=== PATIENT | female | born 1935 | race Caucasian/White ===

== ENCOUNTER → 2023-05-25 14:52 | Outpatient (REF) | payer MEDICARE, OTHER, SELFPAY | LOC: REG 14:52 | PROVIDERS: ATTENDING PHYSICIAN Internal Medicine Infectious Disease; FAMILY PHYSICIAN Family Medicine | DX: R78.81 Bacteremia (principal) | CPT/HCPCS: 36415; 87040 ==

== ENCOUNTER → 2023-06-10 11:32 | Outpatient (REF) | payer MEDICARE, OTHER, SELFPAY ==
[2023-06-10 12:24] LABS: % Basophils 0.4 % (0-2); % Eosinophils 2.5 % (0-6); % Immature Granulocytes 5.8 % (0-0.5); % Lymphocytes 62.2 % (20.5-51.1); % Monocytes 7.2 % (1.7-9.3); % Neutrophils 21.9 % (42.2-75.2); Absolute Eosinophils 0.1 10^3/uL (0-0.7); Absolute Immature Granulocytes 0.3 10^3/uL (0-0.05); Absolute Lymphocytes 3.5 10^3/uL (1.2-3.4); Absolute Monocytes 0.4 10^3/uL (0.1-0.6); Absolute Neutrophils 1.2 10^3/uL (1.4-6.5); Hematocrit 41.7 % (37.0-47.0); Hemoglobin 13.8 g/dL (12.0-16.0); Mean Corp Hgb Conc. 33.1 g/dL (33.0-37.0); Mean Corpuscular Hgb 31.4 pg (27.0-31.0); Mean Corpuscular Volume 94.8 fL (81.0-99.0); Mean Platelet Volume 11.4 fL (7.4-10.4); Nucleated Red Blood Cells % 0 %; Platelet Count 169 10^3/uL (130-400); Red Cell Dist. Width 14.1 % (11.5-14.5); White Blood Cell Count 5.6 10^3/uL (4.8-10.8)
[2023-06-10 12:55] LABS: ALT (SGPT) 13 U/L (0-35); AST (SGOT) 25 U/L (14-36); Albumin 3.8 g/dl (3.5-5.0); Alkaline Phosphatase 102 U/L (38-126); Blood Urea Nitrogen 21 mg/dl (7-17); Calcium 9.4 mg/dl (8.4-10.2); Carbon Dioxide 29 mmol/L (22-30); Chloride 100 mmol/L (98-107); Glucose 139 mg/dl (70-99); HDL Cholesterol 63 mg/dl; LDL Cholesterol, Calculated 84 mg/dl; Potassium 3.9 mmol/L (3.5-5.1); Sodium 138 mmol/L (135-145); Total Bilirubin 0.8 mg/dl (0.2-1.3); Total Cholesterol 165 mg/dl (50-199); Total Protein 6.8 g/dl (6.3-8.2); Triglyceride 94 mg/dl (10-149); Very Low Density Lipoprotein 18 mg/dl (0-30); eGFR 54.87
[2023-06-10 13:24] LABS: TSH Reflex To Free T4 4.63 uIU/ml (0.47-4.68)
== END ==
LOC: REG 11:32
PROVIDERS: ATTENDING PHYSICIAN Family Medicine
DX: E03.9 Hypothyroidism, unspecified (principal); E78.00 Pure hypercholesterolemia, unspecified; E11.21 Type 2 diabetes mellitus with diabetic nephropathy; N18.31 Chronic kidney disease, stage 3a; D68.69 Other thrombophilia
CPT/HCPCS: 36415; 80053; 80061; 84443; 85025

== ENCOUNTER → 2023-08-02 12:59 | Outpatient (REF) | payer MEDICARE, OTHER, SELFPAY | LOC: RAD 12:59 | PROVIDERS: ATTENDING PHYSICIAN Physician Assistant; FAMILY PHYSICIAN Family Medicine | DX: I65.23 Occlusion and stenosis of bilateral carotid arteries (principal) | CPT/HCPCS: 93880 ==

== ENCOUNTER 2023-12-09 15:12 | Emergency (ER) | payer MEDICARE, OTHER, SELFPAY ==
[2023-12-09 15:19] VITALS: BP 140/58
[2023-12-09 15:38] LABS: % Basophils 0.2 % (0-2); % Eosinophils 3.5 % (0-6); % Immature Granulocytes 0.7 % (0-0.5); % Lymphocytes 45.6 % (20.5-51.1); % Monocytes 11.6 % (1.7-9.3); % Neutrophils 38.4 % (42.2-75.2); Absolute Eosinophils 0.2 10^3/uL (0-0.7); Absolute Lymphocytes 1.9 10^3/uL (1.2-3.4); Absolute Monocytes 0.5 10^3/uL (0.1-0.6); Absolute Neutrophils 1.6 10^3/uL (1.4-6.5); Hematocrit 35.9 % (37.0-47.0); Hemoglobin 11.9 g/dL (12.0-16.0); Mean Corp Hgb Conc. 33.1 g/dL (33.0-37.0); Mean Corpuscular Hgb 29.4 pg (27.0-31.0); Mean Corpuscular Volume 88.6 fL (81.0-99.0); Mean Platelet Volume 12.2 fL (7.4-10.4); Nucleated Red Blood Cells % 0 %; Platelet Count 145 10^3/uL (130-400); Red Blood Cell Count 4.05 10^6/uL (4.20-5.40); Red Cell Dist. Width 15.7 % (11.5-14.5); White Blood Cell Count 4.2 10^3/uL (4.8-10.8)
[2023-12-09 15:58] LABS: ALT (SGPT) 23 U/L (0-35); AST (SGOT) 45 U/L (14-36); Albumin 4.3 g/dl (3.5-5.0); Alkaline Phosphatase 108 U/L (38-126); Blood Urea Nitrogen 39 mg/dl (7-17); Calcium 9.1 mg/dl (8.4-10.2); Carbon Dioxide 33 mmol/L (22-30); Chloride 92 mmol/L (98-107); Glucose 143 mg/dl (70-99); Potassium 2.9 mmol/L (3.5-5.1); Sodium 137 mmol/L (135-145); Total Bilirubin 1.2 mg/dl (0.2-1.3); Total Protein 7.3 g/dl (6.3-8.2); eGFR 36.41
[2023-12-09 17:31] VITALS: BP 120/64
--- NOTE | 2023-12-09 17:32 | ED.GENMED ---
History of Present Illness
General
Chief Complaint: Abnormal Lab Value
Source: patient
Exam Limitations: none
Time Seen by Provider: 12/09/23 17:12
History of Present Illness
History of Present Illness:
88 year old female with history of CHF presents in referral from family doctor's office after being told outpatient labs demonstrated low potassium. She was volume overloaded last week and the family doctor added 5 mg of metaxalone daily. She
typically takes 120 mg of Lasix in the morning and 80 of Lasix in the evening. She states her fluid retention is much improved she has been feeling well without shortness of breath. She occasionally notes some lightheadedness when she stands more
recently. She was able to sleep comfortably last night. She was told her potassium as an outpatient was 2.6 and was referred here for evaluation. No other complaints at this time
Past History
Past History
ED Past Medical History: Cancer (Breast), HTN and Hypercholesterolemia
ED Past Surgical History: Cardiac and Other
Social History
Tobacco: Non-smoker
Alcohol: None
Drug: None
Living: with family
Employment: Retired
Phy Exam
Physical Exam
Physical Exam:
General: Well-appearing female no acute respiratory distress
HEENT: Normal cephalic atraumatic
Heart: Regular rate and rhythm
Lungs: Clear no wheeze
Abdomen is soft nontender
Extremities: No cyanosis or edema
Course
Orders/Labs/Results
Orders:
Orders
12/09/23 15:29
CBC/With Diff [Complete Blood Count/With Diff] Urgent
CMP [Comprehensive Metabolic Panel] Urgent
12/09/23 17:37
Potassium Chloride [KCl] 40 meq PO NOW STA
Abnormal Lab Results
12/09/23
15:29
WBC 4.2 L 10^3/uL
(4.8-10.8)
RBC 4.05 L 10^6/uL
(4.20-5.40)
Hgb 11.9 L g/dL
(12.0-16.0)
Hct 35.9 L %
(37.0-47.0)
RDW 15.7 H %
(11.5-14.5)
MPV 12.2 H fL
(7.4-10.4)
Immature Gran % 0.7 H %
(0-0.5)
Neutrophils % 38.4 L %
(42.2-75.2)
Monocytes % 11.6 H %
(1.7-9.3)
Potassium 2.9 L mmol/L
(3.5-5.1)
Chloride 92 L mmol/L
(98-107)
Carbon Dioxide 33 H mmol/L
(22-30)
BUN 39 H mg/dl
(7-17)
Creatinine 1.4 H mg/dL
(0.6-1.0)
Glucose 143 H mg/dl
(70-99)
AST 45 H U/L
(14-36)
12/09/23 15:29
12/09/23 15:29
Vital Signs
Initial and Last Documented VS:
Initial Vital Signs
Temp Pulse Resp BP Pulse Ox
97.8 F 54 18 140/58 96
12/09/23 15:19 12/09/23 15:19 12/09/23 15:19 12/09/23 15:19 12/09/23 15:19
Last Documented Vital Signs
Temp Pulse Resp BP Pulse Ox
97.8 F 52 18 120/64 97
12/09/23 15:19 12/09/23 17:31 12/09/23 17:31 12/09/23 17:31 12/09/23 17:31
*Critical Care Note
Total Time (30-74mins, 75-104mins- exclusive of procedures): Not Applicable
Update Note
Update Note:
Patient was given 40 mill equivalents of oral potassium here. She was advised to stop the metaxalone. She will continue 20 meq of potassium twice a day and recheck blood work next week
ED Attending Note
-
Portions of this chart may have been created with voice recognition software.� Occasional wrong word or��sound alike� substitutions may have occurred due to the inherent limitations of voice recognition software.
Discharge Plan
Departure
Patient Disposition: Home (Routine Discharge)
Date of Disposition: 12/09/23
Time of Disposition: 18:42
Patient with high blood pressure during this ER visit?: No
Discharge Problem:
Hypokalemia
Instructions: Hypokalemia
Prescriptions:
New
potassium chloride 20 mEq tablet extended release
20 meq PO BID Qty: 10 0RF
No Action
atorvastatin 10 MG tablet
10 mg PO QPM
levothyroxine 125 MCG tablet
125 mcg PO MOTUWETHFRSA
felodipine 10 MG tablet extended release 24 hr
10 mg PO QPM
Eliquis 5 MG tablet
5 mg PO BID Qty: 60 11RF
amiodarone [Pacerone] 200 MG tablet
200 mg PO QPM
metoprolol succinate 25 MG tablet extended release 24 hr
25 mg PO QPM
furosemide [Lasix] 80 mg Tablet
80 mg PO BID
potassium chloride 20 mEq Tablet Extended Release
20 meq PO BID
acetaminophen [Tylenol] 325 mg Tablet
650 mg PO Q6H PRN (Reason: mild pain)
Emetrol Solution
15 ml PO DAILYPRN PRN (Reason: nausea)
ceftriaxone 1 gram Recon Soln
1,000 mg IV DAILY@1200 Qty: 0 0RF
Referrals:
Laith Rojas MD [Family Provider] -
Activity Restrictions/Additional Instructions:
Stop the new diuretic. Take 20 mill equivalents of potassium twice a day. Recheck labs early next week with family doctor. Return if needed other
Discharge Date and Time
Print Language: ALBANIAN
[2023-12-09] MEDS: KCL 40 MEQ PO (17:46)
[2023-12-09 18:50] VITALS: BP 130/70
== END 2023-12-09 18:59 | disposition home or self-care (01) ==
LOC: EMR 15:12
PROVIDERS: EMERGENCY PHYSICIAN Emergency Medicine; FAMILY PHYSICIAN Family Medicine
DX: R42 Dizziness and giddiness (principal); E87.6 Hypokalemia; I11.0 Hypertensive heart disease with heart failure; I50.9 Heart failure, unspecified; E78.00 Pure hypercholesterolemia, unspecified; Z85.3 Personal history of malignant neoplasm of breast; Z79.01 Long term (current) use of anticoagulants; Z88.6 Allergy status to analgesic agent; Z88.2 Allergy status to sulfonamides; Z88.8 Allergy status to other drugs, medicaments and biological substances
CPT/HCPCS: 99283; 80053; 85025

== ENCOUNTER 2023-12-19 06:24 | Inpatient (IN) | payer MEDICARE, OTHER, SELFPAY ==
[2023-12-19] VITALS (10 sets, daily range): BP systolic 109–149; BP diastolic 52–97; PULSE 53; O2SAT 97; BMI 50.5; BMI 50.2; BMI 49.5
[2023-12-19 04:12] LABS: % Basophils 0.2 % (0-2); % Immature Granulocytes 0.6 % (0-0.5); % Lymphocytes 48.5 % (20.5-51.1); % Monocytes 8.3 % (1.7-9.3); % Neutrophils 36.4 % (42.2-75.2); Absolute Eosinophils 0.3 10^3/uL (0-0.7); Absolute Lymphocytes 2.3 10^3/uL (1.2-3.4); Absolute Monocytes 0.4 10^3/uL (0.1-0.6); Absolute Neutrophils 1.8 10^3/uL (1.4-6.5); Hematocrit 34.1 % (37.0-47.0); Hemoglobin 11.4 g/dL (12.0-16.0); Mean Corp Hgb Conc. 33.4 g/dL (33.0-37.0); Mean Corpuscular Hgb 28.6 pg (27.0-31.0); Mean Corpuscular Volume 85.7 fL (81.0-99.0); Mean Platelet Volume 12.8 fL (7.4-10.4); Nucleated Red Blood Cells % 0 %; Platelet Count 132 10^3/uL (130-400); Red Blood Cell Count 3.98 10^6/uL (4.20-5.40); Red Cell Dist. Width 15.9 % (11.5-14.5); White Blood Cell Count 4.8 10^3/uL (4.8-10.8)
[2023-12-19 04:39] LABS: NT-proBNP 3190 pg/ml; Troponin I < 0.012 ng/ml
[2023-12-19 04:58] LABS: ALT (SGPT) 25 U/L (0-35); AST (SGOT) 41 U/L (14-36); Albumin 4.2 g/dl (3.5-5.0); Alkaline Phosphatase 118 U/L (38-126); Blood Urea Nitrogen 38 mg/dl (7-17); Calcium 9.7 mg/dl (8.4-10.2); Carbon Dioxide 23 mmol/L (22-30); Chloride 100 mmol/L (98-107); Estimated Creatinine Clearance 36 ml/min; Glucose 141 mg/dl (70-99); Potassium 4.8 mmol/L (3.5-5.1); Sodium 139 mmol/L (135-145); Total Bilirubin 1.5 mg/dl (0.2-1.3); Total Protein 7.1 g/dl (6.3-8.2); eGFR 36.41
--- NOTE | 2023-12-19 05:40 | ED.GENMED ---
History of Present Illness
General
Chief Complaint: Weakness
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
Exam Limitations: none
Time Seen by Provider: 12/19/23 05:34
Nursing documentation reviewed up to this point in time: agreed with
History of Present Illness
History of Present Illness:
This is an 88-year-old woman who resides at home with family. She has history of hypertension, spinal stenosis, hyperlipidemia, carotid stenosis, A-fib chronically maintained on Eliquis, sick sinus syndrome status post pacemaker, CHF, morbid
obesity. Previously hospitalized April of this year for exacerbation of CHF with hypoxia and also found to have strep bacteremia at that time. Chronically maintained on Lasix 120 mg in the a.m., 80 mg in the evening.
Last evaluated in this ED December 08 when she was sent to the ED due to concern for outpatient labs that showed significant hypokalemia at 2.6. Hypokalemia thought to be related to increase in diuretic, family physician had added 5 mg of metolazone
daily the week prior due to fluid overload. Repeat potassium in the ED was 2.9. She was given 40 of potassium orally, discharged to home and recommended to increase her dose of potassium 20 mg from once a day to twice a day. She was also
recommended to stop the Metolazone.
Follow-up blood work this past mid week she states she got a call from her primary care physician's office on Wednesday stating potassium was still low and to increase potassium to 40 mg twice daily as well as Lasix was decreased to 80 mg in the
morning, continued 80 mg in the evening.
Since Wednesday patient complains of intermittent nausea more so after taking her potassium and also has had increase in lower extremity edema and some pressure/achiness in her left calf. She does admit to chronic pain left calf after an injury at
least a year ago. She has had progressive dyspnea on exertion over the past few days with increased shortness of breath throughout the night tonight prompting call to 911. She has not had a cough, no fever nor chills. She admits to nausea but has
had no vomiting. Appetite has remained normal. No chest pain or palpitations.
Past History
Past History
ED Past Medical History: Arrthythmia (Paroxysmal atrial fibrillation), Cancer (Breast), CHF, HTN, Hypercholesterolemia, NIDDM and Other (Carotid artery disease, morbid obesity, chronic kidney disease)
ED Past Surgical History: Cardiac (Pacemaker) and Other
Social History
Tobacco: Non-smoker
Alcohol: None
Drug: None
Living: with family
Employment: Retired
Family History
Family History: Other (Noncontributory)
Phy Exam
Physical Exam
Physical Exam:
GENERAL: 88-year-old morbidly obese woman appears her stated age, awake and alert, appears in mild distress, mild resting tachypnea with moderate dyspnea on exertion. No cough. Able to speak in short sentences. Daughter is accompanying.
EYE: anicteric
NECK: Supple, nontender, no meningismus, no significant adenopathy. Moderate JVD.
ENT: oral mucosa is moist. No rhinorrhea.
CARDIAC: Regular rate and rhythm. 2/6 holosystolic murmur left sternal border.
LUNGS: Mild resting tachypnea, bibasilar rales without one third of the way up bilaterally.
ABDOMEN: Obese, soft, nondistended, without focal tenderness, no r/g, no cvat. normoactive BS.
NEUROLOGICAL: Alert and oriented x3, no focal neuro deficits. Motor strength is 5/5 bilaterally. Gross sensation is intact.
SKIN: Warm and dry, mildly pale in color, superficial subacute abrasion left anterolateral lower leg without erythema nor drainage.
MUSCULOSKELETAL: No clubbing or cyanosis. Lymphedema bilateral lower extremities with mild global tenderness about the left calf. Peripheral pulses are full and equal b/l.
PSYCH: Normal and appropriate interaction.
Scores
Heart Failure Risk
Heart Failure Risk Score: Yes
History of Stroke or TIA: No
History of intubation for respiratory distress: No
Heart rate on ED arrival >/= 110: No
SaO2 <90% on arrival on room air: No
HR >/=110 during 3min walk test (or too ill to perform test): Yes
ECG has acute ischemic changes: Yes
Urea >/=12mmol/L (BUN 33.6mg/dL): Yes
Serum CO2>/=35mmol/L: No
Troponin I or T elevated to [place] Level (0.4mg/dL): No
NT-proBNP >/=5,000ng/L (5,000pg/ml): No
HF Risk Score: 5
Admission Status: VERY HIGH RISK 39.8% Consider admission to hospital
Course
Orders/Labs/Results
Orders:
Orders
12/19/23 04:03
EKG [Electrocardiogram (*1)] Urgent
Reason for Study: Shortness of Breath
12/19/23 04:04
EKG- Treatment ONCE
12/19/23 04:05
Complete Blood Count/With Diff Urgent
Comprehensive Metabolic Panel Urgent
NT-proBNP Urgent
Troponin I Urgent
12/19/23 05:01
CR Chest - 2 Views Urgent
Comment:
Reason For Exam: sob
Abnormal Lab Results
12/19/23
04:05
RBC 3.98 L 10^6/uL
(4.20-5.40)
Hgb 11.4 L g/dL
(12.0-16.0)
Hct 34.1 L %
(37.0-47.0)
RDW 15.9 H %
(11.5-14.5)
MPV 12.8 H fL
(7.4-10.4)
Immature Gran % 0.6 H %
(0-0.5)
Neutrophils % 36.4 L %
(42.2-75.2)
BUN 38 H mg/dl
(7-17)
Creatinine 1.4 H mg/dL
(0.6-1.0)
Glucose 141 H mg/dl
(70-99)
Total Bilirubin 1.5 H mg/dl
(0.2-1.3)
AST 41 H U/L
(14-36)
12/19/23 04:05
12/19/23 04:05
Vital Signs
Initial and Last Documented VS:
Initial Vital Signs
Temp Pulse Resp BP Pulse Ox
97.7 F 50 18 134/97 96
12/19/23 03:53 12/19/23 03:53 12/19/23 03:53 12/19/23 03:53 12/19/23 03:53
Last Documented Vital Signs
Temp Pulse Resp BP Pulse Ox
97.7 F 47 11 115/71 96
12/19/23 03:53 12/19/23 05:00 12/19/23 05:00 12/19/23 05:00 12/19/23 05:00
MDM/Problems Addressed
Differential Diagnosis Includes:
Concern for acute on chronic CHF, electrolyte abnormality, gastroenteritis, ACS.
EKG shows AV sequential pacing at bradycardic rate at 47. She remains hemodynamically stable at rest but there is some concern that generalized weakness and shortness of breath may be bradycardia related.
Will check labs, chest x-ray and due to complaints of left calf pain will check ultrasound left lower extremity assess for DVT. Reassuring the patient is maintained on Eliquis twice daily and denies skipping doses.
Chronic conditions affecting care: DM, HTN, Cardiomyopathy, Arrhythmia and Kidney disease
Acute Exacerbation and/or Progression of Chronic Illness: Cardiomyopathy
*Radiology
Radiology exam reviewed: preliminary read by ED provider (Chest x-ray shows cardiomegaly, increased interstitial markings that are more pronounced compared to previous film concerning for CHF.)
*Pulse Oximetry
Patient hypoxic: no
*EKG
Interpreted by ED Provider?: Yes
Interpretation: abnormal
Comparison EKG: changes noted (A-fib with rapid ventricular response is replaced by AV sequential pacing at bradycardic rate at 47)
Rate: bradycardiac
Rhythm: av sequential
*[employer] Interpretation
Rate: bradycardiac
Interpretation: abnormal
Rhythm: av sequential
*Critical Care Note
Total Time (30-74mins, 75-104mins- exclusive of procedures): Not Applicable
Update Note
Update Note:
Chest x-ray concerning for CHF, more pronounced compared to previous film.
Potassium has now normalized. Elevated BUN and creatinine, similar to previous.
BNP is elevated at 3200, has trended up from previous at 1880.
Will give an IV dose of Lasix and plan to admit to hospitalist service.
ED Attending Note
-
Portions of this chart may have been created with voice recognition software.� Occasional wrong word or��sound alike� substitutions may have occurred due to the inherent limitations of voice recognition software.
Discharge Plan
Departure
Patient Disposition: Admit
Date of Disposition: 12/19/23
Time of Disposition: 05:51
Admit to: Telemetry
Admit to doctor: Az
Presentation/result/management discussed w/ accepting MD/DO: Hospitalist
Condition: Fair
Discharge Problem:
Acute on chronic diastolic (congestive) heart failure, AV sequential pacing at bradycardic rate
Prescriptions:
No Action
atorvastatin 10 MG tablet
10 mg PO QPM
levothyroxine 125 MCG tablet
125 mcg PO DAILY
felodipine 10 MG tablet extended release 24 hr
10 mg PO QPM
Eliquis 5 MG tablet
5 mg PO BID Qty: 60 11RF
amiodarone [Pacerone] 200 MG tablet
200 mg PO QPM
metoprolol succinate 25 MG tablet extended release 24 hr
25 mg PO QPM
furosemide [Lasix] 80 mg Tablet
80 mg PO BID
acetaminophen [Tylenol] 325 mg Tablet
650 mg PO Q6H PRN (Reason: mild pain)
melatonin
1 tab PO HS
Patient Comments:
daughter does not know dosage
potassium chloride 20 mEq tablet extended release
40 meq PO BID
Referrals:
UNKNOWN - PT DOES,NOT KNOW [Family Provider] -
Interventions
Interventions:
*Risk Screen - Suicide Last Done: 12/19/23 03:46
*General Assessment Last Done: 12/19/23 03:46
*Neglect/Abuse Screening Last Done: 12/19/23 03:46
ED- Fall Risk Assessment Last Done: 12/19/23 03:58
*ED COVID-19 Vaccine History Last Done: 12/19/23 03:46
ED- Cardiac Assessment Last Done: 12/19/23 04:19
ED- Neurological Assessment Last Done: 12/19/23 04:19
ED- Pulmonary Assessment Last Done: 12/19/23 04:19
Discharge Date and Time
Print Language: DANISH
--- NOTE | 2023-12-19 05:54 | HPS.HSE ---
Family Physician
-
Family Physician: NOT KNOW UNKNOWN - PT DOES
Chief Complaint
-
SoB
History of Present Illness
88F morbidly obese HX chr HFpEF, CKD4 , HTN, HLD, A Fib , chr Eliquis , SSS. s/p PPM pw progressive SoB , despite addition of increase in diuretic, adding 5 mg of metaxalone daily due to fluid overload.
Recently seen at ER on 12/08 , noted severe hypokalemia double her dose of oral potassium 20 mg BID which she has been doing over this past week
Medical History
Past Medical History
Past Medical History: Reports Other
Additional Past Medical History:
hypertension, spinal stenosis, lipidemia, carotid stenosis, atrial fibrillation, sick sinus syndrome status post pacemaker, CHF, hyperlipidemia
Past Surgical History: Reports Cardiac
Social History
Tobacco: Non-smoker
Alcohol: None
Drug: None
Family History
Family History: Not pertinent
Allergies / Home Medications
Allergies reflects when Allergies were last updated in [email or web address].
Home Medications with original date entered in [email or web address]
Allergy/Medication List:
Allergies
Allergy/AdvReac Type Severity Reaction Status Date / Time
aspirin Allergy Unknown Verified 06/18/21 10:38
NSAIDS (Non-Steroidal Allergy Unknown Verified 06/18/21 10:38
Anti-Inflamma
Salicylates * Allergy Unknown Verified 06/18/21 10:38
Sulfa (Sulfonamide Allergy Unknown Verified 06/18/21 10:38
Antibiotics)
Home Medications
atorvastatin 10 mg tablet 10 mg PO QPM High cholesterol 05/07/21
felodipine 10 mg tablet,extended release 24 hr 10 mg PO QPM Heart disease/condition 05/07/21
levothyroxine 125 mcg tablet 125 mcg PO MOTUWETHFRSA Thyroid 05/07/21
apixaban 5 mg tablet (Eliquis) 5 mg PO BID Blood clot prevention/tx #60 tabs 05/12/21
acetaminophen 325 mg tablet (Tylenol) 650 mg PO Q6H PRN mild pain 04/24/23
amiodarone 200 mg tablet (Pacerone) 200 mg PO QPM Arrhythmia 04/24/23
furosemide 80 mg tablet (Lasix) 80 mg PO BID 04/24/23
metoprolol succinate 25 mg tablet,extended release 24 hr 25 mg PO QPM Heart disease/condition 04/24/23
phosphorated carbohydrate oral solution (Emetrol oral solution) 15 ml PO DAILYPRN PRN nausea 04/24/23
potassium chloride 20 mEq tablet,extended release 20 meq PO BID 04/24/23
Review of Systems
-
History Source: Patient
A 12 point ROS was completed and negative except as noted: Yes
Respiratory: Reports Trouble Breathing
Physical Exam
Vital Signs
Vital Signs
Temp Pulse Resp BP Pulse Ox
97.7 F 47 11 115/71 96
12/19/23 03:53 12/19/23 05:00 12/19/23 05:00 12/19/23 05:00 12/19/23 05:00
Physical Exam
General: No Apparent Distress and Comfortable
HEENT: Anicteric, Moist mucous membranes and Other (prominent JVD )
Respiratory: Clear and Non Labored Respirations; No Wheezes
Cardiac: S1/S2, JVD (prominent ) and Other (paced rhythm); No Tachycardia
Breast: Deferred by me
GI: Soft, Non Tender, Non Distended and Normal Bowel Sounds
Rectal: Deferred by Provider
Musculoskeletal: Edema, Left Lower Extremity and Edema, Right Lower Extremity
Neuro: Awake, Alert, Oriented and AO x 3
Psych: Calm
Laboratory Results
-
12/19/23 04:05
12/19/23 04:05
Laboratory Results
Total Bilirubin 1.5 mg/dl (0.2-1.3) H 12/19/23 04:05
AST 41 U/L (14-36) H 12/19/23 04:05
ALT 25 U/L (0-35) 12/19/23 04:05
Alkaline Phosphatase 118 U/L (38-126) 12/19/23 04:05
Troponin I < 0.012 ng/ml 12/19/23 04:05
Impression/Plan
-
Vital Signs
Temp Pulse Resp BP Pulse Ox
97.7 F 47 11 115/71 96
12/19/23 03:53 12/19/23 05:00 12/19/23 05:00 12/19/23 05:00 12/19/23 05:00
12/19/23
03:53 12/19/23
05:45
Actual Weight 125 kg 124.4 kg
12/09/23 12/19/23
15:29 04:05
BUN 38 H
Creatinine 1.4 H 1.4 H
eGFR 36.41 36.41
Troponin I < 0.012
[id number] Pept 3190
ASSESSMENT & PLAN
Progressive Dyspnea
Stable Wt
suspect chr HFpEF flare
Elevated pro BNP 3190
Echo in 2021 with normal EF; update echo
Stable CKD3b
- IV Lasix 80 BID
- daily Wt and IOs
- [facility] card consult
B/Radu edema suspect expanded volume
- pending Legs US but she is on Eliquis
Paroxysmal atrial fibrillation
AV paced Rhythm with rate in 40s
- cw Eliquis, Amiodarone , , metoprolol succinate
- await [facility] card eval
HX bradycardia with pauses status post pacemaker
- Monitor
Essential hypertension
- cw metoprolol, Felodipine
Hypothyroidism
-cw Synthroid
Hyperlipidemia
- cw statin
HX Strep bacteriemia May 2023
Chronic condition:
Severe left carotid stenosis HX
HX spinal stenosis with chr ambulatory dysfunction : use walker
Morbid obesity per BMI
HX right breast cancer with a lumpectomy
DVT Px: Eliquis
Code: Full
IP TLM
[2023-12-19] MEDS: LASIX 100 MG IV (08:31)
[2023-12-19] MEDS: KCL 40 MEQ PO ×2 (08:31→21:13)
[2023-12-19] MEDS: SYNTHROID 125 MCG PO (08:31)
[2023-12-19] MEDS: ELIQUIS 5 MG PO ×2 (08:31→21:13)
[2023-12-19] MEDS: LASIX IV (08:32)
--- NOTE | 2023-12-19 10:43 | W.PN.HOSP.TC ---
Today's Communication/Plan
-
cont lasix
pending Echo
Assessment / Plan
Assessment / Plan
88yo F with PMHx of HLD, Afib, CKD, SSS s/p PPM, spinal stenosis, chronic ambulatory deficiency came with worsening SOB and LE swelling for weeks. FOund CHF exacerbation
A/P:
#Acute on chronic HFpEF exacerbation
Elevated proBNP on admission
COnt Lasix, daily weigt, follow electrolytes, repeat Echo
Cardiology consult
LE US neg for DVT
#Mild bilirubuin elevation
check direct bili, LDH
#Afib, unspecified
#Essential HTN
#HLD
#Hypothyroidism
#CKD stage 3b
cont home meds
check TSH
#Morbid obesity
with BMI 49.5
Advise to decrease calorie intake
DVT ppx Eliquis
Full code
I have spent at least 38min reviewing chart, test results, communication with consultants and direct patient care
Anticipated Discharge: 24 - 48 hours
Subjective/Interval History
-
Date of Service: December 19, 2023
Objective Data
-
Labs:
Laboratory Results
12/19/23
04:05
WBC 4.8
Hgb 11.4 L
Hct 34.1 L
Plt Count 132
Sodium 139
Potassium 4.8
Chloride 100
Carbon Dioxide 23
BUN 38 H
Creatinine 1.4 H
Glucose 141 H
Calcium 9.7
Total Bilirubin 1.5 H
AST 41 H
ALT 25
Alkaline Phosphatase 118
Vital Signs:
Vital Signs
Temp Pulse Resp BP Pulse Ox
97.4 F 51 24 149/67 95
12/19/23 07:00 12/19/23 07:00 12/19/23 07:00 12/19/23 07:00 12/19/23 07:00
Review of Systems
-
History Source: Patient
All other systems: Reviewed and negative
Physical Exam
-
General: No Apparent Distress and Obese
HEENT: Normocephalic
Respiratory: Clear to Auscultation
Cardiac: Regular Rhythm
GI: Soft, Nontender and Nondistended
Musculoskeletal: No Clubbing, No Cyanosis, Edema, Right Lower Extrem and Edema, Left Lower Extrem
Skin: Warm
Neuro: Awake, Alert, Oriented and AO x 3
Psych: Calm
[2023-12-19 11:26] LABS: Direct Bilirubin 0.5 mg/dl (0.0-0.4); LDH 327 U/L (120-246)
--- NOTE | 2023-12-19 11:50 | CON.CAR ---
Consultation
Consultation Request
Date/Time Consultation Requested: 12/19/2023 8AM
Date/Time Consultation Performed: 12/19/2023 1201 PM
Requesting Provider: Dr Kim
Performing Provider: Dr Nery Hutchinson
Reason for Consultation: Shortness of breath
Medical History
-
Chief Complaint: Shortness of breath
History of Present Illness:
She has history of atrial fibrillation, permanent pacemaker, heart failure with preserved ejection fraction, CKD and morbid obesity with admission 04/2023 for hypoxemic respiratory failure, heart failure with preserved ejection fraction and strep
bacteremia. She was recently in the emergency department 12/09/2023 with hypokalemia and treated. She now presents to the ER with complaints of edema pressure in her left calf after chronic injury and dyspnea on exertion with shortness of breath
throughout the night prompting a call to 911. She tells me that she has noted lower extremity edema, dyspnea on exertion, orthopnea for which she has to raise her bed which is adjustable at night. She is limited with ambulation because of spinal
stenosis and her left leg gives out at times.
She denies chest pain and syncope. She does have a tendency to falls if not using her walker or trying to balance.
According to office notes prior discharge weight was 263 pounds. Weight on presentation was 275 pounds.
Labs with hemoglobin 11.4 BUNs/creatinine 38/1.4. AST mildly elevated at 41 ALT normal. Troponin negative. Potassium 4.8.
proBNP 3190 (04/24/2023 1880).
Peripheral vascular ultrasound venous 12/19/2023 no evidence of left lower extremity DVT.
Chest x-ray 12/19/2023 mild acute interstitial and alveolar pulmonary edema which is less severe than 04/24/2023. Mild cardiomegaly. Elevation of the right hemidiaphragm.
Past Medical History
Past Medical History: Arrhythmias (Atrial fibrillation, sick sinus syndrome, permanent pacemaker), Cancer (History of breast cancer status postlumpectomy and XRT once remotely and then more recently 14 years ago), CHF (Heart failure with preserved
ejection fraction), HTN, Hypercholesterolemia, Renal Failure (Chronic kidney disease) and Other (Obesity, spinal stenosis, carotid disease left greater than right followed by vascular)
Past Surgical History: Cardiac (Pacemaker), Gynecological (D&Cs), Orthopedic (Carpal tunnel surgery) and Other (Lumpectomy, cataract surgery)
Social History
Tobacco: Former Smoker
Family History
Family History: Reviewed & Not Pertinent
Allergies / Home Medications
Allergy/AdvReac Type Severity Reaction Status Date / Time
Sulfa (Sulfonamide Allergy Severe Anaphylaxis Verified 12/19/23 04:44
Antibiotics)
aspirin Allergy Mild Nausea / Verified 12/19/23 04:44
Vomiting
NSAIDS (Non-Steroidal Allergy Unknown Verified 12/19/23 04:44
Anti-Inflamma
Salicylates * Allergy Unknown Verified 12/19/23 04:44
�Medication �Instructions �Recorded �Confirmed �Type
atorvastatin 10 mg tablet 10 mg PO QPM High cholesterol 05/07/21 12/19/23 History
felodipine 10 mg tablet,extended 10 mg PO QPM Heart 05/07/21 12/19/23 History
release 24 hr disease/condition
levothyroxine 125 mcg tablet 125 mcg PO DAILY Thyroid 05/07/21 12/19/23 History
apixaban 5 mg tablet (Eliquis) 5 mg PO BID Blood clot 05/12/21 12/19/23 Rx
prevention/tx #60 tabs
acetaminophen 325 mg tablet 650 mg PO Q6H PRN mild pain 04/24/23 12/19/23 History
(Tylenol)
amiodarone 200 mg tablet (Pacerone) 200 mg PO QPM Arrhythmia 04/24/23 12/19/23 History
furosemide 80 mg tablet (Lasix) 80 mg PO BID 04/24/23 12/19/23 History
metoprolol succinate 25 mg 25 mg PO QPM Heart 04/24/23 12/19/23 History
tablet,extended release 24 hr disease/condition
melatonin 1 tab PO HS 12/19/23 12/19/23 History
potassium chloride 20 mEq 40 meq PO BID 12/19/23 12/19/23 History
tablet,extended release
Review of Systems
-
History Source: Patient
All other systems: Negative unless noted
Constitutional: Weight Gain
Cardiac: Other (Shortness of breath, edema, PND/orthopnea)
Physical Exam
Vital Signs
Temp Pulse Resp BP Pulse Ox
97.7 F 51 17 134/64 96
12/19/23 11:00 12/19/23 11:00 12/19/23 11:00 12/19/23 11:00 12/19/23 11:00
Lab Results
12/19/23 04:05
12/19/23 04:05
Troponin I < 0.012 ng/ml 12/19/23 04:05
Nbw-K-[id number] Pept 3190 pg/ml 12/19/23 04:05
General: Elderly woman in no acute distress
Neck: Difficult to assess rally.
Heart: Distant heart sounds regular
Lungs: Crackles at the bases bilaterally decreased breath sounds at the bases
Extremities: No clubbing, cyanosis +1 edema bilaterally.
Neuro: Grossly nonfocal, awake, alert
Impression / Plan
-
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 Ramirez
Impression:
Acute on chronic heart failure with preserved ejection fraction
Paroxysmal atrial fibrillation on anticoagulation/amiodarone
Hypokalemia
Permanent pacemaker
Hyperlipidemia
Hypertension
Chronic kidney disease
Obesity
Carotid arterial disease
Carotid ultrasound 08/02/2023: Calcified plaque proximal internal carotid artery less than 50% internal carotid artery stenosis. Left carotid artery calcified plaque with greater than 70% internal carotid artery stenosis.
Echo 04/26/2023: Technically difficult study. EF 55 to 60%. Likely normal regional wall motion of but difficult to last obtained given rapid rate. Normal LV wall thickness. Mild MR. Aortic valve sclerosis. Trace AI. PA pressure 27 mmHg.
EKG 12/19/2023 dual-chamber pacemaker
Plan:
She has history of heart failure with preserved ejection fraction which is now acute on chronic. She has dyspnea on exertion, edema, increased weight, PND and orthopnea. proBNP is 3198 (04/2023 was 1880). Weight was 275 pounds and prior discharge
weight 263 pounds. She has comorbidities including hypertension, hyperlipidemia, carotid disease, paroxysmal atrial fibrillation, permanent pacemaker and obesity.
Acute on chronic heart failure with preserved ejection fraction
Agree with IV diuresis Lasix 80 mg IV twice daily. Seems to be diuresing well currently. If not diuresing well in the morning would add a single dose of Zaroxolyn to help intensify diuresis.
Sodium and fluid restricted diet discussed. She seems to drink excess fluid at home.
Heart failure nutrition and education consults
Discussed with patient SGLT2 inhibitors. She has frequent yeast infections so SGLT2 inhibitors are contraindicated
Echocardiogram ordered
If creatinine remains stable could consider for both heart failure and hypokalemia.
Continue to follow input/output and daily weights.
Paroxysmal atrial fibrillation
Currently in sinus rhythm. Last device download 10/2023 negative for atrial fibrillation recurrence.
Continue oral anticoagulation with [id number] score 5.
Continue amiodarone. TSH normal.
Sick sinus syndrome status post pacemaker implant
Check pacemaker
Hypertension
Blood pressure acceptable. Continue current treatment.
Hyperlipidemia
History of hyperlipidemia on statin
Chronic kidney disease
Stable. Follow labs.
Carotid arterial disease
Followed by vascular continue risk factor modification.
Obesity
Data Reviewed
-
EKG: Tracing Personally Visualized and interpreted
Radiology: Image Personally Visualized and interpreted
Ultrasound: Report Reviewed by me
Medical Tests (Nuc Med, Echo etc): Image Personally Visualized and interpreted
Labs: Labs Reviewed by me
Old Records: Reviewed
[2023-12-19 11:53] LABS: TSH 3.68 uIU/ml (0.47-4.68)
--- NOTE | 2023-12-19 16:09 | CM ---
Alert awake oriented patient who lives with her daughters Lizet and Madeleine vani [address]s tory home with a lyft to enter.She is assisted in all activates of daily living.She uses a cane
Had DH VN in past . No SNF hx
Pharmacy [facility]
PCP Dr Laith Rojas
PLAN Home with no anticipated needs
[2023-12-19] MEDS: LASIX 80 MG IV (17:05)
[2023-12-19] MEDS: PACERONE 200 MG PO (17:07)
[2023-12-19] MEDS: LIPITOR 10 MG PO (17:07)
[2023-12-19] MEDS: PLENDIL EXTENDED RELEASE 10 MG PO (17:08)
[2023-12-19] MEDS: TOPROL XL 25 MG PO (17:08)
[2023-12-19] MEDS: MELATONIN 5 MG PO (21:13)
[2023-12-20] VITALS (7 sets, daily range): BP systolic 114–145; BP diastolic 49–77; BMI 49.3
[2023-12-20] MEDS: SYNTHROID 125 MCG PO (05:44)
[2023-12-20] MEDS: ELIQUIS 5 MG PO ×2 (07:41→21:05)
[2023-12-20] MEDS: KCL 40 MEQ PO ×2 (07:41→21:05)
[2023-12-20] MEDS: LASIX 80 MG IV ×2 (07:42→16:32)
[2023-12-20 08:04] LABS: % Basophils 0.3 % (0-2); % Eosinophils 5.7 % (0-6); % Immature Granulocytes 1.9 % (0-0.5); % Lymphocytes 32.3 % (20.5-51.1); % Monocytes 12.1 % (1.7-9.3); % Neutrophils 47.7 % (42.2-75.2); Absolute Eosinophils 0.2 10^3/uL (0-0.7); Absolute Immature Granulocytes 0.1 10^3/uL (0-0.05); Absolute Lymphocytes 1.2 10^3/uL (1.2-3.4); Absolute Monocytes 0.5 10^3/uL (0.1-0.6); Absolute Neutrophils 1.8 10^3/uL (1.4-6.5); Hematocrit 32.6 % (37.0-47.0); Hemoglobin 10.6 g/dL (12.0-16.0); Mean Corp Hgb Conc. 32.5 g/dL (33.0-37.0); Mean Corpuscular Hgb 28.5 pg (27.0-31.0); Mean Corpuscular Volume 87.6 fL (81.0-99.0); Mean Platelet Volume 12.3 fL (7.4-10.4); Nucleated Red Blood Cells % 0 %; Platelet Count 108 10^3/uL (130-400); Red Blood Cell Count 3.72 10^6/uL (4.20-5.40); Red Cell Dist. Width 16.3 % (11.5-14.5); White Blood Cell Count 3.7 10^3/uL (4.8-10.8)
[2023-12-20 08:26] LABS: ALT (SGPT) 22 U/L (0-35); AST (SGOT) 36 U/L (14-36); Albumin 3.7 g/dl (3.5-5.0); Alkaline Phosphatase 100 U/L (38-126); Blood Urea Nitrogen 32 mg/dl (7-17); Calcium 9.6 mg/dl (8.4-10.2); Carbon Dioxide 28 mmol/L (22-30); Chloride 102 mmol/L (98-107); Estimated Creatinine Clearance 38 ml/min; Glucose 125 mg/dl (70-99); Magnesium 1.9 mg/dl (1.6-2.3); Potassium 4.8 mmol/L (3.5-5.1); Sodium 140 mmol/L (135-145); Total Bilirubin 1.7 mg/dl (0.2-1.3); Total Protein 6.6 g/dl (6.3-8.2)
--- NOTE | 2023-12-20 08:37 | W.PN.HOSP.TC ---
Today's Communication/Plan
-
CT chest/abd/pelvis
UA
onc consult
Cont Lasix, pending Echo
Assessment / Plan
Assessment / Plan
88yo F with PMHx of HLD, Afib, CKD, SSS s/p PPM, spinal stenosis, chronic ambulatory deficiency came with worsening SOB and LE swelling for weeks. Found CHF exacerbation. Also pancytopenia
A/P:
#Acute on chronic HFpEF exacerbation
Elevated proBNP on admission
COnt Lasix, daily weigt, follow electrolytes, repeat Echo
Cardiology consult
LE US neg for DVT
#Mild indirect bilirubinemia
#Pancytopenia
LDH mildly elevated
Not on heparin product - no concern for HIT
Possible reactive - CT chest/abd/pelvis and UA to be sent. Check Blood for parasites, Babesia, Lyme, however also no fevers
Check REY and get Hematology consult
#Chronic ambulatory deficiency 2/2 chronic spinal stenosis
PT/OT
Was able to move as per patient baseline
#Afib, unspecified
#Essential HTN
#HLD
#Hypothyroidism
#CKD stage 3b
cont home meds
TSH WNL
#Morbid obesity
with BMI 49.5
Advise to decrease calorie intake
DVT ppx Eliquis
Full code
I have spent at least 58min reviewing chart, test results, communication with consultants and direct patient care
Anticipated Discharge: 24 - 48 hours
Subjective/Interval History
-
Date of Service: December 20, 2023
Objective Data
-
Labs:
Laboratory Results
12/20/23
06:53
WBC 3.7 L
Hgb 10.6 L
Hct 32.6 L
Plt Count 108 L
Sodium 140
Potassium 4.8
Chloride 102
Carbon Dioxide 28
BUN 32 H
Creatinine 1.3 H
Glucose 125 H
Calcium 9.6
Total Bilirubin 1.7 H
AST 36
ALT 22
Alkaline Phosphatase 100
Vital Signs:
Vital Signs
Temp Pulse Resp BP Pulse Ox
98.1 F 65 16 131/77 98
12/20/23 07:00 12/20/23 07:42 12/20/23 07:00 12/20/23 07:42 12/20/23 07:00
I&O
12/19/23 12/20/23 12/21/23
06:59 06:59 06:59
Intake Total 1440 / 1440
Balance 1440 / 1440
Review of Systems
-
History Source: Patient
All other systems: Reviewed and negative
Physical Exam
-
General: No Apparent Distress
HEENT: Normocephalic
Respiratory: Clear to Auscultation
GI: Soft, Nontender and Nondistended
Rectal: Brown
Genito-urinary: No Costovertebral Tender
Musculoskeletal: No Clubbing, No Cyanosis and No Edema
Neuro: Awake, Alert, Oriented and AO x 3
Psych: Calm
[2023-12-20] MEDS: OMNIPAQUE 50 ML PO (09:40)
[2023-12-20 11:12] LABS: Urine Albumin Negative (Neg - Trace); Urine Bilirubin Negative (Negative); Urine Character Clear (Clear); Urine Color Straw; Urine Glucose Negative (Negative); Urine Ketone Negative (Negative); Urine Leukocyte 1+ (Negative); Urine Nitrite Negative (Negative); Urine Occult Blood Negative (Negative); Urine Urobilinogen Negative (Neg - 1+)
[2023-12-20 11:44] LABS: Urine Bacteria Few (Negative); Urine Red Blood Cell None Seen /HPF (0-2); Urine Squamous Cell >30 /LPF (Few)
[2023-12-20 12:14] LABS: Lyme Antibody Screen, EIA Negative (Negative)
--- NOTE | 2023-12-20 15:48 | W.PN.UPDATE ---
Update Note
Progress Note Update
88 yo woman with remote hx breast cancer, normal counts in 05/2023.
CHF meds adjuvant 10-14 days ago with addition of metolazone. Denies other new meds.
Now adm with CHF exacerbation, pancytopenia noted with LDH and DBili elevations noted.
Metolazone has association with cytopenias involving all three cell lines and may be cause of cytopenias in this case.
Await tickborne illness serologies and observe for improvement in blood counts off metolazone.
Reviewed CT C/A/P, no evidence of recurrent breast cancer and CBC not suggestive of marrow infiltrative process.
Full consult to follow.
--- NOTE | 2023-12-20 16:21 | W.PN.CARDCBS ---
Today's Communication / Plan
-
Continue IV diuresis, monitor renal function and potassium closely and track daily weights
Impression / Plan
-
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
Impression:
Acute on chronic heart failure with preserved ejection fraction
Paroxysmal atrial fibrillation on anticoagulation/amiodarone
Hypokalemia
Permanent pacemaker
Hyperlipidemia
Hypertension
Chronic kidney disease
Obesity
Carotid arterial disease
Carotid ultrasound 08/02/2023: Calcified plaque proximal internal carotid artery less than 50% internal carotid artery stenosis. Left carotid artery calcified plaque with greater than 70% internal carotid artery stenosis.
Echo 04/26/2023: Technically difficult study. EF 55 to 60%. Likely normal regional wall motion of but difficult to last obtained given rapid rate. Normal LV wall thickness. Mild MR. Aortic valve sclerosis. Trace AI. PA pressure 27 mmHg.
EKG 12/19/2023 dual-chamber pacemaker
Plan:
She has history of heart failure with preserved ejection fraction which is now acute on chronic. She has dyspnea on exertion, edema, increased weight, PND and orthopnea. proBNP is 3198 (04/2023 was 1880). Weight was 275 pounds and prior discharge
weight 263 pounds. She has comorbidities including hypertension, hyperlipidemia, carotid disease, paroxysmal atrial fibrillation, permanent pacemaker and obesity.
Acute on chronic heart failure with preserved ejection fraction
Agree with IV diuresis Lasix 80 mg IV twice daily. Seems to be diuresing well currently. If not diuresing well in the morning would add a single dose of Zaroxolyn to help intensify diuresis.
Sodium and fluid restricted diet discussed. She seems to drink excess fluid at home.
Heart failure nutrition and education consults
Discussed with patient SGLT2 inhibitors. She has frequent yeast infections so SGLT2 inhibitors are contraindicated
Echocardiogram ordered
If creatinine remains stable could consider for both heart failure and hypokalemia.
Continue to follow input/output and daily weights.
Paroxysmal atrial fibrillation
Currently in sinus rhythm. Last device download 10/2023 negative for atrial fibrillation recurrence.
Continue oral anticoagulation with [id number] score 5.
Continue amiodarone. TSH normal.
Sick sinus syndrome status post pacemaker implant
Check pacemaker
Hypertension
Blood pressure acceptable. Continue current treatment.
Hyperlipidemia
History of hyperlipidemia on statin
Chronic kidney disease
Stable. Follow labs.
Carotid arterial disease
Followed by vascular continue risk factor modification.
Discussed with patient's daughter who was at bedside
Progress Note - [employer]
Subjective
Date of Service: December 20, 2023
No acute overnight events. Patient tells me that edema is improving and breathing is better today.
Objective
Labs:
12/20/23 06:53
12/20/23 06:53
Labs
Hgb 10.6 g/dL (12.0-16.0) L 12/20/23 06:53
Hct 32.6 % (37.0-47.0) L 12/20/23 06:53
Plt Count 108 10^3/uL (130-400) L 12/20/23 06:53
Sodium 140 mmol/L (135-145) 12/20/23 06:53
Potassium 4.8 mmol/L (3.5-5.1) 12/20/23 06:53
BUN 32 mg/dl (7-17) H 12/20/23 06:53
Creatinine 1.3 mg/dL (0.6-1.0) H 12/20/23 06:53
Glucose 125 mg/dl (70-99) H 12/20/23 06:53
Troponins
12/19/23
04:05
Troponin I < 0.012
Vital Signs and I&O:
Vital Signs
Temp Pulse Resp BP Pulse Ox
98.1 F 56 17 145/62 95
12/20/23 15:00 12/20/23 15:00 12/20/23 15:00 12/20/23 15:00 12/20/23 15:00
Vital Signs
Temp Pulse Resp BP Pulse Ox
98.1 F 56 17 145/62 95
12/20/23 15:00 12/20/23 15:00 12/20/23 15:00 12/20/23 15:00 12/20/23 15:00
Intake & Output
12/18/23 12/19/23 12/20/23 12/21/23
06:59 06:59 06:59 06:59
Intake Total 1440 / 1440
Balance 1440 / 1440
Physical Exam
Physical Exam
Gen: NAD, AAOx3
HEENT: NC/AT, sclera anicteric
Neck: No JVD
CV: RRR, NL s1/s2
Lungs: CTAB on room air
Abd: S/ND
Ext: Pitting and nonpitting LE edema
Skin: Warm, dry
Neuro: Non-focal
[2023-12-20] MEDS: PLENDIL EXTENDED RELEASE 10 MG PO (17:26)
[2023-12-20] MEDS: PACERONE 200 MG PO (17:26)
[2023-12-20] MEDS: TOPROL XL 25 MG PO (17:27)
[2023-12-20] MEDS: LIPITOR 10 MG PO (17:27)
[2023-12-20] MEDS: MELATONIN 5 MG PO (21:05)
--- NOTE | 2023-12-20 22:24 | CON.ONC ---
Impression
Impression
Mild pancytopenia, new since 05/2023
Elevated bilirubin and Cr
CHF exacerbation
Plan
Plan
Metolazone has association with cytopenias involving all three cell lines and may be cause of cytopenias in this case.
Await tickborne illness serologies and observe for improvement in blood counts off metolazone.
Reviewed CT C/A/P, no evidence of recurrent breast cancer and CBC not suggestive of marrow infiltrative process.
Hemolysis panel, B12, iron studies sent.
Thank you for consult, will follow along with you.
Patient History
History of Present Illness
88 yo woman with remote hx T1b, grade 1 breast cancer treated with lumpectomy, radiation and 5-years' adjuvant hormonal therapy. Multiple comorbidities including CHF. CHF meds adjusted 10-14 days ago with addition of metolazone. Admitted with CHF
exacerbation. Noted to have mild pancytopenia including possible hemolysis. Blood counts were normal 05/2023 other than variably increased % immature granulocytes. Pt not febrile or feeling ill other than the CHF symptoms. Low suspicion for tick
bite. Denies new meds other than metolazone.
Past-Medical/Surgical History
Past History
Arrthythmia (Paroxysmal atrial fibrillation), Hx Cancer (Breast), CHF, HTN, Hypercholesterolemia, NIDDM and Other (Carotid artery disease, morbid obesity, chronic kidney disease)
Surgical History:
Cardiac (Pacemaker), lumpectomy
Social History
Tobacco: Non-smoker
Alcohol: None
Drug: None
Living: with family
Employment: Retired
Family History
Family History: Other (Noncontributory)
Patient Medication
�Medication �Instructions �Recorded �Confirmed �Last Taken �Type
atorvastatin 10 mg tablet 10 mg PO QPM High cholesterol 05/07/21 12/19/23 04/23/23 History
felodipine 10 mg tablet,extended 10 mg PO QPM Heart 0112/19/23 04/23/23 History
release 24 hr disease/condition
levothyroxine 125 mcg tablet 125 mcg PO DAILY Thyroid 05/07/21 12/19/23 04/24/23 History
apixaban 5 mg tablet (Eliquis) 5 mg PO BID Blood clot 05/12/21 12/19/23 04/23/23 Rx
prevention/tx #60 tabs
acetaminophen 325 mg tablet 650 mg PO Q6H PRN mild pain 04/24/23 12/19/23 Unknown History
(Tylenol)
amiodarone 200 mg tablet (Pacerone) 200 mg PO QPM Arrhythmia 04/24/23 12/19/23 04/23/23 History
furosemide 80 mg tablet (Lasix) 80 mg PO BID Fluid 04/24/23 12/19/23 04/23/23 History
Retention/Swelling
metoprolol succinate 25 mg 25 mg PO QPM Heart 04/24/23 12/19/23 04/23/23 History
tablet,extended release 24 hr disease/condition
melatonin 1 tab PO HS Sleep 12/19/23 12/19/23 Unknown History
potassium chloride 20 mEq 40 meq PO BID Electrolyte Repletion 12/19/23 12/19/23 Unknown History
tablet,extended release
Active Medications
Generic Name Dose Route Start Last Admin
Trade Name Freq PRN Reason Stop Dose Admin
Acetaminophen 650 mg 12/19/23 07:30
Acetaminophen 325 Mg Tablet PO 01/16/24 07:29
Q6H PRN
mild pain
Amiodarone HCl 200 mg 12/19/23 18:00 12/20/23 17:26
Amiodarone 200 Mg Tablet PO 01/16/24 17:59 200 mg
QPM VALDEZ Administration
Apixaban 5 mg 12/19/23 08:00 12/20/23 21:05
Apixaban (Eliquis) 5 Mg Tablet PO 01/16/24 07:59 5 mg
BID VALDEZ Administration
Atorvastatin Calcium 10 mg 12/19/23 18:00 12/20/23 17:27
Atorvastatin (Lipitor) 10 Mg Tablet PO 01/16/24 17:59 10 mg
QPM VALDEZ Administration
Felodipine 10 mg 12/19/23 18:00 12/20/23 17:26
Felodipine 10 Mg Extended Release Tablet PO 01/16/24 17:59 10 mg
QPM VALDEZ Administration
Furosemide 80 mg 12/19/23 08:00 12/20/23 16:32
Furosemide 100 Mg (10 Mg/Ml) 10 Ml Vial IV 01/16/24 07:59 80 mg
BID AT 0800,1600 VALDEZ Administration
Levothyroxine Sodium 125 mcg 12/19/23 08:00 12/20/23 05:44
Levothyroxine 125 Mcg Tablet PO 01/16/24 07:59 125 mcg
DAILY@0600 VALDEZ Administration
Melatonin 5 mg 12/19/23 22:00 12/20/23 21:05
Melatonin 5 Mg Tablet PO 01/16/24 21:59 5 mg
HS VALDEZ Administration
Metoprolol Succinate 25 mg 12/19/23 18:00 12/20/23 17:27
Metoprolol 25 Mg Extended Release Tablet PO 01/16/24 17:59 25 mg
QPM VALDEZ Administration
Potassium Chloride 40 meq 12/19/23 08:00 12/20/23 21:05
Potassium Chloride 20 Meq Extended Release Tablet PO 01/16/24 07:59 40 meq
BID VALDEZ Administration
Sodium Chloride 0 flush 12/19/23 07:00
Sodium Chloride 0.9% (Flush) Syringe IV 01/16/24 06:59
PER PROTOCOL VALDEZ
Review of Systems
-
History Source: Patient and Records
All Other Systems: Reviewed and Negative
Constitutional: Reports Fatigue; Denies Fever or Night Sweats
Physical Exam
-
General: Well Developed and Well Nourished
HEENT: Moist Mucous Membranes; Negative Jaundice
Cardiology: Normal Sinus Rhythm, S1 and S2
Pulmonary: Clear
GI: Soft
Musculoskeletal: Edema, Right Lower Extrem and Edema, Left Lower Extrem
Extremities: Negative Phlebitic Signs
Neurology: Non Focal
Skin: Warm and Dry
Hematologic / Lymphatic: No Lymphadenopathy
Psych: Calm and Intact Judgement/Insight
Labs
Lab Results
WBC 3.7 10^3/uL (4.8-10.8) L 12/20/23 06:53
RBC 3.72 10^6/uL (4.20-5.40) L 12/20/23 06:53
Hgb 10.6 g/dL (12.0-16.0) L 12/20/23 06:53
Hct 32.6 % (37.0-47.0) L 12/20/23 06:53
MCV 87.6 fL (81.0-99.0) 12/20/23 06:53
MCH 28.5 pg (27.0-31.0) 12/20/23 06:53
MCHC 32.5 g/dL (33.0-37.0) L 12/20/23 06:53
RDW 16.3 % (11.5-14.5) H 12/20/23 06:53
Plt Count 108 10^3/uL (130-400) L 12/20/23 06:53
MPV 12.3 fL (7.4-10.4) H 12/20/23 06:53
Abs Immat Gran (auto) 0.1 10^3/uL (0-0.05) H 12/20/23 06:53
Absolute Neuts (auto) 1.8 10^3/uL (1.4-6.5) 12/20/23 06:53
Absolute Lymphs (auto) 1.2 10^3/uL (1.2-3.4) 12/20/23 06:53
Absolute Monos (auto) 0.5 10^3/uL (0.1-0.6) 12/20/23 06:53
Absolute Eos (auto) 0.2 10^3/uL (0-0.7) 12/20/23 06:53
Absolute Basos (auto) 0.0 10^3/uL (0-0.2) 12/20/23 06:53
Immature Gran % 1.9 % (0-0.5) H 12/20/23 06:53
Neutrophils % 47.7 % (42.2-75.2) 12/20/23 06:53
Lymphocytes % 32.3 % (20.5-51.1) 12/20/23 06:53
Monocytes % 12.1 % (1.7-9.3) H 12/20/23 06:53
Eosinophils % 5.7 % (0-6) 12/20/23 06:53
Basophils % 0.3 % (0-2) 12/20/23 06:53
Creatinine 1.3 mg/dL (0.6-1.0) H 12/20/23 06:53
Vital Signs
Vital Signs
Temp Pulse Resp BP Pulse Ox
97.6 F 51 20 115/49 95
12/20/23 19:35 12/20/23 19:35 12/20/23 19:35 12/20/23 19:35 12/20/23 19:35
[2023-12-21] VITALS (7 sets, daily range): BP systolic 104–140; BP diastolic 51–65; PULSE 50; O2SAT 93; BMI 49.5
[2023-12-21 06:24] LABS: % Basophils 0.2 % (0-2); % Eosinophils 5.7 % (0-6); % Immature Granulocytes 0.7 % (0-0.5); % Lymphocytes 27.4 % (20.5-51.1); % Monocytes 13.5 % (1.7-9.3); % Neutrophils 52.5 % (42.2-75.2); Absolute Eosinophils 0.2 10^3/uL (0-0.7); Absolute Lymphocytes 1.1 10^3/uL (1.2-3.4); Absolute Monocytes 0.5 10^3/uL (0.1-0.6); Absolute Neutrophils 2.1 10^3/uL (1.4-6.5); Hematocrit 33.6 % (37.0-47.0); Hemoglobin 10.8 g/dL (12.0-16.0); Mean Corp Hgb Conc. 32.1 g/dL (33.0-37.0); Mean Corpuscular Hgb 28.2 pg (27.0-31.0); Mean Corpuscular Volume 87.7 fL (81.0-99.0); Mean Platelet Volume 11.5 fL (7.4-10.4); Nucleated Red Blood Cells % 0 %; Platelet Count 108 10^3/uL (130-400); Red Blood Cell Count 3.83 10^6/uL (4.20-5.40); Red Cell Dist. Width 16.3 % (11.5-14.5); Reticulocyte Count 2.6 % (0.4-2.8)
[2023-12-21] MEDS: SYNTHROID 125 MCG PO (06:28)
[2023-12-21 06:47] LABS: ALT (SGPT) 22 U/L (0-35); AST (SGOT) 36 U/L (14-36); Albumin 3.9 g/dl (3.5-5.0); Alkaline Phosphatase 108 U/L (38-126); Blood Urea Nitrogen 29 mg/dl (7-17); Calcium 9.4 mg/dl (8.4-10.2); Carbon Dioxide 26 mmol/L (22-30); Chloride 104 mmol/L (98-107); Direct Bilirubin 0.6 mg/dl (0.0-0.4); Estimated Creatinine Clearance 38 ml/min; Glucose 128 mg/dl (70-99); Iron 44 ug/dl (37-170); Magnesium 1.8 mg/dl (1.6-2.3); Sodium 140 mmol/L (135-145); Total Bilirubin 1.8 mg/dl (0.2-1.3); Total Protein 6.8 g/dl (6.3-8.2)
[2023-12-21 06:56] LABS: Percent Saturation 11 % (20-50); Total Iron Binding Capacity 368 ug/dl (265-497)
[2023-12-21 07:18] LABS: Ferritin 43.2 ng/ml (11.1-264.0)
[2023-12-21 07:32] LABS: Vitamin B12 684 pg/ml (239-931)
--- NOTE | 2023-12-21 09:35 | W.PN.ONC2 ---
Addendum entered and electronically signed by Rc Walton MD 12/22/23 06:35:
Laboratory Tests
12/21/23
05:21
Haptoglobin 116
Normal haptoglobin pretty much rules out hemolysis
Original Note:
Today's Communication / Plan
-
f/u hemolysis panel, though less likely
IV iron ordered, would continue oral iron 325mg (65mg elemental iron) PO every other day at discharge
check heme stool, monitor for bleeding
daily CBC with diff
Impression
Impression
Mild pancytopenia, new since 05/2023
Elevated bilirubin and Cr
CHF exacerbation
Iron studies suggest component of iron deficiency with ferritin 43, IS 11%. NO B12 or folate deficiency. Hemolysis less likely with normal retic, however, REY and haptoglobin pending
Plan
Plan
Metolazone has association with cytopenias involving all three cell lines and may be cause of cytopenias in this case.
Await tickborne illness serologies and observe for improvement in blood counts off metolazone.
Reviewed CT C/A/P, no evidence of recurrent breast cancer and CBC not suggestive of marrow infiltrative process.
f/u REY, haptoglobin
IV iron -risk/benefit reviewed and pt agreeable
Subjective/Objective
Chief Complaint
afebrile, no hypoxia or hypotension
denies sxs infection
denies pain
denies bleeding
Subjective
no new complaints
Vital Signs:
Vital Signs
Temp Pulse Resp BP Pulse Ox
97.9 F 50 18 104/51 95
12/21/23 07:30 12/21/23 07:30 12/21/23 07:30 12/21/23 07:30 12/21/23 07:30
Lab Results:
Laboratory Data
WBC 4.0 10^3/uL (4.8-10.8) L 12/21/23 05:21
Hgb 10.8 g/dL (12.0-16.0) L 12/21/23 05:21
Plt Count 108 10^3/uL (130-400) L 12/21/23 05:21
eGFR 39.80 12/21/23 05:21
Physical Exam
General: Well Developed and Well Nourished
HEENT: Moist Mucous Membranes; Negative Jaundice
Cardiology: Normal Sinus Rhythm, S1 and S2
Pulmonary: Clear
GI: Soft
Extremities: Negative Phlebitic Signs, b/l LE edema
Neurology: Non Focal
Skin: Warm and Dry
Review of Systems
Review of Systems
ROS notable for subjective, otherwise negative
--- NOTE | 2023-12-21 09:39 | W.PN.CARDCBS ---
Addendum entered and electronically signed by Abraham Rees MD 12/21/23 17:24:
I saw and examined the patient.
The Flake Cutter Operator's note was reviewed and I agree with the note.
Comment:
GEN: No distress, awake, Ox3
HEENT: supple, anicteric, mmm
LUNGS: CTA, no wheezes/rales
CV: Reg, S1/S2, 1/6 syst LSB, S4+
ABD: soft, BS+, NT/ND
EXT: +1 edema
NEURO: Gross non-focal
SKIN: No rash
Plan:
Volume status is difficult to assess his weight remains about the same. Will give Zaroxolyn 2.5 mg x 1. Continue IV Lasix.
Echo today. Creatinine stable at 1.3.
Continue amiodarone and Eliquis.
Original Note:
Today's Communication / Plan
-
Give dose of metolazone 2.5 mg x 1 today
Continue IV Lasix
Echo pending
Impression / Plan
-
Primary pre billing clinician Dr. Ramirez
Impression:
Presented 12/19/2023 with shortness of breath
Acute on chronic heart failure with preserved ejection fraction, proBNP is 3198
Paroxysmal atrial fibrillation on anticoagulation/amiodarone
Hypokalemia
Mild pancytopenia, new since 05/2023
Elevated bilirubin and Cr
Dual-chamber Medtronic permanent pacemaker, April 2021
Paroxysmal atrial fibrillation
Chronic anticoagulation on Eliquis
Hyperlipidemia
Hypertension
Chronic kidney disease
Obesity
Carotid arterial disease
Carotid ultrasound 08/02/2023: Calcified plaque proximal internal carotid artery less than 50% internal carotid artery stenosis. Left carotid artery calcified plaque with greater than 70% internal carotid artery stenosis.
Echo 12/21/2023:pending
Echo 04/26/2023: Technically difficult study. EF 55 to 60%. Likely normal regional wall motion of but difficult to last obtained given rapid rate. Normal LV wall thickness. Mild MR. Aortic valve sclerosis. Trace AI. PA pressure 27 mmHg.
EKG 12/19/2023 dual-chamber pacemaker
Plan:
She has history of heart failure with preserved ejection fraction which is now acute on chronic. She has dyspnea on exertion, edema, increased weight, PND and orthopnea. proBNP is 3198 (04/2023 was 1880). Weight was 275 pounds and prior discharge
weight 263 pounds. She has comorbidities including hypertension, hyperlipidemia, carotid disease, paroxysmal atrial fibrillation, permanent pacemaker and obesity.
Acute on chronic heart failure with preserved ejection fraction
Continue IV diuresis Lasix 80 mg IV twice daily. Weight is down several lbs since admission but has plateaued over the last several days. Volume status is difficult to determine. Weight is still 7 pounds above baseline. Give single dose of
Zaroxolyn 2.5 mg 12/21/2023 to help intensify diuresis.
Sodium and fluid restricted diet discussed. She seems to drink excess fluid at home.
Heart failure nutrition and education consults
Discussed with patient SGLT2 inhibitors. She has frequent yeast infections so SGLT2 inhibitors are contraindicated
Echocardiogram ordered and pending
Creatinine relatively stable at 1.3, continue to follow with diuresis
Potassium 5.0
Continue to follow input/output and daily weights.
echo pending
Paroxysmal atrial fibrillation
Currently in sinus rhythm. Last device download 10/2023 negative for atrial fibrillation recurrence.
Continue oral anticoagulation with [id number] score 5.
Continue amiodarone. TSH normal.
Sick sinus syndrome status post pacemaker implant
review of tele AV paced rhythm primarily
Will check Pacemaker
Hypertension
Blood pressure acceptable. Continue current treatment.
Hyperlipidemia
History of hyperlipidemia on statin
Chronic kidney disease
Stable. Follow labs.
Carotid arterial disease
Followed by vascular continue risk factor modification.
History of Present Illness 12/19/2023:
She has history of atrial fibrillation, permanent pacemaker, heart failure with preserved ejection fraction, CKD and morbid obesity with admission 04/2023 for hypoxemic respiratory failure, heart failure with preserved ejection fraction and strep
bacteremia. She was recently in the emergency department 12/09/2023 with hypokalemia and treated. She now presents to the ER with complaints of edema pressure in her left calf after chronic injury and dyspnea on exertion with shortness of breath
throughout the night prompting a call to 911. She tells me that she has noted lower extremity edema, dyspnea on exertion, orthopnea for which she has to raise her bed which is adjustable at night. She is limited with ambulation because of spinal
stenosis and her left leg gives out at times.
She denies chest pain and syncope. She does have a tendency to falls if not using her walker or trying to balance.
According to office notes prior discharge weight was 263 pounds. Weight on presentation was 275 pounds.
Labs with hemoglobin 11.4 BUNs/creatinine 38/1.4. AST mildly elevated at 41 ALT normal. Troponin negative. Potassium 4.8.
proBNP 3190 (04/24/2023 1880).
Peripheral vascular ultrasound venous 12/19/2023 no evidence of left lower extremity DVT.
Chest x-ray 12/19/2023 mild acute interstitial and alveolar pulmonary edema which is less severe than 04/24/2023. Mild cardiomegaly. Elevation of the right hemidiaphragm.
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
Subjective
Date of Service: December 21, 2023
Patient seen and examined. Lying comfortably in bed on room air. Denies chest pain, SOB or palpitations.
Objective
Labs:
12/21/23 05:21
12/21/23 05:21
Labs
Hgb 10.8 g/dL (12.0-16.0) L 12/21/23 05:21
Hct 33.6 % (37.0-47.0) L 12/21/23 05:21
Plt Count 108 10^3/uL (130-400) L 12/21/23 05:21
Sodium 140 mmol/L (135-145) 12/21/23 05:21
Potassium 5.0 mmol/L (3.5-5.1) 12/21/23 05:21
BUN 29 mg/dl (7-17) H 12/21/23 05:21
Creatinine 1.3 mg/dL (0.6-1.0) H 12/21/23 05:21
Glucose 128 mg/dl (70-99) H 12/21/23 05:21
Troponins
12/19/23
04:05
Troponin I < 0.012
Vital Signs and I&O:
Vital Signs
Temp Pulse Resp BP Pulse Ox
97.9 F 50 18 104/51 95
12/21/23 07:30 12/21/23 07:30 12/21/23 07:30 12/21/23 07:30 12/21/23 07:30
Vital Signs
Temp Pulse Resp BP Pulse Ox
97.9 F 50 18 104/51 95
12/21/23 07:30 12/21/23 07:30 12/21/23 07:30 12/21/23 07:30 12/21/23 07:30
Intake & Output
12/19/23 12/20/23 12/21/23 12/22/23
06:59 06:59 06:59 06:59
Intake Total 1440 / 1440 1020 / 1020
Output Total 600 / 600
Balance 1440 / 1440 420 / 420
Physical Exam
Physical Exam
GEN: No distress, awake, Ox3, lying in bed, obese
HEENT: supple, anicteric, mmm
LUNGS: Rhonchi noted primarily Right lung field, faint crackles at bilateral bases, no wheezes/rales
CV: distant heart tones, Reg, S1/S2, no murmur, rub or gallop
ABD: soft, BS+, NT/ND
EXT: +2-3 edema bilaterally, No clubbing or cyanosis
NEURO: Gross non-focal
SKIN: No rash, warm, dry
[2023-12-21] MEDS: LASIX 80 MG IV ×2 (09:44→16:22)
[2023-12-21] MEDS: KCL 40 MEQ PO ×2 (09:52→20:40)
[2023-12-21] MEDS: ELIQUIS 5 MG PO ×2 (09:52→20:40)
--- NOTE | 2023-12-21 09:59 | W.PN.HOSP.TC ---
Today's Communication/Plan
-
possibly euvolemic
pending Echo
Assessment / Plan
Assessment / Plan
88yo F with PMHx of HLD, Afib, CKD, SSS s/p PPM, spinal stenosis, chronic ambulatory deficiency came with worsening SOB and LE swelling for weeks. Found CHF exacerbation. Also pancytopenia
A/P:
#Acute on chronic HFpEF exacerbation
Elevated proBNP on admission
COnt Lasix, daily weigt, follow electrolytes, repeat Echo
Cardiology consult
LE US neg for DVT
CT on 12/20/23 - no pulmonary edema
#Chronic b/l LE lymphedema
2/2 ambulatory deficiency
compression stocking PRN
#Diarrhea
resolved
no need for stool studies
#Mild indirect bilirubinemia
#Pancytopenia
No RUQ pain
LDH mildly elevated
Not on heparin product - no concern for HIT
Possible reactive - CT chest/abd/pelvis without signs of infection. =Blood for parasites, Lyme neg, Babesia Ab pending, however also no fevers
REY neg
Hematology consult
#UTI ruled out
Ucx grew mixed vicki
no dysuria
CT without signs of UTI
#Chronic ambulatory deficiency 2/2 chronic spinal stenosis
PT/OT
Was able to move as per patient baseline
#Afib, unspecified
#Essential HTN
#HLD
#Hypothyroidism
#CKD stage 3b
cont home meds
TSH WNL
#Morbid obesity
with BMI 49.5
Advise to decrease calorie intake
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
No concern for pneumonia
#Diverticulosis
#T12 compression Fx
no additional mgmt
I have spent at least 58min reviewing chart, test results, communication with consultants and direct patient care
DVT ppx Eliquis
Full code
Anticipated Discharge: 24 - 48 hours
Subjective/Interval History
-
Date of Service: December 21, 2023
Objective Data
-
Labs:
Laboratory Results
12/21/23
05:21
WBC 4.0 L
Hgb 10.8 L
Hct 33.6 L
Plt Count 108 L
Sodium 140
Potassium 5.0
Chloride 104
Carbon Dioxide 26
BUN 29 H
Creatinine 1.3 H
Glucose 128 H
Calcium 9.4
Total Bilirubin 1.8 H
AST 36
ALT 22
Alkaline Phosphatase 108
Vital Signs:
Vital Signs
Temp Pulse Resp BP Pulse Ox
97.9 F 51 18 141/60 95
12/21/23 07:30 12/21/23 09:44 12/21/23 07:30 12/21/23 09:44 12/21/23 07:30
I&O
12/20/23 12/21/23 12/22/23
06:59 06:59 06:59
Intake Total 1440 / 1440 1020 / 1020
Output Total 600 / 600
Balance 1440 / 1440 420 / 420
Physical Exam
-
General: Well Developed
HEENT: Normocephalic
Respiratory: Clear to Auscultation
Cardiac: Regular Rhythm
Musculoskeletal: No Clubbing, No Cyanosis, Edema, Right Lower Extrem and Edema, Left Lower Extrem
Skin: Warm
Neuro: Awake, Alert, Oriented and AO x 3
Psych: Calm
--- NOTE | 2023-12-21 10:26 | CM ---
Reviewed chart, patient current PT. She lives with two daughters who are supportive and she would like to return home upon discharge.
Plan: Case management will continue to follow and assist with discharge planning. Will watch for needs. Patient wants to go home when medically cleared.
[2023-12-21] MEDS: ZAROXOLYN 2.5 MG PO (13:50)
[2023-12-21] MEDS: FERRLECIT 110 MG IV (16:22)
[2023-12-21] MEDS: PLENDIL EXTENDED RELEASE 10 MG PO (18:45)
[2023-12-21] MEDS: TOPROL XL 25 MG PO (18:45)
[2023-12-21] MEDS: PACERONE 200 MG PO (18:46)
[2023-12-21] MEDS: LIPITOR 10 MG PO (18:47)
[2023-12-21] MEDS: MELATONIN 5 MG PO (21:19)
[2023-12-22] VITALS (7 sets, daily range): BP systolic 96–142; BP diastolic 44–109; BMI 48.3
[2023-12-22 05:51] LABS: Haptoglobin 116 mg/dL (30-200)
[2023-12-22] MEDS: SYNTHROID 125 MCG PO (06:38)
[2023-12-22 07:22] LABS: % Basophils 0.3 % (0-2); % Eosinophils 6.4 % (0-6); % Immature Granulocytes 2.7 % (0-0.5); % Lymphocytes 24.5 % (20.5-51.1); % Monocytes 15.5 % (1.7-9.3); % Neutrophils 50.6 % (42.2-75.2); Absolute Eosinophils 0.2 10^3/uL (0-0.7); Absolute Immature Granulocytes 0.1 10^3/uL (0-0.05); Absolute Lymphocytes 0.8 10^3/uL (1.2-3.4); Absolute Monocytes 0.5 10^3/uL (0.1-0.6); Absolute Neutrophils 1.7 10^3/uL (1.4-6.5); Hematocrit 31.7 % (37.0-47.0); Hemoglobin 10.2 g/dL (12.0-16.0); Mean Corp Hgb Conc. 32.2 g/dL (33.0-37.0); Mean Corpuscular Hgb 28.5 pg (27.0-31.0); Mean Corpuscular Volume 88.5 fL (81.0-99.0); Mean Platelet Volume 12.6 fL (7.4-10.4); Nucleated Red Blood Cells % 0 %; Platelet Count 107 10^3/uL (130-400); Red Blood Cell Count 3.58 10^6/uL (4.20-5.40); Red Cell Dist. Width 16.3 % (11.5-14.5); White Blood Cell Count 3.3 10^3/uL (4.8-10.8)
[2023-12-22 07:43] LABS: ALT (SGPT) 21 U/L (0-35); AST (SGOT) 33 U/L (14-36); Albumin 3.6 g/dl (3.5-5.0); Alkaline Phosphatase 101 U/L (38-126); Blood Urea Nitrogen 26 mg/dl (7-17); Calcium 9.4 mg/dl (8.4-10.2); Carbon Dioxide 29 mmol/L (22-30); Chloride 101 mmol/L (98-107); Estimated Creatinine Clearance 41 ml/min; Glucose 119 mg/dl (70-99); Potassium 3.6 mmol/L (3.5-5.1); Sodium 139 mmol/L (135-145); Total Bilirubin 1.9 mg/dl (0.2-1.3); Total Protein 6.4 g/dl (6.3-8.2); eGFR 43.81
[2023-12-22] MEDS: LASIX 80 MG IV ×2 (07:53→17:13)
[2023-12-22] MEDS: ELIQUIS 5 MG PO ×2 (07:53→20:56)
[2023-12-22] MEDS: KCL 40 MEQ PO ×2 (07:53→20:56)
[2023-12-22 10:55] LABS: LDH 300 U/L (120-246)
--- NOTE | 2023-12-22 11:19 | W.PN.HOSP.TC ---
Today's Communication/Plan
-
cont diuresis as per Cardio - weight loss in 24h noted
follow CBC
Assessment / Plan
Assessment / Plan
88yo F with PMHx of HLD, Afib, CKD, SSS s/p PPM, spinal stenosis, chronic ambulatory deficiency came with worsening SOB and LE swelling for weeks. Found CHF exacerbation improving on diuretics. Also pancytopenia
A/P:
#Acute on chronic HFpEF exacerbation
Elevated proBNP on admission
COnt Lasix, daily weigt, follow electrolytes,
repeat Echo showed no decrease in EF
Cardiology consult
LE US neg for DVT
CT on 12/20/23 - no pulmonary edema
#Chronic b/l LE lymphedema
2/2 ambulatory deficiency
compression stocking PRN
#Diarrhea
resolved
no need for stool studies
#Mild indirect bilirubinemia
#Pancytopenia
No RUQ pain
LDH mildly elevated
Not on heparin product - no concern for HIT
Possible reactive - CT chest/abd/pelvis without signs of infection. =Blood for parasites, Lyme neg, Babesia Ab pending, however also no fevers
REY neg
Hematology consult: possibly 2/2 metolazone, cont to follow
#UTI ruled out
Ucx grew mixed vicki
no dysuria
CT without signs of UTI
#Chronic ambulatory deficiency 2/2 chronic spinal stenosis
PT/OT
Was able to move as per patient baseline
#Afib, unspecified
#Essential HTN
#HLD
#Hypothyroidism
#CKD stage 3b
cont home meds
TSH WNL
#Morbid obesity
with BMI 49.5
Advise to decrease calorie intake
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
No concern for pneumonia
#Diverticulosis
#T12 compression Fx
no additional mgmt
I have spent at least 58min reviewing chart, test results, communication with consultants and direct patient care
DVT ppx Eliquis
Full code
Anticipated Discharge: 24 - 48 hours
Subjective/Interval History
-
Date of Service: December 22, 2023
Objective Data
-
Labs:
Laboratory Results
12/22/23
06:40
WBC 3.3 L
Hgb 10.2 L
Hct 31.7 L
Plt Count 107 L
Sodium 139
Potassium 3.6 D
Chloride 101
Carbon Dioxide 29
BUN 26 H
Creatinine 1.2 H
Glucose 119 H
Calcium 9.4
Total Bilirubin 1.9 H
AST 33
ALT 21
Alkaline Phosphatase 101
Vital Signs:
Vital Signs
Temp Pulse Resp BP Pulse Ox
97.7 F 51 18 112/55 95
12/22/23 07:00 12/22/23 07:53 12/22/23 07:00 12/22/23 07:53 12/22/23 07:00
I&O
12/21/23 12/22/23 12/23/23
06:59 06:59 06:59
Intake Total 1020 / 1020 720 / 720
Output Total 600 / 600
Balance 420 / 420 720 / 720
Review of Systems
-
History Source: Patient
All other systems: Reviewed and negative
Physical Exam
-
General: Well Developed and Well Nourished
HEENT: Normocephalic and Atraumatic
Respiratory: Clear to Auscultation
GI: Soft, Nontender and Nondistended
Musculoskeletal: No Clubbing, No Cyanosis, Edema, Left Upper Extrem and Edema, Right Lower Extrem
Skin: Warm
Neuro: Awake, Alert, Oriented and AO x 3
Psych: Calm
--- NOTE | 2023-12-22 12:41 | W.PN.CARDCBS ---
Addendum entered and electronically signed by Maurisio Ramirez MD 12/22/23 13:44:
I saw and examined the patient.
The GAS ATTENDANT or PA's note was reviewed and I agree with the note.
Comment: General: Well developed, well nourished in NAD.
Neck: Supple, no JVD, HJR, carotids +2 B/L, no bruits bilaterally.
Heart: Non displaced PMI, RRR, no murmurs, No S3, S4, no rubs.
Lungs: Scattered rhonchi
Extremities: No clubbing, cyanosis or edema bilaterally.
Neuro: Grossly nonfocal, awake, alert and oriented x3.
Continue IV Lasix but will consider change to oral Lasix in a.m.
Original Note:
Today's Communication / Plan
-
Cont Lasix 80 mg IV BID
Impression / Plan
-
PCP: Dr. Rojas
Primary construction equipment overhauler Dr. Ramirez
Impression:
Presented 12/19/2023 with shortness of breath
Acute on chronic HFpEF
Paroxysmal atrial fibrillation
Chronic Eliquis OAC
Chronic amiodarone therapy
Hypokalemia
Mild pancytopenia, new since 05/2023
Elevated bilirubin and Cr
Dual-chamber Medtronic permanent pacemaker, April 2021
Hyperlipidemia
Hypertension
Chronic kidney disease
Obesity
Carotid arterial disease
Echo 04/26/23: Technically difficult study. EF 55 to 60%. Likely normal regional wall motion of but difficult to last obtained given rapid rate. Normal LV wall thickness. Mild MR. Aortic valve sclerosis. Trace AI. PA pressure 27 mmHg.
Echo 12/21/23: EF 55%, normal RV size and function, moderate MR, moderate TR with PAP 44 mmHg
Plan:
-Weight is down 10 lbs from admission if recorded bed scale weights are correct. Previous dry weight at last HF d/c on 05/02/23 was 263 lbs and patient weighs 264 lbs on 12/22/23.
-Cont Lasix 80 mg IV BID. Patient was given metolazone 2.5 mg x1 on 12/21/23. Patient was taking Lasix 80 mg PO BID prior to admission.
-EF preserved by echo. Outpatient dose of Toprol XL 25 mg daily has been continued.
-Patient is not chronically on GLADYS/ARB/ARNI due to CKD and h/o intermittent hypotension
-She has frequent yeast infections so SGLT2 inhibitors are contraindicated
-Potassium dropped from 5 to 3.6 on 12/22/23. Cont outpatient dose of KCl 40 meq BID.
-Patient with known paroxysmal Afib, but in SR on tele check by me 12/22/23. Outpatient dose of amiodarone 200 mg daily has been continued.
-Outpatient dose of Eliquis 5 mg BID (age 88, wt 119 kg and Cre 1.2) has been continued. Hgb stable at 10.2.
-Only walked 18 ft with rolling walker in PT, but planning on home with her 2 daughters when ready for d/c
History of Present Illness 12/19/2023:
She has history of atrial fibrillation, permanent pacemaker, heart failure with preserved ejection fraction, CKD and morbid obesity with admission 04/2023 for hypoxemic respiratory failure, heart failure with preserved ejection fraction and strep
bacteremia. She was recently in the emergency department 12/09/2023 with hypokalemia and treated. She now presents to the ER with complaints of edema pressure in her left calf after chronic injury and dyspnea on exertion with shortness of breath
throughout the night prompting a call to 911. She tells me that she has noted lower extremity edema, dyspnea on exertion, orthopnea for which she has to raise her bed which is adjustable at night. She is limited with ambulation because of spinal
stenosis and her left leg gives out at times.
She denies chest pain and syncope. She does have a tendency to falls if not using her walker or trying to balance.
According to office notes prior discharge weight was 263 pounds. Weight on presentation was 275 pounds.
Labs with hemoglobin 11.4 BUNs/creatinine 38/1.4. AST mildly elevated at 41 ALT normal. Troponin negative. Potassium 4.8.
proBNP 3190 (04/24/2023 1880).
Peripheral vascular ultrasound venous 12/19/2023 no evidence of left lower extremity DVT.
Chest x-ray 12/19/2023 mild acute interstitial and alveolar pulmonary edema which is less severe than 04/24/2023. Mild cardiomegaly. Elevation of the right hemidiaphragm.
Progress Note - Psych Social Worker
Subjective
Date of Service: December 22, 2023
Feeling SOB when walking to bathroom
Objective
Labs:
12/22/23 06:40
12/22/23 06:40
Labs
Hgb 10.2 g/dL (12.0-16.0) L 12/22/23 06:40
Hct 31.7 % (37.0-47.0) L 12/22/23 06:40
Plt Count 107 10^3/uL (130-400) L 12/22/23 06:40
Sodium 139 mmol/L (135-145) 12/22/23 06:40
Potassium 3.6 mmol/L (3.5-5.1) D 12/22/23 06:40
BUN 26 mg/dl (7-17) H 12/22/23 06:40
Creatinine 1.2 mg/dL (0.6-1.0) H 12/22/23 06:40
Glucose 119 mg/dl (70-99) H 12/22/23 06:40
Vital Signs and I&O:
Vital Signs
Temp Pulse Resp BP Pulse Ox
97.5 F 55 18 125/57 96
12/22/23 11:00 12/22/23 11:00 12/22/23 11:00 12/22/23 11:00 12/22/23 11:00
Vital Signs
Temp Pulse Resp BP Pulse Ox
97.5 F 55 18 125/57 96
12/22/23 11:00 12/22/23 11:00 12/22/23 11:00 12/22/23 11:00 12/22/23 11:00
Intake & Output
12/20/23 12/21/23 12/22/23 12/23/23
06:59 06:59 06:59 06:59
Intake Total 1440 / 1440 1020 / 1020 720 / 720
Output Total 600 / 600
Balance 1440 / 1440 420 / 420 720 / 720
Physical Exam
Physical Exam
GEN: AAOx3
HEENT: mmm
LUNGS: No audible wheeze
CV: SR on tele
ABD: ND
EXT: +1 edema
NEURO: Gross non-focal
SKIN: No rash
[2023-12-22] MEDS: FERRLECIT 110 MG IV (14:34)
[2023-12-22] MEDS: TOPROL XL 25 MG PO (17:12)
[2023-12-22] MEDS: LIPITOR 10 MG PO (17:12)
[2023-12-22] MEDS: PACERONE 200 MG PO (17:12)
[2023-12-22] MEDS: PLENDIL EXTENDED RELEASE 10 MG PO (17:13)
[2023-12-22] MEDS: MELATONIN 5 MG PO (20:57)
[2023-12-23 03:00] VITALS: BP 154/66
[2023-12-23] MEDS: SYNTHROID 125 MCG PO (05:18)
[2023-12-23 06:00] VITALS: BMI 47.9
[2023-12-23 07:15] VITALS: BP 110/51
[2023-12-23] MEDS: KCL 40 MEQ PO ×2 (07:50→19:34)
[2023-12-23] MEDS: ELIQUIS 5 MG PO ×2 (07:50→19:34)
[2023-12-23] MEDS: LASIX 80 MG IV ×2 (07:50→15:41)
[2023-12-23 08:21] LABS: % Basophils 0.7 % (0-2); % Eosinophils 6.7 % (0-6); % Immature Granulocytes 2.4 % (0-0.5); % Lymphocytes 32.7 % (20.5-51.1); % Monocytes 16.2 % (1.7-9.3); % Neutrophils 41.3 % (42.2-75.2); Absolute Eosinophils 0.2 10^3/uL (0-0.7); Absolute Immature Granulocytes 0.1 10^3/uL (0-0.05); Absolute Monocytes 0.5 10^3/uL (0.1-0.6); Absolute Neutrophils 1.2 10^3/uL (1.4-6.5); Hematocrit 32.3 % (37.0-47.0); Hemoglobin 10.4 g/dL (12.0-16.0); Mean Corp Hgb Conc. 32.2 g/dL (33.0-37.0); Mean Corpuscular Hgb 28.3 pg (27.0-31.0); Mean Platelet Volume 12.1 fL (7.4-10.4); Nucleated Red Blood Cells % 0 %; Platelet Count 108 10^3/uL (130-400); Red Blood Cell Count 3.67 10^6/uL (4.20-5.40); Red Cell Dist. Width 16.3 % (11.5-14.5)
[2023-12-23 08:46] LABS: ALT (SGPT) 21 U/L (0-35); AST (SGOT) 33 U/L (14-36); Albumin 3.6 g/dl (3.5-5.0); Alkaline Phosphatase 101 U/L (38-126); Blood Urea Nitrogen 24 mg/dl (7-17); Calcium 9.4 mg/dl (8.4-10.2); Carbon Dioxide 27 mmol/L (22-30); Chloride 99 mmol/L (98-107); Estimated Creatinine Clearance 40 ml/min; Glucose 111 mg/dl (70-99); Potassium 3.2 mmol/L (3.5-5.1); Sodium 143 mmol/L (135-145); Total Bilirubin 1.7 mg/dl (0.2-1.3); Total Protein 6.4 g/dl (6.3-8.2); eGFR 43.81
--- NOTE | 2023-12-23 08:48 | W.PN.HOSP.TC ---
Today's Communication/Plan
-
appropriet weight drop noted
cont mgmt as per cardio
pancytopenia persists
Assessment / Plan
Assessment / Plan
88yo F with PMHx of HLD, Afib, CKD, SSS s/p PPM, spinal stenosis, chronic ambulatory deficiency came with worsening SOB and LE swelling for weeks. Found CHF exacerbation improving on diuretics. Also pancytopenia
A/P:
#Acute on chronic HFpEF exacerbation
Elevated proBNP on admission
COnt Lasix, daily weight, follow electrolytes,
repeat Echo showed no decrease in EF
Cardiology consult: cont diuresis, dry weight 265
LE US neg for DVT
CT on 12/20/23 - no pulmonary edema
#Chronic b/l LE lymphedema
2/2 ambulatory deficiency
compression stocking PRN
#Diarrhea
resolved
no need for stool studies
#Mild indirect bilirubinemia
#Pancytopenia
No RUQ pain
LDH mildly elevated
Not on heparin product - no concern for HIT
Possible reactive - CT chest/abd/pelvis without signs of infection. =Blood for parasites, Lyme neg, Babesia Ab pending, however also no fevers
REY neg
Hematology consult: possibly 2/2 metolazone, cont to follow
#UTI ruled out
Ucx grew mixed vicki
no dysuria
CT without signs of UTI
#Chronic ambulatory deficiency 2/2 chronic spinal stenosis
PT/OT
Was able to move as per patient baseline
#Afib, unspecified
#Essential HTN
#HLD
#Hypothyroidism
#CKD stage 3b
cont home meds
TSH WNL
#Morbid obesity
with BMI 49.5
Advise to decrease calorie intake
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
No concern for pneumonia
#Diverticulosis
#T12 compression Fx
no additional mgmt
I have spent at least 38min reviewing chart, test results, communication with consultants and direct patient care
DVT ppx Eliquis
Full code
Anticipated Discharge: Within 24 hours
Subjective/Interval History
-
Date of Service: December 23, 2023
Objective Data
-
Labs:
Laboratory Results
12/23/23
07:10
WBC 3.0 L
Hgb 10.4 L
Hct 32.3 L
Plt Count 108 L
Sodium 143
Potassium 3.2 L
Chloride 99
Carbon Dioxide 27
BUN 24 H
Creatinine 1.2 H
Glucose 111 H
Calcium 9.4
Total Bilirubin 1.7 H
AST 33
ALT 21
Alkaline Phosphatase 101
Vital Signs:
Vital Signs
Temp Pulse Resp BP Pulse Ox
98.0 F 51 17 133/54 95
12/23/23 07:15 12/23/23 07:50 12/23/23 07:15 12/23/23 07:50 12/23/23 07:15
I&O
12/22/23 12/23/23 12/24/23
06:59 06:59 06:59
Intake Total 720 / 720 360 / 600 240 / 240
Balance 720 / 720 360 / 600 240 / 240
Review of Systems
-
History Source: Patient
All other systems: Reviewed and negative
Physical Exam
-
General: Well Developed and Well Nourished
Respiratory: Clear to Auscultation
Cardiac: Regular Rhythm
GI: Soft, Nontender and Nondistended
Skin: Warm
Neuro: Awake, Alert, Oriented and AO x 3
Psych: Calm
[2023-12-23] MEDS: KCL 270 MEQ IV (09:50)
[2023-12-23 11:06] VITALS: BP 137/59
--- NOTE | 2023-12-23 11:41 | CM ---
Reviewed chart, PT/OT notes, patient progressing towards baseline level of care. Working on ambulating household distance. Wants to return home when medically stable with the care of her two daughters.
Plan: Case management will continue to follow and assist with discharge planning. Home when
--- NOTE | 2023-12-23 14:46 | W.PN.CARDCBS ---
Addendum entered and electronically signed by Jonathan Blanca DO 12/23/23 19:58:
I saw and examined the patient.
The Front Attendant's note was reviewed and I agree with the note.
Comment:
General: No acute distress, AAOX3
Neck: Negative JVD
Heart: Regular, Negative S3 positive S1/S2, Negative S4, No murmur
Lungs: CTA b/l, negative wheezes/rales/rhonchi
Abd: Positive BS, NT/ND, neg rebound/rigidity/guarding
Ext: Negative cyanosis/clubbing/edema
Neuro: nonfocal
Plan:
Cont IV lasix and transition to oral lasix next 24 hrs.
Her wt is lower than her prior dry wt
EF is preserved.
Will arrange outpt cardiac follow up
Original Note:
Today's Communication / Plan
-
She's 2lbs below presumed dry weight but has rales B/L bases. BUN/creat stable and have not increased since starting IV Lasix. Would continue IV Lasix through today (one more dose of 80 mg IV) and change to po tomorrow
-continue potassium repletion and repeat BMP tomorrow
Impression / Plan
-
PCP: Dr. Rojas
Primary senior account executive Dr. Ramirez
Impression:
Presented 12/19/2023 with shortness of breath
Acute on chronic HFpEF
Paroxysmal atrial fibrillation
Chronic Eliquis OAC
Chronic amiodarone therapy
Hypokalemia
Mild pancytopenia, new since 05/2023
Elevated bilirubin and Cr
Dual-chamber Medtronic permanent pacemaker, April 2021
Hyperlipidemia
Hypertension
Chronic kidney disease
Obesity
Carotid arterial disease
Echo 04/26/23: Technically difficult study. EF 55 to 60%. Likely normal regional wall motion of but difficult to last obtained given rapid rate. Normal LV wall thickness. Mild MR. Aortic valve sclerosis. Trace AI. PA pressure 27 mmHg.
Echo 12/21/23: EF 55%, normal RV size and function, moderate MR, moderate TR with PAP 44 mmHg
Plan:
-Weight is down 14 lbs from admission. Previous dry weight at last HF d/c on 05/02/23 was 263 lbs and patient weighs 261 lbs on 12/23/23. Has bibasilar rales. Creatinine has been stable 1.2 12/23/23, has ranged 1.2-1.4.
-K 3.2 today and receiving IV repletion.
-Since she still has rales on exam, would give one more dose Lasix 80 mg IV today. If stable overnight, switch to oral Lasix in a.m. and possibly discharge. Patient was taking Lasix 80 mg PO BID prior to admission and will likely need higher
outpatient dose of Lasix.
-EF preserved by echo. Outpatient dose of Toprol XL 25 mg daily has been continued.
-Patient is not chronically on GLADYS/ARB/ARNI due to CKD and h/o intermittent hypotension
-She has frequent yeast infections so SGLT2 inhibitors are contraindicated
-Potassium dropped from 3.6 on 12/22/23 to 3.2 12/23/23. She rec'd KCl 40 meq IV today and continues on outpatient dose of KCl 40 meq BID.
-Patient with known paroxysmal Afib, but in SR/AV paced on tele check by me 12/23/23. Outpatient dose of amiodarone 200 mg daily has been continued.
-reviewed device parameters, base rate 50 bpm
-Outpatient dose of Eliquis 5 mg BID (age 88, wt 119 kg and Cre 1.2) has been continued. Hgb stable at 10.4.
-Only walked 18 ft with rolling walker in PT, on 12/21/23, but planning on home with her 2 daughters when ready for d/c. Reports she is mostly sedentary and uses walker to get around house.
History of Present Illness 12/19/2023:
She has history of atrial fibrillation, permanent pacemaker, heart failure with preserved ejection fraction, CKD and morbid obesity with admission 04/2023 for hypoxemic respiratory failure, heart failure with preserved ejection fraction and strep
bacteremia. She was recently in the emergency department 12/09/2023 with hypokalemia and treated. She now presents to the ER with complaints of edema pressure in her left calf after chronic injury and dyspnea on exertion with shortness of breath
throughout the night prompting a call to 911. She tells me that she has noted lower extremity edema, dyspnea on exertion, orthopnea for which she has to raise her bed which is adjustable at night. She is limited with ambulation because of spinal
stenosis and her left leg gives out at times.
She denies chest pain and syncope. She does have a tendency to falls if not using her walker or trying to balance.
According to office notes prior discharge weight was 263 pounds. Weight on presentation was 275 pounds.
Labs with hemoglobin 11.4 BUNs/creatinine 38/1.4. AST mildly elevated at 41 ALT normal. Troponin negative. Potassium 4.8.
proBNP 3190 (04/24/2023 1880).
Peripheral vascular ultrasound venous 12/19/2023 no evidence of left lower extremity DVT.
Chest x-ray 12/19/2023 mild acute interstitial and alveolar pulmonary edema which is less severe than 04/24/2023. Mild cardiomegaly. Elevation of the right hemidiaphragm.
Progress Note - Furnace Worker
Subjective
Date of Service: December 23, 2023
lying in bed
denies SOB, PND, orthopnea
K 3.2, received 40 meq IV K today as well as usual po dose (40 meq BID)
anxious to go home
concern from nurse that HR running low. We looked at device interrogation from office. Pacemaker low rate is set at 50 bpm.
Objective
Labs:
12/23/23 07:10
12/23/23 07:10
Labs
Hgb 10.4 g/dL (12.0-16.0) L 12/23/23 07:10
Hct 32.3 % (37.0-47.0) L 12/23/23 07:10
Plt Count 108 10^3/uL (130-400) L 12/23/23 07:10
Sodium 143 mmol/L (135-145) 12/23/23 07:10
Potassium 3.2 mmol/L (3.5-5.1) L 12/23/23 07:10
BUN 24 mg/dl (7-17) H 12/23/23 07:10
Creatinine 1.2 mg/dL (0.6-1.0) H 12/23/23 07:10
Glucose 111 mg/dl (70-99) H 12/23/23 07:10
Vital Signs and I&O:
Vital Signs
Temp Pulse Resp BP Pulse Ox
97.8 F 52 17 137/59 95
12/23/23 11:06 12/23/23 11:06 12/23/23 11:06 12/23/23 11:06 12/23/23 11:06
Vital Signs
Temp Pulse Resp BP Pulse Ox
97.8 F 52 17 137/59 95
12/23/23 11:06 12/23/23 11:06 12/23/23 11:06 12/23/23 11:06 12/23/23 11:06
Intake & Output
12/21/23 12/22/23 12/23/23 12/24/23
06:59 06:59 06:59 06:59
Intake Total 1020 / 1020 720 / 720 360 / 600 240 / 240
Output Total 600 / 600
Balance 420 / 420 720 / 720 360 / 600 240 / 240
GEN: No distress, awake, Ox3
HEENT: supple, anicteric, mmm
LUNGS: CTA, rales B/L bases
CV: Reg, S1/S2, no murmur
ABD: soft, BS+, NT/ND
EXT: LEs full/trace edema
NEURO: Gross non-focal
SKIN: No rash
[2023-12-23] MEDS: FERRLECIT 110 MG IV (15:19)
[2023-12-23 15:34] VITALS: BP 110/78
--- NOTE | 2023-12-23 16:29 | W.CARD.DEVCH ---
Cardiac Device Check
-
Device: Pacemaker
Boardinghouse Keeper: [employer]
The patient's device was interrogated on 12/21/23 with assistance of the device instruments sales representative followed by a complete physician review. The device had normal function. No abnormalities seen. Pacemaker lower rate is 50 bpm, upper rate 130 bpm. She is
A sensed-Vpaced 14.7%, Apaced-Vpaced 83.1%, had 4 episodes NSVT in November, each lasting 2 seconds.
[2023-12-23] MEDS: LIPITOR 10 MG PO (17:20)
[2023-12-23] MEDS: PLENDIL EXTENDED RELEASE 10 MG PO (17:22)
[2023-12-23] MEDS: PACERONE 200 MG PO (17:23)
[2023-12-23] MEDS: TOPROL XL 25 MG PO (17:23)
--- NOTE | 2023-12-23 19:02 | W.PN.ONC2 ---
Today's Communication / Plan
-
Continue IV iron
Follow up with me in outpt 4-6 weeks with repeat CBC.
She has been my pt in the past for breast cancer.
Impression
Impression
Mild pancytopenia, new since 05/2023
Elevated bilirubin and Cr
CHF exacerbation
Iron studies suggest component of iron deficiency with ferritin 43, IS 11%. NO B12 or folate deficiency. Hemolysis less likely with normal retic, and haptoglobin.
Plan
Plan
Metolazone has association with cytopenias involving all three cell lines and may be cause of cytopenias in this case. However, cytopenias are unchanged since admission whereas would have expected some improvement off drug.
Reviewed CT C/A/P, no evidence of recurrent breast cancer and CBC not suggestive of marrow infiltrative process. No splenomegaly to suggest splenic sequestration.
f/u REY, haptoglobin
IV iron -risk/benefit reviewed and pt agreeable
Subjective/Objective
Chief Complaint
CHF exacerbation, new mild pancytopenia
Subjective
no complaints, tolerating IV iron
Vital Signs:
Vital Signs
Temp Pulse Resp BP Pulse Ox
98.2 F 56 17 123/51 95
12/23/23 15:34 12/23/23 17:23 12/23/23 15:34 12/23/23 17:23 12/23/23 15:34
Lab Results:
Laboratory Data
WBC 3.0 10^3/uL (4.8-10.8) L 12/23/23 07:10
Hgb 10.4 g/dL (12.0-16.0) L 12/23/23 07:10
Plt Count 108 10^3/uL (130-400) L 12/23/23 07:10
eGFR 43.81 12/23/23 07:10
Physical Exam
Awake, alert, non-toxic
Review of Systems
Review of Systems
Negative except as per HPI
[2023-12-23 19:38] VITALS: BP 114/51
[2023-12-23] MEDS: MELATONIN 5 MG PO (22:02)
[2023-12-23 23:05] VITALS: BP 127/91
[2023-12-24 03:30] VITALS: BP 110/57
[2023-12-24 06:00] VITALS: BMI 47.8
[2023-12-24 06:25] LABS: NT-proBNP 2150 pg/ml
[2023-12-24] MEDS: SYNTHROID 125 MCG PO (06:25)
[2023-12-24 06:35] LABS: % Basophils 0.3 % (0-2); % Eosinophils 6.9 % (0-6); % Immature Granulocytes 0.9 % (0-0.5); % Lymphocytes 33.1 % (20.5-51.1); % Monocytes 15.8 % (1.7-9.3); Absolute Eosinophils 0.2 10^3/uL (0-0.7); Absolute Lymphocytes 1.1 10^3/uL (1.2-3.4); Absolute Monocytes 0.5 10^3/uL (0.1-0.6); Absolute Neutrophils 1.4 10^3/uL (1.4-6.5); Hematocrit 31.8 % (37.0-47.0); Hemoglobin 10.6 g/dL (12.0-16.0); Mean Corp Hgb Conc. 33.3 g/dL (33.0-37.0); Mean Corpuscular Hgb 29.7 pg (27.0-31.0); Mean Corpuscular Volume 89.1 fL (81.0-99.0); Mean Platelet Volume 11.6 fL (7.4-10.4); Nucleated Red Blood Cells % 0.6 %; Platelet Count 107 10^3/uL (130-400); Red Blood Cell Count 3.57 10^6/uL (4.20-5.40); Red Cell Dist. Width 16.3 % (11.5-14.5); White Blood Cell Count 3.2 10^3/uL (4.8-10.8)
[2023-12-24 06:52] LABS: ALT (SGPT) 19 U/L (0-35); AST (SGOT) 31 U/L (14-36); Albumin 3.5 g/dl (3.5-5.0); Alkaline Phosphatase 100 U/L (38-126); Blood Urea Nitrogen 26 mg/dl (7-17); Calcium 9.4 mg/dl (8.4-10.2); Carbon Dioxide 30 mmol/L (22-30); Chloride 100 mmol/L (98-107); Estimated Creatinine Clearance 40 ml/min; Glucose 123 mg/dl (70-99); Potassium 3.1 mmol/L (3.5-5.1); Sodium 141 mmol/L (135-145); Total Bilirubin 1.6 mg/dl (0.2-1.3); Total Protein 6.3 g/dl (6.3-8.2); eGFR 43.81
[2023-12-24 07:29] VITALS: BP 110/51
[2023-12-24 07:46] LABS: Magnesium 1.6 mg/dl (1.6-2.3)
[2023-12-24] MEDS: ELIQUIS 5 MG PO (08:13)
[2023-12-24] MEDS: KCL 40 MEQ PO ×2 (08:13)
[2023-12-24] MEDS: LASIX 80 MG PO (08:13)
--- NOTE | 2023-12-24 09:49 | PN.CDI ---
CDI
- -
CDI:
Physician Documentation Request
Admit Date: 12/19/23 06:24
Dear Doctor Judy,
Please review the following and provide your response in the progress notes.
Clinical Indicators:
Pt admitted with Acute on Chronic Diastolic CHF
Oncology progress note 12/22, ' -K 3.2 today and receiving IV repletion....'
Potassium levels below / Pt did get KCL 40 CARL IV BID 12/22 & ordered for today 12/23 40 CARL KCL BID
12/23/23 12/24/23
07:10 05:23
Potassium 3.2 L 3.1 L
Based on the above, could you clarify in the progress notes, the appropriate diagnosis, if significant, that supports the above abnormalities and additional evaluation, monitoring and/or treatment rendered:
Hypokalemia
Abnormal lab value
Other
Use of terms such as suspected, likely, concern for, or probable (associated with a specific diagnosis that is being evaluated, monitored, or treated as if it exists) are acceptable and can be coded in the inpatient setting, when documented at the
time of discharge.
Thank you,
Afia Rodriguez RN
CDI Specialist
[place] text
Please use your independent medical judgment in providing your response.
--- NOTE | 2023-12-24 10:55 | W.PN.CARDCBS ---
Addendum entered and electronically signed by Maurisio Ramirez MD 12/24/23 16:04:
I saw and examined the patient.
The HIM MANAGER or PA's note was reviewed and I agree with the note.
Comment: General: Well developed, well nourished in NAD.
Neck: Supple, no JVD, HJR, carotids +2 B/L, no bruits bilaterally.
Heart: Non displaced PMI, RRR, no murmurs, No S3, S4, no rubs.
Lungs: Scattered rhonchi
Extremities: No clubbing, cyanosis or edema bilaterally.
Neuro: Grossly nonfocal, awake, alert and oriented x3.
Stable cardiology status for discharge. Changed to Lasix 80 mg p.o. twice daily. Start spironolactone given hyperkalemia. Check renal profile in 1 week. Follow-up arranged. Discussed with primary service
Original Note:
Today's Communication / Plan
-
Has diuresed >14 lbs since admission
switched to oral Lasix today 80 mg bid
start Spironolactone 12.5 mg daily on discharge given hypokalemia. Creat stable.
Repeat BMP 1 week
ok for discharge from cardiac standpoint
Impression / Plan
-
PCP: Dr. Rojas
Primary management lecturer Dr. Ramirez
Impression:
Presented 12/19/2023 with shortness of breath
Acute on chronic HFpEF
Paroxysmal atrial fibrillation
Chronic Eliquis OAC
Chronic amiodarone therapy
Hypokalemia
Mild pancytopenia, new since 05/2023
Elevated bilirubin and Cr
Dual-chamber Medtronic permanent pacemaker, April 2021
Hyperlipidemia
Hypertension
Chronic kidney disease
Obesity
Carotid arterial disease
Echo 04/26/23: Technically difficult study. EF 55 to 60%. Likely normal regional wall motion of but difficult to last obtained given rapid rate. Normal LV wall thickness. Mild MR. Aortic valve sclerosis. Trace AI. PA pressure 27 mmHg.
Echo 12/21/23: EF 55%, normal RV size and function, moderate MR, moderate TR with PAP 44 mmHg
Plan:
-Weight is down 14.5 lbs from admission. Previous dry weight at last HF d/c on 05/02/23 was 263 lbs and patient weighs 261 lbs on 12/24/23. Creatinine has been stable 1.2 12/23/23, has ranged 1.2-1.4. BNP on admission on 12/19/23 3190, was 2150 today
12/24/23). Transitioned to oral Lasix today, back to outpatient dose of Lasix 80 mg bid.
-K 3.1 despite IV potassium repletion yesterday in addition to usual KCl 40 meq BID. Will start Spironolactone 12.5 mg daily. Check BMP in one week.
-still with R base rales- could be her baseline lung exam. Advised incentive spirometer given her sedentary lifestyle.
-EF preserved by echo. Outpatient dose of Toprol XL 25 mg daily has been continued.
-Patient is not chronically on GLADYS/ARB/ARNI due to CKD and h/o intermittent hypotension
-She has frequent yeast infections so SGLT2 inhibitors are contraindicated
-Patient with known paroxysmal Afib, but in SR/AV paced on tele check by me 12/23/23. Outpatient dose of amiodarone 200 mg daily has been continued.
-reviewed device parameters, base rate 50 bpm. Device was checked by [employer] rep on 12/21/23-report in chart
-Outpatient dose of Eliquis 5 mg BID (age 88, wt 119 kg and Cre 1.2) has been continued. Hgb stable at 10.6.
-Only walked 18 ft with rolling walker in PT, on 12/21/23, but planning on home with her 2 daughters. Reports she is mostly sedentary and uses walker to get around house.
-Advised visiting nurse since she is starting new med-Spironolactone 12.5 mg daily s/p this admission for acute on chronic HFpEF.
History of Present Illness 12/19/2023:
She has history of atrial fibrillation, permanent pacemaker, heart failure with preserved ejection fraction, CKD and morbid obesity with admission 04/2023 for hypoxemic respiratory failure, heart failure with preserved ejection fraction and strep
bacteremia. She was recently in the emergency department 12/09/2023 with hypokalemia and treated. She now presents to the ER with complaints of edema pressure in her left calf after chronic injury and dyspnea on exertion with shortness of breath
throughout the night prompting a call to 911. She tells me that she has noted lower extremity edema, dyspnea on exertion, orthopnea for which she has to raise her bed which is adjustable at night. She is limited with ambulation because of spinal
stenosis and her left leg gives out at times.
She denies chest pain and syncope. She does have a tendency to falls if not using her walker or trying to balance.
According to office notes prior discharge weight was 263 pounds. Weight on presentation was 275 pounds.
Labs with hemoglobin 11.4 BUNs/creatinine 38/1.4. AST mildly elevated at 41 ALT normal. Troponin negative. Potassium 4.8.
proBNP 3190 (04/24/2023 1880).
Peripheral vascular ultrasound venous 12/19/2023 no evidence of left lower extremity DVT.
Chest x-ray 12/19/2023 mild acute interstitial and alveolar pulmonary edema which is less severe than 04/24/2023. Mild cardiomegaly. Elevation of the right hemidiaphragm.
Progress Note - Hair Or Beauty Salon Manager
Subjective
Date of Service: December 24, 2023
denies SOB
was uncomfortable last night due to constipation but had BM and feels better now
anxious to go home
wt continues to go down, lost 1/2 lb overnight.
switching to oral Lasix today.
Objective
Labs:
12/24/23 05:23
12/24/23 05:23
Labs
Hgb 10.6 g/dL (12.0-16.0) L 12/24/23 05:23
Hct 31.8 % (37.0-47.0) L 12/24/23 05:23
Plt Count 107 10^3/uL (130-400) L 12/24/23 05:23
Sodium 141 mmol/L (135-145) 12/24/23 05:23
Potassium 3.1 mmol/L (3.5-5.1) L 12/24/23 05:23
BUN 26 mg/dl (7-17) H 12/24/23 05:23
Creatinine 1.2 mg/dL (0.6-1.0) H 12/24/23 05:23
Glucose 123 mg/dl (70-99) H 12/24/23 05:23
Vital Signs and I&O:
Vital Signs
Temp Pulse Resp BP Pulse Ox
98.0 F 50 18 110/51 96
12/24/23 07:29 12/24/23 08:13 12/24/23 07:29 12/24/23 08:13 12/24/23 07:29
Vital Signs
Temp Pulse Resp BP Pulse Ox
98.0 F 50 18 110/51 96
12/24/23 07:29 12/24/23 08:13 12/24/23 07:29 12/24/23 08:13 12/24/23 07:29
Intake & Output
12/22/23 12/23/23 12/24/23 12/25/23
06:59 06:59 06:59 06:59
Intake Total 720 / 720 360 / 600 2280 / 2280
Output Total 475 / 475
Balance 720 / 720 360 / 600 1805 / 1805
Physical Exam
Physical Exam
GEN: No distress, awake, Ox3
HEENT: supple, anicteric, mmm
LUNGS: rales R base
CV: Reg, S1/S2, 1/6 syst LSB, no murmur
ABD: soft, BS+, NT/ND
EXT: LEs full
NEURO: Gross non-focal
SKIN: No rash
[2023-12-24 11:17] VITALS: BP 119/62
[2023-12-24] MEDS: ALDACTONE 12.5 MG PO (12:42)
[2023-12-24] MEDS: FERRLECIT 110 MG IV (13:34)
--- NOTE | 2023-12-24 13:42 | W.PN.HOSP.TC ---
Addendum entered and electronically signed by Forrest Kim MD 12/24/23 13:48:
#Chronic hypokalemia
repleted
Original Note:
Today's Communication/Plan
-
dc
Assessment / Plan
Assessment / Plan
88yo F with PMHx of HLD, Afib, CKD, SSS s/p PPM, spinal stenosis, chronic ambulatory deficiency came with worsening SOB and LE swelling for weeks. Found CHF exacerbation improving on diuretics. Also pancytopenia, that Hematology contributed to
metolazone and will follow up as outpatient. Spironolactone added with instructions for weekly BMP. Achieved appropriate diuresis so as per cardiology switched to oral Lasix. Discussed with family discharge disposition and they agreed with discharge
home as patient declined rehab. Medically stable for D/C
A/P:
#Acute on chronic HFpEF exacerbation
Elevated proBNP on admission
COnt Lasix, daily weight, follow electrolytes,
repeat Echo showed no decrease in EF
Cardiology consult: cont diuresis, dry weight 265
LE US neg for DVT
CT on 12/20/23 - no pulmonary edema
#Chronic b/l LE lymphedema
2/2 ambulatory deficiency
compression stocking PRN
#Diarrhea
resolved
no need for stool studies
#Mild indirect bilirubinemia
#Pancytopenia
No RUQ pain
LDH mildly elevated
Not on heparin product - no concern for HIT
Possible reactive - CT chest/abd/pelvis without signs of infection. =Blood for parasites, Lyme neg, Babesia Ab pending, however also no fevers
REY neg
Hematology consult: possibly 2/2 metolazone, cont to follow
#UTI ruled out
Ucx grew mixed vicki
no dysuria
CT without signs of UTI
#Chronic ambulatory deficiency 2/2 chronic spinal stenosis
PT/OT
Was able to move as per patient baseline
#Afib, unspecified
#Essential HTN
#HLD
#Hypothyroidism
#CKD stage 3b
cont home meds
TSH WNL
#Morbid obesity
with BMI 49.5
Advise to decrease calorie intake
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
No concern for pneumonia
#Diverticulosis
#T12 compression Fx
no additional mgmt
I have spent at least 38min reviewing chart, test results, communication with consultants and direct patient care
DVT ppx Eliquis
Full code
Anticipated Discharge: Today
Subjective/Interval History
-
Date of Service: December 24, 2023
Objective Data
-
Labs:
Laboratory Results
12/24/23
05:23
WBC 3.2 L
Hgb 10.6 L
Hct 31.8 L
Plt Count 107 L
Sodium 141
Potassium 3.1 L
Chloride 100
Carbon Dioxide 30
BUN 26 H
Creatinine 1.2 H
Glucose 123 H
Calcium 9.4
Total Bilirubin 1.6 H
AST 31
ALT 19
Alkaline Phosphatase 100
Vital Signs:
Vital Signs
Temp Pulse Resp BP Pulse Ox
97.5 F 51 18 128/62 97
12/24/23 11:17 12/24/23 12:42 12/24/23 11:17 12/24/23 12:42 12/24/23 11:17
I&O
12/23/23 12/24/23 12/25/23
06:59 06:59 06:59
Intake Total 360 / 600 2280 / 2280 110 / 110
Output Total 475 / 475
Balance 360 / 600 1805 / 1805 110 / 110
Physical Exam
-
General: No Apparent Distress
HEENT: Normocephalic
Respiratory: Clear to Auscultation
Cardiac: Regular Rhythm
GI: Soft, Nontender and Nondistended
Musculoskeletal: No Clubbing, No Cyanosis and No Edema
Skin: Warm
Neuro: Awake, Alert, Oriented and AO x 3
Psych: Calm
--- NOTE | 2023-12-24 13:47 | W.DCSUMMARY ---
Discharge Summary
Discharge Data
Date of Admission: 12/19/23
Date of Discharge: 12/24/23
-
Pending Results: No
Hospital Course
88yo F with PMHx of HLD, Afib, CKD, SSS s/p PPM, spinal stenosis, chronic ambulatory deficiency came with worsening SOB and LE swelling for weeks. Found CHF exacerbation improving on diuretics. Also pancytopenia, that Hematology contributed to
metolazone and will follow up as outpatient. Spironolactone added with instructions for weekly BMP. Achieved appropriate diuresis so as per cardiology switched to oral Lasix. Discussed with family discharge disposition and they agreed with discharge
home as patient declined rehab. Medically stable for D/C
I have spent at least 36min preparing discharge
Patient was managed for:
#Acute on chronic HFpEF exacerbation
#Chronic b/l LE lymphedema
#Diarrhea
#Mild indirect bilirubinemia
#Pancytopenia
#UTI ruled out
#Chronic ambulatory deficiency 2/2 chronic spinal stenosis
#Afib, unspecified
#Essential HTN
#HLD
#Hypothyroidism
#CKD stage 3b
#Morbid obesity
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
#Diverticulosis
#T12 compression Fx - patient without recent change in chronic back pain, no new focal deficit
Discharge Plan
-
Patient Disposition: Home with Home Care
Discharge Diagnosis/Procedures: CHF
Diet: Low Cholesterol and Low Sodium
Activity: As tolerated
Driving Restrictions: As prior to admission
Blood Work: BMP in one week
Other Services: VN
Specialty Instructions: Weigh Daily- Call MD for wt gain/loss 3 lbs overnight/5 lbs in 1 week
Instructions: *[facility] Heart Failure Instructions
Referrals:
Amparo Luz MD [Active] - in four to six weeks
Maurisio Ramirez MD [Active] - 01/03/24 4:00 pm (You have an appt to see Dr. Ramirez at the [place] office on 01/03/24 at 4 PM. Please call [phone] if you need to reschedule.)
UNKNOWN - PT DOES,NOT KNOW [Family Provider] -
Prescriptions:
New
spironolactone 25 mg Tablet
12.5 mg PO DAILY Qty: 30 0RF
Continued
atorvastatin 10 MG tablet
10 mg PO QPM
levothyroxine 125 MCG tablet
125 mcg PO DAILY
felodipine 10 MG tablet extended release 24 hr
10 mg PO QPM
Eliquis 5 MG tablet
5 mg PO BID Qty: 60 11RF
amiodarone [Pacerone] 200 MG tablet
200 mg PO QPM
metoprolol succinate 25 MG tablet extended release 24 hr
25 mg PO QPM
furosemide [Lasix] 80 mg Tablet
80 mg PO BID
acetaminophen [Tylenol] 325 mg Tablet
650 mg PO Q6H PRN (Reason: mild pain)
melatonin
1 tab PO HS
Patient Comments:
daughter does not know dosage
potassium chloride 20 mEq tablet extended release
40 meq PO BID
Discharge Orders:
Discharge Patient (As Directed); Ordered 12/24/23
Ordered By: Forrest Kim
Discharge Date and Time
Print Language: MAURITANIAN
--- NOTE | 2023-12-24 14:42 | CM ---
Reviewed chart, received consult from attending for VN. Met with patient to obtain to advise about attending's indication for VN. Patient whose daughter was at bedside stated that her son is an ED MD, another son is an EMT and she lives with two
daughters who are there 24 hrs. She was firm that she did not want VN. She signed IMM. Reviewed with patient and now on chart.
Plan: Case management will continue to follow and assist with discharge planning. Home.
[2023-12-24 15:25] VITALS: BP 114/59
[2023-12-25 21:18] LABS: Babesia microti IgG < 1:16 (< 1:16); Babesia microti IgM <1:20 (<1:20)
== END 2023-12-24 16:00 | disposition home or self-care (01) | DRG 291 ==
LOC: 3 WEST ACU 06:24
PROVIDERS: Nurse Practitioner; ADMITTING PHYSICIAN Internal Medicine; ATTENDING PHYSICIAN Internal Medicine; CONSULT PHYSICIAN Internal Medicine Cardiovascular Disease; CONSULT PHYSICIAN Internal Medicine Hematology & Oncology; EMERGENCY PHYSICIAN Emergency Medicine
DX: I13.0 Hypertensive heart and chronic kidney disease with heart failure and stage 1 through stage 4 chronic kidney disease, or unspecified chronic kidney disease (principal); I50.33 Acute on chronic diastolic (congestive) heart failure; Z68.42 Body mass index [BMI] 45.0-49.9, adult; M48.54XA Collapsed vertebra, not elsewhere classified, thoracic region, initial encounter for fracture; D61.818 Other pancytopenia; R17 Unspecified jaundice; E66.01 Morbid (severe) obesity due to excess calories; I49.5 Sick sinus syndrome; I65.22 Occlusion and stenosis of left carotid artery; I48.0 Paroxysmal atrial fibrillation; N18.32 Chronic kidney disease, stage 3b; E87.6 Hypokalemia; E78.00 Pure hypercholesterolemia, unspecified; E03.9 Hypothyroidism, unspecified; I08.3 Combined rheumatic disorders of mitral, aortic and tricuspid valves; I89.0 Lymphedema, not elsewhere classified; K57.30 Diverticulosis of large intestine without perforation or abscess without bleeding; M48.00 Spinal stenosis, site unspecified; R19.7 Diarrhea, unspecified; R26.2 Difficulty in walking, not elsewhere classified; E61.1 Iron deficiency; Z79.01 Long term (current) use of anticoagulants; Z95.0 Presence of cardiac pacemaker; Z88.6 Allergy status to analgesic agent; Z88.2 Allergy status to sulfonamides; Z87.891 Personal history of nicotine dependence; Z85.3 Personal history of malignant neoplasm of breast; Z79.899 Other long term (current) drug therapy; Z79.890 Hormone replacement therapy
CPT/HCPCS: 71046; 71250; 74176; 80053; 81003; 81015; 82248; 82607; 82728; 83010; 83540; 83550; 83615; 83735; 83880; 84443; 84484; 85025; 85045; 86618; 86753; 86880; 87015; 87086; 87207; 93005; 93306; 93971; 96374; 97116; 97163; 97166; 99285; J2916

== ENCOUNTER → 2023-12-31 12:59 | Outpatient (REF) | payer MEDICARE, OTHER, SELFPAY ==
[2023-12-31 14:43] LABS: Blood Urea Nitrogen 28 mg/dl (7-17); Calcium 9.4 mg/dl (8.4-10.2); Carbon Dioxide 23 mmol/L (22-30); Chloride 103 mmol/L (98-107); Glucose 158 mg/dl (70-99); Potassium 4.6 mmol/L (3.5-5.1); Sodium 141 mmol/L (135-145); eGFR 36.41
== END ==
LOC: REG 12:59
PROVIDERS: ATTENDING PHYSICIAN Internal Medicine Cardiovascular Disease; FAMILY PHYSICIAN Family Medicine
DX: I50.32 Chronic diastolic (congestive) heart failure (principal)
CPT/HCPCS: 36415; 80048

== ENCOUNTER → 2024-01-14 11:50 | Outpatient (REF) | payer MEDICARE, OTHER, SELFPAY ==
[2024-01-14 13:13] LABS: Blood Urea Nitrogen 51 mg/dl (7-17); Calcium 9.2 mg/dl (8.4-10.2); Carbon Dioxide 29 mmol/L (22-30); Chloride 93 mmol/L (98-107); Glucose 158 mg/dl (70-99); Sodium 138 mmol/L (135-145); eGFR 31.02
[2024-01-14 13:18] LABS: NT-proBNP 3870 pg/ml
== END ==
LOC: REG 11:50
PROVIDERS: ATTENDING PHYSICIAN Internal Medicine Cardiovascular Disease; FAMILY PHYSICIAN Family Medicine
DX: I50.32 Chronic diastolic (congestive) heart failure (principal)
CPT/HCPCS: 36415; 80048; 83880

== ENCOUNTER 2024-01-24 18:17 | Inpatient (IN) | payer MEDICARE, OTHER, SELFPAY ==
[2024-01-24] VITALS (8 sets, daily range): BP systolic 93–114; BP diastolic 43–60; PULSE 58; O2SAT 95; BMI 55.6; BMI 54.4
[2024-01-24 14:18] LABS: % Basophils 0.3 % (0-2); % Eosinophils 6.3 % (0-6); % Immature Granulocytes 0.8 % (0-0.5); % Lymphocytes 48.5 % (20.5-51.1); % Monocytes 11.9 % (1.7-9.3); % Neutrophils 32.2 % (42.2-75.2); Absolute Eosinophils 0.3 10^3/uL (0-0.7); Absolute Lymphocytes 1.9 10^3/uL (1.2-3.4); Absolute Monocytes 0.5 10^3/uL (0.1-0.6); Absolute Neutrophils 1.3 10^3/uL (1.4-6.5); Hematocrit 37.2 % (37.0-47.0); Hemoglobin 12.2 g/dL (12.0-16.0); Mean Corp Hgb Conc. 32.8 g/dL (33.0-37.0); Mean Corpuscular Hgb 29.6 pg (27.0-31.0); Mean Corpuscular Volume 90.3 fL (81.0-99.0); Nucleated Red Blood Cells % 0 %; Platelet Count 130 10^3/uL (130-400); Red Blood Cell Count 4.12 10^6/uL (4.20-5.40); White Blood Cell Count 3.9 10^3/uL (4.8-10.8)
[2024-01-24 14:35] LABS: Blood Urea Nitrogen 60 mg/dl (7-17); Calcium 9.3 mg/dl (8.4-10.2); Carbon Dioxide 25 mmol/L (22-30); Chloride 98 mmol/L (98-107); Estimated Creatinine Clearance 27 ml/min; Glucose 145 mg/dl (70-99); Potassium 3.9 mmol/L (3.5-5.1); Sodium 138 mmol/L (135-145); eGFR 23.73
--- NOTE | 2024-01-24 14:49 | ED.GENMED ---
History of Present Illness
General
Chief Complaint: Weakness
Time Seen by Provider: 01/24/24 13:38
History of Present Illness
History of Present Illness:
88-year-old female with history of atrial fibrillation, CKD, hyperlipidemia, spinal stenosis, chronic ambulatory issues presenting to the emergency department for generalized weakness. Patient arrives with daughter who helps care for her at home.
Patient had a recent hospital admission about a month ago for CHF exacerbation. She notes since this admission and discharge, has been weak, and has had increased difficulty walking around her house. She feels that patient is slower to respond.
No report of any fever or falls. No report of any vomiting. Patient denies any chest pain. Does note some dyspnea. Denies any abdominal pain. Reports that she has been having a left side pain since she left the hospital, however known history
of chronic back pain. Daughter does note that she was started on gabapentin, and is unsure if that is contributing to her symptoms. She denies additional acute medical complaints
Past History
Past History
ED Past Medical History: Arrthythmia (Paroxysmal atrial fibrillation), Cancer (Breast), CHF, HTN, Hypercholesterolemia, NIDDM and Other (Carotid artery disease, morbid obesity, chronic kidney disease)
ED Past Surgical History: Cardiac (Pacemaker) and Other
Social History
Tobacco: Non-smoker
Alcohol: None
Drug: None
Living: with family
Employment: Retired
Family History
Family History: Other (Noncontributory)
Phy Exam
Physical Exam
Physical Exam:
General:no clinical signs of dehydration, nontoxic and in no acute distress, morbidly obese
HEENT: protecting airway
Neck: appears supple
CV: Bradycardic, regular rhythm
Resp: No accessory muscle use, no increased work of breathing, crackles at bilateral bases
Abd: Soft and non-distended, no tenderness to palpation
Extremities: +2 pitting edema bilaterally. Blister to the left lateral ankle, without surrounding erythema or drainage.
Neuro: alert, no focal neurologic deficit, oriented
: deferred
Rectal: deferred
Psych: Normal affect
Skin: Small area of redness at the left flank region, no vesicular component
Course
Orders/Labs/Results
Orders:
Orders
01/24/24 14:10
Basic Metabolic Panel Urgent
Complete Blood Count/With Diff Urgent
NT-proBNP Urgent
Comment: ADD ON
01/24/24 14:25
Add On- LAB Urgent
Tests Added?: BNP
01/24/24 14:26
CR Chest - 2 Views Urgent
Comment:
Reason For Exam: SOB
01/24/24 14:53
EKG [Electrocardiogram (*1)] Urgent
Reason for Study: Bradycardia / Tachycardia
EKG- Treatment ONCE
01/24/24 15:26
ECG [Electrocardiogram (*1)] Urgent
Reason for Study: Shortness of Breath
EKG- Treatment ONCE
01/24/24 15:58
Urinalysis Reflex To Culture Urgent
Date Specimen was Collected: 01/24/24
Time Specimen was Collected: 15:55
01/24/24 16:29
Case Management Consult ONCE
Case Management Consult: Discharge Planning
01/24/24 16:48
Physical Therapy Consult [Pt Eval And Treat] Urgent
Activity Level: Ambulate
Abnormal Lab Results
01/24/24
14:10
WBC 3.9 L 10^3/uL
(4.8-10.8)
RBC 4.12 L 10^6/uL
(4.20-5.40)
MCHC 32.8 L g/dL
(33.0-37.0)
RDW 19.0 H %
(11.5-14.5)
MPV 12.0 H fL
(7.4-10.4)
Absolute Neuts (auto) 1.3 L 10^3/uL
(1.4-6.5)
Immature Gran % 0.8 H %
(0-0.5)
Neutrophils % 32.2 L %
(42.2-75.2)
Monocytes % 11.9 H %
(1.7-9.3)
Eosinophils % 6.3 H %
(0-6)
BUN 60 H mg/dl
(7-17)
Creatinine 2.0 H mg/dL
(0.6-1.0)
Glucose 145 H mg/dl
(70-99)
01/24/24 14:10
01/24/24 14:10
Vital Signs
Initial and Last Documented VS:
Initial Vital Signs
Temp Pulse Resp BP Pulse Ox
97.4 F 52 23 114/53 97
01/24/24 13:36 01/24/24 13:36 01/24/24 13:36 01/24/24 13:36 01/24/24 13:36
Last Documented Vital Signs
Temp Pulse Resp BP Pulse Ox
97.4 F 54 15 114/60 94
01/24/24 13:40 01/24/24 16:45 01/24/24 16:45 01/24/24 16:00 01/24/24 16:45
MDM/Problems Addressed
MDM/Problems Addressed:
88-year-old female with history of atrial fibrillation, CKD, hyperlipidemia, spinal stenosis, chronic ambulatory issues presenting to the emergency department for increased weakness. Vital signs on arrival significant for mild bradycardia.
On exam, patient is in no acute distress. She is awake and alert, does seem fatigued, otherwise no focal neurologic deficits. Unclear etiology of patient's symptoms. Daughter notes that she has not been urinating as much as she usually does
despite being on Lasix. Possible dehydration component. Blood pressure is slightly low. Will hold fluids however, crackles at the bases. Symptoms could also be secondary to known CHF. Will check chest x-ray. However daughter notes swelling to
the lower extremities is improving. Urinary tract infection is a consideration, will send sample. Known CKD, will check kidney function to evaluate for worsening kidney dysfunction in the setting of possible dehydration. Patient denies fever or
cough, no additional infectious symptoms, with lower suspicion for systemic infectious process. Symptoms also could be secondary to general deconditioning from recent hospital admission. Patient may benefit from rehabilitation services.
16:30 -patient's labs are relatively unremarkable, mild elevation of creatinine. BNP is at baseline and chest x-ray without acute cardiopulmonary disease. Urine without evidence of infection. Patient reports that she is unable to get to the
bathroom at this time and daughter is concerned about her falling, has difficulty transporting her. Will discuss with care management regarding potential placement for rehabilitation services.
17:00 -case management recommending admission. PT consulted, patient was unable to get out of bed. Recommending SNF services.
*Critical Care Note
Total Time (30-74mins, 75-104mins- exclusive of procedures): Not Applicable
ED Attending Note
-
Portions of this chart may have been created with voice recognition software.� Occasional wrong word or��sound alike� substitutions may have occurred due to the inherent limitations of voice recognition software.
Discharge Plan
Departure
Prescriptions:
No Action
atorvastatin 10 MG tablet
10 mg PO QPM
levothyroxine 125 MCG tablet
125 mcg PO DAILY
felodipine 10 MG tablet extended release 24 hr
10 mg PO QPM
Eliquis 5 MG tablet
5 mg PO BID Qty: 60 11RF
amiodarone [Pacerone] 200 MG tablet
200 mg PO QPM
metoprolol succinate 25 MG tablet extended release 24 hr
25 mg PO QPM
furosemide [Lasix] 80 mg Tablet
80 mg PO BID
acetaminophen [Tylenol] 325 mg Tablet
650 mg PO Q6H PRN (Reason: mild pain)
melatonin
1 tab PO HS
Patient Comments:
daughter does not know dosage
potassium chloride 20 mEq tablet extended release
40 meq PO BID
spironolactone 25 mg Tablet
12.5 mg PO DAILY Qty: 30 0RF
Referrals:
Laith Rojas MD [Family Provider] -
Interventions
Interventions:
*Risk Screen - Suicide Last Done: 01/24/24 13:41
*General Assessment Last Done: 01/24/24 13:41
*Neglect/Abuse Screening Last Done: 01/24/24 13:43
ED- Cardiac Assessment Last Done: 01/24/24 13:50
ED- Neurological Assessment Last Done: 01/24/24 13:50
ED- Pulmonary Assessment Last Done: 01/24/24 13:50
Discharge Date and Time
Print Language: SAMI
[2024-01-24 15:21] LABS: NT-proBNP 3140 pg/ml
[2024-01-24 16:07] LABS: Urine Albumin Negative (Neg - Trace); Urine Bilirubin Negative (Negative); Urine Character Clear (Clear); Urine Color Yellow; Urine Glucose Negative (Negative); Urine Ketone Negative (Negative); Urine Leukocyte Negative (Negative); Urine Nitrite Negative (Negative); Urine Occult Blood Negative (Negative); Urine Urobilinogen Negative (Neg - 1+)
--- NOTE | 2024-01-24 17:24 | CM ---
Addendum entered by Roberta Tracy 01/24/24 18:26:
List of SNFs in the area from medicare.gov given to patient and daughter to review.
Original Note:
Chart reviewed. CM consult placed for placement. Patient and daughter at bedside. CM introduced self and role. Beverly and her daughter confirmed that patient is having lots of difficulty with ambulating. CM spoke about STR vs. HHC. Patient and
daughter in agreement with either option.
Patient lives with her 2 daughters. She has 4 steps to enter into her mobile phone. Daughter shared there is a lift that guides patient over the steps, so she doesn't have to climb. She has become increasingly weak and has had difficulty ambulating
to the bathroom. She denied any +SDOHs. She has an active pharmacy and doctor. Daughters provide transportation. 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
Patient and daughter chose [facility].
ANTICIPATED DISCHARGE PLAN: Short term rehab vs. home health care PT/OT, pending therapies' recommendations.
--- NOTE | 2024-01-24 17:29 | HPS.HSE ---
Family Physician
-
Family Physician: Laith Rojas
Chief Complaint
-
Generalized weakness
History of Present Illness
88-year-old female with a past medical history of atrial fibrillation, permanent pacemaker, heart failure with preserved ejection fraction, CKD and morbid obesity presents with generalized weakness. Patient lives with her daughter, who brought her
in because she is too weak to even go to the bathroom. Patient was recently treated at [facility] for CHF exacerbation, and released on 12/24/2023. Daughter reports that patient has been increasingly weak. She was recently started on
gabapentin for lower back pain. Daughter feels that she is having side effects, and is tapering her off the gabapentin. Patient is also on Valtrex for suspected herpes zoster rash. Daughter reports patient had an episode of nausea and vomiting
today. Daughter also reports that she is less responsive. Patient does admit to being dizzy with any type of movement. Patient denies chest pain, denies shortness of breath. No abdominal pain, no dysuria.
Medical History
Past Medical History
Past Medical History: Reports Other
Additional Past Medical History:
hypertension, spinal stenosis, lipidemia, carotid stenosis, atrial fibrillation, sick sinus syndrome status post pacemaker, CHF, hyperlipidemia
Past Surgical History: Reports Cardiac
Social History
Tobacco: Non-smoker
Alcohol: None
Drug: None
Family History
Family History: Not pertinent
Allergies / Home Medications
Allergies reflects when Allergies were last updated in [employer].
Home Medications with original date entered in [employer]
Allergy/Medication List:
Allergies
Allergy/AdvReac Type Severity Reaction Status Date / Time
aspirin Allergy Nausea / Verified 01/24/24 17:48
Vomiting
NSAIDS (Non-Steroidal Allergy Unknown Verified 12/19/23 04:44
Anti-Inflamma
Salicylates * Allergy Unknown Verified 12/19/23 04:44
Sulfa (Sulfonamide Allergy Anaphylaxis Verified 01/24/24 17:48
Antibiotics)
Home Medications Table - record
�Medication �Instructions �Recorded �Confirmed
atorvastatin 10 mg tablet 10 mg PO QPM High cholesterol 05/07/21 01/24/24
felodipine 10 mg tablet,extended 10 mg PO QPM Heart 05/07/21 01/24/24
release 24 hr disease/condition
levothyroxine 125 mcg tablet 125 mcg PO DAILY Thyroid 05/07/21 01/24/24
apixaban 5 mg tablet (Eliquis) 5 mg PO BID Blood clot 05/12/21 01/24/24
prevention/tx #60 tabs
amiodarone 200 mg tablet (Pacerone) 200 mg PO QPM Arrhythmia 04/24/23 01/24/24
furosemide 80 mg tablet (Lasix) 80 mg PO BID Fluid 04/24/23 01/24/24
Retention/Swelling
metoprolol succinate 25 mg 25 mg PO QPM Heart 04/24/23 01/24/24
tablet,extended release 24 hr disease/condition
potassium chloride 20 mEq 40 meq PO BID Electrolyte Repletion 12/19/23 01/24/24
tablet,extended release
spironolactone 25 mg tablet 12.5 mg (1/2 x 25 mg) PO DAILY #30 12/24/23 01/24/24
tabs
acetaminophen 500 mg tablet 1,000 mg PO Q6HPRN PRN mild pain 01/24/24 01/24/24
(Tylenol Extra Strength)
docusate sodium 100 mg capsule 200 mg PO DAILYPRN PRN constipation 01/24/24 01/24/24
(Colace)
gabapentin 100 mg capsule 100 mg PO DAILYPRN PRN moderate 01/24/24 01/24/24
pain
melatonin 5 mg tablet 5 mg PO HS 01/24/24 01/24/24
polyethylene glycol 3350 17 gram 17 g PO DAILYPRN PRN constipation 01/24/24 01/24/24
oral powder packet (Miralax)
valacyclovir 1 gram tablet 1,000 mg PO Q8H 01/24/24 01/24/24
Review of Systems
-
A 12 point ROS was completed and negative except as noted: Yes
Physical Exam
Vital Signs
Vital Signs
Temp Pulse Resp BP Pulse Ox
97.4 F 54 15 114/60 94
01/24/24 13:40 01/24/24 16:45 01/24/24 16:45 01/24/24 16:00 01/24/24 16:45
Physical Exam
General: No Apparent Distress and Obese
HEENT: NormoCephalic, Anicteric and Moist mucous membranes
Respiratory: Clear
Cardiac: S1/S2 and Regular Rhythm
GI: Soft, Non Tender and Non Distended
Musculoskeletal: No Clubbing, No Cyanosis, Edema, Left Lower Extremity and Edema, Right Lower Extremity
Neuro: Awake
Psych: Calm
Laboratory Results
-
01/24/24 14:10
01/24/24 14:10
Impression/Plan
-
HPI: 88-year-old female with a past medical history of atrial fibrillation, permanent pacemaker, heart failure with preserved ejection fraction, CKD and morbid obesity presents with generalized weakness. Patient lives with her daughter, who brought
her in because she is too weak to even go to the bathroom. Patient was recently treated at [facility] for CHF exacerbation, and released on 12/24/2023. Daughter reports that patient has been increasingly weak. She was recently started on
gabapentin for lower back pain. Daughter feels that she is having side effects, and is tapering her off the gabapentin. Patient is also on Valtrex for suspected herpes zoster rash. Daughter reports patient had an episode of nausea and vomiting
today. Daughter also reports that she is less responsive. Patient does admit to being dizzy with any type of movement. Patient denies chest pain, denies shortness of breath. No abdominal pain, no dysuria.
#Acute kidney injury
#Dehydration
Creatinine 2.0 today, her baseline is 1.4
Hold Lasix, give 500 cc normal saline
Trend creatinine
#Chronic heart failure with a preserved ejection fraction
#Chronic lower extremity edema
Suspect BNP is elevated secondary to CKD
Compression stockings, hold Lasix as above
Blood pressure soft, will hold spironolactone
#Paroxysmal atrial fibrillation
Status post permanent pacemaker
Continue Eliquis, metoprolol succinate, amiodarone
#Nausea/vomiting
Had 1 episode the day of admission
Denies abdominal pain, denies diarrhea
Supportive care
#Generalized weakness
PT/OT
#Suspected shingles rash
Continue Valtrex
Discontinue gabapentin
#Spinal stenosis
#Chronic back pain
Tylenol and oxy as needed
#Hypothyroidism
Continue levothyroxine
DVT prophylaxis�Eliquis
Full code
Updated daughter at bedside 01/23
Total time spent to see the patient on the floor, examine the patient, review data and lab results, discuss treatment plan with patient, nursing staff around 76 minutes.
[2024-01-24] MEDS: NSS 500 IV (18:11)
--- NOTE | 2024-01-24 20:30 | PTCARENOTE ---
Pt transferred from ED. Pt slid over into bed with assistance. Pt AAOX3, able to make needs known, VSS. Pt oriented to unit, call jin within reach. Will continue with current plan.
[2024-01-24] MEDS: VALTREX 1000 MG PO (21:22)
[2024-01-24] MEDS: MELATONIN 5 MG PO (21:22)
[2024-01-24] MEDS: LIPITOR 10 MG PO (21:22)
[2024-01-24] MEDS: TOPROL XL 25 MG PO (21:23)
[2024-01-24] MEDS: PACERONE 200 MG PO (21:23)
[2024-01-24] MEDS: ELIQUIS 5 MG PO (21:23)
[2024-01-24] MEDS: PLENDIL EXTENDED RELEASE 10 MG PO (21:24)
[2024-01-24] MEDS: ROXICODONE PO (21:24)
[2024-01-25 03:39] VITALS: BP 96/50
[2024-01-25 05:38] VITALS: BMI 55.9
[2024-01-25] MEDS: VALTREX 1000 MG PO ×3 (05:52→21:14)
[2024-01-25] MEDS: SYNTHROID 125 MCG PO (05:52)
[2024-01-25 07:59] VITALS: BP 121/55
[2024-01-25] MEDS: ELIQUIS 5 MG PO ×2 (08:19→21:13)
--- NOTE | 2024-01-25 08:54 | W.PN.HOSP.TC ---
Today's Communication/Plan
-
Discharge to short-term rehab when bed available
Assessment / Plan
Assessment / Plan
88-year-old female with a past medical history of atrial fibrillation, permanent pacemaker, heart failure with preserved ejection fraction, CKD and morbid obesity presents with generalized weakness. Patient lives with her daughter, who brought her
in because she is too weak to even go to the bathroom. Patient was recently treated at [facility] for CHF exacerbation, and released on 12/24/2023. Daughter reports that patient has been increasingly weak. She was recently started on
gabapentin for lower back pain. Daughter feels that she is having side effects, and is tapering her off the gabapentin. Patient is also on Valtrex for suspected herpes zoster rash. Daughter reports patient had an episode of nausea and vomiting
today. Daughter also reports that she is less responsive. Patient does admit to being dizzy with any type of movement. Patient denies chest pain, denies shortness of breath. No abdominal pain, no dysuria.
#Acute kidney injury
#Dehydration
Resolving status post 500 cc normal saline, creatinine 1.7 today, was 2.0 upon admission, her baseline is 1.4
Hold Lasix. Trend creatinine
#Chronic heart failure with a preserved ejection fraction
#Chronic lower extremity edema
Suspect BNP is elevated secondary to CKD
Compression stockings, hold Lasix as above
Blood pressure soft, will hold spironolactone
#Paroxysmal atrial fibrillation
Status post permanent pacemaker
Continue Eliquis, metoprolol succinate, amiodarone
#Nausea/vomiting
Had 1 episode the day of admission
Denies abdominal pain, denies diarrhea
Resolved
#Generalized weakness
PT/OT rec STR, CM informed
#Hypokalemia
Replete, recheck a.m. labs
#Suspected shingles rash
Continue Valtrex
Discontinue gabapentin
#Spinal stenosis
#Chronic back pain
Tylenol and oxy as needed
#Hypothyroidism
Continue levothyroxine
#Obesity due to excess calories
Affects all aspects of care
DVT prophylaxis�Eliquis
Full code
Updated daughter at bedside 01/23
Total time spent to see the patient on the floor, examine the patient, review data and lab results, discuss treatment plan with patient, nursing staff around 50 minutes
Physical Exam
General: Morbidly obese, no acute distress
HEENT: Normocephalic, Atraumatic, EOMI, MMM
Respiratory: Clear to Auscultation bilaterally
Cardiac: Normal S1/S2, Regular Rate and Rhythm
GI: Soft, Nontender, Nondistended, Normal Bowel Sounds
Extremities: No Clubbing, Cyanosis
Bilateral lymphedema noted, scattered wounds on left lower extremity
Neuro: Nonfocal/Grossly Intact
Psych: Calm, Cooperative
Derm: No Visible lesions
Anticipated Discharge: Within 24 hours
Subjective/Interval History
-
Date of Service: January 25, 2024
Patient has chronic back pain from her spinal stenosis. She continues to feel weak. No fever, no vomiting.
Objective Data
-
Labs:
Laboratory Results
01/25/24
07:41
Sodium Pending
Potassium Pending
Chloride Pending
Carbon Dioxide Pending
BUN Pending
Creatinine Pending
Glucose Pending
Calcium Pending
Vital Signs:
Vital Signs
Temp Pulse Resp BP Pulse Ox
98.2 F 52 18 121/55 93
01/25/24 07:59 01/25/24 07:59 01/25/24 07:59 01/25/24 07:59 01/25/24 07:59
I&O
01/24/24 01/25/24 01/26/24
06:59 06:59 06:59
Output Total 150 / 150
Balance -150 / -150
[2024-01-25 09:10] LABS: Blood Urea Nitrogen 60 mg/dl (7-17); Carbon Dioxide 26 mmol/L (22-30); Chloride 100 mmol/L (98-107); Estimated Creatinine Clearance 31 ml/min; Glucose 106 mg/dl (70-99); Potassium 3.3 mmol/L (3.5-5.1); Sodium 139 mmol/L (135-145); eGFR 28.84
--- NOTE | 2024-01-25 10:24 | WOUNDNOTE ---
SACRUM WITH PHOTO FLASH
--- NOTE | 2024-01-25 10:25 | WOUNDNOTE ---
L LATERAL LOWER LEG
--- NOTE | 2024-01-25 10:26 | WOUNDNOTE ---
SEBASTIAN RN note: Patient admitted with Ambulatory dysfunction.
See H&P for complete history. Lives with 2 daughters who assist in care.
PMH: A FIB-Eliquis, HTN, B/L Carotid stenosis, L bundle branch block-PM, Obesity,lymphedema and spinal stenosis.
Wound Location and type/assessment: Patient known to service, last seen 04/26/23 for abrasion on L leg. Admitted with flat dried blister on L lateral leg, no drainage. Proximally on L leg few scattered dry scabs. Compared to last seen legs with less
dryness and edema. Dr. Salazar in to see patient, discussed wound care and compression for legs. Patient can turn with assist, sacrum blanchable red mixed with MASD. Groin skin folds with mild MASD. Heels intact.
Appetite: Good.
Pressure redistribution devices in place: On Accumax, turned to R semi side lying and pillow under calves.
Plan: Ordered mineral oil for legs and dry dressing for L leg with Tubigrip size G knee high B/L legs. Fungal powder to skin folds. Dr. Salazar approved of the above. Called [facility] for Tubigrip and will apply when received. Updated nurse Analia.
Updated care plan and will follow as needed.
Note to case management of equipment requested for discharge: None.
[2024-01-25] MEDS: KCL 20 MEQ PO (11:00)
[2024-01-25 11:20] VITALS: BP 121/58
[2024-01-25] MEDS: ROXICODONE 5 MG PO (11:51)
[2024-01-25] MEDS: TYLENOL 1000 MG PO (11:51)
--- NOTE | 2024-01-25 14:54 | CM ---
CM reviewed chart, patient asleep bedside. Referral sent to [facility], awaiting bed availability. CM will continue to follow for all discharge planning needs.
Plan; SNF when bed available.
[2024-01-25 15:26] VITALS: BP 123/62
[2024-01-25] MEDS: MIRALAX 17 GRAMS PO (15:30)
[2024-01-25] MEDS: TOPROL XL 25 MG PO (17:28)
[2024-01-25] MEDS: PACERONE 200 MG PO (17:28)
[2024-01-25] MEDS: PLENDIL EXTENDED RELEASE 10 MG PO (17:28)
[2024-01-25] MEDS: LIPITOR 10 MG PO (17:28)
[2024-01-25 19:58] VITALS: BP 94/72
[2024-01-25] MEDS: SENOKOT-S 2 TABLET PO (21:13)
[2024-01-25] MEDS: MELATONIN 5 MG PO (21:14)
[2024-01-25] MEDS: DESENEX/MITRAZOL/ZEASORB 1 APPLIC TOPICAL (21:15)
[2024-01-25 23:44] VITALS: BP 110/55
[2024-01-26] VITALS (8 sets, daily range): BP systolic 100–143; BP diastolic 50–75; PULSE 51; BMI 54.8
[2024-01-26] MEDS: VALTREX 1000 MG PO ×3 (05:48→21:26)
[2024-01-26] MEDS: SYNTHROID 125 MCG PO (05:49)
--- NOTE | 2024-01-26 07:35 | W.PN.HOSP.TC ---
Today's Communication/Plan
-
Continue holding Lasix
Consult nephrology
Increase laxatives
Assessment / Plan
Assessment / Plan
88-year-old female with a past medical history of atrial fibrillation, permanent pacemaker, heart failure with preserved ejection fraction, CKD and morbid obesity presents with generalized weakness. Patient lives with her daughter, who brought her
in because she is too weak to even go to the bathroom. Patient was recently treated at [facility] for CHF exacerbation, and released on 12/24/2023. Daughter reports that patient has been increasingly weak. She was recently started on
gabapentin for lower back pain. Daughter feels that she is having side effects, and is tapering her off the gabapentin. Patient is also on Valtrex for suspected herpes zoster rash. Daughter reports patient had an episode of nausea and vomiting
today. Daughter also reports that she is less responsive. Patient does admit to being dizzy with any type of movement. Patient denies chest pain, denies shortness of breath. No abdominal pain, no dysuria.
#Acute kidney injury superimposed on stage IIIb chronic kidney disease
#Dehydration
Improved status post 500 cc normal saline on 01/23, creatinine 1.7 today, was 1.7, was 2.0 upon admission, her baseline is 1.4
Hold Lasix. Trend creatinine
Consult nephrology for diuretic recommendations
#Chronic heart failure with a preserved ejection fraction
#Chronic lower extremity edema
Suspect BNP is elevated secondary to CKD
Compression stockings, hold Lasix as above
Blood pressure soft, will hold spironolactone
#Paroxysmal atrial fibrillation
Status post permanent pacemaker
Continue Eliquis, amiodarone
Patient has been bradycardic, will reduce metoprolol succinate from 25 mg at bedtime to 12.5 mg at bedtime with hold parameters for heart rate less than 60
#Nausea/vomiting
Had 1 episode the day of admission
Denies abdominal pain, denies diarrhea
Resolved
#Generalized weakness
PT/OT rec STR, CM informed
#Hypokalemia
Repleted and resolved
#Suspected shingles rash
Continue Valtrex
Discontinue gabapentin
#Spinal stenosis
#Chronic back pain
Tylenol and oxy as needed
#Hypothyroidism
Continue levothyroxine
#Obesity due to excess calories
Affects all aspects of care
DVT prophylaxis�Eliquis
Full code
Updated daughter at bedside 01/23
Total time spent to see the patient on the floor, examine the patient, review data and lab results, discuss treatment plan with patient, nursing staff around 53 minutes
Physical Exam
General: Morbidly obese, no acute distress
HEENT: Normocephalic, Atraumatic, EOMI, MMM
Respiratory: Clear to Auscultation bilaterally
Cardiac: Normal S1/S2, Regular Rate and Rhythm
GI: Soft, Nontender, Nondistended, Normal Bowel Sounds
Extremities: No Clubbing, Cyanosis
Bilateral lymphedema noted, scattered wounds on left lower extremity
Neuro: Nonfocal/Grossly Intact
Psych: Calm, Cooperative
Derm: No Visible lesions
Anticipated Discharge: Within 24 hours
Subjective/Interval History
-
Date of Service: January 26, 2024
Patient reports constipation. Denies shortness of breath, denies chest pain. No fever, no vomiting.
Objective Data
-
Labs:
Laboratory Results
01/26/24
06:00
Sodium Pending
Potassium Pending
Chloride Pending
Carbon Dioxide Pending
BUN Pending
Creatinine Pending
Glucose Pending
Calcium Pending
Vital Signs:
Vital Signs
Temp Pulse Resp BP Pulse Ox
97.7 F 53 20 117/55 93
01/26/24 03:50 01/26/24 03:50 01/26/24 03:50 01/26/24 03:50 01/26/24 03:50
I&O
01/25/24 01/26/24 01/27/24
06:59 06:59 06:59
Intake Total 960 / 960
Output Total 150 / 150 650 / 650
Balance -150 / -150 310 / 310
[2024-01-26] MEDS: MIRALAX 17 GRAMS PO ×2 (08:27→21:31)
[2024-01-26] MEDS: HYDROPHOR 1 APPLIC TOPICAL (08:31)
[2024-01-26] MEDS: DESENEX/MITRAZOL/ZEASORB 1 APPLIC TOPICAL ×2 (08:31→21:08)
[2024-01-26] MEDS: ELIQUIS 5 MG PO ×2 (08:31→21:25)
[2024-01-26 10:03] LABS: Blood Urea Nitrogen 62 mg/dl (7-17); Calcium 9.2 mg/dl (8.4-10.2); Carbon Dioxide 26 mmol/L (22-30); Chloride 99 mmol/L (98-107); Estimated Creatinine Clearance 31 ml/min; Glucose 120 mg/dl (70-99); Magnesium 1.9 mg/dl (1.6-2.3); Potassium 3.5 mmol/L (3.5-5.1); Sodium 139 mmol/L (135-145); eGFR 28.84
--- NOTE | 2024-01-26 11:26 | PN.CDI ---
CDI
- -
CDI:
Physician Documentation Request
Admit Date: 01/24/24 18:17
Dear Doctor Do,
Clinical Indicators:
Patient admitted with EULOGIO.
01/23 H & P: Past medical history of CKD.
External Medical Summary: CKD 3a documented.
12/24/23 Discharge Summary: CKD 3b documented.
GFR trend during this admission:
12/19/23 12/20/23 12/21/23
04:05 06:53 05:21
Creatinine 1.4 H 1.3 H 1.3 H
eGFR 36.41 39.80 39.80
12/22/23 12/23/23 12/24/23
06:40 07:10 05:23
Creatinine 1.2 H 1.2 H 1.2 H
eGFR 43.81 43.81 43.81
01/24 PN 'Acute kidney injury...creatinine 1.7 today, was 2.0 upon admission, her baseline is 1.4'
Please provide the CKD stage:
CKD 3b
CKD 3a
Other, please specify
Criteria for EULOGIO*
1 Increase in serum creatinine by > or = to 0.3 mg/dL (> or = to 26.5 micromol/L) within 48 hours, OR
2 Increase in serum creatinine to > or = to 1.5 times baseline, which is known or presumed to have occurred within 7 days, OR
3 Urine volume < 0.5 nL/kg/hour for six hours
Stages of Chronic Kidney Disease*
Level Description GFR
G1 Normal or High >90
G2 Mildly decreased 60-89
G3a Mildly to moderately decreased 45-59
G3b Moderately to severely decreased 30-44
G4 Severely decreased 15-29
G5 Kidney failure <15
Use of terms such as suspected, likely, concern for, or probable (associated with a specific diagnosis that is being evaluated, monitored, or treated as if it exists) are acceptable and can be coded in the inpatient setting, when documented at the
time of discharge.
Thank you,
Dary Dudley RN BSN
CDI Specialist
available via tiger text
Please use your independent medical judgment in providing your response.
*Source: Kidney Disease: Improving Global Outcomes (KDIGO) 2012
[2024-01-26] MEDS: SENOKOT 17.2 MG PO (13:00)
[2024-01-26] MEDS: COLACE 200 MG PO (13:00)
--- NOTE | 2024-01-26 14:00 | CM ---
CM reviewed chart, spoke with Brigida at [facility] admissions, able to accept patient for short term rehab tomorrow, 01/27/24. [facility]. Patient [facility] bedside, agreeable to SNF tomorrow. CM spoke with patients daughter in law, Eli,
discussed plan for [facility] tomorrow. Patient will require ambulance transport. CM will continue to follow for all discharge planning needs.
Plan; [facility] tomorrow.
[2024-01-26] MEDS: KCL 20 MEQ PO (17:29)
[2024-01-26] MEDS: LIPITOR 10 MG PO (17:30)
[2024-01-26] MEDS: TOPROL XL 12.5 MG PO (17:30)
[2024-01-26] MEDS: PACERONE 200 MG PO (17:30)
[2024-01-26] MEDS: PLENDIL EXTENDED RELEASE 10 MG PO (17:31)
--- NOTE | 2024-01-26 18:19 | W.CON.NEPH ---
Medical History
-
Chief Complaint: Gen weakness
History of Present Illness:
88-year-old female with a past medical history of HTN on felodipine, BB, atrial fibrillation Amiodarone, AC with ELiquis, permanent pacemaker, heart failure with preserved ejection fraction on lasix and Aldactone, CKD3 recent baseline cr 1.4 and
morbid obesity presents with generalized weakness. Patient lives with her daughter, who brought her in on 01/23 because she is too weak to even go to the bathroom. Patient was recently treated at [facility] 1 month ago for CHF
exacerbation, and released on 12/24/2023. Daughter reports that patient has been increasingly weak. She was recently started on gabapentin for lower back pain. Daughter feels that she is having side effects, and is tapered her off the gabapentin.
Patient is also on Valtrex for suspected herpes zoster rash. Daughter reports patient had an episode of nausea and vomiting on admit but otherwise no GI symp . Patient does admit to being dizzy with any type of movement. Patient denies chest pain,
denies shortness of breath. No abdominal pain. Has constipation since admit. She c/o mild dysuria today.
Her cr noted at 2 on admit and improving to 1.7 s/p 500cc NS on admit. She gained ~19kg since last d/c 1 month ago. She reports compliant with her diet and FR.
Past Medical History
hypertension, spinal stenosis, lipidemia, carotid stenosis, atrial fibrillation, sick sinus syndrome status post pacemaker, CHF, hyperlipidemia
Past Surgical History: Cardiac
Social History
Tobacco: Non-Smoker
Alcohol: None
Drug: None
Living: With Family
Family History
Family History: Not Pertinent
Allergies / Home Medications
Allergy/AdvReac Type Severity Reaction Status Date / Time
aspirin Allergy Nausea / Verified 01/24/24 17:48
Vomiting
NSAIDS (Non-Steroidal Allergy Unknown Verified 12/19/23 04:44
Anti-Inflamma
Salicylates * Allergy Unknown Verified 12/19/23 04:44
Sulfa (Sulfonamide Allergy Anaphylaxis Verified 01/24/24 17:48
Antibiotics)
�Medication �Instructions �Recorded �Confirmed �Type
atorvastatin 10 mg tablet 10 mg PO QPM High cholesterol 05/07/21 01/24/24 History
felodipine 10 mg tablet,extended 10 mg PO QPM Heart 05/07/21 01/24/24 History
release 24 hr disease/condition
levothyroxine 125 mcg tablet 125 mcg PO DAILY Thyroid 05/07/21 01/24/24 History
apixaban 5 mg tablet (Eliquis) 5 mg PO BID Blood clot 05/12/21 01/24/24 Rx
prevention/tx #60 tabs
amiodarone 200 mg tablet (Pacerone) 200 mg PO QPM Arrhythmia 04/24/23 01/24/24 History
furosemide 80 mg tablet (Lasix) 80 mg PO BID Fluid 04/24/23 01/24/24 History
Retention/Swelling
metoprolol succinate 25 mg 25 mg PO QPM Heart 04/24/23 01/24/24 History
tablet,extended release 24 hr disease/condition
potassium chloride 20 mEq 40 meq PO BID Electrolyte Repletion 12/19/23 01/24/24 History
tablet,extended release
spironolactone 25 mg tablet 12.5 mg (1/2 x 25 mg) PO DAILY #30 12/24/23 01/24/24 Rx
tabs
acetaminophen 500 mg tablet 1,000 mg PO Q6HPRN PRN mild pain 01/24/24 01/24/24 History
(Tylenol Extra Strength)
docusate sodium 100 mg capsule 200 mg PO DAILYPRN PRN constipation 01/24/24 01/24/24 History
(Colace)
gabapentin 100 mg capsule 100 mg PO DAILYPRN PRN moderate 01/24/24 01/24/24 History
pain
melatonin 5 mg tablet 5 mg PO HS 01/24/24 01/24/24 History
polyethylene glycol 3350 17 gram 17 g PO DAILYPRN PRN constipation 01/24/24 01/24/24 History
oral powder packet (Miralax)
valacyclovir 1 gram tablet 1,000 mg PO Q8H 01/24/24 01/24/24 History
Review of Systems
-
All complete 12 point ROS have been inquired and found negative other than stated in HPI
Physical Exam
Vital Signs
Vital Signs
Temp Pulse Resp BP Pulse Ox
98.0 F 51 20 100/50 92
01/26/24 15:50 01/26/24 15:50 01/26/24 15:50 01/26/24 15:50 01/26/24 15:50
Lab Results
WBC 3.9 10^3/uL (4.8-10.8) L 01/24/24 14:10
RBC 4.12 10^6/uL (4.20-5.40) L 01/24/24 14:10
Hgb 12.2 g/dL (12.0-16.0) 01/24/24 14:10
Hct 37.2 % (37.0-47.0) 01/24/24 14:10
Plt Count 130 10^3/uL (130-400) 01/24/24 14:10
Sodium 139 mmol/L (135-145) 01/26/24 07:49
Potassium 3.5 mmol/L (3.5-5.1) 01/26/24 07:49
Chloride 99 mmol/L (98-107) 01/26/24 07:49
Carbon Dioxide 26 mmol/L (22-30) 01/26/24 07:49
BUN 62 mg/dl (7-17) H 01/26/24 07:49
Creatinine 1.7 mg/dL (0.6-1.0) H 01/26/24 07:49
eGFR 28.84 01/26/24 07:49
Glucose 120 mg/dl (70-99) H 01/26/24 07:49
Calcium 9.2 mg/dl (8.4-10.2) 01/26/24 07:49
Fej-P-Ybrqdepwlbe Pept 3140 pg/ml 01/24/24 14:10
CXR: 107:
IMPRESSION:
No radiographic evidence of acute cardiopulmonary abnormality. No significant change when compared to prior study from last month.
Physical Exam
General: Awake, Alert, Oriented and AOx3
HEENT: EOMI, Anicteric and Other (thick neck can not appreciate JVD)
Respiratory: Clear (decreased), Normal Excursion and Nonlabored Respirations
Cardiac: S1/S2 and Regular Rate/Rhythm
Breast: Deferred by me
Abdomen: Soft and Nontender
Musculoskeletal: Edema (3+)
Skin: Other (LE mild erythema seem chronic)
Data Reviewed
-
Labs: Labs Reviewed by me and Discussed with Patient
Assessment/Plan
-
IMP:
Acute kidney injury superimposed on stage IIIb chronic kidney disease
Chronic heart failure with a preserved ejection fraction
Chronic lower extremity edema
Paroxysmal atrial fibrillation
Status post permanent pacemaker
Nausea/vomiting
Generalized weakness
Hypokalemia
Suspected shingles rash
Spinal stenosis
Chronic back pain
Hypothyroidism
Obesity due to excess calories
?metolazone causing pancytopenia 12/2023
Plan:
A/w gen weakness after recent d/c 1m ago for CHF
EULOGIO-cr peak 2, UA was bland suspected from diuresis vs cardiorenal
s/p 500cc NS on admit r slightly better at 1.7
follow bladder scan, check Fena
She is over 30lbs since last d/c and suspect still vol overload
would give her 1 dos eof IV lasix and monitor response
All her edema i snot amenable for diuresis
If cr increases may benefit from RHC
check UA since she c/o dysuria
BP stable but soft, decrease Felodipine
BB lowered due to tyree
Pancytopenia improving , felt from Metolazone from last admit
d/w pt and primary
[2024-01-26] MEDS: LASIX 80 MG IV (21:07)
--- NOTE | 2024-01-26 21:10 | PTCARENOTE ---
Addendum entered by Lucy Mcallister RN 01/27/24 01:52:
22:27 Pt calling c/o SOB, pulse ox now 89-90% on 6L. Pt has increased work of breathing, using accessory muscles. JONELLE Del Valle made aware and at bedside. pt placed on NRB mask satting 93%. Decreased urine output bladder scanned for 502 ccs. Order in
for joyce catheter. Joyce placed. orders in for stat CXR and 20mg IV lasix. pt transferred to IMU rm [id number].
Original Note:
Pt pulse ox 89% on RA, lungs with crackles at bases, placed on 2L NC now 92-93%. pt denies SOB. Pt due for 80 IV lasix. med given see JUN.
[2024-01-26] MEDS: SENOKOT-S 2 TABLET PO (21:25)
[2024-01-26] MEDS: MELATONIN 5 MG PO (21:25)
[2024-01-26] MEDS: PHENERGAN 25 MG PO (21:27)
--- NOTE | 2024-01-26 23:02 | W.PN.UPDATE ---
Update Note
Progress Note Update
-Patient is hypoxic complained of SOB. SPo2 in 80s, BP 143/75, temp 97.7, hr 67, RR 26. Patient was placed on NRB.
-Chest exam with crackles at bases. Patient is CHF and received one time order of 80 mg lasix by nephrology 2 hrs ago.
-Chest x-ray, lab orders, duo nebs ordered. Chest x-ray shows pulmonary edema with bilateral pleural effusions (reading by radiologist wildlife conservation officer), one time dose added of lasix 20mg.
-bladder scan 502 cc, joyce placed in.
-Bipap ordered and patient transferred to IMU. Family updated on the phone.
-Around 3 hrs later patient started to de sat to 80s% on bipap 16/8 15L using accessory muscle to breath, restless trying to remove bipap mask. One time dose of Ativan was given.
abg result post Bipap (PH 7.26, [id number], PO2 61, HCO3 29.2). Discussed the case with the tool and die manager and will transfer the patient to ICU.
Family contacted updated with the current changes, transfer to ICU and the possibility of intubation/ventilator, family confirmed that patient is full code and agreed with the plan.
[2024-01-26] MEDS: LASIX 20 MG IV (23:50)
[2024-01-27] VITALS (54 sets, daily range): BP systolic 57–142; BP diastolic 40–97; PULSE 2–60; BMI 54.9
--- NOTE | 2024-01-27 00:50 | PTCARENOTE ---
Received patient from [facility] via bed, given report by RN via phone. Pt experiencing severe SOB with labored breathing, accessory muscled aiding in breathing. Respiratory therapy bedside to place pt on BiPAP current O2 sat is 88-90%. Pedal pulses
heard using Doppler. Bilateral lower extremity edema +3 pitting. Pt is audibly groaning but able to follow commands. Pt is AV paced on tele HR 60. Audible expiratory wheeze and crackles throughout. Vickers intact with new stat lock placed. Tubi director drug safety
removed HS. Foam on the sacrum is clean dry and intact, pt unable to tolerate side lying for longer periods of time. CHG bath given. Call jin is within reach.
--- NOTE | 2024-01-27 01:03 | PTCARENOTE ---
Addendum entered by Disha Tovar RN 01/27/24 04:03:
Pt transported to ICU via bed. Report given to receiving RN. Transferred with RT.
Addendum entered by Disha Tovar RN 01/27/24 02:16:
JONELLE Carcamo and Eligio at bedside to assess the pt. Bladder scan 0. Pt belly breathing labored continues. SPO2 86-88%. BiPAP adjusted by RT to 16/8 15L. ABG drawn by RT. Pt moaning and appears to be in distress. Ativan ordered 0.5 mg and
administered per order. Awaiting ABG results.
Original Note:
Pt is currently on 14/7 15L BiPAP. Her O2 sat is currently 88%. NAKUL Carcamo made aware, no further orders at this time.
[2024-01-27 01:49] LABS: Hematocrit 39.2 % (37.0-47.0); Hemoglobin 12.6 g/dL (12.0-16.0); Mean Corp Hgb Conc. 32.1 g/dL (33.0-37.0); Mean Corpuscular Hgb 28.4 pg (27.0-31.0); Mean Corpuscular Volume 88.3 fL (81.0-99.0); Mean Platelet Volume 12.1 fL (7.4-10.4); Platelet Count 167 10^3/uL (130-400); Red Blood Cell Count 4.44 10^6/uL (4.20-5.40); Red Cell Dist. Width 19.1 % (11.5-14.5); White Blood Cell Count 4.9 10^3/uL (4.8-10.8)
[2024-01-27 01:50] LABS: Blood Urea Nitrogen 58 mg/dl (7-17); Calcium 9.4 mg/dl (8.4-10.2); Carbon Dioxide 24 mmol/L (22-30); Chloride 100 mmol/L (98-107); Estimated Creatinine Clearance 33 ml/min; Glucose 190 mg/dl (70-99); Potassium 3.6 mmol/L (3.5-5.1); Sodium 140 mmol/L (135-145); eGFR 31.02
[2024-01-27 01:54] LABS: NT-proBNP 2660 pg/ml
[2024-01-27] MEDS: NSS (PRESERVATIVE FREE) 0.25 ML IV ×2 (01:59→04:37)
[2024-01-27] MEDS: ATIVAN 0.5 MG IV ×2 (01:59→04:37)
[2024-01-27 02:25] LABS: B.E. 0.5 mmol/L; HCO3 29.2 mmol/L (21-28); O2 Saturation % 90.5 % (94-98); PCO2 65 mmHg (32-35); PO2 61 mmHg (83-108); pH 7.26 (7.35-7.45)
[2024-01-27 02:26] LABS: O2 Therapy BIPAP
[2024-01-27 02:35] LABS: Procalcitonin < 0.05 ng/ml (0.0-0.25)
[2024-01-27 03:47] LABS: Urine Albumin 1+ (Neg - Trace); Urine Bilirubin Negative (Negative); Urine Character Cloudy (Clear); Urine Color Amber; Urine Glucose Negative (Negative); Urine Ketone Negative (Negative); Urine Leukocyte 2+ (Negative); Urine Nitrite Negative (Negative); Urine Occult Blood 4+ (Negative); Urine Urobilinogen Negative (Neg - 1+)
[2024-01-27 04:03] LABS: Urine Mucus Many; Urine Squamous Cell >30 /LPF (Few); Urine Urothelial Cell >30 /LPF (FEW)
[2024-01-27 04:05] LABS: Urine Amorphous Seen; Urine Red Blood Cell >100 /HPF (0-2)
[2024-01-27 04:09] LABS: Urine Bacteria Many (Negative); Urine Hyaline Cast >15 /LPF (0-2); Urine White Cell >100 /HPF (0-5)
[2024-01-27 04:16] LABS: Urine Sodium < 5 mmol/L (30-90)
[2024-01-27] MEDS: VALTREX PO (04:22)
[2024-01-27] MEDS: SYNTHROID PO (04:22)
[2024-01-27 04:28] LABS: Hematocrit 38.1 % (37.0-47.0); Hemoglobin 12.1 g/dL (12.0-16.0); Mean Corp Hgb Conc. 31.8 g/dL (33.0-37.0); Mean Corpuscular Hgb 28.1 pg (27.0-31.0); Mean Corpuscular Volume 88.6 fL (81.0-99.0); Platelet Count 149 10^3/uL (130-400); Red Cell Dist. Width 18.7 % (11.5-14.5)
[2024-01-27 04:32] LABS: INR 2.12
[2024-01-27 04:33] LABS: APTT 38.8 Sec (23.4-35.0)
[2024-01-27] MEDS: PRECEDEX 100 IV ×2 (04:49→13:30)
[2024-01-27 04:58] LABS: Blood Urea Nitrogen 58 mg/dl (7-17); Calcium 8.8 mg/dl (8.4-10.2); Carbon Dioxide 26 mmol/L (22-30); Chloride 103 mmol/L (98-107); Estimated Creatinine Clearance 35 ml/min; Glucose 169 mg/dl (70-99); Magnesium 1.9 mg/dl (1.6-2.3); Phosphorus 4.5 mg/dl (2.5-4.5); Potassium 3.5 mmol/L (3.5-5.1); Sodium 140 mmol/L (135-145); eGFR 33.52
--- NOTE | 2024-01-27 05:30 | PTCARENOTE ---
recd pt from IMU. awakens to verbal stimuli, opens eyes and nods to questions. pacemaker, AV paced. +3 lower extrem edema, +2 upper extrem edema. doppler pulses. NIV placed on pt. crackles throughout. incontinent of stool. joyce draining antelmo
urine. left lateral leg wound. sacral foam. left AC 20 flushed and patent. pt`s son at bedside, safe environment maintained. pt started on precedex.
[2024-01-27] MEDS: KCL 160 MEQ IV (06:40)
--- NOTE | 2024-01-27 07:00 | PTCARENOTE ---
Rec'ing report from web press operator assistant RN. HR alarm noted to be at 38-40...monitoring. BP marginal w/ MAP of 64. Precedex gtt rec'd at 0.3 mcg/kg/min. GTT turned off. HR continually low at 34-38. made aware. Dopamine gtt initiated @ 4mcg.
Will continue to monitor closely.
--- NOTE | 2024-01-27 07:15 | PTCARENOTE ---
Pt's son at bedside and updated on plan of care. HR improved to 60-66. BP improved...MAP 84. Will continue to monitor closely.
--- NOTE | 2024-01-27 07:45 | PTCARENOTE ---
Assumed care of patient. Pt rec'd on NIV 20/8 w/ 100%...sats 88-90%. Responds to voice. Does not follow commands...occasionally moves extremities. Left chest pacer noted...will request pacer interrogation. DP/PT's by doppler. +2 upper
extremity and +3 lower extremity edema. Abdomen obese...hypo BS. Vickers draining small amt of antelmo urine. Left lateral calf optifoam dressing. Intact sacral foam noted. Legs elevated on pillows. VS documented. Elaina hugger applied due to
hypothermia. Will continue to monitor closely.
[2024-01-27] MEDS: SENOKOT PO (08:30)
[2024-01-27] MEDS: ELIQUIS PO (08:30)
[2024-01-27] MEDS: COLACE PO (08:30)
[2024-01-27] MEDS: MIRALAX PO (08:30)
[2024-01-27 09:03] LABS: B.E. 1.2 mmol/L; HCO3 27.6 mmol/L (21-28); O2 Saturation % 89.6 % (94-98); PCO2 50 mmHg (32-35); pH 7.35 (7.35-7.45)
[2024-01-27 09:05] LABS: PO2 57 mmHg (83-108)
[2024-01-27] MEDS: LASIX 60 MG IV (09:13)
--- NOTE | 2024-01-27 09:15 | PTCARENOTE ---
Precedex gtt restarted due to increased agitation and attempting to pull off NIV mask.
--- NOTE | 2024-01-27 09:45 | PTCARENOTE ---
Attempted to place pt on HFNC...sats dropped to 82%. Pt yelling and screaming...following simple commands but continually mouth breathing. Oral care done and pt placed back on NIV by RPT. Will continue to monitor.
--- NOTE | 2024-01-27 10:30 | PTCARENOTE ---
Spoke at length w/ and pt's son at bedside during rounds. Plan of care discussed. VAT consulted re: PICC line. Will intubate pt after PICC line placed.
--- NOTE | 2024-01-27 11:15 | PTCARENOTE ---
Anesthesia called to intubate patient. Pt intubated w/ #8 ETT 20cm to left lip. Left nare dobhoff inserted w/o issue. CXR done to confirm placement of right DL picc, ETT, and dobhoff placement.
--- NOTE | 2024-01-27 11:20 | W.PN.ANESINT ---
Anesthesia Intubation Note
- Intubation Note
Intubation Note:
Diagnosis: Respiratory distress
Blade: glidescope # 4
Tube Size: 8.0 ETT
Depth: 22 cm at lip
Side Taped: right
Drugs Used: propofol 100 mg and rocuronium 50 mg IV
Grade View: Grade 1
EtCO2 Present: + ETCO2 via stat cap
Atraumatic: yes
Attempts: 1
Insertion Start and Stop Time:
SaO2 Pre: 84
SaO2 Post: 91
Glidescope Used: yes
Other Airway Adjustments:
Pre-Oxygenated: ambu bag by respiratory on arrival
Portable Chest X-Ray: pending
RSI:
Suctioned:
Bilateral Breath Sounds Confirmed:
yes
Vent Settings: see ICU/respiratory flow sheet...
Intubated by Jakob Song
Left in care of ICU staff
Settings per ___Attending Physician
--- NOTE | 2024-01-27 11:42 | W.PN.NEPH.PH ---
Today's Communication / Plan
-
bumex gtt and follow labs later
Assessment/Plan
-
IMP:
Acute kidney injury superimposed on stage IIIb chronic kidney disease
Acute on Chronic heart failure with a preserved ejection fraction
Acute hypoxic resp failure
Chronic lower extremity edema
Paroxysmal atrial fibrillation
Status post permanent pacemaker
Nausea/vomiting
Generalized weakness
Hypokalemia
Suspected shingles rash
Spinal stenosis
Chronic back pain
Hypothyroidism
Obesity due to excess calories
?metolazone causing pancytopenia 12/2023
Plan:
A/w gen weakness after recent d/c 1m ago for CHF
EULOGIO-cr peak 2, UA was bland suspected from cardiorenal
cr imp-roving to 1.5 but RR this am with acute CHF, resp failure on BIPAP and plan to intubate
repeat UA ?UTI, U na low suggest cardiorenal
given poor response to lasix , will start bumex gtt 2mg /hr
All her edema may not amenable for diuresis
BP soft, holding po meds, pressors to keep MAP>65
d/w primary and ICU
CC time spent 35min
-
-
Date of Service: January 27, 2024
CC / HPI / ROS
-
Chief Complaint:
EULOGIO, CKD
History of Present Illness:
cr better at 1.5, wt is up
RR midnight with CHF, resp failure transferred to ICU on BIPAP
precedex to keep her
Review of Systems:
pt on BIPAP
remains tachypneic and altered unable to provide history
Labs
-
Labs:
WBC 5.0 10^3/uL (4.8-10.8) 01/27/24 04:10
RBC 4.30 10^6/uL (4.20-5.40) 01/27/24 04:10
Hgb 12.1 g/dL (12.0-16.0) 01/27/24 04:10
Hct 38.1 % (37.0-47.0) 01/27/24 04:10
Plt Count 149 10^3/uL (130-400) 01/27/24 04:10
eGFR 33.52 01/27/24 04:10
Phosphorus 4.5 mg/dl (2.5-4.5) 01/27/24 04:10
Tav-W-Bjvemqrwanc Pept 2660 pg/ml 01/27/24 01:25
Physical Exam
-
Vital Signs:
Vital Signs
Temp Pulse Resp BP Pulse Ox
94.1 F L 74 29 97/84 87
01/27/24 09:15 01/27/24 10:30 01/27/24 10:30 01/27/24 10:00 01/27/24 10:30
Cardiovascular:: Regular rate and rhythm
Respiratory:: Bilateral: Rales
Lung Excursion:: Normal
Abdomen:: Nontender and Soft
Extremity Edema:: +3: Bilateral:
Vickers Catheter: Yes
--- NOTE | 2024-01-27 12:00 | PTCARENOTE ---
Pt intubated and sedated on ventilator. CXR done to confirm placement of PICC, DHF, and ETT. Copious frothy orange colored secretions noted....sats decreased to 71%. Pt required 'bagging' to increase sats to 96%. aware. Fentanyl gtt
initiated per MD orders...see interventions. Will wean precedex gtt to off. Will continue to monitor closely.
[2024-01-27] MEDS: SUBLIMAZE 50 MCG IV ×3 (12:02→13:51)
[2024-01-27] MEDS: STERILE WATER FOR INJECTION 10 ML IV ×2 (12:04→20:30)
[2024-01-27] MEDS: MAXIPIME 1000 MG IV ×2 (12:04→20:30)
--- NOTE | 2024-01-27 12:06 | CON.INTV ---
Consultation
Consultation Request
Date/Time Consultation Requested: 01/27/2024
Date/Time Consultation Performed: 01/27/2024
Requesting Provider: Dr. Salazar
Performing Provider: Dr. Rich Avendaño
Reason for Consultation: Hypoxemic respiratory failure requiring intubation
Medical History
-
History of Present Illness:
88-year-old woman with past medical history significant for atrial fibrillation, permanent pacemaker, heart failure with preserved ejection fraction, chronic kidney disease, morbid obesity, sedentary lifestyle who was admitted on 01/24/2024 due to
weakness. Patient was even weak to go to the bathroom. She has recently been discharged from the hospital 12/24/2023 for heart failure.
Reports progressively been more fatigued and weak. Recently started gabapentin for back pain. Has been weaned off due to concerns for adverse effects.
Recently also diagnosed with herpes zoster rash.
The day of admission patient had some vomiting. Patient was less responsive and brought into the emergency room for evaluation.
Initially patient was rehydrated due to increased creatinine. Was improving to the point that discharge was being considered. Overnight prior to transfer to the critical care unit patient developed hypoxemia, increased work of breathing.
Repeat chest x-ray showed bilateral infiltrates suggestive of pulmonary edema. proBNP was elevated.
Diuresis was given. Condition deteriorated where the patient had increased work of breathing. Transferred to the critical care unit for noninvasive mechanical ventilation.
Early this morning evaluated by me at the bedside, had increased work of breathing despite adjustment of noninvasive mechanical ventilation. Patient also became bradycardic as Precedex was needed for delirium and mask discomfort.
Additional diuresis was given with poor response.
Condition deteriorated to the point that the patient had increased work of breathing, hypoxemia, further agitation, delirium. Patient is a hard stick-right arm was used for a peripheral central access.
Subsequently anesthesia was called in, intubated sedation was given.
Remains hypoxemic.
Multiple discussions with multiple doctors including primary care, cardiology and also family members since this morning.
Past Medical History
Past Medical History: Other (See assessment and plan)
Social History
Tobacco: Non-smoker
Alcohol: None
Drug: None
Living: Other (Lives with 2 daughters at home)
Employment: Retired
Family History
Family History: Unable to Obtain
Allergies / Home Medications
Allergies
Allergy/AdvReac Type Severity Reaction Status Date / Time
aspirin Allergy Nausea / Verified 01/24/24 17:48
Vomiting
NSAIDS (Non-Steroidal Allergy Unknown Verified 12/19/23 04:44
Anti-Inflamma
Salicylates * Allergy Unknown Verified 12/19/23 04:44
Sulfa (Sulfonamide Allergy Anaphylaxis Verified 01/24/24 17:48
Antibiotics)
Home Medications
�Medication �Instructions �Recorded �Confirmed �Last Taken �Type
atorvastatin 10 mg tablet 10 mg PO QPM High cholesterol 05/07/21 01/24/24 04/23/23 History
felodipine 10 mg tablet,extended 10 mg PO QPM Heart 05/07/21 01/24/24 04/23/23 History
release 24 hr disease/condition
levothyroxine 125 mcg tablet 125 mcg PO DAILY Thyroid 05/07/21 01/24/24 04/24/23 History
apixaban 5 mg tablet (Eliquis) 5 mg PO BID Blood clot 05/12/21 01/24/24 04/23/23 Rx
prevention/tx #60 tabs
amiodarone 200 mg tablet (Pacerone) 200 mg PO QPM Arrhythmia 04/24/23 01/24/24 04/23/23 History
furosemide 80 mg tablet (Lasix) 80 mg PO BID Fluid 04/24/23 01/24/24 04/23/23 History
Retention/Swelling
metoprolol succinate 25 mg 25 mg PO QPM Heart 04/24/23 01/24/24 04/23/23 History
tablet,extended release 24 hr disease/condition
potassium chloride 20 mEq 40 meq PO BID Electrolyte Repletion 12/19/23 01/24/24 Unknown History
tablet,extended release
spironolactone 25 mg tablet 12.5 mg (1/2 x 25 mg) PO DAILY #30 12/24/23 01/24/24 Unknown Rx
tabs
acetaminophen 500 mg tablet 1,000 mg PO Q6HPRN PRN mild pain 01/24/24 01/24/24 Unknown History
(Tylenol Extra Strength)
docusate sodium 100 mg capsule 200 mg PO DAILYPRN PRN constipation 01/24/24 01/24/24 Unknown History
(Colace)
gabapentin 100 mg capsule 100 mg PO DAILYPRN PRN moderate 01/24/24 01/24/24 Unknown History
pain
melatonin 5 mg tablet 5 mg PO HS 01/24/24 01/24/24 Unknown History
polyethylene glycol 3350 17 gram 17 g PO DAILYPRN PRN constipation 01/24/24 01/24/24 Unknown History
oral powder packet (Miralax)
valacyclovir 1 gram tablet 1,000 mg PO Q8H 01/24/24 01/24/24 Unknown History
Review of Systems
-
Unable to Obtain full review of systems at this time due to: Acuity and Patient Intubation
Vitals / Labs / Diagnostic Testing
Vital Signs
Temp Pulse Resp BP Pulse Ox
94.1 F L 74 29 97/84 84
01/27/24 09:15 01/27/24 10:30 01/27/24 10:30 01/27/24 10:00 01/27/24 12:00
Lab Data
01/27/24 04:10
Laboratory Results
01/27/24 01/27/24 01/27/24
02:17 04:10 08:46
PT 24.0 H
INR 2.12
APTT 38.8 H
pH 7.26 L 7.35
pCO2 65 H 50 H
pO2 61 L 57 L*
HCO3 29.2 H 27.6
O2 Delivery Level Bipap
Microbiology
01/24/24 21:25 Nose MRSA Screen - Final
No Methicillin Resistant Staphylococcus aureus isolated.
Diagnostic Testing:
Physical Exam
-
HEENT: Normocephalic
Cardiovascular: S1/S2
Respiratory: Rales
GI: Distended (Obese)
Neurology: Other (Prior intubation, opening eyes, moaning, agitated. Would follow simple commands.)
Skin: Warm
General: Respiratory Distress (Significant on noninvasive mechanical ventilation)
Assessment
-
88-year-old woman with past medical history noted, initially admitted with weakness. Found to have increased creatinine from baseline. She was rehydrated. Lasix was held for 2 days. Apparently was having some vomiting prior to admission.
On 01/26/2024 developed hypoxemia and increased work of breathing. Progressed despite diuretics and required noninvasive mechanical ventilation and transferred to the critical care unit. On 01/27/2024 despite diuresis remained hypoxemic with
increased work of breathing. Critical care was consulted for evaluation.
Acute hypoxemic respiratory failure: Suspect multifactorial.
Failed noninvasive mechanical ventilation 01/27/2024
Intubated 01/27/2024.
Acute on chronic heart failure with preserved ejection fraction-weight is elevated from her baseline significantly.
proBNP is elevated
Frothy pinkish secretion on ET tube.
Suspect acute lung injury from aspiration as the patient was vomiting prior to admission: Chest x-ray 01/27/2024 with severe bilateral infiltrates right greater than left.
Hypothermia
Possible UTI: Significantly abnormal urinalysis 01/27/2024.
Acute on chronic kidney disease-possibly cardiorenal.
Conditions present prior admission:
Hypertension
Morbid obesity
Spinal stenosis
Ambulatory dysfunction
Chronic kidney disease
Hyperlipidemia
Carotid artery stenosis
Atrial fibrillation
Sick sinus syndrome status post pacemaker
Heart failure with preserved ejection fraction
Pacemaker in place
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
Chronic hypercapnic respiratory failure-undiagnosed, likely obesity hypoventilation syndrome.
Assessment and plan:
Patient is critically ill, multiple bedside evaluations by me throughout the day. Multiple discussions with family members and the specialties.
Suspect hypoxemia multifactorial acute on chronic heart failure with pulmonary edema-preserved ejection fraction/cannot rule out acute lung injury from aspiration.
-
Mechanical ventilation started.
Initial ABG prior intubation on noninvasive mechanical ventilation: 7.30 .
Reviewed, difficult to ventilate due to morbid obesity and significantly bilateral infiltrates.
[place] low tidal volume mechanical ventilation.
PEEP of 10, FiO2 100%.
Difficult to maintain plateau pressure under 30 in this morbidly obese patient.
Will allow permissive hypercapnia.
Repeat blood gas in 30 to 40 minutes. Hopefully by then patient will be sedated.
-
Sedation with fentanyl-paralytics will be used if necessary as well. RASS -1(-2)
-
Patient not a candidate for prone positioning due to morbidly obese
Not a candidate for ECMO due to BMI and age.
-
Antibiotic started for abnormal UTI. Currently on cefepime.
MRSA screening negative. Hold on vancomycin for now.
Should also cover for possible aspiration
-
At this point no indication for systemic corticosteroids but may be an option if there is no improvement with diuretics and antibiotics.
-
Shock: Transition to Levophed. Suspect multifactorial mechanism septic/cardiogenic.
Target mean arterial blood pressure 65 mmHg
Will obtain lactic acid
Check TSH-unclear if there is good absorption of medications with anasarca.
Will follow renal function closely
-
Obtain a sputum culture
Blood culture
Urine culture
-
Discussed with nephrology. Will start Bumex drip.
Follow renal function and urinary output
Vickers in place with concentrated urine
Cardiology will be consulted as well
-
Glycemic control insulin sliding scale
-
N.p.o.
Dobbhoff tube has been placed.
-
DVT prophylaxis-patient on Eliquis.
-
Prognosis is guarded.
Discussed with family by Dr. Avendaño 01/27/2024-full code. They understand critical situation.
-
Critical care statement: A total of 80 minutes of critical care time was provided for this patient today. This includes management of unstable vital signs, evaluation of the patient at bedside, reviewing the patient's pertinent medical records
including ventilator settings, arterial blood gases, radiographs, microbiology, laboratory evaluations and discussion with primary team, critical care nursing, and respiratory therapy.
--- NOTE | 2024-01-27 12:14 | CON.CAR ---
Addendum entered and electronically signed by Abraham Rees MD 01/27/24 15:06:
I saw and examined the patient.
The Razor Sharpener's note was reviewed and I agree with the note.
Comment:
GEN: Intubated and sedated
HEENT: supple, anicteric, mmm, ET tube
LUNGS: bilat rales
CV: Reg, S1/S2, 1/6 syst LSB, S3
ABD: soft, BS+, NT/ND
EXT: ++ edema
NEURO: Gross non-focal
SKIN: No rash
Plan:
88-year-old female with past medical history of chronic heart failure with preserved ejection fraction, paroxysmal atrial fibrillation, Medtronic permanent pacemaker, hypertension, hyperlipidemia, and obesity presents to [facility] with
weight gain, nausea, vomiting, hypoxemia and shortness of breath. She was admitted to [facility] December 2023 with acute heart failure exacerbation. She was recently seen in the office with increased edema recommended to start metolazone
to her standing Lasix dose. Her symptoms worsened and she became weak was unable to stand and was found to have acute kidney failure with creatinine of 2. Ultimately she required BiPAP and intubation. We were asked to continue to evaluate her for
congestive heart failure and atrial fibrillation. There was come concerned that her pacemaker was not capturing prior to intubation today.
She presents with acute respiratory failure, acute renal failure, and acute heart failure with preserved ejection fraction. Echo from December 2023 has EF of 60% with moderate MR/TR and PA pressures in the 40s.
Agree with Bumex drip and high flow oxygen to help oxygenate her. She is already on 100% FiO2 with a PEEP of 15.
Blood pressure remains marginal. Continue Levophed for now.
She briefly was on dopamine with bradycardia. I reviewed her telemetry. At that point she was AV paced with heart rates in the 40s. It appears she then went into A-fib and mode switched. We will check her pacemaker.
Continue steroids and cefepime to cover possible pneumonia.
Check EKG.
Will consider repeat limited echo in a.m. to reevaluate LVEF and valves.
With her morbid obesity and respiratory failure, long-term prognosis is very poor.
Creatinine is overall improved and stable at 1.5.
Original Note:
Consultation
Consultation Request
Date/Time Consultation Requested: 01/27/2024
Date/Time Consultation Performed: 01/27/2024 at 1200
Requesting Provider: Dr. Avendaño
Performing Provider: Zuly Goodrich PA-C for Dr. Rees
Reason for Consultation: CHF
Medical History
-
Chief Complaint: Shortness of breath
History of Present Illness:
HPI: Beverly is an 88 year old female with PMH of chronic HFpEF, paroxysmal atrial fibrillation, PPM, HTN, HLD, CDK, and hypothyroidism. She presented to [facility] initially for generalized weakness. She was recently admitted to 12/2023 with acute heart
failure exacerbation. At discharge, weight was down to 261lbs. She was seen in follow up by cardiology and noted increased edema, however was not able to stand on scale, so weight was unknown. She was recommended to start metolazone 2.5mg Mondays
and and recheck labs in a week. Daughters brought her in for evaluation as patient became increasingly weak to the point that she was unable to even walk to the bathroom and noted that she had episode of nausea and vomiting earlier in the
day. In ER, she was noted to have EULOGIO with creat up to 2.0 and she was hypotensive. Her lasix and spironolactone were held and she was given 500cc IVFs. Her creat improved over the next 2 days, however she then became increasingly SOB and hypoxic in
the evening 01/25, requiring BiPAP. She had repeat CXR which showed moderate CHF. She was given 80mg IV lasix, followed by 40mg later in the evening. In AM 01/26, respiratory status continued to worsen, and she was intubated. She was given another
dose of 60mg IV lasix this AM. Her weight is now up ~40lbs compared to discharge weight from admission 12/2023. Cardiology consulted for evaluation given acute respiratory failure in the setting of acute heart failure. Intubated and sedated at time
of evaluation.
PMH:
Chronic HFpEF
Paroxysmal atrial fibrillation
Chronic Eliquis OAC
Chronic amiodarone therapy
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
Hyperlipidemia
Hypertension
Hypothyroidism
CKD 3b
Obesity
Carotid arterial disease
Past Medical History
Past Medical History: Other
Past Surgical History: Cardiac (Pacemaker), Gynecological (D&Cs), Orthopedic (Carpal tunnel surgery) and Other (Lumpectomy, cataract surgery)
Social History
Tobacco: Former Smoker
Alcohol: None
Drug: None
Living: With Family
Employment: Retired
Family History
Family History: Reviewed & Not Pertinent
Allergies / Home Medications
Allergy/AdvReac Type Severity Reaction Status Date / Time
aspirin Allergy Nausea / Verified 01/24/24 17:48
Vomiting
NSAIDS (Non-Steroidal Allergy Unknown Verified 12/19/23 04:44
Anti-Inflamma
Salicylates * Allergy Unknown Verified 12/19/23 04:44
Sulfa (Sulfonamide Allergy Anaphylaxis Verified 01/24/24 17:48
Antibiotics)
�Medication �Instructions �Recorded �Confirmed �Type
atorvastatin 10 mg tablet 10 mg PO QPM High cholesterol 05/07/21 01/24/24 History
felodipine 10 mg tablet,extended 10 mg PO QPM Heart 05/07/21 01/24/24 History
release 24 hr disease/condition
levothyroxine 125 mcg tablet 125 mcg PO DAILY Thyroid 05/07/21 01/24/24 History
apixaban 5 mg tablet (Eliquis) 5 mg PO BID Blood clot 05/12/21 01/24/24 Rx
prevention/tx #60 tabs
amiodarone 200 mg tablet (Pacerone) 200 mg PO QPM Arrhythmia 04/24/23 01/24/24 History
furosemide 80 mg tablet (Lasix) 80 mg PO BID Fluid 04/24/23 01/24/24 History
Retention/Swelling
metoprolol succinate 25 mg 25 mg PO QPM Heart 04/24/23 01/24/24 History
tablet,extended release 24 hr disease/condition
potassium chloride 20 mEq 40 meq PO BID Electrolyte Repletion 12/19/23 01/24/24 History
tablet,extended release
spironolactone 25 mg tablet 12.5 mg (1/2 x 25 mg) PO DAILY #30 12/24/23 01/24/24 Rx
tabs
acetaminophen 500 mg tablet 1,000 mg PO Q6HPRN PRN mild pain 01/24/24 01/24/24 History
(Tylenol Extra Strength)
docusate sodium 100 mg capsule 200 mg PO DAILYPRN PRN constipation 01/24/24 01/24/24 History
(Colace)
gabapentin 100 mg capsule 100 mg PO DAILYPRN PRN moderate 01/24/24 01/24/24 History
pain
melatonin 5 mg tablet 5 mg PO HS 01/24/24 01/24/24 History
polyethylene glycol 3350 17 gram 17 g PO DAILYPRN PRN constipation 01/24/24 01/24/24 History
oral powder packet (Miralax)
valacyclovir 1 gram tablet 1,000 mg PO Q8H 01/24/24 01/24/24 History
Review of Systems
-
Unable to obtain full review of systems at this time due to: Patient Intubation
Physical Exam
Vital Signs
Temp Pulse Resp BP Pulse Ox
94.1 F L 74 29 97/84 84
01/27/24 09:15 01/27/24 10:30 01/27/24 10:30 01/27/24 10:00 01/27/24 12:00
Lab Results
01/27/24 04:10
Bkg-V-Gesuxtobntb Pept 2660 pg/ml 01/27/24 01:25
Physical Exam
General: Intubated
HEENT: Moist Mucous Membranes
Respiratory: Crackles
Cardiac: S1/S2 and Regular Rhythm
Musculoskeletal: No Clubbing, No Cyanosis and Edema
Skin: Warm and Dry
Neuro: Sedated
Impression / Plan
-
PCP: Dr. Rojas
Central Supply Aide: Dr. Ramirez
Impression:
Presented with weakness
Nausea/vomiting
Acute hypoxemic respiratory failure, intubated 01/27/24
Acute on chronic HFpEF
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
Paroxysmal atrial fibrillation
Chronic Eliquis OAC
Chronic amiodarone therapy
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
Hyperlipidemia
Hypertension
Hypothyroidism
Obesity
Carotid arterial disease
Echo 04/26/23: Technically difficult study. EF 55 to 60%. Likely normal regional wall motion of but difficult to last obtained given rapid rate. Normal LV wall thickness. Mild MR. Aortic valve sclerosis. Trace AI. PA pressure 27 mmHg.
Echo 12/21/23: EF 55%, normal RV size and function, moderate MR, moderate TR with PAP 44 mmHg
Plan:
-Presented with weakness, nausea, vomiting. Hypotensive on arrival w/ EULOGIO. Lasix held on arrival.
-Creat improved, however overnight 01/25 into 01/26 she had increasing oxygen requirements and repeat CXR consistent with CHF.
-Given multiple doses of IV lasix overnight without improvement in respiratory status. She is critically ill, intubated and sedated in ICU.
-Nephrology starting bumex gtt. Creat 1.5.
-Weight up approximately 40lbs from prior discharge weight. Follow daily weights, I&Os.
-Recent echo 12/21/2023 with EF 55%, moderate MR. No need to repeat at this time.
-On Levo for BP support. Continue Toprol, felodipine as BP allows.
-Did have some bradycardia noted on tele this AM. Will interrogate device.
-EKG reviewed from 01/24, AV paced, stable.
-Continue Eliquis 5mg BID. Hgb 12.1. Continue amiodarone 200mg daily.
-TSH WNL. Continue synthroid.
HPI: Beverly is an 88 year old female with PMH of chronic HFpEF, paroxysmal atrial fibrillation, PPM, HTN, HLD, CDK, and hypothyroidism. She presented to [facility] initially for generalized weakness. She was recently admitted to 12/2023 with acute heart
failure exacerbation. At discharge, weight was down to 261lbs. She was seen in follow up by cardiology and noted increased edema, however was not able to stand on scale, so weight was unknown. She was recommended to start metolazone 2.5mg Mondays
and and recheck labs in a week. Daughters brought her in for evaluation as patient became increasingly weak to the point that she was unable to even walk to the bathroom and noted that she had episode of nausea and vomiting earlier in the
day. In ER, she was noted to have EULOGIO with creat up to 2.0 and she was hypotensive. Her lasix and spironolactone were held and she was given 500cc IVFs. Her creat improved over the next 2 days, however she then became increasingly SOB and hypoxic in
the evening 01/25, requiring BiPAP. She had repeat CXR which showed moderate CHF. She was given 80mg IV lasix, followed by 40mg later in the evening. In AM 01/26, respiratory status continued to worsen, and she was intubated. She was given another
dose of 60mg IV lasix this AM. Her weight is now up ~40lbs compared to discharge weight from admission 12/2023. Cardiology consulted for evaluation given acute respiratory failure in the setting of acute heart failure. Intubated and sedated at time
of evaluation.
Data Reviewed
-
EKG: Tracing Personally Visualized and interpreted
Radiology: Report Reviewed by me
Labs: Labs Reviewed by me
Old Records: Reviewed
[2024-01-27] MEDS: SUBLIMAZE 100 IV ×2 (12:18→21:26)
[2024-01-27] MEDS: BUMEX 50 IV ×3 (12:18→21:34)
[2024-01-27] MEDS: DESENEX/MITRAZOL/ZEASORB 1 APPLIC TOPICAL ×2 (12:24→20:59)
--- NOTE | 2024-01-27 12:29 | CM ---
CM following re: discharge planning.
Discussed in Rounds, reviewed pt's chart, met with pt and pt's at bedside. Per Rounds meeting, pt admitted to ICU with Acute hypoxemic respiratory failure: Suspect multifactorial. Failed noninvasive mechanical ventilation 01/27/2024.
Intubated 01/27/2024. Continue supportive care.
Pt was planned to go to [facility] today for a short term rehab. CM spoke to [facility] insight director, and admissions to [facility] has been cancelled.
D/C plan: [facility] when pt is medically stable.
CM will follow with discharge plan updates as hospitalization progresses
[2024-01-27] MEDS: HYDROPHOR 1 APPLIC TOPICAL (12:35)
[2024-01-27 13:15] LABS: Lactic Acid 1.3 mmol/L (0.7-2.0)
[2024-01-27 13:19] LABS: B.E. 3.2 mmol/L; HCO3 29.1 mmol/L (21-28); O2 Saturation % 87.2 % (94-98); PCO2 48 mmHg (32-35); pH 7.39 (7.35-7.45)
[2024-01-27 13:23] LABS: PO2 50 mmHg (83-108)
--- NOTE | 2024-01-27 13:30 | PTCARENOTE ---
Repeat episode of copious amt of orange frothy secretions from ETT that required bagging of patient. at bedside and aware. Luisrivan gtt initiated. Per ...goal is to keep pt sedated to better ventilate patient. Vent changes
done w/ RPT. Dtrs updated at bedside.
[2024-01-27] MEDS: DIPRIVAN 100 IV ×3 (13:38→19:47)
[2024-01-27] MEDS: VALTREX 1000 MG PO (13:40)
[2024-01-27 13:59] LABS: TSH 1.04 uIU/ml (0.47-4.68)
[2024-01-27] MEDS: DECADRON 6 MG IV ×2 (14:10→23:39)
--- NOTE | 2024-01-27 14:14 | W.PN.HOSP.TC ---
Today's Communication/Plan
-
see bold
Assessment / Plan
Assessment / Plan
88-year-old female with a past medical history of atrial fibrillation, permanent pacemaker, heart failure with preserved ejection fraction, CKD and morbid obesity presents with generalized weakness. Patient lives with her daughter, who brought her
in because she is too weak to even go to the bathroom. Patient was recently treated at [facility] for CHF exacerbation, and released on 12/24/2023. Daughter reports that patient has been increasingly weak. She was recently started on
gabapentin for lower back pain. Daughter feels that she is having side effects, and is tapering her off the gabapentin. Patient is also on Valtrex for suspected herpes zoster rash. Daughter reports patient had an episode of nausea and vomiting
today. Daughter also reports that she is less responsive. Patient does admit to being dizzy with any type of movement. Patient denies chest pain, denies shortness of breath. No abdominal pain, no dysuria.
#Acute hypoxic respiratory failure
Patient pulling off her BiPAP
Intubated 01/26
Appreciate topper press operator input, continue vent management as per topper press operator
#Acute pulmonary edema
#Acute heart failure with a preserved ejection fraction
#Cardiorenal syndrome
#Acute kidney injury superimposed on stage IIIb chronic kidney disease
Appreciate nephrology input, continue Bumex drip
May need CCRT
#Cardiogenic shock
Started on IV steroids, Levophed
#Concern for aspiration pneumonia
Started on IV antibiotics
Follow-up on sputum, blood cultures
#Chronic lower extremity edema
Compression stockings
#Paroxysmal atrial fibrillation
Status post permanent pacemaker
Continue Eliquis, amiodarone
Patient has been bradycardic, reduced metoprolol succinate from 25 mg at bedtime to 12.5 mg at bedtime with hold parameters for heart rate less than 60
#Nausea/vomiting
Had 1 episode the day of admission
Denies abdominal pain, denies diarrhea
Resolved
#Generalized weakness
PT/OT rec STR, CM informed
#Hypokalemia
Repleted and resolved
#Suspected shingles rash
Continue Valtrex when able
Discontinue gabapentin
#Spinal stenosis
#Chronic back pain
#Hypothyroidism
Continue levothyroxine when able
#Obesity due to excess calories
Affects all aspects of care
DVT prophylaxis�Eliquis
Full code
Updated daughter at bedside 01/23
Physical Plant Manager updated family 01/26
Total time spent to see the patient on the floor, examine the patient, review data and lab results, discuss treatment plan with patient, nursing staff around 55 minutes
Physical Exam
General: Morbidly obese, no acute distress
HEENT: Normocephalic, Atraumatic
Respiratory: Bibasilar crackles
Cardiac: Normal S1/S2, Regular Rate and Rhythm
GI: Soft, Nontender, Nondistended, Normal Bowel Sounds
Extremities: No Clubbing, Cyanosis
Bilateral lymphedema noted, scattered wounds on left lower extremity
Anticipated Discharge: > 48 hours
Subjective/Interval History
-
Date of Service: January 27, 2024
Overnight events noted. Patient became hypoxic requiring BiPAP despite receiving Lasix 80 mg IV by nephrology. She is currently intubated. No fever, no vomiting.
Objective Data
-
Labs:
Laboratory Results
01/27/24 01/27/24 01/27/24
01:25 02:17 04:10
WBC 4.9 5.0
Hgb 12.6 12.1
Hct 39.2 38.1
Plt Count 167 D 149
PT 24.0 H
INR 2.12
APTT 38.8 H
HCO3 29.2 H
Sodium 140 140
Potassium 3.6 3.5
Chloride 100 103
Carbon Dioxide 24 26
BUN 58 H 58 H
Creatinine 1.6 H 1.5 H
Glucose 190 H 169 H
Calcium 9.4 8.8
01/27/24
08:46
WBC
Hgb
Hct
Plt Count
PT
INR
APTT
HCO3 27.6
Sodium
Potassium
Chloride
Carbon Dioxide
BUN
Creatinine
Glucose
Calcium
Vital Signs:
Vital Signs
Temp Pulse Resp BP Pulse Ox
97.1 F 63 40 92/52 88
01/27/24 06:18 01/27/24 06:15 01/27/24 06:15 01/27/24 06:00 01/27/24 06:19
I&O
01/26/24 01/27/24 01/28/24
06:59 06:59 06:59
Intake Total 960 / 960 573.6 / 573.6
Output Total 650 / 650 1565 / 1565
Balance 310 / 310 -991.4 / -991.4
--- NOTE | 2024-01-27 14:21 | W.PN.UPDATE ---
Update Note
Progress Note Update
Multiple reevaluations at the bedside since earlier today due to ongoing hypoxemia. Sedation issues.
Patient remains on maximum mechanical ventilation, FiO2 100% has required Ambu bag and to increase saturations despite 100% FiO2 and increase PEEP.
Sedation has been adjusted: Fentanyl/propofol RASS score -2. If remains overbreathing the ventilator paralytics will need to be used.
Bumex drip has been started
Continue antibiotics
Patient has pinkish/frothy ET tube secretions that are abundant. Heart failure, cannot rule out diffuse alveolar hemorrhage.
Patient too sick for any type of bronchoscopy.
Based on chest x-ray with asymmetric dense bilateral infiltrates acute lung injury cannot be ruled out. Diffuse alveolar hemorrhage cannot be ruled out. Pulmonary edema also contributing as well.
Will add IV dexamethasone for the possibility of inflammatory pneumonitis as well.
-
Again, patient not a candidate for proning positioning or ECMO due to morbid obesity.
Multiple conversations with family members, 2 daughters and a son who is a physician. They are aware of critical illness. I discussed possibility of DNR he will discuss among themselves.
-
Prognosis is guarded.
-
Additional critical care time 36 minutes.
--- NOTE | 2024-01-27 14:59 | W.CARD.DEVCH ---
Cardiac Device Check
-
Device: Pacemaker
Cut Off Saw Grader: [employer]
The patient's device was interrogated with assistance of the device in store marketing representative followed by a complete physician review. The device had normal function. No abnormalities seen. Unclear why patient became bradycardic today. Adjustments made by
device in store marketing representative and reviewed w/ EP.
[2024-01-27 15:14] LABS: B.E. 2.2 mmol/L; HCO3 28.8 mmol/L (21-28); O2 Saturation % 90.8 % (94-98); PCO2 51 mmHg (32-35); pH 7.36 (7.35-7.45)
[2024-01-27 15:19] LABS: PO2 55 mmHg (83-108)
--- NOTE | 2024-01-27 16:30 | PTCARENOTE ---
Pt remains intubated, sedated and restrained. Labs sent per . Lungs diminished w/ crackles throughout. Sats 91-92%. Current vent settings: 20/420/15/100%. Remains on bumex gtt @ 2mg/hr. Multiple ABG's drawn throughout day by RPT.
Will continue to monitor closely.
[2024-01-27 17:09] LABS: Blood Urea Nitrogen 59 mg/dl (7-17); Calcium 8.7 mg/dl (8.4-10.2); Carbon Dioxide 29 mmol/L (22-30); Chloride 103 mmol/L (98-107); Estimated Creatinine Clearance 38 ml/min; Glucose 127 mg/dl (70-99); Potassium 2.5 mmol/L (3.5-5.1); Sodium 143 mmol/L (135-145); Triglycerides 98 mg/dl (10-149); eGFR 36.41
--- NOTE | 2024-01-27 17:30 | PTCARENOTE ---
Lab results TT'd to . Orders rec'd. Pt started on levophed gtt for hypotension...see intervention. Dopa and precedex gtts off.
[2024-01-27] MEDS: KCL 100 IV (18:00)
[2024-01-27] MEDS: LEVOPHED 250 IV (18:04)
[2024-01-27 18:43] LABS: B.E. -1.9 mmol/L; HCO3 24.3 mmol/L (21-28); O2 Saturation % 92.2 % (94-98); PCO2 46 mmHg (32-35); PO2 60 mmHg (83-108); pH 7.33 (7.35-7.45)
--- NOTE | 2024-01-27 18:43 | W.PN.UPDATE ---
Update Note
Progress Note Update
Revisit:
not sig UOP yet despite on bumex gtt
Labs noted cr 1.4, k 2.5-plan total 80meq of kcl IV and PT
recheck labs at 1000pm, if k better try diuril vs increasing bumex
she remains at 100% Fio2
starting pressors for hypotension
case reviewed with nursing
d/w son Ismael(ER DOc at [employer]) on phone in detail about her declining status
he wants to cont as full support for now and understands the critical situation
--- NOTE | 2024-01-27 20:00 | PTCARENOTE ---
rec`d pt at 1900, intubated and sedated. pt on prop, fent, bumex and levo going through a right picc. pt does have a 20 AC left arm. left radial a line placed by SENIOR SUPPORT ENGINEER. levo titrated to keep MAP >65 per MD orders. doppler pulses dp/pt. +2 upper extrem
edema, +3 lower extrem edema. AV paced. HR 50-60s. afebrile. #8 ett center, 21 lip. vent settings A/C 20/420/100/ 15 of peep. crackles throughout. rectal probe in. left naredobhoff at 65cm. obese and round abdomen. +bs. joyce in for acute retention.
draining yellow to antelmo urine. bilateral wrist restraints. left lower leg wound, covered with foam. safe environment maintained.
[2024-01-27] MEDS: KLOR-CON 40 MEQ TUBE (20:30)
[2024-01-27] MEDS: MIRALAX 17 GRAMS TUBE (20:30)
[2024-01-27] MEDS: ELIQUIS 5 MG TUBE (20:31)
[2024-01-27] MEDS: LEVOPHED 258 MG IV (20:44)
--- NOTE | 2024-01-27 20:50 | W.PN.UPDATE ---
Update Note
Progress Note Update
Operation/Procedure: left radial arterial line placement
Consent for operation or procedure: Emergent need due to patient condition - need for invasive monitoring per protocol
Indications: Hemodynamic monitoring
After properly positioning the patient's wrist in the standard fashion, the site was prepped and draped in a sterile fashion. The radial artery was entered, noting bright red, pulsatile flow. A guidewire was easily inserted, the needle removed,
and the catheter was then placed using the Seldinger technique. The guidewire was removed, with good flow present. The catheter was then connected to the transducer with a good waveform noted. The catheter was secured with an occlusive dressing
was placed after properly cleaning and prepping the site.
Complications: The patient tolerated the procedure well and no complications were noted.
Estimated Blood Loss: minimal
Plan: Arterial line to remain in place for hemodynamic monitoring.
[2024-01-27 21:42] LABS: COVID-19 Antigen Negative (Negative)
[2024-01-27 22:58] LABS: Blood Urea Nitrogen 58 mg/dl (7-17); Calcium 8.8 mg/dl (8.4-10.2); Carbon Dioxide 23 mmol/L (22-30); Chloride 105 mmol/L (98-107); Estimated Creatinine Clearance 33 ml/min; Glucose 130 mg/dl (70-99); Magnesium 1.8 mg/dl (1.6-2.3); Potassium 3.5 mmol/L (3.5-5.1); Sodium 140 mmol/L (135-145); eGFR 31.02
[2024-01-27] MEDS: KCL ELIXIR 40 MEQ TUBE (23:28)
[2024-01-27] MEDS: MAGNESIUM SULFATE 102 GRAMS IV (23:34)
[2024-01-28] VITALS (45 sets, daily range): BP systolic 99–151; BP diastolic 48–93; BMI 55.2
--- NOTE | 2024-01-28 00:20 | PTCARENOTE ---
levo titrated per protocol. changed to double concentrate levo. vent settings now A/C 20/420/90%/ 15 of peep. POX 98%. bumex order changed to 3 or 12 cc/hr. mag and potassium being repleted.
[2024-01-28] MEDS: BUMEX 50 IV ×6 (01:57→20:37)
[2024-01-28] MEDS: DIPRIVAN 100 IV ×4 (01:58→16:56)
[2024-01-28 04:04] LABS: B.E. -1.3 mmol/L; HCO3 23.7 mmol/L (21-28); O2 Saturation % 99.3 % (94-98); PCO2 40 mmHg (32-35); PO2 171 mmHg (83-108); pH 7.38 (7.35-7.45)
[2024-01-28] MEDS: MAXIPIME 1000 MG IV ×3 (04:09→20:37)
[2024-01-28] MEDS: STERILE WATER FOR INJECTION 10 ML IV ×3 (04:09→20:37)
[2024-01-28 04:16] LABS: O2 Therapy 100%
[2024-01-28 04:22] LABS: Hematocrit 39.9 % (37.0-47.0); Hemoglobin 12.8 g/dL (12.0-16.0); Mean Corp Hgb Conc. 32.1 g/dL (33.0-37.0); Mean Corpuscular Volume 90.3 fL (81.0-99.0); Mean Platelet Volume 12.5 fL (7.4-10.4); Platelet Count 133 10^3/uL (130-400); Red Blood Cell Count 4.42 10^6/uL (4.20-5.40); Red Cell Dist. Width 18.7 % (11.5-14.5); White Blood Cell Count 12.4 10^3/uL (4.8-10.8)
--- NOTE | 2024-01-28 04:30 | PTCARENOTE ---
pt vent settings now a/c 20/420/70%/15 of peep. prop and levo titrated per protocol. pierce hugger back on to maintain a temp of 97 degrees. ett now on left side.
[2024-01-28 04:36] LABS: Blood Urea Nitrogen 60 mg/dl (7-17); Calcium 8.7 mg/dl (8.4-10.2); Carbon Dioxide 22 mmol/L (22-30); Chloride 105 mmol/L (98-107); Estimated Creatinine Clearance 38 ml/min; Glucose 141 mg/dl (70-99); Magnesium 1.9 mg/dl (1.6-2.3); Phosphorus 4.2 mg/dl (2.5-4.5); Potassium 3.6 mmol/L (3.5-5.1); Sodium 142 mmol/L (135-145); eGFR 36.41
[2024-01-28] MEDS: SYNTHROID 125 MCG TUBE (05:28)
[2024-01-28] MEDS: MAGNESIUM SULFATE 102 GRAMS IV (05:56)
[2024-01-28] MEDS: KCL ELIXIR 40 MEQ TUBE (06:01)
[2024-01-28] MEDS: SENOKOT 17.2 MG PO (07:10)
[2024-01-28] MEDS: MIRALAX 17 GRAMS TUBE ×2 (07:10→20:37)
[2024-01-28] MEDS: ELIQUIS 5 MG TUBE ×2 (07:11→20:37)
[2024-01-28] MEDS: DESENEX/MITRAZOL/ZEASORB 1 APPLIC TOPICAL ×2 (07:11→20:37)
[2024-01-28] MEDS: DECADRON 6 MG IV ×2 (07:11→16:56)
[2024-01-28] MEDS: LEVOPHED 258 MG IV ×2 (07:37→16:57)
--- NOTE | 2024-01-28 08:02 | PTCARENOTE ---
Addendum entered by Disha Lazar RN 01/28/24 14:31:
0800 dr. olivo aware rass -3 weaning sedation per protocol.
Original Note:
pt received from previous rn- ett to vent- see settings as charted. propofol weaned to 20mcg, fentanyl gtt continues. bumex infusing as per order. levo titrated to maintain map>65- left radial real zeroed and functioning. oral care provided. joyce
draining yellow urine. pt av paced and occasionally pacer does not capture- hr in the 40s. when av paced hr 50-60. pt with doppler pulses, generalized +2 edema. lungs diminished, mildly coarse at the bases. left nare dubhoff at 65cm. turned and
repositioned. all safety precautions in place.
[2024-01-28] MEDS: SUBLIMAZE 100 IV ×2 (08:38→16:56)
--- NOTE | 2024-01-28 08:49 | W.PN.NEPH.PH ---
Today's Communication / Plan
-
diurese
Assessment/Plan
-
IMP:
Acute kidney injury superimposed on stage IIIb chronic kidney disease
Acute on Chronic heart failure with a preserved ejection fraction
Acute hypoxic resp failure
Chronic lower extremity edema
Paroxysmal atrial fibrillation
Status post permanent pacemaker
Nausea/vomiting
Generalized weakness
Hypokalemia
Suspected shingles rash
Spinal stenosis
Chronic back pain
Hypothyroidism
Obesity due to excess calories
?metolazone causing pancytopenia 12/2023
Plan:
continue bumex gtt
diuril today
follow BMP
replete K prn
keep MAP > 65
critical care time 31 minutes
-
-
Date of Service: January 28, 2024
CC / HPI / ROS
-
Chief Complaint:
EULOGIO, CKD
History of Present Illness:
cr better at 1.4
weight stable
increasing UOP with increase Bumex gtt
on Vent, sedated
bumex gtt for overt HF
Review of Systems:
intubated sedated
Labs
-
Labs:
WBC 12.4 10^3/uL (4.8-10.8) H 01/28/24 03:57
RBC 4.42 10^6/uL (4.20-5.40) 01/28/24 03:57
Hgb 12.8 g/dL (12.0-16.0) 01/28/24 03:57
Hct 39.9 % (37.0-47.0) 01/28/24 03:57
Plt Count 133 10^3/uL (130-400) 01/28/24 03:57
Sodium 142 mmol/L (135-145) 01/28/24 03:57
Potassium 3.6 mmol/L (3.5-5.1) 01/28/24 03:57
Chloride 105 mmol/L (98-107) 01/28/24 03:57
Carbon Dioxide 22 mmol/L (22-30) 01/28/24 03:57
BUN 60 mg/dl (7-17) H 01/28/24 03:57
Creatinine 1.4 mg/dL (0.6-1.0) H 01/28/24 03:57
eGFR 36.41 01/28/24 03:57
Glucose 141 mg/dl (70-99) H 01/28/24 03:57
Calcium 8.7 mg/dl (8.4-10.2) 01/28/24 03:57
Phosphorus 4.2 mg/dl (2.5-4.5) 01/28/24 03:57
Iph-O-Gewaxcnovqa Pept 2660 pg/ml 01/27/24 01:25
Physical Exam
-
Vital Signs:
Vital Signs
Temp Pulse Resp BP Pulse Ox
97.9 F 58 20 114/49 98
01/28/24 08:00 01/28/24 08:00 01/28/24 08:00 01/28/24 08:00 01/28/24 07:53
Cardiovascular:: Regular rate and rhythm
Respiratory:: Bilateral: Coarse
Lung Excursion:: Normal
Abdomen:: Nontender and Soft
Bowel Sounds:: Normal
Extremity Edema:: +3: Bilateral:
--- NOTE | 2024-01-28 09:00 | W.PN.HOSP.TC ---
Today's Communication/Plan
-
see bold
Assessment / Plan
Assessment / Plan
88-year-old female with a past medical history of atrial fibrillation, permanent pacemaker, heart failure with preserved ejection fraction, CKD and morbid obesity presents with generalized weakness. Patient lives with her daughter, who brought her
in because she is too weak to even go to the bathroom. Patient was recently treated at [facility] for CHF exacerbation, and released on 12/24/2023. Daughter reports that patient has been increasingly weak. She was recently started on
gabapentin for lower back pain. Daughter feels that she is having side effects, and is tapering her off the gabapentin. Patient is also on Valtrex for suspected herpes zoster rash. Daughter reports patient had an episode of nausea and vomiting
today. Daughter also reports that she is less responsive. Patient does admit to being dizzy with any type of movement. Patient denies chest pain, denies shortness of breath. No abdominal pain, no dysuria.
#Acute hypoxic respiratory failure
Multifactorial, due to heart failure and acute lung injury from aspiration
Patient pulling off her BiPAP. Intubated 01/26
Appreciate warp trucker input, continue vent management as per warp trucker
#Acute pulmonary edema
#Acute heart failure with a preserved ejection fraction
#Cardiorenal syndrome
#Acute kidney injury superimposed on stage IIIb chronic kidney disease
Appreciate nephrology input, continue Bumex drip
Appreciate cardiology input, for echo today
#Cardiogenic shock
Continue IV steroids, Levophed
#Concern for aspiration pneumonia
Continue IV antibiotics
Follow-up on sputum, blood cultures
#Chronic lower extremity edema
Compression stockings
#Paroxysmal atrial fibrillation
Status post permanent pacemaker
Patient has been bradycardic, metoprolol held
Pacemaker interrogated and functioning normally
Continue Eliquis, amiodarone
#Nausea/vomiting
Had 1 episode the day of admission
Denies abdominal pain, denies diarrhea
Resolved
#Generalized weakness
PT/OT rec STR
#Hypokalemia
Repleted and resolved
#Suspected shingles rash
Resume Valtrex when able
Discontinue gabapentin
#Spinal stenosis
#Chronic back pain
#Hypothyroidism
Continue levothyroxine
#Obesity due to excess calories
Affects all aspects of care
DVT prophylaxis�Eliquis
Full code
Updated daughter at bedside 01/23
Carton Inspector updated family 01/26
Carton Inspector updated family 01/27
Total time spent to see the patient on the floor, examine the patient, review data and lab results, discuss treatment plan with patient, nursing staff around 50 minutes
Physical Exam
General: Morbidly obese, no acute distress
HEENT: Normocephalic, Atraumatic
Respiratory: Bibasilar crackles
Cardiac: Normal S1/S2, Regular Rate and Rhythm
GI: Soft, Nontender, Nondistended, Normal Bowel Sounds
Extremities: No Clubbing, Cyanosis
Bilateral lymphedema noted, scattered wounds on left lower extremity
Anticipated Discharge: > 48 hours
Subjective/Interval History
-
Date of Service: January 28, 2024
Patient intubated and sedated.
Objective Data
-
Labs:
Laboratory Results
01/27/24 01/28/24
22:19 03:57
WBC 12.4 H
Hgb 12.8
Hct 39.9
Plt Count 133
HCO3 23.7
Sodium 140 142
Potassium 3.5 D 3.6
Chloride 105 105
Carbon Dioxide 23 22
BUN 58 H 60 H
Creatinine 1.6 H 1.4 H
Glucose 130 H 141 H
Calcium 8.8 8.7
Vital Signs:
Vital Signs
Temp Pulse Resp BP Pulse Ox
97.9 F 58 20 114/49 98
01/28/24 08:00 01/28/24 08:00 01/28/24 08:00 01/28/24 08:00 01/28/24 07:53
I&O
01/27/24 01/28/24 01/29/24
06:59 06:59 06:59
Intake Total 573.6 / 653.6 1745.3 / 1806.8 118.6 / 118.6
Output Total 1565 / 1565 1649 / 2049 400 / 400
Balance -991.4 / -911.4 95.3 / -243.2 -281.4 / -281.4
[2024-01-28] MEDS: STERILE WATER FOR INJECTION 18 ML IV (09:26)
[2024-01-28] MEDS: DIURIL 0.5 GRAM VIAL 0.5 GRAMS IV (09:26)
[2024-01-28] MEDS: HYDROPHOR 1 APPLIC TOPICAL (09:57)
[2024-01-28] MEDS: KCL 160 MEQ IV (11:23)
--- NOTE | 2024-01-28 11:36 | PTCARENOTE ---
plan of care discussed with Dr. Avendaño- aware of rass and weaning sedation per protocol. assessment unchanged. k rider infusing as per order.
--- NOTE | 2024-01-28 11:57 | W.PN.INTV ---
Today's Communication / Plan
Recommendations
Continue Bumex drip
Continue IV dexamethasone
Continue antibiotics
Continue mechanical ventilation without change
Check ABG tomorrow
Decrease sedation as able
Hold on tube feedings
Continue anticoagulation
Echocardiogram today
Prognosis is guarded
Assessment
-
88-year-old woman with past medical history noted, initially admitted with weakness. Found to have increased creatinine from baseline. She was rehydrated. Lasix was held for 2 days. Apparently was having some vomiting prior to admission.
On 01/26/2024 developed hypoxemia and increased work of breathing. Progressed despite diuretics and required noninvasive mechanical ventilation and transferred to the critical care unit. On 01/27/2024 despite diuresis remained hypoxemic with
increased work of breathing. Critical care was consulted for evaluation.
Acute hypoxemic respiratory failure: Suspect multifactorial.
Failed noninvasive mechanical ventilation 01/27/2024
Intubated 01/27/2024.
Acute on chronic heart failure with preserved ejection fraction-weight is elevated from her baseline significantly.
proBNP is elevated
Frothy pinkish secretion on ET tube.
Suspect acute lung injury from aspiration as the patient was vomiting prior to admission: Chest x-ray 01/27/2024 with severe bilateral infiltrates right greater than left.
Cannot rule out diffuse alveolar hemorrhage
Hypothermia
Possible UTI: Significantly abnormal urinalysis 01/27/2024.
Acute on chronic kidney disease-possibly cardiorenal.
Conditions present prior admission:
Hypertension
Morbid obesity
Spinal stenosis
Ambulatory dysfunction
Chronic kidney disease
Hyperlipidemia
Carotid artery stenosis
Atrial fibrillation
Sick sinus syndrome status post pacemaker
Heart failure with preserved ejection fraction
Pacemaker in place
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
Chronic hypercapnic respiratory failure-undiagnosed, likely obesity hypoventilation syndrome.
Assessment and plan:
Patient is critically ill, multiple bedside evaluations by me throughout the day. Multiple discussions with family members and the specialties.
Suspect hypoxemia multifactorial acute on chronic heart failure with pulmonary edema-preserved ejection fraction/cannot rule out acute lung injury from aspiration.
[place] frothy secretion copious amount yesterday 01/27/2024-cannot rule out diffuse alveolar hemorrhage
-
Mechanical ventilation settings reviewed.
Multiple adjustments overnight.
Pulmonary mechanics improved today peak pressure 31.
ABG 01/28/2024: 7.38/40/171
Assist-control 420/20/+15/60%.
Will continue to wean down FiO2.
ABG tomorrow
Chest x-ray tomorrow
Difficult to maintain plateau pressure under 30 in this morbidly obese patient.
-
Continue:Sedation with fentanyl-paralytics will be used if necessary as well. RASS -1(-2)
-
Patient not a candidate for prone positioning due to morbidly obese
Not a candidate for ECMO due to BMI and age.
This has been discussed with family members, son and daughters.
-
Chest x-ray consistent with bilateral increased interstitial markings/groundglass opacities. Asymmetric infiltrates.
Volume overload/heart failure component.
Relatively bradycardic-patient has a pacemaker in place. This has been adjusted
Cardiology to repeat echocardiogram
Continue cardiac medication
Discussed with nephrology: Bumex drip started 01/27/2024
Fluid balance -1.4 L, follow daily weight
Renal function improved
Vickers urinary output
Follow electrolytes and replete as necessary
-
Antibiotic started for abnormal UA. Currently on cefepime.
Urine culture: Polymicrobial. Possibly contaminant.
MRSA screening negative. Hold on vancomycin for now.
Sputum with normal respiratory
Blood cultures negative
Should also cover for possible aspiration pneumonitis/pneumonia.
-
Dexamethasone started yesterday 01/27/2024 empirically for possible inflammatory component.
Continue for now. Seems to be getting better.
-
Shock: Transition to Levophed. Vasopressin will be started if needed suspect multifactorial mechanism septic/cardiogenic.
Target mean arterial blood pressure 65 mmHg
Normal lactic acid
Creatinine improving
Vickers in place-Vickers urinary output.
Normal TSH
Will continue to wean off as able. Hopefully as lighten up sedation vasopressor requirements will improve
-
Glycemic control insulin sliding scale
-
N.p.o.
Dobbhoff tube has been placed.
Hold tube feedings for now
-
DVT prophylaxis-patient on Eliquis.
-
Prognosis is guarded.
Discussed with family by Dr. Avendaño 01/27/2024-full code. They understand critical situation.
Dr. Avendaño discussed case with cardiology, primary team, nephrology 01/28/2024.
Extensive discussion with family as well 01/28/2024. I suggested at least a DNR status going forward. They are discussing
-
Critical care statement: A total of 81 minutes of critical care time was provided for this patient today. This includes management of unstable vital signs, evaluation of the patient at bedside, reviewing the patient's pertinent medical records
including ventilator settings, arterial blood gases, radiographs, microbiology, laboratory evaluations and discussion with primary team, critical care nursing, and respiratory therapy.
Subjective Dataa
Subjective Data
Date of Service:
Date of Service: January 28, 2024
Chief Complaint: Policeman Follow Up (Acute hypoxemic respiratory failure requiring intubation)
Subjective:
Critically ill, sedated, intubated
Requiring vasopressors
Unable to provide history
Review of Systems
General: Unobtainable - Sedation
Objective Data
Data Reviewed
Vital Signs / I&O / Oxygen:
Vital Signs
Temp Pulse Resp BP Pulse Ox
97.3 F 55 20 122/56 98
01/28/24 11:00 01/28/24 11:30 01/28/24 11:30 01/28/24 11:00 01/28/24 11:38
Intake and Output
01/27/24 01/28/24 01/29/24
06:59 06:59 06:59
Intake Total 573.6 / 653.6 1745.3 / 1806.8 281.7 / 281.7
Output Total 1565 / 1565 1650 / 2050 1525 / 1525
Balance -991.4 / -911.4 95.3 / -243.2 -1243.3 / -1243.3
SaO2 [A/C] 99
SaO2 98
Nasal Cannula flow liters per 15
minute
Physical Exam
General: Comfortable
HEENT: Normocephalic and Other (ET tube in place with frothy pink secretion)
Cardiovascular: S1-S2 and Peripheral Edema (2+)
Respiratory: Crackles and Non-Labored Respirations
GI: Soft and Distended (Obese)
Neurology: Other (Sedated, mechanical ventilation. Has respiratory effort.)
Skin: Warm
Labs/Micro/Reports
Lab Data
01/28/24 03:57
01/28/24 03:57
Laboratory Results
01/27/24 01/27/24 01/27/24
13:05 15:04 18:37
pH 7.39 7.36 7.33 L
pCO2 48 H 51 H 46 H
pO2 50 L* 55 L* 60 L
HCO3 29.1 H 28.8 H 24.3
O2 Delivery Level Not Reportable
01/28/24
03:57
pH 7.38
pCO2 40 H
pO2 171 H
HCO3 23.7
O2 Delivery Level 100%
Microbiology
01/27/24 16:56 Tracheal Aspirate Respiratory Culture - Preliminary
Usual Respiratory Adeola
01/27/24 16:56 Tracheal Aspirate Gram Stain - Preliminary
01/27/24 03:32 Urine Urine Culture - Final
01/24/24 21:25 Nose MRSA Screen - Final
No Methicillin Resistant Staphylococcus aureus isolated.
--- NOTE | 2024-01-28 12:36 | W.PN.CARDCBS ---
Today's Communication / Plan
-
Continue diuresis
Impression / Plan
-
PCP: Dr. Rojas
Mountain Guide: Dr. Ramirez
Impression:
Presented with weakness
Nausea/vomiting
Acute hypoxemic respiratory failure, intubated 01/27/24
Acute on chronic HFpEF
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
Paroxysmal atrial fibrillation
Chronic Eliquis OAC
Chronic amiodarone therapy
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
Hyperlipidemia
Hypertension
Hypothyroidism
Obesity
Carotid arterial disease
Echo 04/26/23: Technically difficult study. EF 55 to 60%. Likely normal regional wall motion of but difficult to last obtained given rapid rate. Normal LV wall thickness. Mild MR. Aortic valve sclerosis. Trace AI. PA pressure 27 mmHg.
Echo 12/21/23: EF 55%, normal RV size and function, moderate MR, moderate TR with PAP 44 mmHg
Plan:
Patient is critically ill intubated and sedated with acute hypoxic respiratory distress likely multifactorial with heart failure exacerbation, acute lung injury from aspiration
-Mechanical ventilation with improved oxygenation and decreased O2 supplementation currently now on 50% FiO2-management per passenger vessel chef
-On IV steroids and antibiotics per pulmonary
-Hemodynamics remain borderline requiring norepinephrine for support; keep MAP greater than 65 being monitored through a line
-Volume status slightly improved on Bumex drip at 3 but remains volume overloaded
-Monitor renal function/potassium and magnesium and replete as needed
-Nephrology consulted
-Bradycardia yesterday with device interrogation finding normal function.
-Currently AV paced
-Continue Eliquis 5mg BID. Hgb 12.1. Continue amiodarone 200mg daily.
-TSH WNL. Continue synthroid.
Discussed with passenger vessel chef
HPI: Beverly is an 88 year old female with PMH of chronic HFpEF, paroxysmal atrial fibrillation, PPM, HTN, HLD, CDK, and hypothyroidism. She presented to [facility] initially for generalized weakness. She was recently admitted to 12/2023 with acute heart
failure exacerbation. At discharge, weight was down to 261lbs. She was seen in follow up by cardiology and noted increased edema, however was not able to stand on scale, so weight was unknown. She was recommended to start metolazone 2.5mg Mondays
and and recheck labs in a week. Daughters brought her in for evaluation as patient became increasingly weak to the point that she was unable to even walk to the bathroom and noted that she had episode of nausea and vomiting earlier in the
day. In ER, she was noted to have EULOGIO with creat up to 2.0 and she was hypotensive. Her lasix and spironolactone were held and she was given 500cc IVFs. Her creat improved over the next 2 days, however she then became increasingly SOB and hypoxic in
the evening 01/25, requiring BiPAP. She had repeat CXR which showed moderate CHF. She was given 80mg IV lasix, followed by 40mg later in the evening. In AM 01/26, respiratory status continued to worsen, and she was intubated. She was given another
dose of 60mg IV lasix this AM. Her weight is now up ~40lbs compared to discharge weight from admission 12/2023. Cardiology consulted for evaluation given acute respiratory failure in the setting of acute heart failure. Intubated and sedated at time
of evaluation.
Progress Note - Mountain Guide
Subjective
Date of Service: January 28, 2024
Patient seen and examined. Remains intubated sedated. Chart/telemetry reviewed
Objective
Labs:
01/28/24 03:57
01/28/24 03:57
Labs
Hgb 12.8 g/dL (12.0-16.0) 01/28/24 03:57
Hct 39.9 % (37.0-47.0) 01/28/24 03:57
Plt Count 133 10^3/uL (130-400) 01/28/24 03:57
PT 24.0 Sec (11.4-14.6) H 01/27/24 04:10
INR 2.12 01/27/24 04:10
APTT 38.8 Sec (23.4-35.0) H 01/27/24 04:10
Sodium 142 mmol/L (135-145) 01/28/24 03:57
Potassium 3.6 mmol/L (3.5-5.1) 01/28/24 03:57
BUN 60 mg/dl (7-17) H 01/28/24 03:57
Creatinine 1.4 mg/dL (0.6-1.0) H 01/28/24 03:57
Glucose 141 mg/dl (70-99) H 01/28/24 03:57
Vital Signs and I&O:
Vital Signs
Temp Pulse Resp BP Pulse Ox
97.3 F 55 20 122/56 98
01/28/24 11:00 01/28/24 11:30 01/28/24 11:30 01/28/24 11:00 01/28/24 11:38
Vital Signs
Temp Pulse Resp BP Pulse Ox
97.3 F 55 20 122/56 98
01/28/24 11:00 01/28/24 11:30 01/28/24 11:30 01/28/24 11:00 01/28/24 11:38
Intake & Output
01/26/24 01/27/24 01/28/24 01/29/24
06:59 06:59 06:59 06:59
Intake Total 960 / 960 573.6 / 653.6 1745.3 / 1806.8 328.2 / 328.2
Output Total 650 / 650 1565 / 1565 1650 / 2050 1525 / 1525
Balance 310 / 310 -991.4 / -911.4 95.3 / -243.2 -1196.8 / -1196.8
Physical Exam
Physical Exam
GEN: Intubated sedated
HEENT: mmm
LUNGS: Bronchovesicular breath sounds decreased bilaterally
CV: Distant heart sounds. Regular. Positive S1-S2. Device present
ABD: soft, BS+, NT/ND
EXT: Lymphedema with Tubigrip stockings bilaterally.++ Edema. A-line.
--- NOTE | 2024-01-28 13:02 | CM ---
CM following re: discharge planning.
Discussed in Rounds reviewed pt's chart, met with pt. Per Rounds meeting, pt remains intubated, continue supportive care.
D/C plan: [facility] when pt is medically stable.
CM will follow with discharge plan updates as hospitalization progresses
--- NOTE | 2024-01-28 14:29 | PTCARENOTE ---
pt withdrawling to pain. cpot 2 at this time. turned and repositioned
--- NOTE | 2024-01-28 14:38 | PTCARENOTE ---
pt received from previous rn- ett to vent- see settings as charted. 0800 dr. olivo aware rass -3 weaning sedation per protocol.propofol weaned to 20mcg, fentanyl gtt continues. bumex infusing as per order. levo titrated to maintain map>65- left
radial real zeroed and functioning. oral care provided. joyce draining yellow urine. pt v paced and occasionally pacer does not capture- hr in the 40s. when v paced hr 50-60. pt with doppler pulses, generalized +2 edema. lungs diminished, mildly
coarse at the bases. left nare dubhoff at 65cm. turned and repositioned. all safety precautions in place.
--- NOTE | 2024-01-28 15:46 | PN.CDI ---
CDI
- -
CDI:
Physician Documentation Request
Admit Date: 01/24/24 18:17
Dear Doctor Do,
Clinical Indicators:
Patient admitted with EULOGIO.
01/26 Special Education Teaching Assistant consult, 'The day of admission patient had some vomiting. Patient was less responsive and brought into the emergency room for evaluation....Suspect acute lung injury from aspiration as the patient was vomiting prior to admission'
01/27 PN, 'Concern for aspiration pneumonia Continue IV antibiotics...'
Please clarify the following:
Aspiration pneumonia was present on admission.
Aspiration pneumonia was not present on admission.
Unable to determine
Use of terms such as suspected, likely, concern for, or probable (associated with a specific diagnosis that is being evaluated, monitored, or treated as if it exists) are acceptable and can be coded in the inpatient setting, when documented at the
time of discharge.
Thank you,
Dary Dudley RN BSN
CDI Specialist
available via tiger text
Please use your independent medical judgment in providing your response.
--- NOTE | 2024-01-28 16:38 | PTCARENOTE ---
assessment unchanged, pt turned and repositioned. continues to withdrawal and grimace to pain. gtts unchanged.
[2024-01-28] MEDS: PACERONE TUBE (17:12)
--- NOTE | 2024-01-28 17:36 | PTCARENOTE ---
shivani durán held due to hr dr. olivo aware
[2024-01-28 17:43] LABS: Blood Urea Nitrogen 60 mg/dl (7-17); Calcium 8.9 mg/dl (8.4-10.2); Carbon Dioxide 27 mmol/L (22-30); Chloride 104 mmol/L (98-107); Estimated Creatinine Clearance 33 ml/min; Glucose 152 mg/dl (70-99); Potassium 4.1 mmol/L (3.5-5.1); Sodium 142 mmol/L (135-145); eGFR 31.02
--- NOTE | 2024-01-28 20:00 | PTCARENOTE ---
jacquard card cutter, pt intubated/sedated, wd to pain, Vpaced on tele/tyree at times to high 40s. LAC IV patent, RDL PICC WNL- Fent, Prop, Bumex, dbl conc Levo infusing per work list. L alycia AL WNL, leveled/zeroed. MV 20/420/50/15, Sat 99%. mouth care
done. L dht clamped. Vickers cath draining yellow urine. turned/repositioned.
[2024-01-29] VITALS: BP 120/55
[2024-01-29] MEDS: DECADRON 6 MG IV (00:04)
[2024-01-29] MEDS: BUMEX 50 IV ×6 (00:13→21:45)
[2024-01-29] MEDS: DIPRIVAN 100 IV ×3 (03:16→20:00)
[2024-01-29 04:12] LABS: B.E. 7.2 mmol/L; HCO3 29.9 mmol/L (21-28); O2 Saturation % 99.7 % (94-98); PCO2 35 mmHg (32-35); PO2 160 mmHg (83-108); pH 7.54 (7.35-7.45)
[2024-01-29 04:13] LABS: O2 Therapy MV 420/20/+15
[2024-01-29 04:14] LABS: Hematocrit 37.2 % (37.0-47.0); Hemoglobin 12.4 g/dL (12.0-16.0); Mean Corp Hgb Conc. 33.3 g/dL (33.0-37.0); Mean Corpuscular Volume 87.1 fL (81.0-99.0); Platelet Count 136 10^3/uL (130-400); Red Blood Cell Count 4.27 10^6/uL (4.20-5.40); Red Cell Dist. Width 19.4 % (11.5-14.5); White Blood Cell Count 8.6 10^3/uL (4.8-10.8)
[2024-01-29] MEDS: MAXIPIME 1000 MG IV ×3 (04:14→20:40)
[2024-01-29] MEDS: STERILE WATER FOR INJECTION 10 ML IV ×3 (04:15→20:40)
[2024-01-29 04:42] LABS: Blood Urea Nitrogen 61 mg/dl (7-17); Calcium 8.9 mg/dl (8.4-10.2); Carbon Dioxide 28 mmol/L (22-30); Chloride 102 mmol/L (98-107); Estimated Creatinine Clearance 35 ml/min; Glucose 170 mg/dl (70-99); Potassium 3.1 mmol/L (3.5-5.1); Sodium 145 mmol/L (135-145); eGFR 33.52
[2024-01-29] MEDS: SYNTHROID 125 MCG TUBE (05:09)
[2024-01-29] MEDS: KCL 100 IV (05:11)
[2024-01-29 05:12] VITALS: BMI 52.7
[2024-01-29] MEDS: SUBLIMAZE 100 IV ×2 (06:37→22:13)
[2024-01-29 08:00] VITALS: BP 105/66
--- NOTE | 2024-01-29 08:02 | W.PN.CARDCBS ---
Addendum entered and electronically signed by Vaughn Sands MD 01/29/24 12:20:
Patient seen and examined
Agree with resident note and assessment
Agree with resident plan
Examination:
�
����Physical Exam
�
���������������������General:�Acutely ill, intubated and sedated
�
���������������������������Neck:��supple. no meningeal signs. normal psoterior pharynx
������������������������
���������������������������Heart:��s1/s2 regular rate and rhythm, no murmur. equal radial pulses.
�
��������������������������Lungs: ��no acute respiratory distress. clear bilaterally
�
����������������������Abdomen:�normal bowel sounds. not tender. no CVAT
�
��������������������������Neuro:��alert and oriented. no focal neurological deficits
�
������������������������������Skin: ��no rash
�
�����������������������Psychiatric:�well kept. interactive and cooperative
�
�����������������������Extremities:�1+ extremity edema. no calf tenderness. negative homans. good distal pulses
�
�
�
��
�
Impression:
Acute on chronic HFpEF
Acute hypoxemic respiratory failure, intubated 01/27/24
Hypokalemia
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
Paroxysmal atrial fibrillation
Chronic Eliquis OAC
Chronic amiodarone therapy
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
Hyperlipidemia
Hypertension
Hypothyroidism
Obesity
Carotid arterial disease
Echo 01/28/2024: EF 55 to 60%, normal RV, normal LA size, normal TV opening.
Echo 04/26/23: Technically difficult study. EF 55 to 60%. Likely normal regional wall motion of but difficult to last obtained given rapid rate. Normal LV wall thickness. Mild MR. Aortic valve sclerosis. Trace AI. PA pressure 27 mmHg.
Echo 12/21/23: EF 55%, normal RV size and function, moderate MR, moderate TR with PAP 44 mmHg
Plan:
#Acute on chronic HFpEF.
-proBNP mildly elevated.
-Echocardiogram 01/28/2024, limited study, unremarkable LVEF 55 to 60%.
-Hemodynamically improving on Bumex drip 3 mg, remains volume overloaded, agree with Diuril today.
-I's and O's -4071.70, weight down 13lbs. Follow.
-Creatinine down to 1.5, follow.
#Hypokalemia
-Potassium 3.1 today.
-Repleted.
-Monitor and replete as needed.
#Acute hypoxemic respiratory failure, intubated 01/2024
Patient is critically ill intubated and sedated with acute hypoxic respiratory distress likely multifactorial with heart failure exacerbation, acute lung injury from aspiration
-Mechanical ventilation with improved oxygenation and decreased O2 supplementation currently now on 50% FiO2-management per e learning designer
-On IV steroids and antibiotics per pulmonary
-Hemodynamics remain borderline requiring norepinephrine for support; keep MAP greater than 65 being monitored through a line
-Monitor renal function/potassium and magnesium and replete as needed.
#Paroxysmal A-fib
-Currently paced, although her atrial lead does not capture except for intermittently at high output. She does sense appropriately in the atrium and is hemodynamically stable even when she V paces without atrial capture. Given the fact that she is
critically ill I would not advocate for adding in a new atrial lead at this time
-Continue Eliquis 5mg BID. Hgb 12.1. Continue amiodarone 200mg daily.
-TSH WNL. Continue synthroid.
Original Note:
Today's Communication / Plan
-
Continue diuresis
Monitor and replete electrolytes
Impression / Plan
-
PCP: Dr. Rojas
Rug Hooker Hand: Dr. Ramirez
Assessment: 88-year-old female with complex PMH of chronic HFpEF, paroxysmal A-fib, hypertension initially admitted with weakness. Developed hypoxemia which increased work of breathing despite diuretics currently intubated.
Impression:
Acute on chronic HFpEF
Acute hypoxemic respiratory failure, intubated 01/27/24
Hypokalemia
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
Paroxysmal atrial fibrillation
Chronic Eliquis OAC
Chronic amiodarone therapy
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
Hyperlipidemia
Hypertension
Hypothyroidism
Obesity
Carotid arterial disease
Echo 01/28/2024: EF 55 to 60%, normal RV, normal LA size, normal TV opening.
Echo 04/26/23: Technically difficult study. EF 55 to 60%. Likely normal regional wall motion of but difficult to last obtained given rapid rate. Normal LV wall thickness. Mild MR. Aortic valve sclerosis. Trace AI. PA pressure 27 mmHg.
Echo 12/21/23: EF 55%, normal RV size and function, moderate MR, moderate TR with PAP 44 mmHg
Plan:
#Acute on chronic HFpEF.
-proBNP mildly elevated.
-Echocardiogram 01/28/2024, limited study, unremarkable LVEF 55 to 60%.
-Hemodynamically improving on Bumex drip 3 mg, remains volume overloaded, agree with Diuril today.
-I's and O's -4071.70, weight down 13lbs. Follow.
-Creatinine down to 1.5, follow.
#Hypokalemia
-Potassium 3.1 today.
-Repleted.
-Monitor and replete as needed.
#Acute hypoxemic respiratory failure, intubated 01/2024
Patient is critically ill intubated and sedated with acute hypoxic respiratory distress likely multifactorial with heart failure exacerbation, acute lung injury from aspiration
-Mechanical ventilation with improved oxygenation and decreased O2 supplementation currently now on 50% FiO2-management per e learning designer
-On IV steroids and antibiotics per pulmonary
-Hemodynamics remain borderline requiring norepinephrine for support; keep MAP greater than 65 being monitored through a line
-Monitor renal function/potassium and magnesium and replete as needed.
#Paroxysmal A-fib
-Currently AV paced.
-Continue Eliquis 5mg BID. Hgb 12.1. Continue amiodarone 200mg daily.
-TSH WNL. Continue synthroid.
HPI: Beverly is an 88 year old female with PMH of chronic HFpEF, paroxysmal atrial fibrillation, PPM, HTN, HLD, CDK, and hypothyroidism. She presented to [facility] initially for generalized weakness. She was recently admitted to 12/2023 with acute heart
failure exacerbation. At discharge, weight was down to 261lbs. She was seen in follow up by cardiology and noted increased edema, however was not able to stand on scale, so weight was unknown. She was recommended to start metolazone 2.5mg Mondays
and and recheck labs in a week. Daughters brought her in for evaluation as patient became increasingly weak to the point that she was unable to even walk to the bathroom and noted that she had episode of nausea and vomiting earlier in the
day. In ER, she was noted to have EULOGIO with creat up to 2.0 and she was hypotensive. Her lasix and spironolactone were held and she was given 500cc IVFs. Her creat improved over the next 2 days, however she then became increasingly SOB and hypoxic in
the evening 01/25, requiring BiPAP. She had repeat CXR which showed moderate CHF. She was given 80mg IV lasix, followed by 40mg later in the evening. In AM 01/26, respiratory status continued to worsen, and she was intubated. She was given another
dose of 60mg IV lasix this AM. Her weight is now up ~40lbs compared to discharge weight from admission 12/2023. Cardiology consulted for evaluation given acute respiratory failure in the setting of acute heart failure. Intubated and sedated at time
of evaluation.
Echo 01/28/2024:
Normal left ventricular systolic function.
Normal regional wall motion.
Left ventricular ejection fraction is 55-60% by visual assessment.
Normal right ventricular size and function.
Normal left atrial size.
Mitral valve opens normally.
Tricuspid valve opens normally.
Not assessed.
Not assessed.
No pericardial effusion.
Limited study.
Progress Note - Rug Hooker Hand
Subjective
Date of Service: January 29, 2024
Patient seen and examined, remains intubated.
Objective
Labs:
01/29/24 04:01
01/29/24 04:01
Labs
Hgb 12.4 g/dL (12.0-16.0) 01/29/24 04:01
Hct 37.2 % (37.0-47.0) 01/29/24 04:01
Plt Count 136 10^3/uL (130-400) 01/29/24 04:01
PT 24.0 Sec (11.4-14.6) H 01/27/24 04:10
INR 2.12 01/27/24 04:10
APTT 38.8 Sec (23.4-35.0) H 01/27/24 04:10
Sodium 145 mmol/L (135-145) 01/29/24 04:01
Potassium 3.1 mmol/L (3.5-5.1) L 01/29/24 04:01
BUN 61 mg/dl (7-17) H 01/29/24 04:01
Creatinine 1.5 mg/dL (0.6-1.0) H 01/29/24 04:01
Glucose 170 mg/dl (70-99) H 01/29/24 04:01
Vital Signs and I&O:
Vital Signs
Temp Pulse Resp BP Pulse Ox
97.9 F 53 18 120/55 99
01/29/24 04:00 01/29/24 06:00 01/29/24 06:00 01/29/24 00:00 01/29/24 07:49
Vital Signs
Temp Pulse Resp BP Pulse Ox
97.9 F 53 18 120/55 99
01/29/24 04:00 01/29/24 06:00 01/29/24 06:00 01/29/24 00:00 01/29/24 07:49
Intake & Output
01/27/24 01/28/24 01/29/24 01/30/24
06:59 06:59 06:59 06:59
Intake Total 573.6 / 653.6 1745.3 / 1806.8 1212.6 / 1212.6
Output Total 1565 / 1565 165 / 2049 5825 / 5825
Balance -991.4 / -911.4 95.3 / -243.2 -4612.4 / -4612.4
Physical Exam
Physical Exam
GEN: Intubated sedated
HEENT: mmm
LUNGS: Bronchovesicular breath sounds decreased bilaterally
CV: Distant heart sounds. Regular. Positive S1-S2. Device present
ABD: soft, BS+, NT/ND
EXT: Lymphedema with Tubigrip stockings bilaterally.++ Edema. A-line.
--- NOTE | 2024-01-29 08:26 | W.PN.NEPH.PH ---
Today's Communication / Plan
-
continue diuresis
Assessment/Plan
-
IMP:
Acute kidney injury superimposed on stage IIIb chronic kidney disease
Acute on Chronic heart failure with a preserved ejection fraction
Acute hypoxic resp failure
Chronic lower extremity edema
Paroxysmal atrial fibrillation
Status post permanent pacemaker
Nausea/vomiting
Generalized weakness
Hypokalemia
Suspected shingles rash
Spinal stenosis
Chronic back pain
Hypothyroidism
Obesity due to excess calories
?metolazone causing pancytopenia 12/2023
Plan:
continue bumex gtt
diuril today again
follow BMP
replete K
keep MAP > 65
critical care time 31 minutes
-
-
Date of Service: January 29, 2024
CC / HPI / ROS
-
Chief Complaint:
EULOGIO, CKD
History of Present Illness:
EULOGIO/Cr stable 1.5
weight down
excellent diuresis for decompensated HFpEF with bumex gtt and diuril
on Vent, sedated
bumex gtt for overt HF
Review of Systems:
intubated sedated
Labs
-
Labs:
WBC 8.6 10^3/uL (4.8-10.8) 01/29/24 04:01
RBC 4.27 10^6/uL (4.20-5.40) 01/29/24 04:01
Hgb 12.4 g/dL (12.0-16.0) 01/29/24 04:01
Hct 37.2 % (37.0-47.0) 01/29/24 04:01
Plt Count 136 10^3/uL (130-400) 01/29/24 04:01
Sodium 145 mmol/L (135-145) 01/29/24 04:01
Potassium 3.1 mmol/L (3.5-5.1) L 01/29/24 04:01
Chloride 102 mmol/L (98-107) 01/29/24 04:01
Carbon Dioxide 28 mmol/L (22-30) 01/29/24 04:01
BUN 61 mg/dl (7-17) H 01/29/24 04:01
Creatinine 1.5 mg/dL (0.6-1.0) H 01/29/24 04:01
eGFR 33.52 01/29/24 04:01
Glucose 170 mg/dl (70-99) H 01/29/24 04:01
Calcium 8.9 mg/dl (8.4-10.2) 01/29/24 04:01
Phosphorus 4.2 mg/dl (2.5-4.5) 01/28/24 03:57
Wfd-[id number]-Sjnrqtkrrhd Pept 2660 pg/ml 01/27/24 01:25
Physical Exam
-
Vital Signs:
Vital Signs
Temp Pulse Resp BP Pulse Ox
97.9 F 53 18 120/55 99
01/29/24 04:00 01/29/24 06:00 01/29/24 06:00 01/29/24 00:00 01/29/24 07:49
Cardiovascular:: Regular rate and rhythm
Respiratory:: Bilateral: Coarse
Lung Excursion:: Normal
Abdomen:: Nontender and Soft
Bowel Sounds:: Normal
Extremity Edema:: +3: Bilateral:
[2024-01-29] MEDS: DECADRON IV (08:45)
[2024-01-29] MEDS: MIRALAX 17 GRAMS TUBE (09:16)
[2024-01-29] MEDS: SENOKOT 17.2 MG TUBE (09:16)
[2024-01-29] MEDS: ELIQUIS 5 MG TUBE ×2 (09:16→20:39)
[2024-01-29] MEDS: HYDROPHOR 1 APPLIC TOPICAL (09:20)
[2024-01-29] MEDS: DIURIL 0.5 GRAM VIAL 0.5 GRAMS IV (09:21)
[2024-01-29] MEDS: STERILE WATER FOR INJECTION 18 ML IV (09:21)
[2024-01-29] MEDS: DESENEX/MITRAZOL/ZEASORB 1 APPLIC TOPICAL ×2 (09:21→20:40)
[2024-01-29] MEDS: DECADRON 4 MG IV ×2 (09:22→16:59)
--- NOTE | 2024-01-29 09:35 | W.PN.HOSP.TC ---
Today's Communication/Plan
-
see bold
Assessment / Plan
Assessment / Plan
88-year-old female with a past medical history of atrial fibrillation, permanent pacemaker, heart failure with preserved ejection fraction, CKD and morbid obesity presents with generalized weakness. Patient lives with her daughter, who brought her
in because she is too weak to even go to the bathroom. Patient was recently treated at [facility] for CHF exacerbation, and released on 12/24/2023. Daughter reports that patient has been increasingly weak. She was recently started on
gabapentin for lower back pain. Daughter feels that she is having side effects, and is tapering her off the gabapentin. Patient is also on Valtrex for suspected herpes zoster rash. Daughter reports patient had an episode of nausea and vomiting
today. Daughter also reports that she is less responsive. Patient does admit to being dizzy with any type of movement. Patient denies chest pain, denies shortness of breath. No abdominal pain, no dysuria.
#Acute hypoxic respiratory failure
Multifactorial, due to heart failure and acute lung injury from aspiration
Transferred to ICU 01/25. Intubated 01/26
Appreciate business analysis specialist input, continue vent management as per business analysis specialist
01/28 Starting tube feeds
#Acute pulmonary edema
#Acute heart failure with a preserved ejection fraction
#Cardiorenal syndrome
#Acute kidney injury superimposed on stage IIIb chronic kidney disease
Appreciate nephrology input, continue Bumex drip. She has lost 6 kg of fluid in 24 hours
Cardiology following, 01/27 echo EF 55-60%, no gross abnormalities
Trend creatinine, trend daily weights
#Cardiogenic shock
Continue IV steroids, Levophed
Wean as tolerated
#Concern for aspiration pneumonia -suspect present upon admission
Continue IV antibiotics
Follow-up on sputum, blood cultures
#Hypokalemia
Replete by IV and through tube
Mg normal
#Paroxysmal atrial fibrillation
Status post permanent pacemaker
Patient has been bradycardic, metoprolol held
Pacemaker interrogated and functioning normally
Currently paced, although her atrial lead does not capture except for intermittently high output
Since she is critically ill, cardiology rec not adding a new atrial lead at this time
Continue Eliquis, amiodarone
#Chronic lower extremity edema
Compression stockings
#Nausea/vomiting
Had 1 episode the day of admission
Denies abdominal pain, denies diarrhea
Resolved
#Generalized weakness
PT/OT rec STR
#Suspected shingles rash
Resume Valtrex when able
Discontinue gabapentin
#Spinal stenosis
#Chronic back pain
#Hypothyroidism
Continue levothyroxine
#Obesity due to excess calories
Affects all aspects of care
DVT prophylaxis�Eliquis
Full code
Updated daughter at bedside 01/23
Business Planning Analyst updated family 01/26
Business Planning Analyst updated family 01/27
Updated Ismael on phone (who is a physician at [facility]), 01/28
Total time spent to see the patient on the floor, examine the patient, review data and lab results, discuss treatment plan with patient, nursing staff around 51 minutes
Physical Exam
General: Morbidly obese, no acute distress
HEENT: Normocephalic, Atraumatic
Respiratory: Bibasilar crackles
Cardiac: Normal S1/S2, Regular Rate and Rhythm
GI: Soft, Nontender, Nondistended, Normal Bowel Sounds
Extremities: No Clubbing, Cyanosis
Bilateral lymphedema noted, scattered wounds on left lower extremity
Anticipated Discharge: > 48 hours
Subjective/Interval History
-
Date of Service: January 29, 2024
Patient remains intubated and sedated. No fever.
Objective Data
-
Labs:
Laboratory Results
01/29/24 01/29/24 01/29/24
04:01 04:02 15:00
WBC 8.6
Hgb 12.4
Hct 37.2
Plt Count 136
HCO3 29.9 H
Sodium 145 Pending
Potassium 3.1 L Pending
Chloride 102 Pending
Carbon Dioxide 28 Pending
BUN 61 H Pending
Creatinine 1.5 H Pending
Glucose 170 H Pending
Calcium 8.9 Pending
Vital Signs:
Vital Signs
Temp Pulse Resp BP Pulse Ox
97.9 F 53 18 120/55 99
01/29/24 04:00 01/29/24 06:00 01/29/24 06:00 01/29/24 00:00 01/29/24 07:49
I&O
01/28/24 01/29/24 01/30/24
06:59 06:59 06:59
Intake Total 1745.3 / 1806.8 1212.6 / 1255.3 85.4 / 85.4
Output Total 1650 / 0 5825 / 5825 700 / 700
Balance 95.3 / -243.2 -4612.4 / -4569.7 -614.6 / -614.6
--- NOTE | 2024-01-29 10:11 | W.PN.INTV ---
Today's Communication / Plan
Recommendations
Mechanical ventilation setting adjusted
Repeat ABG later
Lighten up sedation
Wean off vasopressors as able
Bumex drip
Continue to follow electrolytes and replete as necessary
Continue 7 days of antibiotics
Decrease steroids today
Repeat chest x-ray today
Assessment
-
88-year-old woman with past medical history noted, initially admitted with weakness. Found to have increased creatinine from baseline. She was rehydrated. Lasix was held for 2 days. Apparently was having some vomiting prior to admission.
On 01/26/2024 developed hypoxemia and increased work of breathing. Progressed despite diuretics and required noninvasive mechanical ventilation and transferred to the critical care unit. On 01/27/2024 despite diuresis remained hypoxemic with
increased work of breathing. Critical care was consulted for evaluation.
Acute hypoxemic respiratory failure: Suspect multifactorial.
Failed noninvasive mechanical ventilation 01/27/2024
Intubated 01/27/2024.
Acute on chronic heart failure with preserved ejection fraction-weight is elevated from her baseline significantly.
proBNP is elevated
Frothy pinkish secretion on ET tube.
Suspect acute lung injury from aspiration as the patient was vomiting prior to admission: Chest x-ray 01/27/2024 with severe bilateral infiltrates right greater than left.
Cannot rule out diffuse alveolar hemorrhage
Hypothermia
Possible UTI: Significantly abnormal urinalysis 01/27/2024.
Acute on chronic kidney disease-possibly cardiorenal.
Conditions present prior admission:
Hypertension
Morbid obesity
Spinal stenosis
Ambulatory dysfunction
Chronic kidney disease
Hyperlipidemia
Carotid artery stenosis
Atrial fibrillation
Sick sinus syndrome status post pacemaker
Heart failure with preserved ejection fraction
Pacemaker in place
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
Chronic hypercapnic respiratory failure-undiagnosed, likely obesity hypoventilation syndrome.
Assessment and plan:
Patient is critically ill, multiple bedside evaluations by me throughout the day. Multiple discussions with family members and the specialties.
Suspect hypoxemia multifactorial acute on chronic heart failure with pulmonary edema-preserved ejection fraction/cannot rule out acute lung injury from aspiration.
Snook frothy secretion copious amount yesterday 01/27/2024-cannot rule out diffuse alveolar hemorrhage
-
Mechanical ventilation settings reviewed.
Peak pressure this morning is 30.
FiO2 decreased to 40%
Assist-control 420/20/+15/40%.
ABG 01/29/2024: 7.54/35/160-respiratory alkalosis
Respiratory rate decreased to 14/PEEP decreased to 12.
ABG in 30-minute
-
Chest x-ray pending today
Difficult to maintain plateau pressure under 30 in this morbidly obese patient.
-
Continue:Sedation with fentanyl/propofol-will start lighten up sedation.
-
Patient not a candidate for prone positioning due to morbidly obese
Not a candidate for ECMO due to BMI and age.
This has been discussed with family members, son and daughters.
-
Chest x-ray consistent with bilateral increased interstitial markings/groundglass opacities. Asymmetric infiltrates.
Volume overload/heart failure component.
Echocardiogram this admission: Preserved LVEF. No significant pulmonary hypertension no significant valvular abnormality
Relatively bradycardic-patient has a pacemaker in place. This has been adjusted
Cardiology to repeat echocardiogram
Continue cardiac medication
Discussed with nephrology: Bumex drip started 01/27/2024
Weight trending lower.
Stable renal function.
Vickers urinary output-Vickers in place with clear urine
Deferred to nephrology and cardiology went to transition to intermittent dosing of diuretics
Follow electrolytes and replete as necessary
-
Hypokalemia: Repleted. BMP to be repeat
-
Antibiotic started for abnormal UA. Currently on cefepime.
Urine culture: Polymicrobial. Possibly contaminant.
MRSA screening negative. Hold on vancomycin for now.
Sputum with normal respiratory
Blood cultures negative
Should also cover for possible aspiration pneumonitis/pneumonia-will complete 7 days of antibiotic.
-
Dexamethasone started 01/27/2024 empirically for possible inflammatory component.
Decrease dexamethasone to 4 mg IV every Q8. Slow taper
will follow chest x-ray
-
Shock: Transition to Levophed. Vasopressin will be started if needed suspect multifactorial mechanism septic/cardiogenic.
Target mean arterial blood pressure 65 mmHg
Normal lactic acid
Creatinine improving
Vickers in place-Vickers urinary output.
Normal TSH
Remains bradycardic-paced in the low 50s
Will continue to wean off as able. Hopefully as lighten up sedation vasopressor requirements will improve
-
Glycemic control insulin sliding scale
-
N.p.o.
Dobbhoff tube has been placed.
Start tube feedings today 01/29/2024.
-
DVT prophylaxis-patient on Eliquis.
-
Prognosis is guarded.
Dr. Avendaño discussed with son who is a emergency room physician on 01/28/2024. Improved. Still in critical status. Prognosis is guarded
Discussed with family by Dr. Avendaño 01/27/2024-full code. They understand critical situation.
Dr. Avendaño discussed case with cardiology, primary team, nephrology 01/28/2024.
Extensive discussion with family as well 01/28/2024. I suggested at least a DNR status going forward. They are discussing
-
Critical care statement: A total of 42 minutes of critical care time was provided for this patient today. This includes management of unstable vital signs, evaluation of the patient at bedside, reviewing the patient's pertinent medical records
including ventilator settings, arterial blood gases, radiographs, microbiology, laboratory evaluations and discussion with primary team, critical care nursing, and respiratory therapy.
Subjective Dataa
Subjective Data
Date of Service:
Date of Service: January 29, 2024
Chief Complaint: Audio Engineer Follow Up (Acute hypoxemic respiratory failure requiring intubation)
Subjective:
Sedated, mechanical ventilation
On pressors
Critically ill
Unable to provide history
No major overnight events
Oxygenation improved
Review of Systems
General: Unobtainable - Sedation
Objective Data
Data Reviewed
Vital Signs / I&O / Oxygen:
Vital Signs
Temp Pulse Resp BP Pulse Ox
97.9 F 53 18 120/55 99
01/29/24 04:00 01/29/24 06:00 01/29/24 06:00 01/29/24 00:00 01/29/24 07:49
Intake and Output
01/28/24 01/29/24 01/30/24
06:59 06:59 06:59
Intake Total 1745.3 / 1806.8 1212.6 / 1280.3 263.4 / 263.4
Output Total 1650 / 2050 5825 / 5825 830 / 830
Balance 95.3 / -243.2 -4612.4 / -4544.7 -566.6 / -566.6
SaO2 [A/C] 100
SaO2 99
Nasal Cannula flow liters per 15
minute
Physical Exam
General: Comfortable
HEENT: Normocephalic and Other (ET tube in place with frothy pink secretion)
Cardiovascular: S1-S2 and Peripheral Edema (2+)
Respiratory: Crackles, Non-Labored Respirations and ET Tube (No significant secretions)
GI: Soft and Distended (Obese)
Neurology: Other (Sedated, mechanical ventilation. Has respiratory effort.)
Skin: Warm
Labs/Micro/Reports
Lab Data
01/29/24 04:01
Laboratory Results
01/29/24
04:02
pH 7.54 H
pCO2 35
pO2 160 H
HCO3 29.9 H
O2 Delivery Level Mv 420/20/+15
Microbiology
01/27/24 16:56 Tracheal Aspirate Respiratory Culture - Preliminary
Usual Respiratory Adeola
01/27/24 16:56 Tracheal Aspirate Gram Stain - Preliminary
01/27/24 03:32 Urine Urine Culture - Final
01/24/24 21:25 Nose MRSA Screen - Final
No Methicillin Resistant Staphylococcus aureus isolated.
[2024-01-29 11:20] LABS: B.E. 3.3 mmol/L; HCO3 27.8 mmol/L (21-28); O2 Saturation % 95.4 % (94-98); PCO2 41 mmHg (32-35); PO2 63 mmHg (83-108); pH 7.44 (7.35-7.45)
[2024-01-29 11:24] LABS: O2 Therapy 40 420/14/+12
--- NOTE | 2024-01-29 11:42 | PTCARENOTE ---
Pt sedated on Fentanyl and Propofol gtts. Coughs and desats with turns. Occasionally stacks breaths.
Vent changes per MD and repeat ABG. Lungs course. Scant secretions.
V-paced on monitor. Weaning Levophed. Edema improved.
Remains on Bumex gtt. Clear yellow urine via joyce.
Loose brown BM. Plan to start tube feeds today.
All other assessments unchanged.
[2024-01-29 16:08] LABS: Blood Urea Nitrogen 63 mg/dl (7-17); Calcium 8.2 mg/dl (8.4-10.2); Carbon Dioxide 26 mmol/L (22-30); Chloride 106 mmol/L (98-107); Estimated Creatinine Clearance 34 ml/min; Glucose 141 mg/dl (70-99); Potassium 2.8 mmol/L (3.5-5.1); Sodium 145 mmol/L (135-145); eGFR 33.52
--- NOTE | 2024-01-29 17:00 | PTCARENOTE ---
Pt remains sedated on vent. Coughs and occasionally stacks breaths. SpO2 ranges from 87-95%. SpO2 noted as low as 80% with turning/bedbath. SpO2 dips to 87% at times for no apparent reason. No vent alarms at this time. Appears to be getting
volumes. Peak pressures noted as high as 42. Little to no secretions when suctioned which are blood tinged. FiO2 increased to 100% for 2min and SpO2 returns to high 90s.
Tube feeds started per order. All other assessments unchanged.
[2024-01-29] MEDS: PACERONE 200 MG TUBE (17:19)
[2024-01-29] MEDS: KCL ELIXIR 40 MEQ TUBE ×2 (17:19→20:43)
[2024-01-29] MEDS: LEVOPHED 258 MG IV (17:20)
[2024-01-29] MEDS: KCL 270 MEQ IV (17:27)
--- NOTE | 2024-01-29 20:30 | PTCARENOTE ---
supervisor cell operation, pt intubated/sedated, wd to pain, Vpaced, LAC/LH IV patent, RDL PICC WNL- Fent, Prop, Bumex, dbl conc Levo infusing per work list. L alycia MARTINEZ WNL, leveled/zeroed. MV 14/420/40/15, Sat intermittently dropping to high 80s requiring 100%
02 boost to bring back up-RT at bedside, increased Fi02 to 50%. mouth care done. L dht w/TF. Vickers cath draining yellow urine. turned, +inc mod amt liquid stool, skin care, RT inserted. repositioned.
[2024-01-29] MEDS: MIRALAX TUBE (20:41)
--- NOTE | 2024-01-29 22:18 | PTCARENOTE ---
pt desat to high 80s on Fi02 50%, increased to 70% by RT.
[2024-01-30] MEDS: DECADRON 4 MG IV ×3 (00:04→15:50)
[2024-01-30 01:23] LABS: Blood Urea Nitrogen 70 mg/dl (7-17); Calcium 8.8 mg/dl (8.4-10.2); Carbon Dioxide 30 mmol/L (22-30); Chloride 105 mmol/L (98-107); Estimated Creatinine Clearance 34 ml/min; Glucose 155 mg/dl (70-99); Potassium 3.4 mmol/L (3.5-5.1); Sodium 148 mmol/L (135-145); eGFR 33.52
[2024-01-30] MEDS: BUMEX 50 IV ×4 (02:16→22:44)
[2024-01-30] MEDS: DIPRIVAN 100 IV ×3 (03:48→21:50)
--- NOTE | 2024-01-30 04:00 | PTCARENOTE ---
no changes in pt assessment.
[2024-01-30 04:48] VITALS: BMI 52.1
[2024-01-30] MEDS: STERILE WATER FOR INJECTION 10 ML IV ×3 (04:57→20:21)
[2024-01-30] MEDS: MAXIPIME 1000 MG IV ×3 (04:57→20:21)
[2024-01-30] MEDS: SYNTHROID 125 MCG TUBE (04:57)
[2024-01-30 05:16] LABS: B.E. 8.4 mmol/L; HCO3 33.4 mmol/L (21-28); PCO2 47 mmHg (32-35); PO2 168 mmHg (83-108); pH 7.46 (7.35-7.45)
[2024-01-30 05:20] LABS: Hematocrit 34.7 % (37.0-47.0); Hemoglobin 11.4 g/dL (12.0-16.0); Mean Corp Hgb Conc. 32.9 g/dL (33.0-37.0); Mean Corpuscular Hgb 29.9 pg (27.0-31.0); Mean Corpuscular Volume 91.1 fL (81.0-99.0); Mean Platelet Volume 12.2 fL (7.4-10.4); Platelet Count 110 10^3/uL (130-400); Red Blood Cell Count 3.81 10^6/uL (4.20-5.40); Red Cell Dist. Width 19.3 % (11.5-14.5); White Blood Cell Count 6.8 10^3/uL (4.8-10.8)
[2024-01-30 05:41] LABS: Blood Urea Nitrogen 68 mg/dl (7-17); Calcium 8.6 mg/dl (8.4-10.2); Carbon Dioxide 32 mmol/L (22-30); Chloride 103 mmol/L (98-107); Estimated Creatinine Clearance 32 ml/min; Glucose 206 mg/dl (70-99); Magnesium 1.9 mg/dl (1.6-2.3); Potassium 3.3 mmol/L (3.5-5.1); Sodium 146 mmol/L (135-145); Triglycerides 116 mg/dl (10-149); eGFR 31.02
[2024-01-30] MEDS: KCL 100 IV (06:25)
[2024-01-30] MEDS: ELIQUIS 5 MG TUBE ×2 (07:54→20:21)
[2024-01-30] MEDS: KCL ELIXIR 40 MEQ TUBE ×3 (07:54→20:22)
[2024-01-30] MEDS: DESENEX/MITRAZOL/ZEASORB 1 APPLIC TOPICAL ×2 (07:54→20:20)
[2024-01-30] MEDS: HYDROPHOR 1 APPLIC TOPICAL (07:54)
[2024-01-30] MEDS: MIRALAX TUBE ×2 (07:55→20:21)
[2024-01-30] MEDS: SENOKOT TUBE (07:55)
--- NOTE | 2024-01-30 08:47 | W.PN.HOSP.TC ---
Today's Communication/Plan
-
see bold
Assessment / Plan
Assessment / Plan
88-year-old female with a past medical history of atrial fibrillation, permanent pacemaker, heart failure with preserved ejection fraction, CKD and morbid obesity presents with generalized weakness. Patient lives with her daughter, who brought her
in because she is too weak to even go to the bathroom. Patient was recently treated at [facility] for CHF exacerbation, and released on 12/24/2023. Daughter reports that patient has been increasingly weak. She was recently started on
gabapentin for lower back pain. Daughter feels that she is having side effects, and is tapering her off the gabapentin. Patient is also on Valtrex for suspected herpes zoster rash. Daughter reports patient had an episode of nausea and vomiting
today. Daughter also reports that she is less responsive. Patient does admit to being dizzy with any type of movement. Patient denies chest pain, denies shortness of breath. No abdominal pain, no dysuria.
#Acute hypoxic respiratory failure
Multifactorial, due to heart failure and acute lung injury from aspiration
Transferred to ICU 01/25. Intubated 01/26
Appreciate hospice coordinator input, continue vent management as per hospice coordinator
01/28 Started tube feeds
#Acute pulmonary edema
#Acute heart failure with a preserved ejection fraction
#Cardiorenal syndrome
#Acute kidney injury superimposed on stage IIIb chronic kidney disease
Appreciate nephrology input, continue Bumex drip, Diuril. Weight down 7 kg
Cardiology following, 01/27 echo EF 55-60%, no gross abnormalities
Trend creatinine, trend daily weights
#Cardiogenic shock
Continue IV steroids, Levophed
Wean as tolerated
#Concern for aspiration pneumonia -suspect present upon admission
Continue IV antibiotics for 7 days through 02/01
Sputum cultures shows normal vicki, urine culture also with normal vicki
#Hypokalemia
Replete by IV and through tube
Mg normal
#Paroxysmal atrial fibrillation
Status post permanent pacemaker
Patient has been bradycardic, metoprolol held
Pacemaker interrogated and functioning normally
Currently paced, although her atrial lead does not capture except for intermittently high output
Since she is critically ill, cardiology rec not adding a new atrial lead at this time
Continue Eliquis, amiodarone
#Chronic lower extremity edema
Compression stockings
#Nausea/vomiting
Had 1 episode the day of admission
Denies abdominal pain, denies diarrhea
Resolved
#Generalized weakness
PT/OT rec STR
#Suspected shingles rash
Resume Valtrex when able
Discontinue gabapentin
#Spinal stenosis
#Chronic back pain
#Hypothyroidism
Continue levothyroxine
#Obesity due to excess calories
Affects all aspects of care
DVT prophylaxis�Eliquis
Full code
Updated daughter at bedside 01/23
Dairy Products Maker updated family 01/26
Dairy Products Maker updated family 01/27
Updated Ismael on phone (who is a physician at [place]), 01/28
Dairy Products Maker and myself updated Ismael/son 01/29
Total time spent to see the patient on the floor, examine the patient, review data and lab results, discuss treatment plan with patient, nursing staff around 50 minutes
Physical Exam
General: Morbidly obese, no acute distress
HEENT: Normocephalic, Atraumatic
Respiratory: Bibasilar crackles
Cardiac: Normal S1/S2, Regular Rate and Rhythm
GI: Soft, Nontender, Nondistended, Normal Bowel Sounds
Extremities: No Clubbing, Cyanosis
Bilateral lymphedema noted, scattered wounds on left lower extremity
Anticipated Discharge: > 48 hours
Subjective/Interval History
-
Date of Service: January 30, 2024
Patient continues to be intubated and sedated. No fever, no vomiting.
Objective Data
-
Labs:
Laboratory Results
01/30/24 01/30/24
00:23 04:56
WBC 6.8
Hgb 11.4 L
Hct 34.7 L
Plt Count 110 L
HCO3 33.4 H
Sodium 148 H 146 H
Potassium 3.4 L 3.3 L
Chloride 105 103
Carbon Dioxide 30 32 H
BUN 70 H 68 H
Creatinine 1.5 H 1.6 H
Glucose 155 H 206 H
Calcium 8.8 8.6
Vital Signs:
Vital Signs
Temp Pulse Resp BP Pulse Ox
97.8 F 57 14 105/66 95
01/30/24 04:15 01/30/24 07:00 01/30/24 07:00 01/29/24 08:00 01/30/24 08:17
I&O
01/29/24 01/30/24 01/31/24
06:59 06:59 06:59
Intake Total 1212.6 / 1280.3 1818.2 / 1918.7 276.0 / 276.0
Output Total 5825 / 5825 4755 / 4755 300 / 300
Balance -4612.4 / -4544.7 -2936.8 / -2836.3 -24.0 / -24.0
--- NOTE | 2024-01-30 08:55 | W.PN.NEPH.PH ---
Today's Communication / Plan
-
diurese
Assessment/Plan
-
IMP:
Acute kidney injury superimposed on stage IIIb chronic kidney disease
Acute on Chronic heart failure with a preserved ejection fraction
Acute hypoxic resp failure
Chronic lower extremity edema
Paroxysmal atrial fibrillation
Status post permanent pacemaker
Nausea/vomiting
Generalized weakness
Hypokalemia
Suspected shingles rash
Spinal stenosis
Chronic back pain
Hypothyroidism
Obesity due to excess calories
?metolazone causing pancytopenia 12/2023
Plan:
continue bumex gtt, reduce to 1mg/hr. can switch to lasix gtt if needed at 20mg/hr
diuril today again BID
follow BMP
replete K
keep MAP > 65
critical care time 31 minutes
-
-
Date of Service: January 30, 2024
CC / HPI / ROS
-
Chief Complaint:
EULOGIO, CKD
History of Present Illness:
EULOGIO/Cr stable 1.6
weight down
excellent diuresis for decompensated HFpEF with bumex gtt and diuril
on Vent, sedated
bumex gtt for overt HF
K low 3.3
Review of Systems:
intubated sedated
Labs
-
Labs:
WBC 6.8 10^3/uL (4.8-10.8) 01/30/24 04:56
RBC 3.81 10^6/uL (4.20-5.40) L 01/30/24 04:56
Hgb 11.4 g/dL (12.0-16.0) L 01/30/24 04:56
Hct 34.7 % (37.0-47.0) L 01/30/24 04:56
Plt Count 110 10^3/uL (130-400) L 01/30/24 04:56
Sodium 146 mmol/L (135-145) H 01/30/24 04:56
Potassium 3.3 mmol/L (3.5-5.1) L 01/30/24 04:56
Chloride 103 mmol/L (98-107) 01/30/24 04:56
Carbon Dioxide 32 mmol/L (22-30) H 01/30/24 04:56
BUN 68 mg/dl (7-17) H 01/30/24 04:56
Creatinine 1.6 mg/dL (0.6-1.0) H 01/30/24 04:56
eGFR 31.02 01/30/24 04:56
Glucose 206 mg/dl (70-99) H 01/30/24 04:56
Calcium 8.6 mg/dl (8.4-10.2) 01/30/24 04:56
Phosphorus 4.2 mg/dl (2.5-4.5) 01/28/24 03:57
Xdy-K-Qohimdkivcq Pept 2660 pg/ml 01/27/24 01:25
Physical Exam
-
Vital Signs:
Vital Signs
Temp Pulse Resp BP Pulse Ox
97.8 F 57 14 105/66 95
01/30/24 04:15 01/30/24 07:00 01/30/24 07:00 01/29/24 08:00 01/30/24 08:17
Cardiovascular:: Regular rate and rhythm
Respiratory:: Bilateral: CTA
Lung Excursion:: Normal
Abdomen:: Nontender and Soft
Bowel Sounds:: Normal
Extremity Edema:: +1: Bilateral:
--- NOTE | 2024-01-30 09:26 | W.PN.CARDCBS ---
Today's Communication / Plan
-
Agree with diuresis
Follow labs
Aim to improve oxygenation as she is now vent dependent
Will follow with you
Impression / Plan
-
PCP: Dr. Rojas
Parts Counter Associate: Dr. Ramirez
Assessment: 88-year-old female with complex PMH of chronic HFpEF, paroxysmal A-fib, hypertension initially admitted with weakness. Developed hypoxemia which increased work of breathing despite diuretics currently intubated.
Impression:
Acute on chronic HFpEF
Acute hypoxemic respiratory failure, intubated 01/27/24
Hypokalemia
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
Paroxysmal atrial fibrillation
Chronic Eliquis OAC
Chronic amiodarone therapy
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
Hyperlipidemia
Hypertension
Hypothyroidism
Obesity
Carotid arterial disease
Echo 01/28/2024: EF 55 to 60%, normal RV, normal LA size, normal TV opening.
Echo 04/26/23: Technically difficult study. EF 55 to 60%. Likely normal regional wall motion of but difficult to last obtained given rapid rate. Normal LV wall thickness. Mild MR. Aortic valve sclerosis. Trace AI. PA pressure 27 mmHg.
Echo 12/21/23: EF 55%, normal RV size and function, moderate MR, moderate TR with PAP 44 mmHg
Plan:
#Acute on chronic HFpEF.
-Appreciate nephrology input. Agree with continued diuresis
-I's and O's noted and BUN/creatinine noted
#Hypokalemia
-Replete potassium greater than 4
#Acute hypoxemic respiratory failure, intubated 01/2024
Patient is critically ill intubated and sedated with acute hypoxic respiratory distress likely multifactorial with heart failure exacerbation, acute lung injury from aspiration
-Mechanical ventilation with improved oxygenation and decreased O2 supplementation currently now on 50% FiO2-management per ballast cleaning operator
-On IV steroids and antibiotics per pulmonary
-Hemodynamics remain borderline requiring norepinephrine for support; keep MAP greater than 65 being monitored through a line
-Monitor renal function/potassium and magnesium and replete as needed.
#Paroxysmal A-fib
-Currently AV paced.
-Continue Eliquis 5mg BID. Hgb 12.1. Continue amiodarone 200mg daily.
-TSH WNL. Continue synthroid.
HPI: Beverly is an 88 year old female with PMH of chronic HFpEF, paroxysmal atrial fibrillation, PPM, HTN, HLD, CDK, and hypothyroidism. She presented to [facility] initially for generalized weakness. She was recently admitted to 12/2023 with acute heart
failure exacerbation. At discharge, weight was down to 261lbs. She was seen in follow up by cardiology and noted increased edema, however was not able to stand on scale, so weight was unknown. She was recommended to start metolazone 2.5mg Mondays
and and recheck labs in a week. Daughters brought her in for evaluation as patient became increasingly weak to the point that she was unable to even walk to the bathroom and noted that she had episode of nausea and vomiting earlier in the
day. In ER, she was noted to have EULOGIO with creat up to 2.0 and she was hypotensive. Her lasix and spironolactone were held and she was given 500cc IVFs. Her creat improved over the next 2 days, however she then became increasingly SOB and hypoxic in
the evening 01/25, requiring BiPAP. She had repeat CXR which showed moderate CHF. She was given 80mg IV lasix, followed by 40mg later in the evening. In AM 01/26, respiratory status continued to worsen, and she was intubated. She was given another
dose of 60mg IV lasix this AM. Her weight is now up ~40lbs compared to discharge weight from admission 12/2023. Cardiology consulted for evaluation given acute respiratory failure in the setting of acute heart failure. Intubated and sedated at time
of evaluation.
Echo 01/28/2024:
Normal left ventricular systolic function.
Normal regional wall motion.
Left ventricular ejection fraction is 55-60% by visual assessment.
Normal right ventricular size and function.
Normal left atrial size.
Mitral valve opens normally.
Tricuspid valve opens normally.
Not assessed.
Not assessed.
No pericardial effusion.
Limited study.
Progress Note - Parts Counter Associate
Subjective
Date of Service: January 30, 2024
Total Time Spent with Patient (in minutes): Remains intubated and sedated
Objective
Labs:
01/30/24 04:56
Labs
Hgb 11.4 g/dL (12.0-16.0) L 01/30/24 04:56
Hct 34.7 % (37.0-47.0) L 01/30/24 04:56
Plt Count 110 10^3/uL (130-400) L 01/30/24 04:56
PT 24.0 Sec (11.4-14.6) H 01/27/24 04:10
INR 2.12 01/27/24 04:10
APTT 38.8 Sec (23.4-35.0) H 01/27/24 04:10
Sodium 146 mmol/L (135-145) H 01/30/24 04:56
Potassium 3.3 mmol/L (3.5-5.1) L 01/30/24 04:56
BUN 68 mg/dl (7-17) H 01/30/24 04:56
Creatinine 1.6 mg/dL (0.6-1.0) H 01/30/24 04:56
Glucose 206 mg/dl (70-99) H 01/30/24 04:56
Vital Signs and I&O:
Vital Signs
Temp Pulse Resp BP Pulse Ox
97.4 F 57 14 105/66 95
01/30/24 08:55 01/30/24 07:00 01/30/24 07:00 01/29/24 08:00 01/30/24 08:17
Vital Signs
Temp Pulse Resp BP Pulse Ox
97.4 F 57 14 105/66 95
01/30/24 08:55 01/30/24 07:00 01/30/24 07:00 01/29/24 08:00 01/30/24 08:17
Intake & Output
01/28/24 01/29/24 01/30/24 01/31/24
06:59 06:59 06:59 06:59
Intake Total 1745.3 / 1806.8 1212.6 / 1280.3 1818.2 / 1918.7 276.0 / 276.0
Output Total 1650 / 0 5825 / 5825 4755 / 4755 300 / 300
Balance 95.3 / -243.2 -4612.4 / -4544.7 -2936.8 / -2836.3 -24.0 / -24.0
Physical Exam
Physical Exam
�
����Physical Exam
�
���������������������General:�Intubated and sedated
�
���������������������������Neck:��supple. no meningeal signs. normal psoterior pharynx
������������������������
���������������������������Heart:��s1/s2 regular rate and rhythm, no murmur. equal radial pulses.
�
��������������������������Lungs: ��no acute respiratory distress. clear bilaterally
�
����������������������Abdomen:�normal bowel sounds. not tender. no CVAT
�
��������������������������Neuro:��alert and oriented. no focal neurological deficits
�
������������������������������Skin: ��no rash
�
�����������������������Psychiatric:�well kept. interactive and cooperative
�
�����������������������Extremities:��no edema. no calf tenderness. negative homans. good distal pulses
�
�
�
��
�
[2024-01-30] MEDS: DIURIL 0.5 GRAM VIAL 0.5 GRAMS IV ×2 (09:28→15:50)
[2024-01-30] MEDS: STERILE WATER FOR INJECTION 18 ML IV ×2 (09:28→15:50)
--- NOTE | 2024-01-30 10:50 | W.PN.INTV ---
Today's Communication / Plan
Recommendations
Wean off Levophed
Continue mechanical ventilation without change
Not ready for spontaneous breathing trial
Lighten up sedation
Continue Bumex drip
Continue antibiotics
Continue steroids
Continue nutritional support
Insulin sliding scale
Replete electrolytes
Assessment
-
88-year-old woman with past medical history noted, initially admitted with weakness. Found to have increased creatinine from baseline. She was rehydrated. Lasix was held for 2 days. Apparently was having some vomiting prior to admission.
On 01/26/2024 developed hypoxemia and increased work of breathing. Progressed despite diuretics and required noninvasive mechanical ventilation and transferred to the critical care unit. On 01/27/2024 despite diuresis remained hypoxemic with
increased work of breathing. Critical care was consulted for evaluation.
Acute hypoxemic respiratory failure: Suspect multifactorial.
Failed noninvasive mechanical ventilation 01/27/2024
Intubated 01/27/2024.
Acute on chronic heart failure with preserved ejection fraction-weight is elevated from her baseline significantly.
proBNP is elevated
Frothy pinkish secretion on ET tube.
Suspect acute lung injury from aspiration as the patient was vomiting prior to admission: Chest x-ray 01/27/2024 with severe bilateral infiltrates right greater than left.
Cannot rule out diffuse alveolar hemorrhage
Hypothermia
Possible UTI: Significantly abnormal urinalysis 01/27/2024.
Acute on chronic kidney disease-possibly cardiorenal.
Conditions present prior admission:
Hypertension
Morbid obesity
Spinal stenosis
Ambulatory dysfunction
Chronic kidney disease
Hyperlipidemia
Carotid artery stenosis
Atrial fibrillation
Sick sinus syndrome status post pacemaker
Heart failure with preserved ejection fraction
Pacemaker in place
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
Chronic hypercapnic respiratory failure-undiagnosed, likely obesity hypoventilation syndrome.
Assessment and plan:
Patient is critically ill, multiple bedside evaluations by me throughout the day. Multiple discussions with family members and the specialties.
Suspect hypoxemia multifactorial acute on chronic heart failure with pulmonary edema-preserved ejection fraction/cannot rule out acute lung injury from aspiration.
[place] frothy secretion copious amount day of intubation-cannot rule out diffuse alveolar hemorrhage
-
Mechanical ventilation settings reviewed.
Peak pressure this morning is 30s
Assist-control 420/14/+12/40%.
ABG 01/30/2024: 7.46/47/168
ABG 01/29/2024 11 AM-7.40 4/41/63
Will attempt to decrease PEEP depending on saturations.
-
Chest x-ray 01/29/2024: Showed improved aeration of both lungs but is still significantly abnormal.
Difficult to maintain plateau pressure under 30 in this morbidly obese patient.
-
Continue:Sedation with fentanyl/propofol-will start lighten up sedation as able.
-
Patient not a candidate for prone positioning due to morbidly obese
Not a candidate for ECMO due to BMI and age.
Dr. Avendaño discussed with family members, son and daughters throughout the course of the hospital stay.
-
Chest x-ray consistent with bilateral increased interstitial markings/groundglass opacities. Asymmetric infiltrates.
Volume overload/heart failure component.
Echocardiogram this admission: Preserved LVEF. No significant pulmonary hypertension no significant valvular abnormality
Relatively bradycardic-patient has a pacemaker in place. This has been adjusted
Cardiology to repeat echocardiogram
Continue cardiac medication
Nephrology following: Bumex drip started 01/27/2024
Weight trending lower.
Creatinine slightly higher/now some degree of alkalosis 01/30/2024. Bumex drip has been adjusted.
Potassium has been repleted
Repeat BMP later
Vickers urinary output-Vickers in place with clear urine
Deferred to nephrology and cardiology went to transition to intermittent dosing of diuretics.
Follow electrolytes and replete as necessary
-
Antibiotic started for abnormal UA. Currently on cefepime.
Urine culture: Polymicrobial. Possibly contaminant.
MRSA screening negative. Hold on vancomycin for now.
Sputum with normal respiratory
Blood cultures negative
Should also cover for possible aspiration pneumonitis/pneumonia-will complete 7 days of antibiotic.
-
Cannot rule out diffuse alveolar hemorrhage/inflammatory pneumonitis
Dexamethasone started 01/27/2024 empirically for possible inflammatory component.
Decreased dexamethasone to 4 mg IV every Q8 (01/29/2024). Slow taper
Clinically improved.
Chest x-ray 01/30/2024 improved but is not entirely clear at this point
-
Shock: Possibly septic possibly cardiogenic component
On low-dose Levophed. Will attempt to wean off 01/30/2024.
Target mean arterial blood pressure 65 mmHg
Normal lactic acid
Renal function stable.
Normal TSH
Remains bradycardic-paced in the low 50s
Will continue to wean off as able. Hopefully as lighten up sedation vasopressor requirements will improve
-
Glycemic control insulin sliding scale
-
N.p.o.
Dobbhoff tube has been placed.
Started tube feedings 01/29/2024.
-
DVT prophylaxis-patient on Eliquis.
-
Prognosis is guarded.
Dr. Avendaño updated family members-son who is an emergency room physician 01/30/2024. Still critically ill. Somewhat improved. DNR has been discussed but family not ready for it
Dr. Avendaño discussed with son who is a emergency room physician on 01/28/2024. Improved. Still in critical status. Prognosis is guarded
Discussed with family by Dr. Avendaño 01/27/2024-full code. They understand critical situation.
Dr. Avendaño discussed case with cardiology, primary team, nephrology 01/28/2024.
Extensive discussion with family as well 01/28/2024. I suggested at least a DNR status going forward. They are discussing
-
Critical care statement: A total of 43 minutes of critical care time was provided for this patient today. This includes management of unstable vital signs, evaluation of the patient at bedside, reviewing the patient's pertinent medical records
including ventilator settings, arterial blood gases, radiographs, microbiology, laboratory evaluations and discussion with primary team, critical care nursing, and respiratory therapy.
Subjective Dataa
Subjective Data
Date of Service:
Date of Service: January 30, 2024
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
Subjective:
Critically ill, intubated, mechanical ventilation
Unable to provide history
Overall clinically improved the last 48 hours.
Review of Systems
General: Unobtainable - Sedation
Objective Data
Data Reviewed
Vital Signs / I&O / Oxygen:
Vital Signs
Temp Pulse Resp BP Pulse Ox
97.4 F 61 14 105/66 90
01/30/24 08:55 01/30/24 10:00 01/30/24 10:00 01/29/24 08:00 01/30/24 10:00
Intake and Output
01/29/24 01/30/24 01/31/24
06:59 06:59 06:59
Intake Total 1212.6 / 1280.3 1818.2 / 1918.7 438.4 / 438.4
Output Total 5825 / 5825 4755 / 4755 600 / 600
Balance -4612.4 / -4544.7 -2936.8 / -2836.3 -161.6 / -161.6
SaO2 [A/C] 99
SaO2 90
Nasal Cannula flow liters per 15
minute
Physical Exam
General: Comfortable
HEENT: Normocephalic and Other (ET tube in place with frothy pink secretion)
Cardiovascular: S1-S2 and Peripheral Edema (2+)
Respiratory: Crackles, Non-Labored Respirations and ET Tube (No significant secretions)
GI: Soft and Distended (Obese)
Neurology: Other (Sedated, mechanical ventilation. Has respiratory effort.)
Skin: Warm
Labs/Micro/Reports
Lab Data
01/30/24 04:56
Laboratory Results
01/29/24 01/30/24
10:52 04:56
pH 7.44 7.46 H
pCO2 41 H 47 H
pO2 63 L 168 H
HCO3 27.8 33.4 H
O2 Delivery Level 40 420/14/+12
Microbiology
01/27/24 16:56 Tracheal Aspirate Respiratory Culture - Final
Usual Respiratory Adeola
01/27/24 16:56 Tracheal Aspirate Gram Stain - Final
01/27/24 03:32 Urine Urine Culture - Final
[2024-01-30] MEDS: SUBLIMAZE 50 MCG IV (10:52)
[2024-01-30] MEDS: KCL 270 MEQ IV (10:52)
--- NOTE | 2024-01-30 11:13 | PTCARENOTE ---
Levophed weaned off around 0800. Attempted to wean sedation. Pt's respiration became labored. Vent dyssynchony. High peak pressures. Low tidal volumes. SpO2 decreased to 90%. BP 90s/30s. Fentanyl bolus given and gtt rate increased. Levophed
restarted. No secretions noted when suctioned via ETT. Lungs CTA. SpO2 improved to 94% on A/C 14/420/60%/12. Respirations even and nonlabored. Pt appears to be resting comfortably. BP 110/49(67) on Levophed 3mcg/min. Remains V-paced with
underlying afib HR 50s.
All other assessments unchanged.
[2024-01-30] MEDS: NOVOLOG FLEXPEN-MODERATE RESISTANCE 1 UNITS SC ×2 (11:40→17:40)
[2024-01-30 11:42] LABS: Glucose - Point of Care 182 mg/dl (70-99)
[2024-01-30] MEDS: SUBLIMAZE 100 IV (14:29)
[2024-01-30 17:30] LABS: Blood Urea Nitrogen 75 mg/dl (7-17); Calcium 8.6 mg/dl (8.4-10.2); Carbon Dioxide 31 mmol/L (22-30); Chloride 105 mmol/L (98-107); Estimated Creatinine Clearance 34 ml/min; Glucose 196 mg/dl (70-99); Potassium 3.8 mmol/L (3.5-5.1); Sodium 148 mmol/L (135-145); eGFR 33.52
[2024-01-30] MEDS: PACERONE 200 MG TUBE (17:56)
--- NOTE | 2024-01-30 19:01 | PTCARENOTE ---
Levophed weaned off. Tube feed held for 1 hr for 320ml residual. Back on at goal rate.
All other assessments unchanged at 1600.
--- NOTE | 2024-01-30 20:00 | PTCARENOTE ---
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 L alycia AL WNL, leveled/zeroed. MV 14/420/40/12, maintaining Sat. L dht w/TF. Vickers cath draining yellow urine. RT/Vickers
WNL.
[2024-01-31] MEDS: DECADRON 4 MG IV ×2 (00:12→08:45)
[2024-01-31] MEDS: NOVOLOG FLEXPEN-MODERATE RESISTANCE 1 UNITS SC ×3 (00:14→18:02)
[2024-01-31 00:24] LABS: Glucose - Point of Care 174 mg/dl (70-99)
--- NOTE | 2024-01-31 04:00 | PTCARENOTE ---
no changes in pt assessment.
[2024-01-31] MEDS: SUBLIMAZE 100 IV ×2 (04:45→19:30)
[2024-01-31] MEDS: STERILE WATER FOR INJECTION 10 ML IV ×3 (04:52→19:31)
[2024-01-31] MEDS: MAXIPIME 1000 MG IV ×3 (04:52→19:31)
[2024-01-31 04:53] LABS: Hematocrit 34.9 % (37.0-47.0); Hemoglobin 11.2 g/dL (12.0-16.0); Mean Corp Hgb Conc. 32.1 g/dL (33.0-37.0); Mean Corpuscular Hgb 28.8 pg (27.0-31.0); Mean Corpuscular Volume 89.7 fL (81.0-99.0); Mean Platelet Volume 11.5 fL (7.4-10.4); Platelet Count 104 10^3/uL (130-400); Red Blood Cell Count 3.89 10^6/uL (4.20-5.40); Red Cell Dist. Width 19.3 % (11.5-14.5); White Blood Cell Count 6.2 10^3/uL (4.8-10.8)
[2024-01-31 05:27] LABS: Blood Urea Nitrogen 79 mg/dl (7-17); Calcium 8.8 mg/dl (8.4-10.2); Carbon Dioxide 36 mmol/L (22-30); Chloride 104 mmol/L (98-107); Estimated Creatinine Clearance 34 ml/min; Glucose 203 mg/dl (70-99); Potassium 3.4 mmol/L (3.5-5.1); Sodium 150 mmol/L (135-145); Triglycerides 109 mg/dl (10-149); eGFR 33.52
[2024-01-31 05:28] VITALS: BMI 51.6
[2024-01-31] MEDS: SYNTHROID 125 MCG TUBE (05:29)
[2024-01-31] MEDS: NOVOLOG FLEXPEN-MODERATE RESISTANCE 3 UNITS SC (05:30)
--- NOTE | 2024-01-31 06:34 | W.PN.HOSP.TC ---
Today's Communication/Plan
-
cont diuresis as per Nephro
vent mgmt sedation as per ICU
cont abx
daily weight I/O
wound care
Assessment / Plan
Assessment / Plan
HPI: 88-year-old female with a past medical history of atrial fibrillation, permanent pacemaker, heart failure with preserved ejection fraction, CKD and morbid obesity presents with generalized weakness. Patient lives with her daughter, who brought
her in because she is too weak to even go to the bathroom. Patient was recently treated at [facility] for CHF exacerbation, and released on 12/24/2023. Daughter reports that patient has been increasingly weak. She was recently started on
gabapentin for lower back pain. Daughter feels that she is having side effects, and is tapering her off the gabapentin. Patient is also on Valtrex for suspected herpes zoster rash. Daughter reports patient had an episode of nausea and vomiting
today. Daughter also reports that she is less responsive. Patient does admit to being dizzy with any type of movement. Patient denies chest pain, denies shortness of breath. No abdominal pain, no dysuria.
#Acute hypoxic respiratory failure
Multifactorial, due to heart failure and acute lung injury from aspiration
Transferred to ICU 01/25. Intubated 01/26
Appreciate teacher vocal input, continue vent management as per teacher vocal
01/28 tube feeds started. cont
#Acute pulmonary edema
#Acute heart failure with a preserved ejection fraction
#Cardiorenal syndrome
#Acute kidney injury superimposed on stage IIIb chronic kidney disease
Appreciate nephrology input, continue Bumex drip, Diuril. Weight trending down
Cardiology eval appreciated, 01/27 echo EF 55-60%, no gross abnormalities
Trend creatinine, trend daily weights
#Cardiogenic shock
Continue IV steroids as per ICU, weaned off Levophed
#Concern for aspiration pneumonia -suspect present upon admission
Continue IV antibiotics for 7 days through 02/01
Sputum cultures shows normal vicki, urine culture also with normal vicki
#Hypokalemia
continue scheduled repletions
monitor and provide additional repletions as necessary
#Paroxysmal atrial fibrillation
Status post permanent pacemaker
Patient has been bradycardic, metoprolol held
Pacemaker interrogated and functioning normally
Currently paced, although her atrial lead does not capture except for intermittently high output
Since she is critically ill, cardiology rec not adding a new atrial lead at this time
Continue Eliquis, amiodarone
#Chronic lower extremity edema
Compression stockings
#Nausea/vomiting
Had 1 episode the day of admission
Denies abdominal pain, denies diarrhea
Resolved
#Generalized weakness
PT/OT rec STR
#Suspected shingles rash left lateral leg below knew
on Valtrex prior to admission, held since 01/26 intubation as above
Discontinued gabapentin
#Spinal stenosis
#Chronic back pain
#Hypothyroidism
Continue levothyroxine
#Obesity due to excess calories
Affects all aspects of care
DVT prophylaxis�Eliquis
Full code
Total Critical Care Time__40___ minutes. I was immediately available to the patient and staff. I personally examined, reviewed labs, diagnostic images/reports, interpretations, treatment plans, discussed patient care with other providers and
patient's son Ismael Holguin (patient is unable to make decisions at this time), entered orders as appropriate and documented the medical record.
Physical Exam
General: Morbidly obese, sedated
HEENT: Normocephalic, Atraumatic, pinpoint pupils b/l, intubated
Respiratory: Clear to Auscultation
Cardiac: Normal S1/S2, Regular Rate and Rhythm
GI: Soft, Nontender, Nondistended, Normal Bowel Sounds
Extremities: No Clubbing, Cyanosis, lower ext pitting edema +2 b/l
Neuro: sedated
Anticipated Discharge: > 48 hours
Subjective/Interval History
-
Date of Service: January 31, 2024
sedated and intubated
Objective Data
-
Labs:
Laboratory Results
01/31/24
04:39
WBC 6.2
Hgb 11.2 L
Hct 34.9 L
Plt Count 104 L
Sodium 150 H
Potassium 3.4 L
Chloride 104
Carbon Dioxide 36 H
BUN 79 H
Creatinine 1.5 H
Glucose 203 H
Calcium 8.8
Vital Signs:
Vital Signs
Temp Pulse Resp BP Pulse Ox
97.3 F 63 26 105/66 95
01/31/24 04:55 01/31/24 05:30 01/31/24 05:30 01/29/24 08:00 01/31/24 05:30
I&O
01/29/24 01/30/24 01/31/24
06:59 06:59 06:59
Intake Total 1212.6 / 1280.3 1818.2 / 1918.7 2667.6 / 2667.6
Output Total 5825 / 5825 4755 / 4755 3955 / 3955
Balance -4612.4 / -4544.7 -2936.8 / -2836.3 -1287.4 / -1287.4
[2024-01-31] MEDS: KCL ELIXIR 40 MEQ TUBE ×4 (06:44→20:49)
--- NOTE | 2024-01-31 07:44 | W.PN.INTV ---
Today's Communication / Plan
Recommendations
Adjust ventilator
Follow ABGs
Not a spontaneous breathing trial candidate yet
Antibiotics
Diuresis
Assessment
-
88-year-old woman with past medical history noted, initially admitted with weakness. Found to have increased creatinine from baseline. She was rehydrated. Lasix was held for 2 days. Apparently was having some vomiting prior to admission.
On 01/26/2024 developed hypoxemia and increased work of breathing. Progressed despite diuretics and required noninvasive mechanical ventilation and transferred to the critical care unit. On 01/27/2024 despite diuresis remained hypoxemic with
increased work of breathing. Critical care was consulted for evaluation.
Acute hypoxemic respiratory failure: Suspect multifactorial.
Failed noninvasive mechanical ventilation 01/27/2024
Intubated 01/27/2024.
Acute on chronic heart failure with preserved ejection fraction-weight is elevated from her baseline significantly.
proBNP is elevated
Frothy pinkish secretion on ET tube.
Suspect acute lung injury from aspiration as the patient was vomiting prior to admission: Chest x-ray 01/27/2024 with severe bilateral infiltrates right greater than left.
Cannot rule out diffuse alveolar hemorrhage
Hypothermia
Possible UTI: Significantly abnormal urinalysis 01/27/2024.
Acute on chronic kidney disease-possibly cardiorenal.
Conditions present prior admission:
Hypertension
Morbid obesity
Spinal stenosis
Ambulatory dysfunction
Chronic kidney disease
Hyperlipidemia
Carotid artery stenosis
Atrial fibrillation
Sick sinus syndrome status post pacemaker
Heart failure with preserved ejection fraction
Pacemaker in place
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
Chronic hypercapnic respiratory failure-undiagnosed, likely obesity hypoventilation syndrome.
Plan
Remains critically ill on the ventilator and pressors
Ventilator settings reviewed-airway pressures adequate
Wean FiO2
Wean PEEP
Follow ABG
If stabilized spontaneous breathing trial in the next 12-24 hours
VAP prevention protocol
Aspiration precautions
Eventual speech evaluation
Follow-up chest x-ray
Lighten sedation
Not a candidate for prone positioning due to morbid obesity
Not a candidate for ECMO due to BMI and age
Nebulizers if needed-currently not bronchospastic
Decadron initiated for possible inflammatory component-appears to be mostly fluid-will begin to reduce Decadron
Diuresis as tolerated--9 L / 3 days
Patient reportedly 40 pound weight gain in the last several weeks/months-likely mostly fluid
Monitor renal function, electrolytes, intake/output, lower extremity edema and weight
Replace electrolytes as needed
Nephrology following-correspondence reviewed, replete potassium, Bumex drip
Cardiology following-correspondence reviewed, Bumex drip
Echocardiogram this admission: Preserved LVEF. No significant pulmonary hypertension no significant valvular abnormality
Relatively bradycardic-patient has a pacemaker in place.
Check cultures
Empiric antibiotics-complete a 7-day course of antibiotics
Norepinephrine and vasopressin as needed
Monitor blood sugar
Insulin drip as needed
DVT prophylaxis-patient on Eliquis.
GI prophylaxis
Nutrition-nasogastric tube feedings initiated 01/29/2024
-
Prognosis is guarded.
Dr. Avendaño updated family members-son who is an emergency room physician 01/30/2024. Still critically ill. Somewhat improved. DNR has been discussed but family not ready for it
Dr. Avendaño discussed with son who is a emergency room physician on 01/28/2024. Improved. Still in critical status. Prognosis is guarded
Discussed with family by Dr. Avendaño 01/27/2024-full code. They understand critical situation.
Dr. Avendaño discussed case with cardiology, primary team, nephrology 01/28/2024.
Extensive discussion with family as well 01/28/2024. I suggested at least a DNR status going forward. They are discussing
Critical care statement: A total of 55 minutes of critical care time was provided for this patient today. This includes management of unstable vital signs, evaluation of the patient at bedside, reviewing the patient's pertinent medical records
including radiographs, ventilator management, pressor management, insulin management, microbiology, laboratory evaluations, and discussion with primary team, consultants, pharmacy, nutrition, physical therapy, case management, charge nurse,
critical care nursing, and respiratory therapy.
Subjective Dataa
Subjective Data
Date of Service:
Date of Service: January 31, 2024
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
Subjective:
Patient intubated, no increased secretions, review of systems unobtainable
Review of Systems
General: Unobtainable - Sedation
Objective Data
Data Reviewed
Vital Signs / I&O / Oxygen:
Vital Signs
Temp Pulse Resp BP Pulse Ox
97.3 F 65 22 105/66 98
01/31/24 04:55 01/31/24 06:30 01/31/24 06:30 01/29/24 08:00 01/31/24 06:30
Intake and Output
01/30/24 01/31/24 02/01/24
06:59 06:59 06:59
Intake Total 1818.2 / 1918.7 2667.6 / 2667.6
Output Total 4755 / 4755 3955 / 3955
Balance -2936.8 / -2836.3 -1287.4 / -1287.4
SaO2 [A/C] 97
SaO2 98
Nasal Cannula flow liters per 15
minute
Physical Exam
General: Respiratory Distress (n) and Comfortable
HEENT: Normocephalic and Other (ET tube in place with frothy pink secretion)
Cardiovascular: Regular Rhythm, Murmur and Peripheral Edema (2+)
Respiratory: Crackles, Non-Labored Respirations and ET Tube (No significant secretions)
GI: Soft and Distended (Obese)
Neurology: Other (Sedated, mechanical ventilation. Has respiratory effort.)
Skin: Warm
Labs/Micro/Reports
Lab Data
01/31/24 04:39
01/31/24 04:39
Microbiology
01/27/24 16:56 Tracheal Aspirate Respiratory Culture - Final
Usual Respiratory Adeola
01/27/24 16:56 Tracheal Aspirate Gram Stain - Final
01/27/24 03:32 Urine Urine Culture - Final
--- NOTE | 2024-01-31 08:05 | PTCARENOTE ---
Received pt intubated and sedated. 100% v-paced 64. Right DL PICC with Propofol, fentanyl, and Bumex. Other port of PICC flushed and patent. Left AC and Left hand #20g protective catheter flushed and patent. +palpable pedal pulses, good radial
pulses. +3 anasarca. L/E with Tubigrip/compression. #8ETT secured 21cm centered. Tolerating Current vent settings. Lungs diminished with scattered rhonchi. She is morbidly obese. Left nare with TF & water flush. Na 150, will address with nephrology.
260ml residual noted. Vickers secured. Nasal trumpet LA for loose brown stool. Alejandrina care provided. Silicone border dressing to her right FA, sacrum and right lower leg intact. Safe environment maintained. Will continue to monitor. Aspiration
precautions maintained.
--- NOTE | 2024-01-31 08:23 | W.PN.NEPH.PH ---
Today's Communication / Plan
-
Replete potassium
Maintain Bumex drip 1 mg/hr and chlorthalidone twice daily as patient is still massively volume overload
Escalate tube flushes from 25 to 50 cc/h given worsening hypernatremia
Assessment/Plan
-
IMP:
Acute kidney injury superimposed on stage IIIb chronic kidney disease
Acute on Chronic heart failure with a preserved ejection fraction
Acute hypoxic resp failure
Chronic lower extremity edema
Paroxysmal atrial fibrillation
Status post permanent pacemaker
Nausea/vomiting
Generalized weakness
Hypokalemia
Suspected shingles rash
Spinal stenosis
Chronic back pain
Hypothyroidism
Obesity due to excess calories
?metolazone causing pancytopenia 12/2023
Plan:
creatinine stable UOP ~ 3liters, weights down
maintain diuresis with bumex 1mg/hr
hypernatremia exacerbating to 150j, double tube flushes to 50cc/hr
replete K this am
diuril today again BID
follow BMP
remains intubated
keep MAP > 65
critical care time 31 minutes
-
-
Date of Service: January 31, 2024
CC / HPI / ROS
-
Chief Complaint:
EULOGIO, CKD
History of Present Illness:
EULOGIO/Cr stable 15
weight down
excellent diuresis for decompensated HFpEF with bumex gtt and diuril
on Vent, sedated
bumex gtt for overt HF
K low 3.4
Review of Systems:
intubated sedated
weights down
uop > 3 liters via joyce
Labs
-
Labs:
WBC 6.2 10^3/uL (4.8-10.8) 01/31/24 04:39
RBC 3.89 10^6/uL (4.20-5.40) L 01/31/24 04:39
Hgb 11.2 g/dL (12.0-16.0) L 01/31/24 04:39
Hct 34.9 % (37.0-47.0) L 01/31/24 04:39
Plt Count 104 10^3/uL (130-400) L 01/31/24 04:39
Sodium 150 mmol/L (135-145) H 01/31/24 04:39
Potassium 3.4 mmol/L (3.5-5.1) L 01/31/24 04:39
Chloride 104 mmol/L (98-107) 01/31/24 04:39
Carbon Dioxide 36 mmol/L (22-30) H 01/31/24 04:39
BUN 79 mg/dl (7-17) H 01/31/24 04:39
Creatinine 1.5 mg/dL (0.6-1.0) H 01/31/24 04:39
eGFR 33.52 01/31/24 04:39
Glucose 203 mg/dl (70-99) H 01/31/24 04:39
Calcium 8.8 mg/dl (8.4-10.2) 01/31/24 04:39
Phosphorus 4.2 mg/dl (2.5-4.5) 01/28/24 03:57
Vic-I-Hcpzpozlomh Pept 2660 pg/ml 01/27/24 01:25
Physical Exam
-
Vital Signs:
Vital Signs
Temp Pulse Resp BP Pulse Ox
97.3 F 65 22 105/66 98
01/31/24 04:55 01/31/24 06:30 01/31/24 06:30 01/29/24 08:00 01/31/24 06:30
Cardiovascular:: Regular rate and rhythm
Respiratory:: Bilateral: Coarse
Lung Excursion:: Normal
Abdomen:: Nontender and Soft
Bowel Sounds:: Decreased
Extremity Edema:: +2: Bilateral:
Joyce Catheter: Yes
Other Findings::
intubated and sedated
[2024-01-31] MEDS: DIPRIVAN 100 IV ×3 (08:36→19:31)
[2024-01-31] MEDS: DIURIL 0.5 GRAM VIAL 0.5 GRAMS IV ×2 (08:37→16:06)
[2024-01-31] MEDS: STERILE WATER FOR INJECTION 18 ML IV ×2 (08:38→16:06)
[2024-01-31] MEDS: ELIQUIS 5 MG TUBE ×2 (08:43→20:49)
[2024-01-31] MEDS: DESENEX/MITRAZOL/ZEASORB 1 APPLIC TOPICAL ×2 (08:44→20:49)
[2024-01-31] MEDS: SENOKOT TUBE (08:45)
[2024-01-31] MEDS: MIRALAX 17 GRAMS TUBE ×2 (08:45→20:49)
--- NOTE | 2024-01-31 09:10 | W.PN.CARDCBS ---
Today's Communication / Plan
-
Continues to diurese well on Bumex drip but remains on 60% FiO2.
Creatinine stable at 1.5, but now somewhat hypernatremic.
Still having A-fib. Will increase amiodarone to 200 mg p.o. 3 times daily via tube.
Wean FiO2 if possible
Remains critically ill.
Long-term prognosis remains poor.
Continue steroids
Impression / Plan
-
PCP: Dr. Rojas
Vascular Ultrasound Technologist: Dr. Ramirez
Assessment: 88-year-old female with complex PMH of chronic HFpEF, paroxysmal A-fib, hypertension initially admitted with weakness. Developed hypoxemia which increased work of breathing despite diuretics currently intubated.
Impression:
Acute on chronic HFpEF
Acute hypoxemic respiratory failure, intubated 01/27/24
Hypokalemia
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
Paroxysmal atrial fibrillation
Chronic Eliquis OAC
Chronic amiodarone therapy
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
Hyperlipidemia
Hypertension
Hypothyroidism
Obesity
Carotid arterial disease
Echo 01/28/2024: EF 55 to 60%, normal RV, normal LA size, normal TV opening.
Echo 04/26/23: Technically difficult study. EF 55 to 60%. Likely normal regional wall motion of but difficult to last obtained given rapid rate. Normal LV wall thickness. Mild MR. Aortic valve sclerosis. Trace AI. PA pressure 27 mmHg.
Echo 12/21/23: EF 55%, normal RV size and function, moderate MR, moderate TR with PAP 44 mmHg
Plan:
#Acute on chronic HFpEF.
-Continues to diurese well. Will continue Bumex drip. Weight is down 25 pounds
-I's and O's noted
-Creatinine stable at 1.5. She is now hypernatremic.
#Hypokalemia
-Replete potassium greater than 4
#Acute hypoxemic respiratory failure, intubated 01/2024
Patient is critically ill intubated and sedated with acute hypoxic respiratory distress likely multifactorial with heart failure exacerbation, acute lung injury from aspiration
-Mechanical ventilation with improved oxygenation and decreased O2 supplementation currently now on 60% FiO2-management per pig handler
-On IV steroids and antibiotics per pulmonary
-Levophed has been weaned to off.
#Paroxysmal A-fib
-Having paroxysmal atrial fibrillation and back in A-fib today.
-Continue Eliquis 5mg BID. Hgb 12.1. Will increase amiodarone to 200 mg p.o. 3 times daily via tube to try to help maintain AV paced rhythm.
-TSH WNL. Continue synthroid.
CC time 32 min
HPI: Beverly is an 88 year old female with PMH of chronic HFpEF, paroxysmal atrial fibrillation, PPM, HTN, HLD, CDK, and hypothyroidism. She presented to [facility] initially for generalized weakness. She was recently admitted to 12/2023 with acute heart
failure exacerbation. At discharge, weight was down to 261lbs. She was seen in follow up by cardiology and noted increased edema, however was not able to stand on scale, so weight was unknown. She was recommended to start metolazone 2.5mg Mondays
and and recheck labs in a week. Daughters brought her in for evaluation as patient became increasingly weak to the point that she was unable to even walk to the bathroom and noted that she had episode of nausea and vomiting earlier in the
day. In ER, she was noted to have EULOGIO with creat up to 2.0 and she was hypotensive. Her lasix and spironolactone were held and she was given 500cc IVFs. Her creat improved over the next 2 days, however she then became increasingly SOB and hypoxic in
the evening 01/25, requiring BiPAP. She had repeat CXR which showed moderate CHF. She was given 80mg IV lasix, followed by 40mg later in the evening. In AM 01/26, respiratory status continued to worsen, and she was intubated. She was given another
dose of 60mg IV lasix this AM. Her weight is now up ~40lbs compared to discharge weight from admission 12/2023. Cardiology consulted for evaluation given acute respiratory failure in the setting of acute heart failure. Intubated and sedated at time
of evaluation.
Echo 01/28/2024:
Normal left ventricular systolic function.
Normal regional wall motion.
Left ventricular ejection fraction is 55-60% by visual assessment.
Normal right ventricular size and function.
Normal left atrial size.
Mitral valve opens normally.
Tricuspid valve opens normally.
Not assessed.
Not assessed.
No pericardial effusion.
Limited study.
Progress Note - Vascular Ultrasound Technologist
Subjective
Date of Service: January 31, 2024
Remains intubated and sedated
Objective
Labs:
01/31/24 04:39
01/31/24 04:39
Labs
Hgb 11.2 g/dL (12.0-16.0) L 01/31/24 04:39
Hct 34.9 % (37.0-47.0) L 01/31/24 04:39
Plt Count 104 10^3/uL (130-400) L 01/31/24 04:39
PT 24.0 Sec (11.4-14.6) H 01/27/24 04:10
INR 2.12 01/27/24 04:10
APTT 38.8 Sec (23.4-35.0) H 01/27/24 04:10
Sodium 150 mmol/L (135-145) H 01/31/24 04:39
Potassium 3.4 mmol/L (3.5-5.1) L 01/31/24 04:39
BUN 79 mg/dl (7-17) H 01/31/24 04:39
Creatinine 1.5 mg/dL (0.6-1.0) H 01/31/24 04:39
Glucose 203 mg/dl (70-99) H 01/31/24 04:39
Vital Signs and I&O:
Vital Signs
Temp Pulse Resp BP Pulse Ox
97.3 F 65 22 105/66 98
01/31/24 04:55 01/31/24 06:30 01/31/24 06:30 01/29/24 08:00 01/31/24 08:24
Vital Signs
Temp Pulse Resp BP Pulse Ox
97.3 F 65 22 105/66 98
01/31/24 04:55 01/31/24 06:30 01/31/24 06:30 01/29/24 08:00 01/31/24 08:24
Intake & Output
01/29/24 01/30/24 01/31/24 02/01/24
06:59 06:59 06:59 06:59
Intake Total 1212.6 / 1280.3 1818.2 / 1918.7 2667.6 / 2667.6
Output Total 5825 / 5825 4755 / 4755 3955 / 3955
Balance -4612.4 / -4544.7 -2936.8 / -2836.3 -1287.4 / -1287.4
Physical Exam
Physical Exam
GEN: No distress, intubated/sedated
HEENT: supple, anicteric, mmm
LUNGS: bilat rhochi
CV: Irreg, S1/S2, 1/6 syst LSB, no gallop
ABD: soft, BS+, NT/ND
EXT: +1 edema
NEURO: Gross non-focal
SKIN: No rash
[2024-01-31 09:30] VITALS: BP 97/48
[2024-01-31] MEDS: BUMEX 50 IV ×2 (09:48→19:58)
[2024-01-31 11:02] LABS: Glycohemoglobin (HgbA1c) 6.6 % (4.0-5.6)
[2024-01-31 12:03] VITALS: BP 95/45
[2024-01-31 12:46] LABS: Glucose - Point of Care 154 mg/dl (70-99)
[2024-01-31 12:49] VITALS: BP 94/45
[2024-01-31 14:43] VITALS: BP 112/59
[2024-01-31 16:00] VITALS: BP 115/55
[2024-01-31] MEDS: HYDROPHOR 1 APPLIC TOPICAL (16:05)
[2024-01-31] MEDS: PACERONE 200 MG TUBE ×2 (16:06→20:49)
--- NOTE | 2024-01-31 17:26 | PTCARENOTE ---
Pt son updated at the bedside regarding the plan of care and the changed made in care. No further questions.
[2024-01-31 18:22] LABS: Glucose - Point of Care 188 mg/dl (70-99)
--- NOTE | 2024-01-31 20:30 | PTCARENOTE ---
rec'd patient. assessment as documented. RASS -3. V paced on monitor. prop/fent/bumex gtts infusing through PICC. #8 ETT, 21 at lip, adjusted. oral care provided. vent settings: AC 14/420/5/40%. TF infusing through L nare DHT. rectal trumpet and
joyce in place. arterial line leveled and zeroed. care ongoing.
--- NOTE | 2024-01-31 22:51 | PTCARENOTE ---
CHG bath done. ICU SOAP CHIPPER made aware of MAP hovering between 60-65. BMP sent. levo gtt ordered if needed.
[2024-01-31 22:52] LABS: Blood Urea Nitrogen 89 mg/dl (7-17); Calcium 8.9 mg/dl (8.4-10.2); Carbon Dioxide 40 mmol/L (22-30); Estimated Creatinine Clearance 32 ml/min; Glucose 144 mg/dl (70-99); Magnesium 1.9 mg/dl (1.6-2.3); eGFR 31.02
[2024-01-31 23:05] LABS: Chloride 102 mmol/L (98-107); Potassium 4.2 mmol/L (3.5-5.1); Sodium 148 mmol/L (135-145)
[2024-02-01] VITALS: BP 110/49
[2024-02-01] MEDS: NOVOLOG FLEXPEN-MODERATE RESISTANCE SC (00:24)
[2024-02-01] MEDS: DIPRIVAN 100 IV ×2 (00:24→06:17)
[2024-02-01 00:34] LABS: Glucose - Point of Care 138 mg/dl (70-99)
[2024-02-01] MEDS: LEVOPHED 250 IV (02:26)
--- NOTE | 2024-02-01 02:30 | PTCARENOTE ---
pt rectal trumpet leaking, cleaned and replaced. after repositioning, BP not recovering to MAP of 65 or greater, levo gtt initiated.
[2024-02-01] MEDS: SUBLIMAZE 50 MCG IV ×3 (02:37→23:49)
[2024-02-01] MEDS: STERILE WATER FOR INJECTION 10 ML IV (03:51)
[2024-02-01] MEDS: MAXIPIME 1000 MG IV (03:51)
[2024-02-01 03:55] LABS: Hematocrit 38.8 % (37.0-47.0); Hemoglobin 12.3 g/dL (12.0-16.0); Mean Corp Hgb Conc. 31.7 g/dL (33.0-37.0); Mean Corpuscular Volume 88.2 fL (81.0-99.0); Mean Platelet Volume 11.1 fL (7.4-10.4); Platelet Count 119 10^3/uL (130-400); Red Cell Dist. Width 19.2 % (11.5-14.5); White Blood Cell Count 10.2 10^3/uL (4.8-10.8)
[2024-02-01 03:56] LABS: B.E. 13.2 mmol/L; HCO3 38.2 mmol/L (21-28); Ionized Calcium 1.13 mMOL/L (1.15-1.33); O2 Saturation % 99.2 % (94-98); PCO2 49 mmHg (32-35); PO2 126 mmHg (83-108); Potassium 3.6 mMOL/L (3.5-5.1); Sodium 146 mMOL/L (136-145)
[2024-02-01 03:57] LABS: O2 Therapy 40%
--- NOTE | 2024-02-01 04:16 | PTCARENOTE ---
AM labs sent. new TF hung overnight. levo gtt titrated to maintain MAP goal. fent/prop/bumex gtts continue. care ongoing.
[2024-02-01 04:25] LABS: Blood Urea Nitrogen 96 mg/dl (7-17); Calcium 9.2 mg/dl (8.4-10.2); Chloride 102 mmol/L (98-107); Estimated Creatinine Clearance 32 ml/min; Glucose 172 mg/dl (70-99); Phosphorus 3.1 mg/dl (2.5-4.5); Potassium 3.8 mmol/L (3.5-5.1); Sodium 150 mmol/L (135-145); eGFR 31.02
[2024-02-01] MEDS: SYNTHROID 125 MCG TUBE (05:01)
[2024-02-01 05:03] VITALS: BMI 50.9
[2024-02-01 05:09] LABS: Carbon Dioxide 34 mmol/L (22-30)
[2024-02-01] MEDS: NOVOLOG FLEXPEN-MODERATE RESISTANCE 1 UNITS SC ×3 (06:18→23:52)
[2024-02-01 06:26] LABS: Glucose - Point of Care 184 mg/dl (70-99)
[2024-02-01] MEDS: BUMEX 50 IV (07:16)
[2024-02-01] MEDS: DESENEX/MITRAZOL/ZEASORB 1 APPLIC TOPICAL ×2 (07:17→20:14)
[2024-02-01] MEDS: HYDROPHOR 1 APPLIC TOPICAL (07:17)
--- NOTE | 2024-02-01 07:30 | PTCARENOTE ---
Pt remain intubated and sedated with propofol and fentanyl. RASS-3. Propofol and fentanyl tapered as ordered. She is not following simple commands. PERRLA+1-2, scleral edema. No gag, + cough with inline suction. Extremities flaccid. +2 anasarca.
Compression therapy to her L/E's maintained. Bumex drip @1mg/hr via right upper arm DL PICC. Left ac and Left wrist #20g protective catheters both flushed and patent with blood return. Left radial arterial line transduced, calibrated and monitored.
Correlates to cuff. Weak palpable pedal pulses, palpable radials. #8ETT secured 21cm right lip. Tolerating AC 14/420/.40/+5. Breath sounds with scattered rhonchi, inspiratory and expiratory wheeze. Weak cough. Minimal secretions orally and via ETT.
Morbidly obese. Left nare DHT with green milky residual. Tolerating TF. Nasal trumpet VT draining loose brown stool. Temperature sensing indwelling catheter with pale yellow urine. Dressing to her right arm and left lower leg CDI. Aspiration
precautions maintained. Safe environment maintained.
--- NOTE | 2024-02-01 07:39 | W.PN.HOSP.TC ---
Addendum entered and electronically signed by Velma Srinivasan MD 02/01/24 10:43:
hold scheduled potassium supplementation while off diuresis
Original Note:
Today's Communication/Plan
-
hold diuresis increased FWF as per Nephro
vent mgmt sedation as per ICU
cont abx
daily weight I/O
wound care
pressor prn
Assessment / Plan
Assessment / Plan
HPI: 88-year-old female with a past medical history of atrial fibrillation, permanent pacemaker, heart failure with preserved ejection fraction, CKD and morbid obesity presents with generalized weakness. Patient lives with her daughter, who brought
her in because she is too weak to even go to the bathroom. Patient was recently treated at [facility] for CHF exacerbation, and released on 12/24/2023. Daughter reports that patient has been increasingly weak. She was recently started on
gabapentin for lower back pain. Daughter feels that she is having side effects, and is tapering her off the gabapentin. Patient is also on Valtrex for suspected herpes zoster rash. Daughter reports patient had an episode of nausea and vomiting
today. Daughter also reports that she is less responsive. Patient does admit to being dizzy with any type of movement. Patient denies chest pain, denies shortness of breath. No abdominal pain, no dysuria.
#Acute hypoxic respiratory failure
Multifactorial, due to heart failure and acute lung injury from aspiration
Transferred to ICU 01/25. Intubated 01/26
Appreciate supervisor agency appointments input, continue vent management as per supervisor agency appointments
01/28 tube feeds started. cont
#Acute pulmonary edema
#Acute heart failure with a preserved ejection fraction
#Cardiorenal syndrome
#Acute kidney injury superimposed on stage IIIb chronic kidney disease
Appreciate nephrology input, Bumex drip Diuril placed on hold d/t progressive hypernatremia. Weight trending down
Cardiology eval appreciated, 01/27 echo EF 55-60%, no gross abnormalities
Trend creatinine, trend daily weights
#Hypernatremia
free water flush increased 100c/h as per nephro
#Cardiogenic shock
Continue IV steroids taper as per ICU, weaning off Levophed intermittently requiring low dose overnight.
#Concern for aspiration pneumonia -suspect present upon admission
Continue IV antibiotics for 7 days through 02/01
Sputum cultures shows normal vicki, urine culture also with normal vicki
#Hypokalemia
continue scheduled repletions
monitor and provide additional repletions as necessary
#Paroxysmal atrial fibrillation
Status post permanent pacemaker
Patient has been bradycardic, metoprolol held
Pacemaker interrogated and functioning normally
Currently paced, although her atrial lead does not capture except for intermittently high output
Since she is critically ill, cardiology rec not adding a new atrial lead at this time
Continue Eliquis, amiodarone
#Chronic lower extremity edema
Compression stockings
#Suspected shingles rash left lateral leg below knew
on Valtrex prior to admission, held since 01/26 intubation as above
Discontinued gabapentin
#Spinal stenosis
#Chronic back pain
#Hypothyroidism
Continue levothyroxine
#Obesity due to excess calories
Affects all aspects of care
DVT prophylaxis�Eliquis
Full code
Total Critical Care Time__40___ minutes. I was immediately available to the patient and staff. I personally examined, reviewed labs, diagnostic images/reports, interpretations, treatment plans, discussed patient care with other providers and
patient's son Ismael Holguin (patient is unable to make decisions at this time), entered orders as appropriate and documented the medical record.
Physical Exam
General: Morbidly obese, sedated
HEENT: Normocephalic, Atraumatic, pinpoint pupils b/l, intubated
Respiratory: Clear to Auscultation
Cardiac: Normal S1/S2, Regular Rate and Rhythm
GI: Soft, Nontender, Nondistended, Normal Bowel Sounds
Extremities: No Clubbing, Cyanosis, lower ext pitting edema +2 b/l
Neuro: sedated
Anticipated Discharge: > 48 hours
Subjective/Interval History
-
Date of Service: February 01, 2024
Sedated weaning off sedation, spontaneous eye movements noted. Otherwise remains nonverbal/noncommunicative.
Objective Data
-
Labs:
Laboratory Results
01/31/24 02/01/24
22:15 03:48
WBC 10.2
Hgb 12.3
Hct 38.8
Plt Count 119 L
HCO3 38.2 H
Sodium 148 H 150 H
Potassium 4.2 3.8
Chloride 102 102
Carbon Dioxide 40 H 34 H
BUN 89 H 96 H
Creatinine 1.6 H 1.6 H
Glucose 144 H 172 H
Calcium 8.9 9.2
Vital Signs:
Vital Signs
Temp Pulse Resp BP Pulse Ox
98.0 F 65 14 110/49 95
02/01/24 03:33 02/01/24 07:00 02/01/24 07:00 02/01/24 00:00 02/01/24 07:00
I&O
01/31/24 02/01/24 02/02/24
06:59 06:59 06:59
Intake Total 2667.6 / 2765.4 2960.3 / 3074.0 113.7 / 113.7
Output Total 3955 / 4075 4255 / 4525 270 / 270
Balance -1287.4 / -1309.6 -1294.7 / -1451.0 -156.3 / -156.3
[2024-02-01 07:50] VITALS: BP 118/53
[2024-02-01] MEDS: STERILE WATER FOR INJECTION 18 ML IV (07:50)
[2024-02-01] MEDS: KCL ELIXIR 40 MEQ TUBE ×2 (07:51→20:14)
[2024-02-01] MEDS: DIURIL 0.5 GRAM VIAL 0.5 GRAMS IV (07:51)
[2024-02-01] MEDS: ELIQUIS 5 MG TUBE (07:51)
[2024-02-01] MEDS: DECADRON 4 MG IV (07:51)
[2024-02-01] MEDS: PACERONE 200 MG TUBE ×3 (07:51→20:14)
[2024-02-01] MEDS: NSS (PRESERVATIVE FREE) 10 ML IV (07:52)
[2024-02-01] MEDS: PROTONIX IV 40 MG IV (07:52)
[2024-02-01] MEDS: MIRALAX 17 GRAMS TUBE ×2 (07:52→20:14)
[2024-02-01] MEDS: SENOKOT 17.2 MG TUBE (07:52)
[2024-02-01 08:00] VITALS: BP 113/47
--- NOTE | 2024-02-01 08:28 | W.PN.INTV ---
Today's Communication / Plan
Recommendations
Continue diuresis
Follow chest x-ray
Spontaneous breathing trial when stabilized-currently not ready
Wean pressors
Assessment
-
88-year-old woman with past medical history noted, initially admitted with weakness. Found to have increased creatinine from baseline. She was rehydrated. Lasix was held for 2 days. Apparently was having some vomiting prior to admission.
On 01/26/2024 developed hypoxemia and increased work of breathing. Progressed despite diuretics and required noninvasive mechanical ventilation and transferred to the critical care unit. On 01/27/2024 despite diuresis remained hypoxemic with
increased work of breathing. Critical care was consulted for evaluation.
Acute hypoxemic respiratory failure: Suspect multifactorial.
Failed noninvasive mechanical ventilation 01/27/2024
Intubated 01/27/2024.
Acute on chronic heart failure with preserved ejection fraction-weight is elevated from her baseline significantly.
proBNP is elevated
Frothy pinkish secretion on ET tube.
Suspect acute lung injury from aspiration as the patient was vomiting prior to admission: Chest x-ray 01/27/2024 with severe bilateral infiltrates right greater than left.
Cannot rule out diffuse alveolar hemorrhage
Hypothermia
Possible UTI: Significantly abnormal urinalysis 01/27/2024.
Acute on chronic kidney disease-possibly cardiorenal.
Conditions present prior admission:
Hypertension
Morbid obesity
Spinal stenosis
Ambulatory dysfunction
Chronic kidney disease
Hyperlipidemia
Carotid artery stenosis
Atrial fibrillation
Sick sinus syndrome status post pacemaker
Heart failure with preserved ejection fraction
Pacemaker in place
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
Chronic hypercapnic respiratory failure-undiagnosed, likely obesity hypoventilation syndrome.
Plan
Remains critically ill on the ventilator and pressors
Ventilator settings reviewed-airway pressures adequate
FiO2 required to be increased
Increase PEEP
Follow chest x-ray
Clear mucous plugs
If stabilized spontaneous breathing trial-not ready today
VAP prevention protocol
Aspiration precautions
Eventual speech evaluation
Follow-up chest x-ray
Sedation vacations
Not a candidate for prone positioning due to morbid obesity
Not a candidate for ECMO due to BMI and age
Nebulizers if needed-currently not bronchospastic
Decadron initiated for possible inflammatory component-appears to be mostly fluid-will begin to reduce Decadron
Diuresis as tolerated--10 L / 3 days
Patient reportedly 40 pound weight gain in the last several weeks/months-likely mostly fluid
Monitor renal function, electrolytes, intake/output, lower extremity edema and weight
Replace electrolytes as needed
Nephrology following-correspondence reviewed, replete potassium, Bumex drip
Cardiology following-correspondence reviewed, Bumex drip
Echocardiogram this admission: Preserved LVEF. No significant pulmonary hypertension no significant valvular abnormality
Relatively bradycardic-patient has a pacemaker in place.
Cultures reviewed
Sputum culture-usual respiratory vicki
Empiric antibiotics-complete a 7-day course of antibiotics
Norepinephrine and vasopressin as needed-attempt to wean
Monitor blood sugar
Insulin drip as needed
DVT prophylaxis-patient on Eliquis.
GI prophylaxis
Nutrition-nasogastric tube feedings initiated 01/29/2024
Prognosis continues to be quite guarded
Dr. Avendaño updated family members-son who is an emergency room physician 01/30/2024. Still critically ill. Somewhat improved. DNR has been discussed but family not ready for it
Dr. Avendaño discussed with son who is a emergency room physician on 01/28/2024. Improved. Still in critical status. Prognosis is guarded
Discussed with family by Dr. Avendaño 01/27/2024-full code. They understand critical situation.
Dr. Avendaño discussed case with cardiology, primary team, nephrology 01/28/2024.
Extensive discussion with family as well 01/28/2024. I suggested at least a DNR status going forward. They are discussing
Critical care statement: A total of 45 minutes of critical care time was provided for this patient today. This includes management of unstable vital signs, evaluation of the patient at bedside, reviewing the patient's pertinent medical records
including radiographs, ventilator management, pressor management, insulin management, microbiology, laboratory evaluations, and discussion with primary team, consultants, pharmacy, nutrition, physical therapy, case management, charge nurse,
critical care nursing, and respiratory therapy.
Subjective Dataa
Subjective Data
Date of Service:
Date of Service: February 01, 2024
Chief Complaint: [employer] Merch[employer]iser Follow Up (Acute hypoxemic respiratory failure requiring intubation) and Pulmonary Follow Up
Subjective:
Worsening oxygenation, sedated on ventilator, no increased secretions, still on pressors, review of systems unobtainable
Review of Systems
General: Unobtainable - Sedation
Objective Data
Data Reviewed
Vital Signs / I&O / Oxygen:
Vital Signs
Temp Pulse Resp BP Pulse Ox
98.2 F 65 12 113/47 95
02/01/24 07:59 02/01/24 08:00 02/01/24 08:00 02/01/24 08:00 02/01/24 08:03
Intake and Output
01/31/24 02/01/24 02/02/24
06:59 06:59 06:59
Intake Total 2667.6 / 2765.4 2960.3 / 3074.0 470.9 / 470.9
Output Total 3955 / 4075 4255 / 4525 440 / 440
Balance -1287.4 / -1309.6 -1294.7 / -1451.0 30.9 / 30.9
SaO2 [A/C] 95
SaO2 95
Nasal Cannula flow liters per 15
minute
Physical Exam
General: Respiratory Distress (n) and Comfortable
HEENT: Normocephalic and Other (ET tube in place with frothy pink secretion)
Cardiovascular: Regular Rhythm, Murmur and Peripheral Edema (2+)
Respiratory: Crackles, Non-Labored Respirations and ET Tube (No significant secretions)
GI: Soft and Distended (Obese)
Neurology: Other (Sedated, mechanical ventilation. Has respiratory effort.)
Skin: Warm
Labs/Micro/Reports
Lab Data
02/01/24 03:48
02/01/24 03:48
Laboratory Results
02/01/24
03:48
pH 7.50 H
pCO2 49 H
pO2 126 H
HCO3 38.2 H
O2 Delivery Level 40%
Microbiology
01/27/24 16:56 Tracheal Aspirate Respiratory Culture - Final
Usual Respiratory Vicki
01/27/24 16:56 Tracheal Aspirate Gram Stain - Final
--- NOTE | 2024-02-01 08:41 | W.PN.CARDCBS ---
Today's Communication / Plan
-
Remains critically ill. Has diuresed 30 pounds but still remains somewhat wet. With elevated sodium will likely switch Bumex drip to Bumex IV bid.
Continue amiodarone 200 mg p.o. 3 times daily to try to help maintain sinus rhythm. Continue Eliquis
Continue steroids and ventilatory care
Creatinine at 1.6. Continue to follow.
Back on Levophed for blood pressure support.
Long-term prognosis is poor
Impression / Plan
-
PCP: Dr. Rojas
Sign Fabricator: Dr. Ramirez
Assessment: 88-year-old female with complex PMH of chronic HFpEF, paroxysmal A-fib, hypertension initially admitted with weakness. Developed hypoxemia which increased work of breathing despite diuretics currently intubated.
Impression:
Acute on chronic HFpEF
Acute hypoxemic respiratory failure, intubated 01/27/24
Hypokalemia
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
Paroxysmal atrial fibrillation
Chronic Eliquis OAC
Chronic amiodarone therapy
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
Hyperlipidemia
Hypertension
Hypothyroidism
Obesity
Carotid arterial disease
Echo 01/28/2024: EF 55 to 60%, normal RV, normal LA size, normal TV opening.
Echo 04/26/23: Technically difficult study. EF 55 to 60%. Likely normal regional wall motion of but difficult to last obtained given rapid rate. Normal LV wall thickness. Mild MR. Aortic valve sclerosis. Trace AI. PA pressure 27 mmHg.
Echo 12/21/23: EF 55%, normal RV size and function, moderate MR, moderate TR with PAP 44 mmHg
Plan:
#Acute on chronic HFpEF.
-Has diuresed very well. Creatinine stable at 1.6. BUN rising and now hypernatremic.
-Will discuss with nephrology regarding switching to IV Bumex.
-Continue supportive care with Levophed
#Hypokalemia
-Replete potassium greater than 4
#Acute hypoxemic respiratory failure, intubated 01/2024
Patient is critically ill intubated and sedated with acute hypoxic respiratory distress likely multifactorial with heart failure exacerbation, acute lung injury from aspiration
-Mechanical ventilation with improved oxygenation and decreased O2 supplementation currently now on 40% FiO2-management per scenery builder
-On IV steroids and antibiotics per pulmonary
#Paroxysmal A-fib
-Having paroxysmal atrial fibrillation and back in A-fib today.
-Continue Eliquis 5mg BID. Hgb 12.3. Cont amiodarone to 200 mg p.o. 3 times daily via tube to try to help maintain AV paced rhythm.
-TSH WNL. Continue synthroid.
CC time 34 min
HPI: Beverly is an 88 year old female with PMH of chronic HFpEF, paroxysmal atrial fibrillation, PPM, HTN, HLD, CDK, and hypothyroidism. She [facility] to [facility] initially for generalized weakness. She was recently admitted to 12/2023 with acute heart
failure exacerbation. At discharge, weight was down to 261lbs. She was seen in follow up by cardiology and noted increased edema, however was not able to stand on scale, so weight was unknown. She was recommended to start metolazone 2.5mg Mondays
and and recheck labs in a week. Daughters brought her in for evaluation as patient became increasingly weak to the point that she was unable to even walk to the bathroom and noted that she had episode of nausea and vomiting earlier in the
day. In ER, she was noted to have EULOGIO with creat up to 2.0 and she was hypotensive. Her lasix and spironolactone were held and she was given 500cc IVFs. Her creat improved over the next 2 days, however she then became increasingly SOB and hypoxic in
the evening 01/25, requiring BiPAP. She had repeat CXR which showed moderate CHF. She was given 80mg IV lasix, followed by 40mg later in the evening. In AM 01/26, respiratory status continued to worsen, and she was intubated. She was given another
dose of 60mg IV lasix this AM. Her weight is now up ~40lbs compared to discharge weight from admission 12/2023. Cardiology consulted for evaluation given acute respiratory failure in the setting of acute heart failure. Intubated and sedated at time
of evaluation.
Echo 01/28/2024:
Normal left ventricular systolic function.
Normal regional wall motion.
Left ventricular ejection fraction is 55-60% by visual assessment.
Normal right ventricular size and function.
Normal left atrial size.
Mitral valve opens normally.
Tricuspid valve opens normally.
Not assessed.
Not assessed.
No pericardial effusion.
Limited study.
Progress Note - Sign Fabricator
Subjective
Date of Service: February 01, 2024
Has diuresed well. Remains on ventilator. Sedated
Objective
Labs:
02/01/24 03:48
02/01/24 03:48
Labs
Hgb 12.3 g/dL (12.0-16.0) 02/01/24 03:48
Hct 38.8 % (37.0-47.0) 02/01/24 03:48
Plt Count 119 10^3/uL (130-400) L 02/01/24 03:48
PT 24.0 Sec (11.4-14.6) H 01/27/24 04:10
INR 2.12 01/27/24 04:10
APTT 38.8 Sec (23.4-35.0) H 01/27/24 04:10
Sodium 150 mmol/L (135-145) H 02/01/24 03:48
Potassium 3.8 mmol/L (3.5-5.1) 02/01/24 03:48
BUN 96 mg/dl (7-17) H 02/01/24 03:48
Creatinine 1.6 mg/dL (0.6-1.0) H 02/01/24 03:48
Glucose 172 mg/dl (70-99) H 02/01/24 03:48
Vital Signs and I&O:
Vital Signs
Temp Pulse Resp BP Pulse Ox
98.2 F 65 12 113/47 95
02/01/24 07:59 02/01/24 08:00 02/01/24 08:00 02/01/24 08:00 02/01/24 08:03
Vital Signs
Temp Pulse Resp BP Pulse Ox
98.2 F 65 12 113/47 95
02/01/24 07:59 02/01/24 08:00 02/01/24 08:00 02/01/24 08:00 02/01/24 08:03
Intake & Output
01/30/24 01/31/24 02/01/24 02/02/24
06:59 06:59 06:59 06:59
Intake Total 1818.2 / 1918.7 2667.6 / 2765.4 2960.3 / 3074.0 470.9 / 470.9
Output Total 4755 / 4755 3955 / 4075 4255 / 4525 530 / 530
Balance -2936.8 / -2836.3 -1287.4 / -1309.6 -1294.7 / -1451.0 -59.1 / -59.1
Physical Exam
Physical Exam
GEN: No distress, on vent
HEENT: supple, anicteric, mmm
LUNGS: bilat rhonchi
CV: Irreg, S1/S2, 1/6 syst LSB, no gallop
ABD: soft, BS+, NT/ND
EXT: +1 edema
NEURO: Gross non-focal
SKIN: No rash
--- NOTE | 2024-02-01 09:38 | PTCARENOTE ---
Pt with intermittent stacking if her breaths then desaturation ensues to 86%. No secretions orally or via ETT to suction. Fentanyl and Propofol tapered earlier for RASS-3 with no change. notified via TT. PERRLA +2. +cough no gag.
Aspiration precautions maintained.
--- NOTE | 2024-02-01 09:45 | W.PN.NEPH.PH ---
Today's Communication / Plan
-
Hold diuretics
Increase free water flush to 100 cc
Follow BMP
Assessment/Plan
-
IMP:
Acute kidney injury superimposed on stage IIIb chronic kidney disease
Acute on Chronic heart failure with a preserved ejection fraction
Acute hypoxic resp failure
Chronic lower extremity edema
Paroxysmal atrial fibrillation
Status post permanent pacemaker
Nausea/vomiting
Generalized weakness
Hypokalemia
Suspected shingles rash
Spinal stenosis
Chronic back pain
Hypothyroidism
Obesity due to excess calories
?metolazone causing pancytopenia 12/2023
Plan:
creatinine stable UOP ~ 4.5liters weights down, hold further diuretics today given hypernatremia and metabolic alkalemia PH 7.5
d/c bumex gtt today
hypernatremia exacerbating to 150, increase FWF to 100cc/hr
hold diuril
follow BMP
remains intubated
keep MAP > 65
critical care time 31 minutes
-
-
Date of Service: February 01, 2024
CC / HPI / ROS
-
Chief Complaint:
EULOGIO, CKD
History of Present Illness:
EULOGIO/Cr stable 1.6
Hemodynamically stable
excellent diuresis for decompensated HFpEF with bumex gtt and diuril
on Vent, sedated
Hypernatremia persistent 150
Review of Systems:
intubated sedated
weights down
uop > 4 liters via joyce
Labs
-
Labs:
WBC 10.2 10^3/uL (4.8-10.8) 02/01/24 03:48
RBC 4.40 10^6/uL (4.20-5.40) 02/01/24 03:48
Hgb 12.3 g/dL (12.0-16.0) 02/01/24 03:48
Hct 38.8 % (37.0-47.0) 02/01/24 03:48
Plt Count 119 10^3/uL (130-400) L 02/01/24 03:48
Sodium 150 mmol/L (135-145) H 02/01/24 03:48
Potassium 3.8 mmol/L (3.5-5.1) 02/01/24 03:48
Chloride 102 mmol/L (98-107) 02/01/24 03:48
Carbon Dioxide 34 mmol/L (22-30) H 02/01/24 03:48
BUN 96 mg/dl (7-17) H 02/01/24 03:48
Creatinine 1.6 mg/dL (0.6-1.0) H 02/01/24 03:48
eGFR 31.02 02/01/24 03:48
Glucose 172 mg/dl (70-99) H 02/01/24 03:48
Calcium 9.2 mg/dl (8.4-10.2) 02/01/24 03:48
Phosphorus 3.1 mg/dl (2.5-4.5) 02/01/24 03:48
Tpe-Z-Rvdbniwfbca Pept 2660 pg/ml 01/27/24 01:25
Physical Exam
-
Vital Signs:
Vital Signs
Temp Pulse Resp BP Pulse Ox
98.2 F 65 12 113/47 95
02/01/24 07:59 02/01/24 08:00 02/01/24 08:00 02/01/24 08:00 02/01/24 08:03
Cardiovascular:: Regular rate and rhythm
Respiratory:: Bilateral: Coarse
Lung Excursion:: Normal
Abdomen:: Nontender and Soft
Bowel Sounds:: Decreased
Extremity Edema:: +2: Bilateral:
Joyce Catheter: Yes
Other Findings::
intubated and sedated
--- NOTE | 2024-02-01 10:00 | PTCARENOTE ---
Discussed the plan of care during grand rounds. No family present at this time. Pt pulse ox remains 87% after repositioning. Unable to bounce back. Respiratory therapist increased FiO2 to .50 as ordered, pulse ox 87-88%. Propofol remains off to
assess pt's neuro status. Safe environment maintained.
[2024-02-01 12:10] LABS: Glucose - Point of Care 218 mg/dl (70-99)
[2024-02-01 12:15] VITALS: BP 123/58
[2024-02-01] MEDS: NOVOLOG FLEXPEN-MODERATE RESISTANCE 3 UNITS SC (12:41)
[2024-02-01 16:00] VITALS: BP 133/59
[2024-02-01] MEDS: STERILE WATER FOR INJECTION IV (16:32)
--- NOTE | 2024-02-01 16:33 | PTCARENOTE ---
Breath sounds improved posteriorly. Remaind dim in the bases. Wheezing resolved. Complete CHG bath given. Aspiration precautions maintained.
--- NOTE | 2024-02-01 17:57 | PTCARENOTE ---
Pt's son and other family members are at the bedside. Update provided. They are aware her oxygen requirements went up and has been tenuous on the ventilator. Dr. Chong TT'd regarding persistent desaturation.
--- NOTE | 2024-02-01 18:00 | PTCARENOTE ---
ABG and CXR to be obtained as ordered by Dr. Chong. Family is aware of the plan of care.
[2024-02-01 18:05] LABS: Glucose - Point of Care 158 mg/dl (70-99)
[2024-02-01 18:43] LABS: B.E. 17.8 mmol/L; O2 Saturation % 94.7 % (94-98); PCO2 50 mmHg (32-35); PO2 65 mmHg (83-108); pH 7.54 (7.35-7.45)
[2024-02-01 18:51] LABS: HCO3 42.8 mmol/L (21-28)
[2024-02-01 19:10] LABS: Chloride 97 mmol/L (98-107); Potassium 3.4 mmol/L (3.5-5.1); Sodium 144 mmol/L (135-145)
[2024-02-01 19:21] LABS: Carbon Dioxide 35 mmol/L (22-30)
[2024-02-01 19:38] LABS: Glucose - Point of Care 161 mg/dl (70-99)
--- NOTE | 2024-02-01 20:00 | PTCARENOTE ---
rec'd patient. assessment as documented. weak cough/gag noted. V paced on monitor. arterial line leveled and zeroed. #8 ETT, 21 at lip, adjusted. oral care provided. AC 14//8/70%. pt with coarse/rhonchi breath sounds. L nare DHT with TF infusing.
rectal trumpet intact. joyce in place draining clear yellow urine. fentanyl gtt infusing. pt repositioned, hygiene provided. care ongoing.
[2024-02-01] MEDS: ELIQUIS 2.5 MG TUBE (20:14)
[2024-02-01] MEDS: SUBLIMAZE 100 IV (22:41)
[2024-02-02 00:01] LABS: Glucose - Point of Care 158 mg/dl (70-99)
[2024-02-02 00:30] LABS: B.E. 17.9 mmol/L; O2 Saturation % 99.1 % (94-98); PCO2 50 mmHg (32-35); PO2 89 mmHg (83-108); pH 7.54 (7.35-7.45)
[2024-02-02 00:34] LABS: HCO3 42.8 mmol/L (21-28)
[2024-02-02 00:45] LABS: Hematocrit 35.6 % (37.0-47.0); Hemoglobin 11.5 g/dL (12.0-16.0); Mean Corp Hgb Conc. 32.3 g/dL (33.0-37.0); Mean Corpuscular Hgb 29.3 pg (27.0-31.0); Mean Corpuscular Volume 90.8 fL (81.0-99.0); Mean Platelet Volume 12.5 fL (7.4-10.4); Platelet Count 94 10^3/uL (130-400); Red Blood Cell Count 3.92 10^6/uL (4.20-5.40); Red Cell Dist. Width 19.2 % (11.5-14.5); White Blood Cell Count 7.9 10^3/uL (4.8-10.8)
[2024-02-02 00:50] LABS: Blood Urea Nitrogen 119 mg/dl (7-17); Calcium 8.5 mg/dl (8.4-10.2); Chloride 98 mmol/L (98-107); Estimated Creatinine Clearance 31 ml/min; Glucose 154 mg/dl (70-99); Phosphorus 3.6 mg/dl (2.5-4.5); Potassium 3.5 mmol/L (3.5-5.1); Sodium 147 mmol/L (135-145); Triglycerides 83 mg/dl (10-149); eGFR 31.02
[2024-02-02 00:57] LABS: Carbon Dioxide 38 mmol/L (22-30)
[2024-02-02] MEDS: SUBLIMAZE 50 MCG IV (01:51)
--- NOTE | 2024-02-02 04:06 | W.PN.INTV ---
Today's Communication / Plan
Recommendations
Wean FiO2
Diamox
No change in steroids
Spontaneous breathing trial if stabilizes
Assessment
-
88-year-old woman with past medical history noted, initially admitted with weakness. Found to have increased creatinine from baseline. She was rehydrated. Lasix was held for 2 days. Apparently was having some vomiting prior to admission.
On 01/26/2024 developed hypoxemia and increased work of breathing. Progressed despite diuretics and required noninvasive mechanical ventilation and transferred to the critical care unit. On 01/27/2024 despite diuresis remained hypoxemic with
increased work of breathing. Critical care was consulted for evaluation.
Acute hypoxemic respiratory failure: Suspect multifactorial.
Failed noninvasive mechanical ventilation 01/27/2024
Intubated 01/27/2024.
Acute on chronic heart failure with preserved ejection fraction-weight is elevated from her baseline significantly.
proBNP is elevated
Frothy pinkish secretion on ET tube.
Suspect acute lung injury from aspiration as the patient was vomiting prior to admission: Chest x-ray 01/27/2024 with severe bilateral infiltrates right greater than left.
Cannot rule out diffuse alveolar hemorrhage
Hypothermia
Possible UTI: Significantly abnormal urinalysis 01/27/2024.
Acute on chronic kidney disease-possibly cardiorenal.
Conditions present prior admission:
Hypertension
Morbid obesity
Obesity hypoventilation syndrome with chronic hypercapnia-baseline pCO2 50 suspected
Spinal stenosis
Ambulatory dysfunction
Chronic kidney disease
Hyperlipidemia
Carotid artery stenosis
Atrial fibrillation
Sick sinus syndrome status post pacemaker
Heart failure with preserved ejection fraction
Pacemaker in place
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
Chronic hypercapnic respiratory failure-undiagnosed, likely obesity hypoventilation syndrome.
Plan
Continues to be critically ill on the ventilator and on pressors
Ventilator settings reviewed-airway pressures adequate-occasional elevated peak inspiratory pressures-no obvious mucous plugging
FiO2 as needed to be increased
Increase PEEP to 8
Chest x-ray 02/01/2024-new moderate consolidation left upper lobe/atelectasis
Chest x-ray 02/02/2024-left upper lobe atelectasis resolved-was likely a mucous plug, left basilar effusion/opacification persists
ABGs reviewed since admission-was not hypercapnic at time of admission and progressive hypercapnia as well as metabolic alkalosis-suspect contraction from diuresis
Add Diamox
Follow ABG
Continue mucous plug clearance
Bronchoscopy if mucous plugs continue
If stabilized spontaneous breathing trial-not ready today
VAP prevention protocol
Aspiration precautions
Eventual speech evaluation
Sedation vacations
Not a candidate for prone positioning due to morbid obesity
Not a candidate for ECMO due to BMI and age
Nebulizers if needed-currently not bronchospastic
Decadron initiated for possible inflammatory component-appears to be mostly fluid-will begin to reduce Decadron-currently on 4 mg every 24
Diuresis as tolerated--10.5 L /5 days
Patient reportedly 40 pound weight gain in the last several weeks/months-likely mostly fluid
Monitor renal function, electrolytes, intake/output, lower extremity edema and weight
Replace electrolytes as needed
Nephrology following-correspondence reviewed, replete potassium, Bumex drip discontinued
Cardiology following-correspondence reviewed
Amiodarone continues
Echocardiogram this admission: Preserved LVEF. No significant pulmonary hypertension no significant valvular abnormality
Relatively bradycardic-patient has a pacemaker in place.
Diamox for 48 hours-follow ABG
Cultures reviewed
Sputum culture-usual respiratory vicki
Empiric antibiotics-complete a 7-day course of antibiotics
Norepinephrine and vasopressin as needed-attempt to wean
Monitor blood sugar
Insulin drip as needed
DVT prophylaxis-patient on Eliquis 2.5 mg twice daily
GI prophylaxis-on pantoprazole
Nutrition-nasogastric tube feedings initiated 01/29/2024
Prognosis continues to be quite guarded
Dr. Avendaño updated family members-son who is an emergency room physician 01/30/2024. Still critically ill. Somewhat improved. DNR has been discussed but family not ready for it
Dr. Avendaño discussed with son who is a emergency room physician on 01/28/2024. Improved. Still in critical status. Prognosis is guarded
Discussed with family by Dr. Avendaño 01/27/2024-full code. They understand critical situation.
Dr. Avendaño discussed case with cardiology, primary team, nephrology 01/28/2024.
Extensive discussion with family as well 01/28/2024. I suggested at least a DNR status going forward. They are discussing
Critical care statement: A total of 50 minutes of critical care time was provided for this patient today. This includes management of unstable vital signs, evaluation of the patient at bedside, reviewing the patient's pertinent medical records
including radiographs, ventilator management, pressor management, insulin management, microbiology, laboratory evaluations, and discussion with primary team, consultants, pharmacy, nutrition, physical therapy, case management, charge nurse,
critical care nursing, and respiratory therapy.
Subjective Dataa
Subjective Data
Date of Service:
Date of Service: February 02, 2024
Chief Complaint: Pv Design Engineer Follow Up (Acute hypoxemic respiratory failure requiring intubation) and Pulmonary Follow Up
Subjective:
Still with high FiO2 requirements, sedated on the ventilator, no increase secretions,
Review of Systems
General: Unobtainable - Sedation
Objective Data
Data Reviewed
Vital Signs / I&O / Oxygen:
Vital Signs
Temp Pulse Resp BP Pulse Ox
99.0 F 60 15 132/50 97
02/01/24 23:22 02/02/24 00:00 02/02/24 00:00 02/01/24 20:14 02/02/24 00:05
Intake and Output
01/31/24 02/01/24 02/02/24
06:59 06:59 06:59
Intake Total 2667.6 / 2765.4 2960.3 / 3074.0 2782.1 / 2782.1
Output Total 3955 / 4075 4255 / 4500 2790 / 2790
Balance -1287.4 / -1309.6 -1294.7 / -1451.0 -7.9 / -7.9
SaO2 [A/C] 97
SaO2 97
Nasal Cannula flow liters per 15
minute
Physical Exam
General: Respiratory Distress (n) and Comfortable
HEENT: Normocephalic and Other (ET tube in place with frothy pink secretion)
Cardiovascular: Regular Rhythm, Murmur and Peripheral Edema (2+)
Respiratory: Crackles, Non-Labored Respirations and ET Tube (No significant secretions)
GI: Soft and Distended (Obese)
Neurology: Other (Sedated, mechanical ventilation. Has respiratory effort.)
Skin: Warm
Labs/Micro/Reports
Lab Data
02/02/24 00:22
02/02/24 00:22
Laboratory Results
02/01/24 02/02/24
18:32 00:22
pH 7.54 H 7.54 H
pCO2 50 H 50 H
pO2 65 L 89
HCO3 42.8 H* 42.8 H*
O2 Delivery Level Not Reportable
--- NOTE | 2024-02-02 04:35 | DOWNTIME ---
There was a [employer] Machine Downtime on 02/02/2024 from 0100 to 02/02/2024 at 0355. Downtime documentation of patient's care, including medication administrations, has been reconciled in the electronic record per guidelines. Refer to the
patient's paper chart under the miscellaneous tab to see printed paper medication records and downtime forms.
[2024-02-02] MEDS: SYNTHROID 125 MCG TUBE (04:37)
[2024-02-02] MEDS: KCL ELIXIR 40 MEQ TUBE ×3 (05:10→20:02)
--- NOTE | 2024-02-02 05:19 | PTCARENOTE ---
AM labs sent. FiO2 down to 60%. ETT readjusted, oral care provided. pt repositioned, bath given overnight. otherwise assessment unchanged. care ongoing.
[2024-02-02 05:21] VITALS: BMI 50.1
[2024-02-02] MEDS: NOVOLOG FLEXPEN-MODERATE RESISTANCE 1 UNITS SC ×2 (05:59→23:47)
[2024-02-02 06:07] LABS: Glucose - Point of Care 179 mg/dl (70-99)
--- NOTE | 2024-02-02 07:26 | W.PN.HOSP.TC ---
Today's Communication/Plan
-
FWF as per Nephro
diamox vent mgmt sedation as per ICU
last day of abx (completes 7 days)
daily weight I/O
wound care
pressor prn
Assessment / Plan
Assessment / Plan
HPI: 88-year-old female with a past medical history of atrial fibrillation, permanent pacemaker, heart failure with preserved ejection fraction, CKD and morbid obesity presents with generalized weakness. Patient lives with her daughter, who brought
her in because she is too weak to even go to the bathroom. Patient was recently treated at [facility] for CHF exacerbation, and released on 12/24/2023. Daughter reports that patient has been increasingly weak. She was recently started on
gabapentin for lower back pain. Daughter feels that she is having side effects, and is tapering her off the gabapentin. Patient is also on Valtrex for suspected herpes zoster rash. Daughter reports patient had an episode of nausea and vomiting
today. Daughter also reports that she is less responsive. Patient does admit to being dizzy with any type of movement. Patient denies chest pain, denies shortness of breath. No abdominal pain, no dysuria.
#Acute hypoxic respiratory failure
Multifactorial, due to heart failure and acute lung injury from aspiration
Transferred to ICU 01/25. Intubated 01/26
Appreciate architecture consultant input, continue vent management as per architecture consultant
01/28 tube feeds started. cont
Lt upper lobe atelectasis noted 01/31 likely mucus plug since resolved on repeat CXR 02/01
#Acute pulmonary edema
#Acute heart failure with a preserved ejection fraction
#Cardiorenal syndrome
#Acute kidney injury superimposed on stage IIIb chronic kidney disease
Appreciate nephrology input, Bumex drip Diuril placed on hold d/t progressive hypernatremia. Weight trending down
Cardiology eval appreciated, 01/27 echo EF 55-60%, no gross abnormalities
Trend creatinine, trend daily weights
Diamox diuresis as per ICU
#Metabolic Alkalosis
started on Diamox 10/15 as per ICU
#Hypernatremia
free water flush increased 100c/h as per nephro
#Cardiogenic shock
Continue IV steroids taper as per ICU, weaning off Levophed intermittently requiring low dose overnight.
#Concern for aspiration pneumonia -suspect present upon admission
Continue IV antibiotics for 7 days through 02/01
Sputum cultures shows normal vicki, urine culture also with normal vicki
#Hypokalemia
continue scheduled repletions
monitor and provide additional repletions as necessary
#Paroxysmal atrial fibrillation
Status post permanent pacemaker
Patient has been bradycardic, metoprolol held
Pacemaker interrogated and functioning normally
Currently paced, although her atrial lead does not capture except for intermittently high output
Since she is critically ill, cardiology rec not adding a new atrial lead at this time
Continue Eliquis, amiodarone
#Chronic lower extremity edema
Compression stockings
#Suspected shingles rash left lateral leg below knee, less likely
on Valtrex prior to admission, held since 01/26 intubation as above,
Discontinued gabapentin
lesion doesn't appear to be consistent with shingles, resolving, no need to restart Valtrex at this time
#Spinal stenosis
#Chronic back pain
#Hypothyroidism
Continue levothyroxine
#Obesity due to excess calories
Affects all aspects of care
DVT prophylaxis�Eliquis
Full code
Total Critical Care Time__42___ minutes. I was immediately available to the patient and staff. I personally examined, reviewed labs, diagnostic images/reports, interpretations, treatment plans, discussed patient care with other providers and
patient's son Ismael Holguin (patient is unable to make decisions at this time), entered orders as appropriate and documented the medical record.
Physical Exam
General: Morbidly obese, sedated
HEENT: Normocephalic, Atraumatic, pinpoint pupils b/l, intubated
Respiratory: decreased breath sounds left side compared ti right otherwise clear to auscultation
Cardiac: Normal S1/S2, Regular Rate and Rhythm
GI: Soft, Nontender, Nondistended, Normal Bowel Sounds
Extremities: No Clubbing, Cyanosis, lower ext pitting edema +2 b/l
Neuro: sedated
Anticipated Discharge: > 48 hours
Subjective/Interval History
-
Date of Service: February 02, 2024
Sedated intubated
Objective Data
-
Labs:
Laboratory Results
02/02/24
00:22
WBC 7.9
Hgb 11.5 L
Hct 35.6 L
Plt Count 94 L D
HCO3 42.8 H*
Sodium 147 H
Potassium 3.5
Chloride 98
Carbon Dioxide 38 H
BUN 119 H*
Creatinine 1.6 H
Glucose 154 H
Calcium 8.5
Vital Signs:
Vital Signs
Temp Pulse Resp BP Pulse Ox
98.4 F 50 14 132/50 95
02/02/24 03:13 02/02/24 07:00 02/02/24 07:00 02/01/24 20:14 02/02/24 07:00
I&O
02/01/24 02/02/24 02/03/24
06:59 06:59 06:59
Intake Total 2960.3 / 3074.0 3607.1 / 3607.1
Output Total 4255 / 4525 4050 / 4050
Balance -1294.7 / -1451.0 -442.9 / -442.9
[2024-02-02] MEDS: NSS (PRESERVATIVE FREE) 10 ML IV (08:56)
[2024-02-02] MEDS: PROTONIX IV 40 MG IV (08:56)
[2024-02-02] MEDS: ELIQUIS 2.5 MG TUBE ×2 (08:56→20:02)
[2024-02-02] MEDS: SENOKOT 17.2 MG TUBE (08:56)
[2024-02-02] MEDS: DECADRON 4 MG IV (08:56)
[2024-02-02] MEDS: MIRALAX 17 GRAMS TUBE ×2 (08:57→20:02)
[2024-02-02] MEDS: HYDROPHOR 1 APPLIC TOPICAL (08:57)
[2024-02-02] MEDS: PACERONE 200 MG TUBE ×3 (08:57→21:15)
[2024-02-02] MEDS: DESENEX/MITRAZOL/ZEASORB 1 APPLIC TOPICAL ×2 (08:58→20:03)
[2024-02-02 09:12] VITALS: BP 116/57
--- NOTE | 2024-02-02 09:40 | W.PN.NEPH.PH ---
Today's Communication / Plan
-
Follow BMP
Assessment/Plan
-
IMP:
Acute kidney injury superimposed on stage IIIb chronic kidney disease
Acute on Chronic heart failure with a preserved ejection fraction
Acute hypoxic resp failure
Chronic lower extremity edema
Paroxysmal atrial fibrillation
Status post permanent pacemaker
Nausea/vomiting
Generalized weakness
Hypokalemia
Suspected shingles rash
Spinal stenosis
Chronic back pain
Hypothyroidism
Obesity due to excess calories
?metolazone causing pancytopenia 12/2023
Plan:
For Diamox
Hold diuretics still
Follow BMP
Continue higher free water flush
follow BMP
keep MAP > 65
critical care time 31 minutes
-
-
Date of Service: February 02, 2024
CC / HPI / ROS
-
Chief Complaint:
EULOGIO, CKD
History of Present Illness:
EULOGIO/Cr stable 1.6
BUN up to 116
Hemodynamically stable
Nonoliguric despite discontinuation of diuretics
on Vent, sedated
Hypernatremia slightly better at 147
Remains on FiO2 70% ventilator
Review of Systems:
intubated sedated
weights down
Labs
-
Labs:
WBC 7.9 10^3/uL (4.8-10.8) 02/02/24 00:22
RBC 3.92 10^6/uL (4.20-5.40) L 02/02/24 00:22
Hgb 11.5 g/dL (12.0-16.0) L 02/02/24 00:22
Hct 35.6 % (37.0-47.0) L 02/02/24 00:22
Plt Count 94 10^3/uL (130-400) L D 02/02/24 00:22
Sodium 147 mmol/L (135-145) H 02/02/24 00:22
Potassium 3.5 mmol/L (3.5-5.1) 02/02/24 00:22
Chloride 98 mmol/L (98-107) 02/02/24 00:22
Carbon Dioxide 38 mmol/L (22-30) H 02/02/24 00:22
BUN 119 mg/dl (7-17) H* 02/02/24 00:22
Creatinine 1.6 mg/dL (0.6-1.0) H 02/02/24 00:22
eGFR 31.02 02/02/24 00:22
Glucose 154 mg/dl (70-99) H 02/02/24 00:22
Calcium 8.5 mg/dl (8.4-10.2) 02/02/24 00:22
Phosphorus 3.6 mg/dl (2.5-4.5) 02/02/24 00:22
Pnt-R-Abnvimwacto Pept 2660 pg/ml 01/27/24 01:25
Physical Exam
-
Vital Signs:
Vital Signs
Temp Pulse Resp BP Pulse Ox
98.3 F 50 14 136/55 92
02/02/24 07:00 02/02/24 08:57 02/02/24 07:00 02/02/24 08:57 02/02/24 08:23
Cardiovascular:: Regular rate and rhythm
Respiratory:: Bilateral: Coarse
Lung Excursion:: Normal
Abdomen:: Nontender and Soft
Bowel Sounds:: Normal
Extremity Edema:: +1: Bilateral:
--- NOTE | 2024-02-02 10:08 | W.PN.CARDCBS ---
Today's Communication / Plan
-
Has diuresed very well. Creatinine remains stable at 1.6.
Nephrology stopped diuretics
Diamox started.
Remains off pressors.
Cont pulm toilet
Continue Eliquis 5mg BID. Hgb has been stable, 11.5 on Feb 01.
Cont amiodarone load 200 mg TID via tube to try to help maintain AV paced rhythm.
Impression / Plan
-
.
PCP: Dr. Rojas
Medical Asst: Dr. Ramirez
88-year-old female with complex PMH of chronic HFpEF, paroxysmal A-fib, hypertension initially admitted with weakness. Developed hypoxemia which increased work of breathing despite diuretics currently intubated.
Impression:
Acute on chronic HFpEF
Acute hypoxemic respiratory failure, intubated 01/27/24
Hypokalemia
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
Paroxysmal atrial fibrillation
Chronic Eliquis OAC
Chronic amiodarone therapy
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
Hyperlipidemia
Hypertension
Hypothyroidism
Obesity
Carotid arterial disease
Echo 01/28/2024: EF 55 to 60%, normal RV, normal LA size, normal TV opening.
Echo 04/26/23: Technically difficult study. EF 55 to 60%. Likely normal regional wall motion of but difficult to last obtained given rapid rate. Normal LV wall thickness. Mild MR. Aortic valve sclerosis. Trace AI. PA pressure 27 mmHg.
Echo 12/21/23: EF 55%, normal RV size and function, moderate MR, moderate TR with PAP 44 mmHg
Plan:
#Acute on chronic HFpEF.
Has diuresed very well. Creatinine remains stable at 1.6.
Nephrology stopped diuretics
Diamox started.
Remains off pressors.
#Hypokalemia
-Replete potassium greater than 4
#Acute hypoxemic respiratory failure, intubated 01/2024
-Patient is critically ill intubated and sedated with acute hypoxic respiratory distress likely multifactorial with heart failure exacerbation, acute lung injury from aspiration
-Cont vent management as per deputy chief sheriff
-Cont IV steroids and antibiotics per pulmonary
#Paroxysmal A-fib
-Having paroxysmal atrial fibrillation, v-paced.
-Continue Eliquis 5mg BID. Hgb has been stable, 11.5 on Feb 01.
-Cont amiodarone load 200 mg TID via tube to try to help maintain AV paced rhythm.
-TSH WNL. Continue synthroid.
CC time 32 min
Discussed with nursing.
HPI: Beverly is an 88 year old female with PMH of chronic HFpEF, paroxysmal atrial fibrillation, PPM, HTN, HLD, CDK, and hypothyroidism. She presented to [facility] initially for generalized weakness. She was recently admitted to 12/2023 with acute heart
failure exacerbation. At discharge, weight was down to 261lbs. She was seen in follow up by cardiology and noted increased edema, however was not able to stand on scale, so weight was unknown. She was recommended to start metolazone 2.5mg Mondays
and and recheck labs in a week. Daughters brought her in for evaluation as patient became increasingly weak to the point that she was unable to even walk to the bathroom and noted that she had episode of nausea and vomiting earlier in the
day. In ER, she was noted to have EULOGIO with creat up to 2.0 and she was hypotensive. Her lasix and spironolactone were held and she was given 500cc IVFs. Her creat improved over the next 2 days, however she then became increasingly SOB and hypoxic in
the evening 01/25, requiring BiPAP. She had repeat CXR which showed moderate CHF. She was given 80mg IV lasix, followed by 40mg later in the evening. In AM 01/26, respiratory status continued to worsen, and she was intubated. She was given another
dose of 60mg IV lasix this AM. Her weight is now up ~40lbs compared to discharge weight from admission 12/2023. Cardiology consulted for evaluation given acute respiratory failure in the setting of acute heart failure. Intubated and sedated at time
of evaluation.
Progress Note - Medical Asst
Subjective
Date of Service: February 02, 2024
Pt seen and examined. She is on vent
Objective
Labs:
02/02/24 00:22
02/02/24 00:22
Labs
Hgb 11.5 g/dL (12.0-16.0) L 02/02/24 00:22
Hct 35.6 % (37.0-47.0) L 02/02/24 00:22
Plt Count 94 10^3/uL (130-400) L D 02/02/24 00:22
PT 24.0 Sec (11.4-14.6) H 01/27/24 04:10
INR 2.12 01/27/24 04:10
APTT 38.8 Sec (23.4-35.0) H 01/27/24 04:10
Sodium 147 mmol/L (135-145) H 02/02/24 00:22
Potassium 3.5 mmol/L (3.5-5.1) 02/02/24 00:22
BUN 119 mg/dl (7-17) H* 02/02/24 00:22
Creatinine 1.6 mg/dL (0.6-1.0) H 02/02/24 00:22
Glucose 154 mg/dl (70-99) H 02/02/24 00:22
Vital Signs and I&O:
Vital Signs
Temp Pulse Resp BP Pulse Ox
98.3 F 50 14 136/55 92
02/02/24 07:00 02/02/24 08:57 02/02/24 07:00 02/02/24 08:57 02/02/24 08:23
Vital Signs
Temp Pulse Resp BP Pulse Ox
98.3 F 50 14 136/55 92
02/02/24 07:00 02/02/24 08:57 02/02/24 07:00 02/02/24 08:57 02/02/24 08:23
Intake & Output
01/31/24 02/01/24 02/02/24 02/03/24
06:59 06:59 06:59 06:59
Intake Total 2667.6 / 2765.4 2960.3 / 3074.0 3607.1 / 3607.1
Output Total 3955 / 4075 4255 / 4525 4050 / 4050
Balance -1287.4 / -1309.6 -1294.7 / -1451.0 -442.9 / -442.9
Physical Exam
Physical Exam
General: sedated on vent
Neck: Negative JVD
Heart: Regular, Negative S3 positive S1/S2, Negative S4, No murmur
Lungs: CTA b/l, negative wheezes/rales/rhonchi
Abd: Morbid obesity. Positive BS, NT/ND, neg rebound/rigidity/guarding
Ext: Negative cyanosis/clubbing/edema
Neuro: nonfocal
[2024-02-02] MEDS: DIAMOX 250 MG PO ×2 (12:06→20:01)
[2024-02-02] MEDS: STERILE WATER FOR INJECTION 10 ML IV ×2 (12:17→20:02)
[2024-02-02] MEDS: MAXIPIME 1000 MG IV ×2 (12:18→20:02)
[2024-02-02] MEDS: STERILE WATER FOR INJECTION IV ×2 (12:18→16:17)
[2024-02-02 12:19] LABS: Glucose - Point of Care 223 mg/dl (70-99)
[2024-02-02] MEDS: NOVOLOG FLEXPEN-MODERATE RESISTANCE 3 UNITS SC ×2 (13:04→17:30)
[2024-02-02] MEDS: DUONEB 3 ML INH ×2 (13:20→20:02)
--- NOTE | 2024-02-02 13:41 | CM ---
CM following re: discharge planning.
Discussed in Rounds reviewed pt's chart, met with pt. Per Rounds meeting, pt continues to be critically ill, remains intubated, on pressors, continue supportive care.
D/C plan: [facility] when pt is medically stable.
CM will follow with discharge plan updates as hospitalization progresses
--- NOTE | 2024-02-02 14:19 | PTCARENOTE ---
S/P repositioning pt on her right side. Pt had 2 episodes of tachypnea RR in the 40's. Suctioned a large thick carcamo mucous plug via ETT. She settled on her own. Bolus wasted & Fentanyl drip off. Port flushed and capped.
[2024-02-02 16:28] VITALS: BP 124/49
[2024-02-02 17:32] LABS: Glucose - Point of Care 239 mg/dl (70-99)
--- NOTE | 2024-02-02 20:30 | PTCARENOTE ---
rec'd patient. assessment as documented. intubated, on no continuous sedation. pt extremely deconditioned. V paced on monitor. arterial line leveled and zeroed. #8 ETT, 21 at lip, adjusted, oral care provided. vent settings: AC 14/420/8/40%. pt
overbreathing vent intermittently. + bowel sounds, rectal trumpet in place, TF infusing through L nare DHT. joyce draining adequate amt of antelmo urine. extremities elevated, pt repositioned, care ongoing.
[2024-02-02 23:38] LABS: Glucose - Point of Care 162 mg/dl (70-99)
[2024-02-03] VITALS (9 sets, daily range): BP systolic 115–141; BP diastolic 46–64; BMI 50.4
--- NOTE | 2024-02-03 01:49 | PTCARENOTE ---
oral care provided, pt repositioned, no changes in assessment noted
[2024-02-03] MEDS: SUBLIMAZE 50 MCG IV ×2 (02:28→07:29)
[2024-02-03] MEDS: MAXIPIME 1000 MG IV (03:06)
[2024-02-03] MEDS: STERILE WATER FOR INJECTION 10 ML IV (03:06)
[2024-02-03 03:25] LABS: HCO3 36.7 mmol/L (21-28); O2 Saturation % 98.1 % (94-98); PCO2 47 mmHg (32-35); PO2 86 mmHg (83-108)
[2024-02-03 03:26] LABS: O2 Therapy 60%
[2024-02-03 03:45] LABS: Hematocrit 36.5 % (37.0-47.0); Hemoglobin 11.5 g/dL (12.0-16.0); Mean Corp Hgb Conc. 31.5 g/dL (33.0-37.0); Mean Corpuscular Hgb 28.8 pg (27.0-31.0); Mean Corpuscular Volume 91.5 fL (81.0-99.0); Platelet Count 91 10^3/uL (130-400); Red Blood Cell Count 3.99 10^6/uL (4.20-5.40); Red Cell Dist. Width 19.3 % (11.5-14.5); White Blood Cell Count 10.5 10^3/uL (4.8-10.8)
--- NOTE | 2024-02-03 04:09 | PTCARENOTE ---
AM labs sent. pt repositioned. ETT adjusted. new TF hung. oral care provided. bed bath and joyce care provided. care ongoing.
[2024-02-03 04:20] LABS: Blood Urea Nitrogen 105 mg/dl (7-17); Calcium 8.3 mg/dl (8.4-10.2); Carbon Dioxide 36 mmol/L (22-30); Chloride 101 mmol/L (98-107); Estimated Creatinine Clearance 31 ml/min; Glucose 162 mg/dl (70-99); Magnesium 2.1 mg/dl (1.6-2.3); Phosphorus 3.3 mg/dl (2.5-4.5); Potassium 3.9 mmol/L (3.5-5.1); Sodium 149 mmol/L (135-145); eGFR 31.02
[2024-02-03 05:14] LABS: Glucose - Point of Care 196 mg/dl (70-99)
[2024-02-03] MEDS: SYNTHROID 125 MCG TUBE (05:16)
[2024-02-03] MEDS: NOVOLOG FLEXPEN-MODERATE RESISTANCE 1 UNITS SC (05:16)
[2024-02-03] MEDS: DUONEB 3 ML INH ×3 (07:24→20:12)
[2024-02-03] MEDS: DESENEX/MITRAZOL/ZEASORB 1 APPLIC TOPICAL ×2 (07:26→19:35)
[2024-02-03] MEDS: DECADRON 4 MG IV (07:26)
[2024-02-03] MEDS: DIAMOX 250 MG PO ×2 (07:27→19:35)
[2024-02-03] MEDS: HYDROPHOR 1 APPLIC TOPICAL (07:27)
[2024-02-03] MEDS: ELIQUIS 2.5 MG TUBE ×2 (07:27→19:36)
[2024-02-03] MEDS: MIRALAX 17 GRAMS TUBE ×2 (07:28→19:36)
[2024-02-03] MEDS: KCL ELIXIR 40 MEQ TUBE ×2 (07:28→19:36)
[2024-02-03] MEDS: NSS (PRESERVATIVE FREE) 10 ML IV (07:28)
[2024-02-03] MEDS: PACERONE 200 MG TUBE ×3 (07:29→21:55)
[2024-02-03] MEDS: PROTONIX IV 40 MG IV (07:29)
[2024-02-03] MEDS: SENOKOT 17.2 MG TUBE (07:29)
--- NOTE | 2024-02-03 07:29 | W.PN.INTV ---
Today's Communication / Plan
Recommendations
Wean FiO2
Wean PEEP
Try spontaneous breathing trial
Sport bed for precaution
Diuresis
Diamox
Assessment
-
88-year-old woman with past medical history noted, initially admitted with weakness. Found to have increased creatinine from baseline. She was rehydrated. Lasix was held for 2 days. Apparently was having some vomiting prior to admission.
On 01/26/2024 developed hypoxemia and increased work of breathing. Progressed despite diuretics and required noninvasive mechanical ventilation and transferred to the critical care unit. On 01/27/2024 despite diuresis remained hypoxemic with
increased work of breathing. Critical care was consulted for evaluation.
Acute hypoxemic respiratory failure: Suspect multifactorial.
Failed noninvasive mechanical ventilation 01/27/2024
Intubated 01/27/2024.
Acute on chronic heart failure with preserved ejection fraction-weight is elevated from her baseline significantly.
proBNP is elevated
Frothy pinkish secretion on ET tube.
Suspect acute lung injury from aspiration as the patient was vomiting prior to admission: Chest x-ray 01/27/2024 with severe bilateral infiltrates right greater than left.
Cannot rule out diffuse alveolar hemorrhage
Hypothermia
Possible UTI: Significantly abnormal urinalysis 01/27/2024.
Acute on chronic kidney disease-possibly cardiorenal.
Conditions present prior admission:
Hypertension
Morbid obesity
Obesity hypoventilation syndrome with chronic hypercapnia-baseline pCO2 50 suspected
Spinal stenosis
Ambulatory dysfunction
Chronic kidney disease
Hyperlipidemia
Carotid artery stenosis
Atrial fibrillation
Sick sinus syndrome status post pacemaker
Heart failure with preserved ejection fraction
Pacemaker in place
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
Chronic hypercapnic respiratory failure-undiagnosed, likely obesity hypoventilation syndrome.
Plan
Continues to be critically ill on the ventilator and on pressors
Ventilator settings reviewed-airway pressures adequate-occasional elevated peak inspiratory pressures-no obvious mucous plugging
FiO2 as needed to be increased
Increase PEEP to 8-attempt to wean
Chest x-ray 02/01/2024-new moderate consolidation left upper lobe/atelectasis
Chest x-ray 02/02/2024-left upper lobe atelectasis resolved-was likely a mucous plug, left basilar effusion/opacification persists
Chest x-ray 02/03/2024-no atelectasis, cardiomegaly, pulmonary vasculature top normal
ABGs reviewed since admission-was not hypercapnic at time of admission and progressive hypercapnia as well as metabolic alkalosis-suspect contraction from diuresis
Added Diamox 02/02/2024
Follow ABG
Continue mucous plug clearance
Bronchoscopy if mucous plugs continue
Attempt spontaneous breathing trial 02/03/2024
VAP prevention protocol
Aspiration precautions
Eventual speech evaluation once extubated
Sedation vacations
Not a candidate for prone positioning due to morbid obesity
Not a candidate for ECMO due to BMI and age
Nebulizers if needed-currently not bronchospastic
Decadron initiated for possible inflammatory component-appears to be mostly fluid-will begin to reduce Decadron-currently on 4 mg every 24
Diuresis as tolerated--10.5 L /5 days
Patient reportedly 40 pound weight gain in the last several weeks/months-likely mostly fluid
Monitor renal function, electrolytes, intake/output, lower extremity edema and weight
Replace electrolytes as needed
Nephrology following-correspondence reviewed, replete potassium, Bumex drip discontinued
Cardiology following-correspondence reviewed
Amiodarone continues
Echocardiogram this admission: Preserved LVEF. No significant pulmonary hypertension no significant valvular abnormality
Relatively bradycardic-patient has a pacemaker in place.
Diamox for an additional 24 hours-follow ABG
Cultures reviewed
Sputum culture-usual respiratory vicki
Empiric antibiotics-complete a 7-day course of antibiotics
Norepinephrine and vasopressin as needed-attempt to wean
Monitor blood sugar
Insulin drip as needed
DVT prophylaxis-patient on Eliquis 2.5 mg twice daily
GI prophylaxis-on pantoprazole
Nutrition-nasogastric tube feedings initiated 01/29/2024
Prognosis continues to be quite guarded
Dr. Avendaño updated family members-son who is an emergency room physician 01/30/2024. Still critically ill. Somewhat improved. DNR has been discussed but family not ready for it
Dr. Avendaño discussed with son who is a emergency room physician on 01/28/2024. Improved. Still in critical status. Prognosis is guarded
Discussed with family by Dr. Avendaño 01/27/2024-full code. They understand critical situation.
Dr. Avendaño discussed case with cardiology, primary team, nephrology 01/28/2024.
Extensive discussion with family as well 01/28/2024. I suggested at least a DNR status going forward. They are discussing
Dr. Chong reviewed with son-physician 02/02/2024 extensively-current condition, prognosis, spontaneous breathing trial, mucous plugging, metabolic alkalosis, etc.
Critical care statement: A total of 42 minutes of critical care time was provided for this patient today. This includes management of unstable vital signs, evaluation of the patient at bedside, reviewing the patient's pertinent medical records
including radiographs, ventilator management, pressor management, insulin management, microbiology, laboratory evaluations, and discussion with primary team, consultants, pharmacy, nutrition, physical therapy, case management, charge nurse,
critical care nursing, and respiratory therapy.
Subjective Dataa
Subjective Data
Date of Service:
Date of Service: February 03, 2024
Chief Complaint: Photo Machine Operator Follow Up (Acute hypoxemic respiratory failure requiring intubation) and Pulmonary Follow Up
Subjective:
Mentation still depressed, occasional mucous plugs, review of systems unobtainable
Review of Systems
General: Unobtainable - Pat Unresp
Objective Data
Data Reviewed
Vital Signs / I&O / Oxygen:
Vital Signs
Temp Pulse Resp BP Pulse Ox
98.6 F 58 17 115/46 95
02/03/24 03:48 02/03/24 07:00 02/03/24 07:00 02/03/24 00:00 02/03/24 07:00
Intake and Output
02/02/24 02/03/24 02/04/24
06:59 06:59 06:59
Intake Total 3607.1 / 3744.6 4040.05 / 4040.05
Output Total 4050 / 4185 3060 / 3060
Balance -442.9 / -440.4 980.05 / 980.05
SaO2 [A/C] 95
SaO2 95
Nasal Cannula flow liters per 15
minute
Physical Exam
General: Respiratory Distress (n) and Comfortable
HEENT: Normocephalic and Other (ET tube in place with frothy pink secretion)
Cardiovascular: Regular Rhythm, Murmur and Peripheral Edema (2+)
Respiratory: Crackles, Non-Labored Respirations and ET Tube (No significant secretions)
GI: Soft and Distended (Obese)
Neurology: Other (Sedated, mechanical ventilation. Has respiratory effort.)
Skin: Warm
Labs/Micro/Reports
Lab Data
02/03/24 03:19
02/03/24 03:19
Laboratory Results
02/03/24
03:19
pH 7.50 H
pCO2 47 H
pO2 86
HCO3 36.7 H
O2 Delivery Level 60%
[2024-02-03] MEDS: TYLENOL 1000 MG PO (07:30)
--- NOTE | 2024-02-03 07:31 | W.PN.HOSP.TC ---
Today's Communication/Plan
-
FWF as per Nephro
diamox vent mgmt sedation SBT as per ICU
daily weight I/O
wound care
Assessment / Plan
Assessment / Plan
HPI: 88-year-old female with a past medical history of atrial fibrillation, permanent pacemaker, heart failure with preserved ejection fraction, CKD and morbid obesity presents with generalized weakness. Patient lives with her daughter, who brought
her in because she is too weak to even go to the bathroom. Patient was recently treated at [facility] for CHF exacerbation, and released on 12/24/2023. Daughter reports that patient has been increasingly weak. She was recently started on
gabapentin for lower back pain. Daughter feels that she is having side effects, and is tapering her off the gabapentin. Patient is also on Valtrex for suspected herpes zoster rash. Daughter reports patient had an episode of nausea and vomiting
today. Daughter also reports that she is less responsive. Patient does admit to being dizzy with any type of movement. Patient denies chest pain, denies shortness of breath. No abdominal pain, no dysuria.
#Acute hypoxic respiratory failure
Multifactorial, due to heart failure and acute lung injury from aspiration
Transferred to ICU 01/25. Intubated 01/26
Appreciate asphalt distributor tender input, continue vent management as per asphalt distributor tender
01/28 tube feeds started. cont
Lt upper lobe atelectasis noted 01/31 likely mucus plug since resolved on repeat CXR 02/01
started on SBT 02/02 as per ICU
#Acute pulmonary edema
#Acute heart failure with a preserved ejection fraction
#Cardiorenal syndrome
#Acute kidney injury superimposed on stage IIIb chronic kidney disease
Appreciate nephrology input, Bumex drip Diuril placed on hold d/t progressive hypernatremia. Weight trending down
Cardiology eval appreciated, 01/27 echo EF 55-60%, no gross abnormalities
Trend creatinine, trend daily weights
Diamox diuresis as per ICU
#Metabolic Alkalosis
started on Diamox 01/31 as per ICU
#Hypernatremia
free water flush increased 100c/h as per nephro
#Cardiogenic shock
Continue IV steroids taper as per ICU, weaning off Levophed intermittently requiring low dose overnight.
#Concern for aspiration pneumonia -suspect present upon admission
completed 7 days IV abx cefipime
Sputum cultures shows normal vicki, urine culture also with normal vicki
#Hypokalemia
continue scheduled repletions
monitor and provide additional repletions as necessary
#Paroxysmal atrial fibrillation
Status post permanent pacemaker
Patient has been bradycardic, metoprolol held
Pacemaker interrogated and functioning normally
Currently paced, although her atrial lead does not capture except for intermittently high output
Since she is critically ill, cardiology rec not adding a new atrial lead at this time
Continue Eliquis reduced to 2.5 mg BID renal dosing d/t Cr>=1.5 and age>=80
cont amiodarone
#Chronic lower extremity edema
Compression stockings
#Suspected shingles rash left lateral leg below knee, less likely
on Valtrex prior to admission, held since 01/26 intubation as above,
Discontinued gabapentin
lesion doesn't appear to be consistent with shingles, resolving, no need to restart Valtrex at this time
#Spinal stenosis
#Chronic back pain
#Hypothyroidism
Continue levothyroxine
#Obesity due to excess calories
Affects all aspects of care
DVT prophylaxis�Eliquis
Full code
Total Critical Care Time__40___ minutes. I was immediately available to the patient and staff. I personally examined, reviewed labs, diagnostic images/reports, interpretations, treatment plans, discussed patient care with other providers and
patient's son Ismael Holguin (patient is unable to make decisions at this time), entered orders as appropriate and documented the medical record.
Physical Exam
General: Morbidly obese, sedated
HEENT: Normocephalic, Atraumatic, pinpoint pupils b/l, intubated
Respiratory: decreased breath sounds left side compared ti right otherwise clear to auscultation
Cardiac: Normal S1/S2, Regular Rate and Rhythm
GI: Soft, Nontender, Nondistended, Normal Bowel Sounds
Extremities: No Clubbing, Cyanosis, lower ext pitting edema +2 b/l
Neuro: sedated
Anticipated Discharge: > 48 hours
Subjective/Interval History
-
Date of Service: February 03, 2024
sedated intubated off gtt sedation on prn fentanyl pushes.
Objective Data
-
Labs:
Laboratory Results
02/03/24
03:19
WBC 10.5
Hgb 11.5 L
Hct 36.5 L
Plt Count 91 L
HCO3 36.7 H
Sodium 149 H
Potassium 3.9
Chloride 101
Carbon Dioxide 36 H
BUN 105 H*
Creatinine 1.6 H
Glucose 162 H
Calcium 8.3 L
Vital Signs:
Vital Signs
Temp Pulse Resp BP Pulse Ox
98.6 F 58 17 115/46 95
02/03/24 03:48 02/03/24 07:00 02/03/24 07:00 02/03/24 00:00 02/03/24 07:00
I&O
02/02/24 02/03/24 02/04/24
06:59 06:59 06:59
Intake Total 3607.1 / 3744.6 4040.05 / 4040.05
Output Total 4050 / 4185 3060 / 3060
Balance -442.9 / -440.4 980.05 / 980.05
--- NOTE | 2024-02-03 08:57 | W.PN.CARDCBS ---
Today's Communication / Plan
-
Nephrology stopped diuretics and Diamox has been started.
Remains off pressors.
Patient is critically ill intubated and sedated with acute hypoxic respiratory distress likely multifactorial with heart failure exacerbation, acute lung injury from aspiration
Cont vent management as per government documents librarian
Cont IV steroids and antibiotics per pulmonary
For PAFib, continue Eliquis 5mg BID. Hgb has been stable, 11.5 on Feb 01 and .
Cont amiodarone load 200 mg TID via tube to try to help maintain AV paced rhythm.
Impression / Plan
-
.
PCP: Dr. Rojas
Marine Animal Trainer: Dr. Ramirez
88-year-old female with complex PMH of chronic HFpEF, paroxysmal A-fib, hypertension initially admitted with weakness. Developed hypoxemia which increased work of breathing despite diuretics currently intubated.
Impression:
Acute on chronic HFpEF
Acute hypoxemic respiratory failure, intubated 01/27/24
s/p Hypokalemia
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
Paroxysmal atrial fibrillation
Chronic Eliquis OAC
Chronic amiodarone therapy
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
Hyperlipidemia
Hypertension
Hypothyroidism
Obesity
Carotid arterial disease
Echo 01/28/2024: EF 55 to 60%, normal RV, normal LA size, normal TV opening.
Echo 04/26/23: Technically difficult study. EF 55 to 60%. Likely normal regional wall motion of but difficult to last obtained given rapid rate. Normal LV wall thickness. Mild MR. Aortic valve sclerosis. Trace AI. PA pressure 27 mmHg.
Echo 12/21/23: EF 55%, normal RV size and function, moderate MR, moderate TR with PAP 44 mmHg
Plan:
#Acute on chronic HFpEF.
Has diuresed very well. Creatinine remains stable at 1.6.
Nephrology stopped diuretics and Diamox has been started.
Remains off pressors.
#Acute hypoxemic respiratory failure, intubated 01/2024
-Patient is critically ill intubated and sedated with acute hypoxic respiratory distress likely multifactorial with heart failure exacerbation, acute lung injury from aspiration
-Cont vent management as per government documents librarian, attempts being made to wean sedation.
-Cont IV steroids and antibiotics per pulmonary
#Paroxysmal A-fib
-Having paroxysmal atrial fibrillation, v-paced.
-Continue Eliquis 5mg BID. Hgb has been stable, 11.5 on Feb 01 and .
-Cont amiodarone load 200 mg TID via tube to try to help maintain AV paced rhythm.
-TSH WNL. Continue synthroid.
CC time 30min
Discussed with nursing.
HPI: Beverly is an 88 year old female with PMH of chronic HFpEF, paroxysmal atrial fibrillation, PPM, HTN, HLD, CDK, and hypothyroidism. She presented to [facility] initially for generalized weakness. She was recently admitted to 12/2023 with acute heart
failure exacerbation. At discharge, weight was down to 261lbs. She was seen in follow up by cardiology and noted increased edema, however was not able to stand on scale, so weight was unknown. She was recommended to start metolazone 2.5mg Mondays
and and recheck labs in a week. Daughters brought her in for evaluation as patient became increasingly weak to the point that she was unable to even walk to the bathroom and noted that she had episode of nausea and vomiting earlier in the
day. In ER, she was noted to have EULOGIO with creat up to 2.0 and she was hypotensive. Her lasix and spironolactone were held and she was given 500cc IVFs. Her creat improved over the next 2 days, however she then became increasingly SOB and hypoxic in
the evening 01/25, requiring BiPAP. She had repeat CXR which showed moderate CHF. She was given 80mg IV lasix, followed by 40mg later in the evening. In AM 01/26, respiratory status continued to worsen, and she was intubated. She was given another
dose of 60mg IV lasix this AM. Her weight is now up ~40lbs compared to discharge weight from admission 12/2023. Cardiology consulted for evaluation given acute respiratory failure in the setting of acute heart failure. Intubated and sedated at time
of evaluation.
Progress Note - Marine Animal Trainer
Subjective
Date of Service: February 03, 2024
Patient seen and examined. Lethargic on vent.
Objective
Labs:
02/03/24 03:19
02/03/24 03:19
Labs
Hgb 11.5 g/dL (12.0-16.0) L 02/03/24 03:19
Hct 36.5 % (37.0-47.0) L 02/03/24 03:19
Plt Count 91 10^3/uL (130-400) L 02/03/24 03:19
PT 24.0 Sec (11.4-14.6) H 01/27/24 04:10
INR 2.12 01/27/24 04:10
APTT 38.8 Sec (23.4-35.0) H 01/27/24 04:10
Sodium 149 mmol/L (135-145) H 02/03/24 03:19
Potassium 3.9 mmol/L (3.5-5.1) 02/03/24 03:19
BUN 105 mg/dl (7-17) H* 02/03/24 03:19
Creatinine 1.6 mg/dL (0.6-1.0) H 02/03/24 03:19
Glucose 162 mg/dl (70-99) H 02/03/24 03:19
Vital Signs and I&O:
Vital Signs
Temp Pulse Resp BP Pulse Ox
98.2 F 75 20 115/46 94
02/03/24 08:14 02/03/24 08:06 02/03/24 08:06 02/03/24 00:00 02/03/24 08:06
Vital Signs
Temp Pulse Resp BP Pulse Ox
98.2 F 75 20 115/46 94
02/03/24 08:14 02/03/24 08:06 02/03/24 08:06 02/03/24 00:00 02/03/24 08:06
Intake & Output
02/01/24 02/02/24 02/03/24 02/04/24
06:59 06:59 06:59 06:59
Intake Total 2960.3 / 3074.0 3607.1 / 3744.6 4040.05 / 4195.05 490 / 490
Output Total 4255 / 4525 4050 / 4185 3060 / 3185 250 / 250
Balance -1294.7 / -1451.0 -442.9 / -440.4 980.05 / 1010.05 240 / 240
Physical Exam
Physical Exam
General: No acute distress, lethargic on vent
Neck: Negative JVD
Heart: Regular, Negative S3 positive S1/S2, Negative S4, No murmur
Lungs: CTA b/l, negative wheezes/rales/rhonchi
Abd: Morbid obesity, positive BS, NT/ND, neg rebound/rigidity/guarding
Ext: Negative cyanosis/clubbing/edema
Neuro: nonfocal
--- NOTE | 2024-02-03 09:11 | W.PN.NEPH.PH ---
Today's Communication / Plan
-
D5W
Assessment/Plan
-
IMP:
Acute kidney injury superimposed on stage IIIb chronic kidney disease
Acute on Chronic heart failure with a preserved ejection fraction
Acute hypoxic resp failure
Chronic lower extremity edema
Paroxysmal atrial fibrillation
Status post permanent pacemaker
Nausea/vomiting
Generalized weakness
Hypokalemia
Suspected shingles rash
Spinal stenosis
Chronic back pain
Hypothyroidism
Obesity due to excess calories
?metolazone causing pancytopenia 12/2023
Plan:
on Diamox
Hold lasix today
Follow BMP
Continue higher free water flush 100ml/hr
add D5W, FWD ~4L, so 80ml/hr
check urine osm
follow BMP
keep MAP > 65
critical care time 31 minutes
-
-
Date of Service: February 03, 2024
CC / HPI / ROS
-
Chief Complaint:
EULOGIO, CKD
History of Present Illness:
EULOGIO/Cr stable 1.6
BUN 105 stable
plts down to 91
Hemodynamically stable
Nonoliguric despite discontinuation of diuretics
on diamox for metabolic alkalosis
on Vent, sedated
Hypernatremia up to 149
Review of Systems:
intubated sedated
Labs
-
Labs:
WBC 10.5 10^3/uL (4.8-10.8) 02/03/24 03:19
RBC 3.99 10^6/uL (4.20-5.40) L 02/03/24 03:19
Hgb 11.5 g/dL (12.0-16.0) L 02/03/24 03:19
Hct 36.5 % (37.0-47.0) L 02/03/24 03:19
Plt Count 91 10^3/uL (130-400) L 02/03/24 03:19
Sodium 149 mmol/L (135-145) H 02/03/24 03:19
Potassium 3.9 mmol/L (3.5-5.1) 02/03/24 03:19
Chloride 101 mmol/L (98-107) 02/03/24 03:19
Carbon Dioxide 36 mmol/L (22-30) H 02/03/24 03:19
BUN 105 mg/dl (7-17) H* 02/03/24 03:19
Creatinine 1.6 mg/dL (0.6-1.0) H 02/03/24 03:19
eGFR 31.02 02/03/24 03:19
Glucose 162 mg/dl (70-99) H 02/03/24 03:19
Calcium 8.3 mg/dl (8.4-10.2) L 02/03/24 03:19
Phosphorus 3.3 mg/dl (2.5-4.5) 02/03/24 03:19
Daz-F-Fwahwcwrztg Pept 2660 pg/ml 01/27/24 01:25
Physical Exam
-
Vital Signs:
Vital Signs
Temp Pulse Resp BP Pulse Ox
98.2 F 75 20 115/46 94
02/03/24 08:14 02/03/24 08:06 02/03/24 08:06 02/03/24 00:00 02/03/24 08:06
Cardiovascular:: Regular rate and rhythm
Respiratory:: Bilateral: Coarse
Lung Excursion:: Normal
Abdomen:: Nontender and Soft
Bowel Sounds:: Normal
Extremity Edema:: +2: Bilateral:
[2024-02-03 10:10] LABS: Osmolality Urine 433 mOsm/kg (300-900)
[2024-02-03] MEDS: D5W 1000 IV ×2 (10:14→21:55)
[2024-02-03 10:45] LABS: Urine Sodium < 5 mmol/L (30-90)
[2024-02-03 11:48] LABS: Glucose - Point of Care 289 mg/dl (70-99)
[2024-02-03] MEDS: NOVOLOG FLEXPEN-MODERATE RESISTANCE 5 UNITS SC (12:20)
--- NOTE | 2024-02-03 12:30 | PTCARENOTE ---
Pt remains lethargic despite no sedation. She has remained on wean since 732 this am. Placed on sport bed for percussion which pt tolerated well. Otherwise systems unchanged.
[2024-02-03 12:38] LABS: B.E. 11.3 mmol/L; HCO3 35.9 mmol/L (21-28); O2 Saturation % 96.9 % (94-98); PCO2 46 mmHg (32-35); PO2 74 mmHg (83-108)
[2024-02-03 12:39] LABS: O2 Therapy 40
[2024-02-03 14:22] LABS: Glucose - Point of Care 284 mg/dl (70-99)
[2024-02-03] MEDS: NOVOLIN R INSULIN INFUSION 100 IV (14:26)
[2024-02-03] MEDS: NOVOLIN R 5 UNITS IV (14:27)
--- NOTE | 2024-02-03 14:35 | PTCARENOTE ---
pt started on insulin gtt for hyperglycemia as charted.
--- NOTE | 2024-02-03 14:52 | CM ---
CM following re: discharge planning.
Discussed in Rounds reviewed pt's chart, met with pt. Per Rounds meeting, pt continues to be critically ill, remains intubated, on pressors, spontaneous breathing trial today, continue supportive care.
D/C plan: [facility] when pt is medically stable.
CM will follow with discharge plan updates as hospitalization progresses
[2024-02-03 15:45] LABS: Glucose - Point of Care 202 mg/dl (70-99)
--- NOTE | 2024-02-03 15:45 | PTCARENOTE ---
systems reviewed. no changes. pt remains withdrawn. eyes open more with percussion/vibration on bed, but otherwise no changes.
[2024-02-03 16:43] LABS: Glucose - Point of Care 211 mg/dl (70-99)
--- NOTE | 2024-02-03 17:25 | PTCARENOTE ---
Son and daughter in law in to visit. Updated to events of day.
[2024-02-03 17:47] LABS: Glucose - Point of Care 199 mg/dl (70-99)
[2024-02-03 18:40] LABS: Glucose - Point of Care 184 mg/dl (70-99)
--- NOTE | 2024-02-03 19:30 | SUR.PHASEI ---
received report from RN, dual RN med rec @ bedside, pt lethargic opens eyes but does not track, does not follow command or move extremities, PERRLA 3, sinus tyree on the monitor with PVC's and prolonged QT, + radials and pedals +2 general anasarca,
L radial A-line zeroed with cuff correlation, 8 ETT 21 cm @ lip AC 14/420/8/40, lungs coarse with scattered rhonchi, thick tannish blood tinged secretions from ETT, round obese belly BSx4 hyperactive, RT in place, L DHT 65cm TF @ goal 55/100,
thermistor joyce draining antelmo yellow output, bruising on upper and lower extremities, x2 foams on LLL intact blisters, sport bed with vibration and percussion per order, 20G LH, R DL PICC, insulin gtt 10ml, D5 80ml, otherwise refer to
documentation.
[2024-02-03 19:43] LABS: Glucose - Point of Care 118 mg/dl (70-99)
[2024-02-03 20:41] LABS: Glucose - Point of Care 126 mg/dl (70-99)
[2024-02-03 21:41] LABS: Glucose - Point of Care 114 mg/dl (70-99)
[2024-02-03 22:41] LABS: Glucose - Point of Care 129 mg/dl (70-99)
[2024-02-04] VITALS: BP 134/59
[2024-02-04 00:40] LABS: Glucose - Point of Care 100 mg/dl (70-99)
--- NOTE | 2024-02-04 00:45 | PTCARENOTE ---
systems reviewed, insulin gtt titrated per worklist, Q4 30 min percussion per order, otherwise refer to documentation
[2024-02-04 02:33] LABS: Glucose - Point of Care 130 mg/dl (70-99)
[2024-02-04] MEDS: NOVOLIN R INSULIN INFUSION 100 IV (04:08)
[2024-02-04 04:34] LABS: Glucose - Point of Care 89 mg/dl (70-99)
[2024-02-04] MEDS: SUBLIMAZE 50 MCG IV (05:10)
--- NOTE | 2024-02-04 05:30 | PTCARENOTE ---
systems reviewed, increase in WOB, fent given, CHG bath mouth care, labs drawn, otherwise refer to documentation
[2024-02-04 05:32] VITALS: BMI 52.1
[2024-02-04] MEDS: SYNTHROID 125 MCG TUBE (05:53)
[2024-02-04 06:00] LABS: Glucose - Point of Care 101 mg/dl (70-99)
[2024-02-04 06:03] LABS: Blood Urea Nitrogen 80 mg/dl (7-17); Calcium 7.9 mg/dl (8.4-10.2); Carbon Dioxide 32 mmol/L (22-30); Chloride 100 mmol/L (98-107); Estimated Creatinine Clearance 43 ml/min; Glucose 86 mg/dl (70-99); Magnesium 2.2 mg/dl (1.6-2.3); Phosphorus 2.6 mg/dl (2.5-4.5); Potassium 3.5 mmol/L (3.5-5.1); Sodium 141 mmol/L (135-145); eGFR 43.81
[2024-02-04 06:04] VITALS: BP 135/54
[2024-02-04 06:07] LABS: Hemoglobin 10.7 g/dL (12.0-16.0); Mean Corp Hgb Conc. 31.5 g/dL (33.0-37.0); Mean Corpuscular Hgb 28.8 pg (27.0-31.0); Mean Corpuscular Volume 91.6 fL (81.0-99.0); Mean Platelet Volume 11.7 fL (7.4-10.4); Platelet Count 88 10^3/uL (130-400); Red Blood Cell Count 3.71 10^6/uL (4.20-5.40); Red Cell Dist. Width 19.6 % (11.5-14.5); White Blood Cell Count 11.6 10^3/uL (4.8-10.8)
[2024-02-04] MEDS: KCL 100 IV (06:40)
[2024-02-04 07:11] LABS: Glucose - Point of Care 113 mg/dl (70-99)
--- NOTE | 2024-02-04 07:23 | W.PN.HOSP.TC ---
Today's Communication/Plan
-
Glycemic control
diamox vent mgmt sedation SBT as per ICU
daily weight I/O
wound care
Amiodarone taper as per Cardio
Assessment / Plan
Assessment / Plan
HPI: 88-year-old female with a past medical history of atrial fibrillation, permanent pacemaker, heart failure with preserved ejection fraction, CKD and morbid obesity presents with generalized weakness. Patient lives with her daughter, who brought
her in because she is too weak to even go to the bathroom. Patient was recently treated at [facility] for CHF exacerbation, and released on 12/24/2023. Daughter reports that patient has been increasingly weak. She was recently started on
gabapentin for lower back pain. Daughter feels that she is having side effects, and is tapering her off the gabapentin. Patient is also on Valtrex for suspected herpes zoster rash. Daughter reports patient had an episode of nausea and vomiting
today. Daughter also reports that she is less responsive. Patient does admit to being dizzy with any type of movement. Patient denies chest pain, denies shortness of breath. No abdominal pain, no dysuria.
#Acute hypoxic respiratory failure
Multifactorial, due to heart failure and acute lung injury from aspiration
Transferred to ICU 01/25. Intubated 01/26
Appreciate senior boiler operator input, continue vent management as per senior boiler operator
01/28 tube feeds started. cont
Lt upper lobe atelectasis noted 01/31 likely mucus plug since resolved on repeat CXR 02/01
started on SBT 02/02 as per ICU
#Acute pulmonary edema
#Acute heart failure with a preserved ejection fraction
#Cardiorenal syndrome
#Acute kidney injury superimposed on stage IIIb chronic kidney disease
Appreciate nephrology input, Bumex drip Diuril placed on hold d/t progressive hypernatremia. Weight trending down
Cardiology eval appreciated, 01/27 echo EF 55-60%, no gross abnormalities
Trend creatinine, trend daily weights
Diamox diuresis as per ICU
#Metabolic Alkalosis
started on Diamox 01/31 as per ICU
#Hypernatremia
treated with free water flush and IV dextrose as per nephro
since resolved, IVF completed, FWF reduced to 50 cc/h
#Cardiogenic shock
Continue IV steroids taper as per ICU
eventually weaned off Levophed
#Concern for aspiration pneumonia -suspect present upon admission
completed 7 days IV abx cefipime
Sputum cultures shows normal vicki, urine culture also with normal vicki
#Hypokalemia
continue scheduled repletions
monitor and provide additional repletions as necessary
#Paroxysmal atrial fibrillation
Status post permanent pacemaker
Patient has been bradycardic, metoprolol held
Pacemaker interrogated and functioning normally
Currently paced, although her atrial lead does not capture except for intermittently high output
Since she is critically ill, cardiology rec not adding a new atrial lead at this time
Continue Eliquis reduced to 2.5 mg BID renal dosing d/t Cr>=1.5 and age>=80
cont amiodarone taper as per Cardio
-200 mg TID x1 wk (02/06/24 last day)
-200 mg BID x 1 wk (02/13/24 last day)
-then 200 mg daily (start 02/14/24)
#Hyperglycemic
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
Glycemic control as per ICU
#Chronic lower extremity edema
Compression stockings
#Suspected shingles rash left lateral leg below knee, less likely
on Valtrex prior to admission, held since 01/26 intubation as above,
Discontinued gabapentin
lesion doesn't appear to be consistent with shingles, resolving, no need to restart Valtrex at this time
#Spinal stenosis
#Chronic back pain
#Hypothyroidism
Continue levothyroxine
#Obesity due to excess calories
Affects all aspects of care
DVT prophylaxis�Eliquis
Full code
Total Critical Care Time__40___ minutes. I was immediately available to the patient and staff. I personally examined, reviewed labs, diagnostic images/reports, interpretations, treatment plans, discussed patient care with other providers and
patient's son Dr Ismael Holguin (patient is unable to make decisions at this time), entered orders as appropriate and documented the medical record.
Physical Exam
General: Morbidly obese
HEENT: Normocephalic, Atraumatic, pinpoint pupils b/l, intubated
Respiratory: clear to auscultation b/l some rhonchi noted
Cardiac: Normal S1/S2, Regular Rate and Rhythm
GI: Soft, Nontender, Nondistended, Normal Bowel Sounds
Extremities: No Clubbing, Cyanosis, lower ext pitting edema +2 b/l, compression stockings in place
Neuro: Lethargic arousable responsive to verbal physical stimuli but noncommunicative not following commands
Anticipated Discharge: > 48 hours
Subjective/Interval History
-
Date of Service: February 04, 2024
lethargic but arousable. responds to verbal physical stimuli but noncommunicative not following commands.
Objective Data
-
Labs:
Laboratory Results
02/04/24
05:07
WBC 11.6 H
Hgb 10.7 L
Hct 34.0 L
Plt Count 88 L
Sodium 141 D
Potassium 3.5
Chloride 100
Carbon Dioxide 32 H
BUN 80 H
Creatinine 1.2 H
Glucose 86
Calcium 7.9 L
Vital Signs:
Vital Signs
Temp Pulse Resp BP Pulse Ox
99.2 F 58 17 134/59 94
02/04/24 03:18 02/04/24 05:00 02/04/24 05:00 02/04/24 00:00 02/04/24 05:00
I&O
02/03/24 02/04/24 02/05/24
06:59 06:59 06:59
Intake Total 4040.05 / 4195.05 5749.8 / 5749.8
Output Total 3060 / 3185 3375 / 3375
Balance 980.05 / 1010.05 2374.8 / 2374.8
--- NOTE | 2024-02-04 07:57 | W.PN.INTV ---
Today's Communication / Plan
Recommendations
Attempt to wean
Continue diuresis
Consider continuing Diamox if metabolic alkalosis persists
Spontaneous breathing trial
Not ready for extubation
Assessment
-
88-year-old woman with past medical history noted, initially admitted with weakness. Found to have increased creatinine from baseline. She was rehydrated. Lasix was held for 2 days. Apparently was having some vomiting prior to admission.
On 01/26/2024 developed hypoxemia and increased work of breathing. Progressed despite diuretics and required noninvasive mechanical ventilation and transferred to the critical care unit. On 01/27/2024 despite diuresis remained hypoxemic with
increased work of breathing. Critical care was consulted for evaluation.
Acute hypoxemic respiratory failure: Suspect multifactorial.
Failed noninvasive mechanical ventilation 01/27/2024
Intubated 01/27/2024.
Acute on chronic heart failure with preserved ejection fraction-weight is elevated from her baseline significantly.
proBNP is elevated
Frothy pinkish secretion on ET tube.
Suspect acute lung injury from aspiration as the patient was vomiting prior to admission: Chest x-ray 01/27/2024 with severe bilateral infiltrates right greater than left.
Cannot rule out diffuse alveolar hemorrhage
Hypothermia
Possible UTI: Significantly abnormal urinalysis 01/27/2024.
Acute on chronic kidney disease-possibly cardiorenal.
Conditions present prior admission:
Hypertension
Morbid obesity
Obesity hypoventilation syndrome with chronic hypercapnia-baseline pCO2 50 suspected
Spinal stenosis
Ambulatory dysfunction
Chronic kidney disease
Hyperlipidemia
Carotid artery stenosis
Atrial fibrillation
Sick sinus syndrome status post pacemaker
Heart failure with preserved ejection fraction
Pacemaker in place
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
Chronic hypercapnic respiratory failure-undiagnosed, likely obesity hypoventilation syndrome.
Plan
Critically ill on the ventilator and on pressors
Ventilator settings reviewed-airway pressures adequate-occasional elevated peak inspiratory pressures-no obvious mucous plugging
FiO2 as needed to be increased
Increase PEEP to 8-attempt to wean
Chest x-ray 02/01/2024-new moderate consolidation left upper lobe/atelectasis
Chest x-ray 02/02/2024-left upper lobe atelectasis resolved-was likely a mucous plug, left basilar effusion/opacification persists
Chest x-ray 02/03/2024-no atelectasis, cardiomegaly, pulmonary vasculature top normal
Chest x-ray 02/04/2024-airspace opacifications both lower lobes increased consistent with possible CHF or pneumonia
ABGs reviewed since admission-was not hypercapnic at time of admission and progressive hypercapnia as well as metabolic alkalosis-suspect contraction from diuresis
Added Diamox 02/02/2024
ABG 02/03/2020 4-40 670/7.50
Continue mucous plug clearance
Bronchoscopy if mucous plugs continue-has not needed
Attempted spontaneous breathing trial 02/03/2024-tolerated for many hours
Continue spontaneous breathing trials 02/04/2024-doubt we will be able to extubate with mental status-will need to wait till more alert-sedation out
VAP prevention protocol
Aspiration precautions
Eventual speech evaluation once extubated
Sedation vacations
Not a candidate for prone positioning due to morbid obesity
Not a candidate for ECMO due to BMI and age
Nebulizers if needed-currently not bronchospastic
Decadron initiated for possible inflammatory component-appears to be mostly fluid-will begin to reduce Decadron-currently on 4 mg every 24
Diuresis as tolerated--initially 10.5 L /5 days-more recently fluid weight coming back on and chest x-ray looking more like CHF
Patient reportedly 40 pound weight gain in the last several weeks/months-likely mostly fluid
Monitor renal function, electrolytes, intake/output, lower extremity edema and weight
Replace electrolytes as needed
Nephrology following-correspondence reviewed, replete potassium, Bumex drip discontinued
Cardiology following-correspondence reviewed
Amiodarone continues
Echocardiogram this admission: Preserved LVEF. No significant pulmonary hypertension no significant valvular abnormality
Relatively bradycardic-patient has a pacemaker in place.
Diamox continues for metabolic alkalosis
Cultures reviewed
Sputum culture-usual respiratory vicki
Empiric antibiotics-complete a 7-day course of antibiotics
Norepinephrine and vasopressin as needed-attempt to wean
Monitor blood sugar
Insulin drip as needed
DVT prophylaxis-patient on Eliquis 2.5 mg twice daily
GI prophylaxis-on pantoprazole
Nutrition-nasogastric tube feedings initiated 01/29/2024
Prognosis continues to be quite guarded
Dr. Avendaño updated family members-son who is an emergency room physician 01/30/2024. Still critically ill. Somewhat improved. DNR has been discussed but family not ready for it
Dr. Avendaño discussed with son who is a emergency room physician on 01/28/2024. Improved. Still in critical status. Prognosis is guarded
Discussed with family by Dr. Avendaño 01/27/2024-full code. They understand critical situation.
Dr. Avendaño discussed case with cardiology, primary team, nephrology 01/28/2024.
Extensive discussion with family as well 01/28/2024. I suggested at least a DNR status going forward. They are discussing
Dr. Chong reviewed with son-physician 02/02/2024 extensively-current condition, prognosis, spontaneous breathing trial, mucous plugging, metabolic alkalosis, etc.
Critical care statement: A total of 42 minutes of critical care time was provided for this patient today. This includes management of unstable vital signs, evaluation of the patient at bedside, reviewing the patient's pertinent medical records
including radiographs, ventilator management, pressor management, insulin management, microbiology, laboratory evaluations, and discussion with primary team, consultants, pharmacy, nutrition, physical therapy, case management, charge nurse,
critical care nursing, and respiratory therapy.
Subjective Dataa
Subjective Data
Date of Service:
Date of Service: February 04, 2024
Chief Complaint: Bead Wire Insulator Follow Up (Acute hypoxemic respiratory failure requiring intubation) and Pulmonary Follow Up
Subjective:
Still quite sedate, tolerating spontaneous breathing trial but not very interactive, no increase secretions,
Review of Systems
General: Unobtainable - Sedation
Objective Data
Data Reviewed
Vital Signs / I&O / Oxygen:
Vital Signs
Temp Pulse Resp BP Pulse Ox
99.2 F 58 17 134/59 94
02/04/24 03:18 02/04/24 05:00 02/04/24 05:00 02/04/24 00:00 02/04/24 05:00
Intake and Output
02/03/24 02/04/24 02/05/24
06:59 06:59 06:59
Intake Total 4040.05 / 4195.05 5749.8 / 5749.8
Output Total 3060 / 3185 3375 / 3375
Balance 980.05 / 1010.05 2374.8 / 2374.8
SaO2 [CPAP/PSV] 93
SaO2 [A/C] 96
SaO2 94
Nasal Cannula flow liters per 15
minute
Physical Exam
General: Respiratory Distress (n) and Comfortable
HEENT: Normocephalic and Other (ET tube in place with frothy pink secretion)
Cardiovascular: Regular Rhythm, Murmur and Peripheral Edema (2+)
Respiratory: Crackles, Non-Labored Respirations and ET Tube (No significant secretions)
GI: Soft and Distended (Obese)
Neurology: Other (Sedated, mechanical ventilation. Has respiratory effort.)
Skin: Warm
Labs/Micro/Reports
Lab Data
02/04/24 05:07
02/04/24 05:07
Laboratory Results
02/03/24
12:31
pH 7.50 H
pCO2 46 H
pO2 74 L
HCO3 35.9 H
O2 Delivery Level 40
[2024-02-04 08:00] VITALS: BP 127/57
[2024-02-04] MEDS: DUONEB 3 ML INH ×3 (08:03→19:45)
[2024-02-04 08:16] LABS: Glucose - Point of Care 96 mg/dl (70-99)
--- NOTE | 2024-02-04 08:26 | W.PN.NEPH.PH ---
Today's Communication / Plan
-
hold diuretics
d/C IVfs
Assessment/Plan
-
IMP:
Acute kidney injury superimposed on stage IIIb chronic kidney disease
Acute on Chronic heart failure with a preserved ejection fraction
Acute hypoxic resp failure
Chronic lower extremity edema
Paroxysmal atrial fibrillation
Status post permanent pacemaker
Nausea/vomiting
Generalized weakness
Hypokalemia
Suspected shingles rash
Spinal stenosis
Chronic back pain
Hypothyroidism
Obesity due to excess calories
?metolazone causing pancytopenia 12/2023
Plan:
on Diamox for contraction alkalosis
Holding lasix today as uop ~3 liters
Follow BMP
decrease FWF to 50cc/hr
d/c further D5W
checked urine osm: 433 (no DI)
follow BMP
keep MAP > 65
critical care time 31 minutes
-
-
Date of Service: February 04, 2024
CC / HPI / ROS
-
Chief Complaint:
EULOGIO, CKD
History of Present Illness:
EULOGIO/Cr stable 1.6
BUN 105 stable
plts down to 91
Hemodynamically stable
Nonoliguric despite discontinuation of diuretics
on diamox for metabolic alkalosis
on Vent, sedated
Hypernatremia up to 149
Review of Systems:
intubated sedated
Labs
-
Labs:
WBC 11.6 10^3/uL (4.8-10.8) H 02/04/24 05:07
RBC 3.71 10^6/uL (4.20-5.40) L 02/04/24 05:07
Hgb 10.7 g/dL (12.0-16.0) L 02/04/24 05:07
Hct 34.0 % (37.0-47.0) L 02/04/24 05:07
Plt Count 88 10^3/uL (130-400) L 02/04/24 05:07
Sodium 141 mmol/L (135-145) D 02/04/24 05:07
Potassium 3.5 mmol/L (3.5-5.1) 02/04/24 05:07
Chloride 100 mmol/L (98-107) 02/04/24 05:07
Carbon Dioxide 32 mmol/L (22-30) H 02/04/24 05:07
BUN 80 mg/dl (7-17) H 02/04/24 05:07
Creatinine 1.2 mg/dL (0.6-1.0) H 02/04/24 05:07
eGFR 43.81 02/04/24 05:07
Glucose 86 mg/dl (70-99) 02/04/24 05:07
Calcium 7.9 mg/dl (8.4-10.2) L 02/04/24 05:07
Phosphorus 2.6 mg/dl (2.5-4.5) 02/04/24 05:07
Ohk-Z-[id number] Pept 2660 pg/ml 01/27/24 01:25
Physical Exam
-
Vital Signs:
Vital Signs
Temp Pulse Resp BP Pulse Ox
99.2 F 58 17 134/59 94
02/04/24 03:18 02/04/24 05:00 02/04/24 05:00 02/04/24 00:00 02/04/24 05:00
Cardiovascular:: Regular rate and rhythm
Respiratory:: Bilateral: Coarse
Lung Excursion:: Normal
Abdomen:: Nontender and Soft
Bowel Sounds:: Normal
Extremity Edema:: +2: Bilateral:
[2024-02-04 09:00] VITALS: BP 134/66
--- NOTE | 2024-02-04 09:00 | PTCARENOTE ---
Rec'd pt at 0800 resting in bed on Sport bed. Using Percussion for 30 min on the sport bed and pt tolerated. Pt opens eyes to deep stimuli and turning but otherwise has eyes shut. Follows no commands. Sl movement of toes to plantar stroke but no
movement of arms to nailbed pressure. Does have a + cough and gag. Skin is pale wm and dry. Wounds as documented. Miconazole under breast for reddness. Sacral foam remains intact. Tubi product development assistant in place on bilateral lower legs- legs inspected, cleansed
and hydrophor placed on lower legs. Silicone border foam dressing remain on Lower legs for some intact blisters. Pt with +2 generalized anasarca. Respirs are intact on the vent. #8 Ett at the 21 cm mitchell - repositioned in the center of the mouth.
Suctioned for mod amt of thick tannish secretions. BS are coarse throughout. Pt had been on AC settings during the night but changed at 0800 to CPAP of 8/PS 8 40% FIo2 and currently tolerating with sats of 92-94% , RR 22-30 and TV 300-400's. Does
not look labored. Monitor SR with BB config and 1st'avb. + pulses. VS as documented. Pt with L radial Bonnie- zeroed and recalibrated. Wavefrom as documented. Within 15 mm/hr of cuff BP. Good cms checks to distal extremity. Abd is obese with + BS.
Tolerating Osmolite 1.2 tube feeds at 55 ml/hr- Flush decreased to 50 ml/hr per Dr. Peters. Infusing via L nare feeding tube 65 cm mitchell. Rectal trumpet intact for liquid brown stool. Thermistor joyce in place for yellow urine. IV Fluids dc'd at
0800 per MD order. 40 meq KCL rider continues via R arm DL picc, Other lumen with Insulin gtt for glycemic protocol. Turned and repositioned. Mouth care given.
[2024-02-04 09:07] VITALS: BP 139/66
[2024-02-04 09:14] LABS: Glucose - Point of Care 110 mg/dl (70-99)
[2024-02-04] MEDS: PROTONIX IV 40 MG IV (09:20)
[2024-02-04] MEDS: DIAMOX 250 MG PO (09:20)
[2024-02-04] MEDS: DECADRON 4 MG IV (09:20)
[2024-02-04] MEDS: MIRALAX 17 GRAMS TUBE ×2 (09:20→21:19)
[2024-02-04] MEDS: NSS (PRESERVATIVE FREE) 10 ML IV (09:20)
[2024-02-04] MEDS: KCL ELIXIR 40 MEQ TUBE ×2 (09:20→21:19)
[2024-02-04] MEDS: SENOKOT 17.2 MG TUBE (09:20)
[2024-02-04] MEDS: DESENEX/MITRAZOL/ZEASORB 1 APPLIC TOPICAL ×2 (09:21→21:18)
[2024-02-04] MEDS: PACERONE 200 MG TUBE ×3 (09:21→21:19)
[2024-02-04] MEDS: ELIQUIS 2.5 MG TUBE (09:21)
[2024-02-04] MEDS: HYDROPHOR 1 APPLIC TOPICAL (09:22)
[2024-02-04] MEDS: FLUSH (NSS) 3 FLUSH IV (09:26)
--- NOTE | 2024-02-04 10:00 | PTCARENOTE ---
Complete AM care given. Turned and repositioned. Tolerated percussion on the sport bed.
[2024-02-04 10:07] LABS: Glucose - Point of Care 107 mg/dl (70-99)
[2024-02-04 11:16] LABS: Glucose - Point of Care 122 mg/dl (70-99)
[2024-02-04 12:13] LABS: Glucose - Point of Care 134 mg/dl (70-99)
--- NOTE | 2024-02-04 12:30 | PTCARENOTE ---
Assessment is unchanged. Neuro assessment is unchanged. Opens eyes to deep stimuli or turning but follows no commands. Suctioned for thick bloody tinged secretions. + cough. BS are coarse. Tolerating CPAP 8/PS 8 with RR 20-24 and TV in 300-400's.
Sats are 94%. Monitor Remains in SR BB configuation and 1st'avb/ Vs as documented. Bonnie tubing and bag changed. Site wnl. Tolerating tube feeds. 240 ml residual aspirated and reinstilled. Vickers draining yellow urine. KCL rider completed earlier.
Turned and repositioned. ETT repositioned. on the L side of the mouth at the 21 cm mitchell. Mouth care given.
--- NOTE | 2024-02-04 12:41 | CM ---
CM following re: discharge planning.
Discussed in Rounds reviewed pt's chart, met with pt. Per Rounds meeting, pt continues to be critically ill, remains intubated, on pressors, spontaneous breathing trial today, no plan for extubation today, continue supportive care.
D/C plan: [facility] when pt is medically stable.
CM will follow with discharge plan updates as hospitalization progresses
[2024-02-04 13:14] LABS: Glucose - Point of Care 155 mg/dl (70-99)
--- NOTE | 2024-02-04 14:00 | PTCARENOTE ---
Continues to tolerate CPAP 8/PS 8- sats 94%. Secretions when suctioned are bloody/bloody tinged. Dr. Chong made aware. Neuro assessment is unchanged
--- NOTE | 2024-02-04 14:02 | W.PN.CARDCBS ---
Today's Communication / Plan
-
Eliquis, amiodarone with taper as documented in Impression/plan
Diuresis/fluid management by nephrology
Vent management/steroids/ABX per pulmonology
No further recommendations at this time, will sign off. Please call with questions.
Impression / Plan
-
.
PCP: Dr. Rojas
Actuary Manager: Dr. Ramirez
88-year-old female with complex PMH of chronic HFpEF, paroxysmal A-fib, hypertension initially admitted with weakness. Developed hypoxemia which increased work of breathing despite diuretics currently intubated.
Impression:
Acute on chronic HFpEF
Acute hypoxemic respiratory failure, intubated 01/27/24
s/p Hypokalemia
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
Paroxysmal atrial fibrillation
Chronic Eliquis OAC
Chronic amiodarone therapy
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
Hyperlipidemia
Hypertension
Hypothyroidism
Obesity
Carotid arterial disease
Echo 01/28/2024: EF 55 to 60%, normal RV, normal LA size, normal TV opening.
Echo 04/26/23: Technically difficult study. EF 55 to 60%. Likely normal regional wall motion of but difficult to last obtained given rapid rate. Normal LV wall thickness. Mild MR. Aortic valve sclerosis. Trace AI. PA pressure 27 mmHg.
Echo 12/21/23: EF 55%, normal RV size and function, moderate MR, moderate TR with PAP 44 mmHg
Plan:
#Acute on chronic HFpEF.
Has diuresed very well. Creatinine downtrending, now 1.2
Nephrology stopped diuretics and Diamox has been started.
Remains off pressors.
#Acute hypoxemic respiratory failure, intubated 01/2024
-Patient is critically ill intubated and sedated with acute hypoxic respiratory distress likely multifactorial with heart failure exacerbation, acute lung injury from aspiration
-Cont vent management as per tailman, attempts being made to wean sedation.
-Cont IV steroids and antibiotics per pulmonary
#Paroxysmal A-fib
-Having paroxysmal atrial fibrillation, v-paced.
-Continue Eliquis 5mg BID. Hgb has been stable, 11.5 on Feb 01 and .
-Cont amiodarone load 200 mg TID via tube to try to help maintain AV paced rhythm.; received roughly 2g of amiodarone thus far (for a 10g load) -> continue amiodarone 200 mg TID x1 week, then can reduce to 200 mg BID x 1 week, then 200 mg daily
-TSH WNL. Continue synthroid.
No further interventions at this time, will sign off. Please call with questions.
CC time 30min
Discussed with nursing.
HPI: Beverly is an 88 year old female with PMH of chronic HFpEF, paroxysmal atrial fibrillation, PPM, HTN, HLD, CDK, and hypothyroidism. She presented to [facility] initially for generalized weakness. She was recently admitted to 12/2023 with acute heart
failure exacerbation. At discharge, weight was down to 261lbs. She was seen in follow up by cardiology and noted increased edema, however was not able to stand on scale, so weight was unknown. She was recommended to start metolazone 2.5mg Mondays
and and recheck labs in a week. Daughters brought her in for evaluation as patient became increasingly weak to the point that she was unable to even walk to the bathroom and noted that she had episode of nausea and vomiting earlier in the
day. In ER, she was noted to have EULOGIO with creat up to 2.0 and she was hypotensive. Her lasix and spironolactone were held and she was given 500cc IVFs. Her creat improved over the next 2 days, however she then became increasingly SOB and hypoxic in
the evening 01/25, requiring BiPAP. She had repeat CXR which showed moderate CHF. She was given 80mg IV lasix, followed by 40mg later in the evening. In AM 01/26, respiratory status continued to worsen, and she was intubated. She was given another
dose of 60mg IV lasix this AM. Her weight is now up ~40lbs compared to discharge weight from admission 12/2023. Cardiology consulted for evaluation given acute respiratory failure in the setting of acute heart failure. Intubated and sedated at time
of evaluation.
Progress Note - Actuary Manager
Subjective
Date of Service: February 04, 2024
Patient seen and examined. Intubated, off sedation. Responds to noxious stimuli but remains somnolent. ASVP on telemetry.
Objective
Labs:
02/04/24 05:07
02/04/24 05:07
Labs
Hgb 10.7 g/dL (12.0-16.0) L 02/04/24 05:07
Hct 34.0 % (37.0-47.0) L 02/04/24 05:07
Plt Count 88 10^3/uL (130-400) L 02/04/24 05:07
PT 24.0 Sec (11.4-14.6) H 01/27/24 04:10
INR 2.12 01/27/24 04:10
APTT 38.8 Sec (23.4-35.0) H 01/27/24 04:10
Sodium 141 mmol/L (135-145) D 02/04/24 05:07
Potassium 3.5 mmol/L (3.5-5.1) 02/04/24 05:07
BUN 80 mg/dl (7-17) H 02/04/24 05:07
Creatinine 1.2 mg/dL (0.6-1.0) H 02/04/24 05:07
Glucose 86 mg/dl (70-99) 02/04/24 05:07
Vital Signs and I&O:
Vital Signs
Temp Pulse Resp BP Pulse Ox
97.0 F 68 23 151/61 94
02/04/24 11:59 02/04/24 13:50 02/04/24 13:50 02/04/24 09:21 02/04/24 13:50
Vital Signs
Temp Pulse Resp BP Pulse Ox
97.0 F 68 23 151/61 94
02/04/24 11:59 02/04/24 13:50 02/04/24 13:50 02/04/24 09:21 02/04/24 13:50
Intake & Output
02/02/24 02/03/24 02/04/24 02/05/24
06:59 06:59 06:59 06:59
Intake Total 3607.1 / 3744.6 4040.05 / 4195.05 5749.8 / 6013.3 1184.2 / 1184.2
Output Total 4050 / 4185 3060 / 3185 3375 / 3375 820 / 820
Balance -442.9 / -440.4 980.05 / 1010.05 2374.8 / 2638.3 364.2 / 364.2
Physical Exam
Physical Exam
General: No acute distress, lethargic; intubated
Neck: Negative JVD
Heart: Regular, Negative S3 positive S1/S2, Negative S4, No murmur
Lungs: diffuse rhonchi, mechanical breath sounds
Abd: Positive BS, NT/ND, neg rebound/rigidity/guarding
Ext: Negative cyanosis/clubbing/edema
Neuro: nonfocal
[2024-02-04 14:20] LABS: Glucose - Point of Care 207 mg/dl (70-99)
[2024-02-04 15:10] LABS: Glucose - Point of Care 166 mg/dl (70-99)
[2024-02-04 16:00] VITALS: BP 136/57
--- NOTE | 2024-02-04 17:00 | PTCARENOTE ---
Remains resting. Eyes open at times but again no fouc or tracking and follows no commands. Family in- pts brother and and spoke with Dr. Chong. Updates given. Respirs- has tolerated CPAP 8/PS 8 with sats of 94-95%. Suctioned for bloody tinged
secretions Vs as documented. Tolerating tube feeds. Pt turned and repositoned. Skin and mouth care given. Remains on Lat rotation mattress. Percussion performed q4hrs for 30 min each. Pt tolerating percussion
[2024-02-04 17:11] LABS: Glucose - Point of Care 153 mg/dl (70-99)
[2024-02-04 19:08] LABS: Glucose - Point of Care 164 mg/dl (70-99)
--- NOTE | 2024-02-04 20:00 | PTCARENOTE ---
rec`d pt at 1900 resting in bed. pt opens eyes but pt does not track, does not follow commands. weak cough and gag. SR on monitor. +pulses, tubi heel edge inker machine+3 edema throughout. #8ett @20 center. CPAP of 11/24, pt POX96%. pt`s secretions thick and blood
tinged. coarse rhonchi throughout. rectal trumpet. left nare dobhoff w/ TF at 55 w/ 50 flush. temp sensing joyce. scaral foam, MASD under breast. left arm skin tears. rt dual luman picc with insulin going through. glycemic protocol continued. left
radial a line. call jin in reach. safe environment maintained.
[2024-02-04 20:28] LABS: Glucose - Point of Care 126 mg/dl (70-99)
[2024-02-04] MEDS: ELIQUIS 5 MG TUBE (21:19)
[2024-02-04 21:32] LABS: Glucose - Point of Care 121 mg/dl (70-99)
[2024-02-04 22:52] LABS: Glucose - Point of Care 128 mg/dl (70-99)
[2024-02-05 00:06] LABS: Glucose - Point of Care 111 mg/dl (70-99)
--- NOTE | 2024-02-05 01:49 | PTCARENOTE ---
sacral foam changed. pt cleaned up for the AM. q2 turns continued.
[2024-02-05] MEDS: SUBLIMAZE 25 MCG IV (02:11)
[2024-02-05 02:18] LABS: Glucose - Point of Care 109 mg/dl (70-99)
[2024-02-05 04:07] LABS: Hematocrit 31.6 % (37.0-47.0); Mean Corp Hgb Conc. 31.6 g/dL (33.0-37.0); Mean Corpuscular Hgb 28.2 pg (27.0-31.0); Mean Corpuscular Volume 89.3 fL (81.0-99.0); Mean Platelet Volume 12.4 fL (7.4-10.4); Platelet Count 104 10^3/uL (130-400); Red Blood Cell Count 3.54 10^6/uL (4.20-5.40); Red Cell Dist. Width 19.7 % (11.5-14.5); White Blood Cell Count 13.9 10^3/uL (4.8-10.8)
[2024-02-05 04:11] LABS: Glucose - Point of Care 108 mg/dl (70-99)
[2024-02-05 04:29] LABS: Blood Urea Nitrogen 65 mg/dl (7-17); Calcium 8.1 mg/dl (8.4-10.2); Carbon Dioxide 30 mmol/L (22-30); Chloride 105 mmol/L (98-107); Estimated Creatinine Clearance 46 ml/min; Glucose 98 mg/dl (70-99); Magnesium 2.3 mg/dl (1.6-2.3); Phosphorus 2.8 mg/dl (2.5-4.5); Sodium 144 mmol/L (135-145); eGFR 48.63
[2024-02-05] MEDS: NOVOLIN R INSULIN INFUSION 100 IV (04:54)
[2024-02-05 05:07] VITALS: BMI 52.3
[2024-02-05] MEDS: SYNTHROID 125 MCG TUBE (05:38)
[2024-02-05 06:38] LABS: Glucose - Point of Care 90 mg/dl (70-99)
--- NOTE | 2024-02-05 07:32 | W.PN.INTV ---
Today's Communication / Plan
Recommendations
Resume diuresis
Spontaneous breathing trial
Follow chest x-ray
Neurology evaluation
Prognosis guarded
Son would not want reintubation if extubated-not ready at this point
Assessment
-
88-year-old woman with past medical history noted, initially admitted with weakness. Found to have increased creatinine from baseline. She was rehydrated. Lasix was held for 2 days. Apparently was having some vomiting prior to admission.
On 01/26/2024 developed hypoxemia and increased work of breathing. Progressed despite diuretics and required noninvasive mechanical ventilation and transferred to the critical care unit. On 01/27/2024 despite diuresis remained hypoxemic with
increased work of breathing. Critical care was consulted for evaluation.
Acute hypoxemic respiratory failure: Suspect multifactorial.
Failed noninvasive mechanical ventilation 01/27/2024
Intubated 01/27/2024.
Acute on chronic heart failure with preserved ejection fraction-weight is elevated from her baseline significantly.
proBNP is elevated
Frothy pinkish secretion on ET tube.
Suspect acute lung injury from aspiration as the patient was vomiting prior to admission: Chest x-ray 01/27/2024 with severe bilateral infiltrates right greater than left.
Cannot rule out diffuse alveolar hemorrhage
Hypothermia
Possible UTI: Significantly abnormal urinalysis 01/27/2024.
Acute on chronic kidney disease-possibly cardiorenal.
Conditions present prior admission:
Hypertension
Morbid obesity
Obesity hypoventilation syndrome with chronic hypercapnia-baseline pCO2 50 suspected
Spinal stenosis
Ambulatory dysfunction
Chronic kidney disease
Hyperlipidemia
Carotid artery stenosis
Atrial fibrillation
Sick sinus syndrome status post pacemaker
Heart failure with preserved ejection fraction
Pacemaker in place
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
Chronic hypercapnic respiratory failure-undiagnosed, likely obesity hypoventilation syndrome.
Plan
Critically ill on the ventilator and on pressors
Ventilator settings reviewed-airway pressures adequate-occasional elevated peak inspiratory pressures-no obvious mucous plugging
FiO2 weaned
PEEP weaned
Continue attempts at spontaneous breathing trial-tolerates up to 9 hours-hesitate extubation with severely declined mental status and now with increased CHF again
Chest x-ray 02/01/2024-new moderate consolidation left upper lobe/atelectasis
Chest x-ray 02/02/2024-left upper lobe atelectasis resolved-was likely a mucous plug, left basilar effusion/opacification persists
Chest x-ray 02/03/2024-no atelectasis, cardiomegaly, pulmonary vasculature top normal
Chest x-ray 02/04/2024-airspace opacifications both lower lobes increased consistent with possible CHF or pneumonia
Chest x-ray 02/05/2024-significant CHF increasing over the last couple days
ABGs reviewed since admission-was not hypercapnic at time of admission and progressive hypercapnia as well as metabolic alkalosis-suspect contraction from diuresis
Added Diamox 02/02/2024-finished 48 hours
ABG 02/03/2020 4-40 /7.50
Continue mucous plug clearance-had episode of plug 02/02/2024
Bronchoscopy if mucous plugs continue-has not needed
Attempted spontaneous breathing trial 02/03/2024-tolerated for many hours
Continue spontaneous breathing trials tolerated on 02/03/2024 as well as 02/04/2024-doubt we will be able to extubate with mental status-will need to wait till more alert-sedation out
VAP prevention protocol
Aspiration precautions
Eventual speech evaluation once extubated
Sedation vacations
Not a candidate for prone positioning due to morbid obesity
Not a candidate for ECMO due to BMI and age
Nebulizers if needed-currently not bronchospastic
Decadron initiated for possible inflammatory component-appears to be mostly fluid-will begin to reduce Decadron-currently on 4 mg every 24
With persistent mental status decline-nothing focal despite sedation being held now for 48 hours will obtain neurology evaluation
Neurology evaluation pending
Diuresis as tolerated--initially 10.5 L /5 days-now positive the last 2-1/2 days and more recently fluid weight coming back on and chest x-ray looking more like CHF
Patient reportedly 40 pound weight gain in the last several weeks/months-likely mostly fluid
Monitor renal function, electrolytes, intake/output, lower extremity edema and weight
Replace electrolytes as needed
Nephrology following-correspondence reviewed, replete potassium, Bumex reinitiated
Cardiology following-correspondence reviewed
Amiodarone continues
Echocardiogram this admission: Preserved LVEF. No significant pulmonary hypertension no significant valvular abnormality
Relatively bradycardic-patient has a pacemaker in place.
Diamox continues for metabolic alkalosis
Cultures reviewed
Sputum culture-usual respiratory vicki
Empiric antibiotics-complete a 7-day course of antibiotics
Norepinephrine and vasopressin as needed-attempt to wean
Monitor blood sugar
Insulin drip as needed
DVT prophylaxis-patient on Eliquis 2.5 mg twice daily
GI prophylaxis-on pantoprazole
Nutrition-nasogastric tube feedings initiated 01/29/2024
Prognosis continues to be quite guarded
Dr. Avendaño updated family members-son who is an emergency room physician 01/30/2024. Still critically ill. Somewhat improved. DNR has been discussed but family not ready for it
Dr. Avendaño discussed with son who is a emergency room physician on 01/28/2024. Improved. Still in critical status. Prognosis is guarded
Discussed with family by Dr. Avendaño 01/27/2024-full code. They understand critical situation.
Dr. Avendaño discussed case with cardiology, primary team, nephrology 01/28/2024.
Extensive discussion with family as well 01/28/2024. I suggested at least a DNR status going forward. They are discussing
Dr. Chong reviewed with son-physician 02/02/2024 extensively-current condition, prognosis, spontaneous breathing trial, mucous plugging, metabolic alkalosis, etc.
Dr. Chong reviewed with son-physician 02/04/2024-discussed persistent decline in mental status, possible need for neurology evaluation, he stated the patient would not want reintubation if extubated-will extubate when we feel clinically
reintubation is less likely-not the case with mental status decline at this time
Critical care statement: A total of 45 minutes of critical care time was provided for this patient today. This includes management of unstable vital signs, evaluation of the patient at bedside, reviewing the patient's pertinent medical records
including radiographs, ventilator management, pressor management, insulin management, microbiology, laboratory evaluations, and discussion with primary team, consultants, pharmacy, nutrition, physical therapy, case management, charge nurse,
critical care nursing, and respiratory therapy.
Subjective Dataa
Subjective Data
Date of Service:
Date of Service: February 05, 2024
Chief Complaint: Fiber Optic Splicer Follow Up (Acute hypoxemic respiratory failure requiring intubation) and Pulmonary Follow Up
Subjective:
Mental status still significantly declined, no increase secretions, tolerated wean, positive fluid balance, chest x-ray with some CHF,
Review of Systems
General: Unobtainable - Sedation and Other (Per HPI)
Objective Data
Data Reviewed
Vital Signs / I&O / Oxygen:
Vital Signs
Temp Pulse Resp BP Pulse Ox
99.2 F 65 21 146/53 96
02/05/24 07:00 02/05/24 06:00 02/05/24 06:00 02/04/24 16:40 02/05/24 06:00
Intake and Output
02/04/24 02/05/24 02/06/24
06:59 06:59 06:59
Intake Total 5749.8 / 6013.3 2939.2 / 2939.2
Output Total 3375 / 3375 2205 / 2205
Balance 2374.8 / 2638.3 734.2 / 734.2
SaO2 [CPAP/PSV] 95
SaO2 [A/C] 94
SaO2 96
Nasal Cannula flow liters per 15
minute
Physical Exam
General: Respiratory Distress (n) and Comfortable
HEENT: Normocephalic and Other (ET tube in place with frothy pink secretion)
Cardiovascular: Regular Rhythm, Murmur and Peripheral Edema (2+)
Respiratory: Crackles, Non-Labored Respirations and ET Tube (No significant secretions)
GI: Soft and Distended (Obese)
Neurology: Other (Sedated, mechanical ventilation. Has respiratory effort.)
Skin: Warm
Labs/Micro/Reports
Lab Data
02/05/24 03:59
02/05/24 03:59
[2024-02-05] MEDS: PACERONE 200 MG TUBE ×3 (07:37→20:40)
[2024-02-05] MEDS: MIRALAX 17 GRAMS TUBE ×2 (07:37→20:40)
[2024-02-05] MEDS: ELIQUIS 5 MG TUBE ×2 (07:37→20:40)
[2024-02-05] MEDS: SENOKOT 17.2 MG TUBE (07:37)
[2024-02-05] MEDS: NSS (PRESERVATIVE FREE) 10 ML IV (07:39)
[2024-02-05] MEDS: PROTONIX IV 40 MG IV (07:39)
[2024-02-05] MEDS: KCL ELIXIR 40 MEQ TUBE ×2 (07:39→20:39)
[2024-02-05] MEDS: DESENEX/MITRAZOL/ZEASORB 1 APPLIC TOPICAL ×2 (07:40→20:41)
[2024-02-05] MEDS: DECADRON 4 MG IV (07:40)
[2024-02-05] MEDS: HYDROPHOR 1 APPLIC TOPICAL (07:41)
[2024-02-05 07:45] LABS: Glucose - Point of Care 105 mg/dl (70-99)
--- NOTE | 2024-02-05 07:48 | W.PN.HOSP.TC ---
Today's Communication/Plan
-
Glycemic control
Diuresis as per Nephro
vent mgmt sedation SBT as per ICU
daily weight I/O
wound care
Amiodarone taper as per Cardio
Assessment / Plan
Assessment / Plan
HPI: 88-year-old female with a past medical history of atrial fibrillation, permanent pacemaker, heart failure with preserved ejection fraction, CKD and morbid obesity presents with generalized weakness. Patient lives with her daughter, who brought
her in because she is too weak to even go to the bathroom. Patient was recently treated at [facility] for CHF exacerbation, and released on 12/24/2023. Daughter reports that patient has been increasingly weak. She was recently started on
gabapentin for lower back pain. Daughter feels that she is having side effects, and is tapering her off the gabapentin. Patient is also on Valtrex for suspected herpes zoster rash. Daughter reports patient had an episode of nausea and vomiting
today. Daughter also reports that she is less responsive. Patient does admit to being dizzy with any type of movement. Patient denies chest pain, denies shortness of breath. No abdominal pain, no dysuria.
#Acute hypoxic respiratory failure
Multifactorial, due to heart failure and acute lung injury from aspiration
Transferred to ICU 01/25. Intubated 01/26
Appreciate licensed master social worker input, continue vent management as per licensed master social worker
01/28 tube feeds started. cont
Lt upper lobe atelectasis noted 01/31 likely mucus plug since resolved on repeat CXR 02/01, cont percussion therapy as per ICU
started on SBT 02/02, cont daily as per ICU
#Acute pulmonary edema
#Acute heart failure with a preserved ejection fraction
#Cardiorenal syndrome
#Acute kidney injury superimposed on stage IIIb chronic kidney disease
Appreciate nephrology input, Bumex drip Diuril placed on hold d/t progressive hypernatremia. Weight trending down
Cardiology eval appreciated, 01/27 echo EF 55-60%, no gross abnormalities
Trend creatinine, trend daily weights
Bumex since resumed IV 2mg BID as per Nephro
#Metabolic Alkalosis resolved
Diamox treatment completed
#Hypernatremia
treated with free water flush and IV dextrose as per nephro
since resolved, IVF completed,
cont FWF 100 cc/h as per Nephro
#Cardiogenic shock
Continue IV steroids taper as per ICU
eventually weaned off Levophed
#Concern for aspiration pneumonia -suspect present upon admission
completed 7 days IV abx cefipime
Sputum cultures shows normal vicki, urine culture also with normal vicki
#Hypokalemia
continue scheduled repletions
monitor and provide additional repletions as necessary
#Paroxysmal atrial fibrillation
Status post permanent pacemaker
Patient has been bradycardic, metoprolol held
Pacemaker interrogated and functioning normally
Currently paced, although her atrial lead does not capture except for intermittently high output
Since she is critically ill, cardiology rec not adding a new atrial lead at this time
Continue Eliquis reduced to 2.5 mg BID renal dosing d/t Cr>=1.5 and age>=80, since resumed 5 mg BID with improvement in Cr level <1.5
cont amiodarone taper as per Cardio
-200 mg TID x1 wk (02/06/24 last day)
-200 mg BID x 1 wk (02/13/24 last day)
-then 200 mg daily (start 02/14/24)
#Hyperglycemic
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
Glycemic control as per ICU
#Chronic lower extremity edema
Compression stockings
#Suspected shingles rash left lateral leg below knee, less likely
on Valtrex prior to admission, held since 01/26 intubation as above,
Discontinued gabapentin
lesion doesn't appear to be consistent with shingles, resolving, no need to restart Valtrex at this time
#Spinal stenosis
#Chronic back pain
#Hypothyroidism
Continue levothyroxine
#Obesity due to excess calories
Affects all aspects of care
DVT prophylaxis�Eliquis
Full code
Total Critical Care Time__40___ minutes. I was immediately available to the patient and staff. I personally examined, reviewed labs, diagnostic images/reports, interpretations, treatment plans, discussed patient care with other providers and
patient's son Dr Ismael Holguin (patient is unable to make decisions at this time), entered orders as appropriate and documented the medical record.
Physical Exam
General: Morbidly obese
HEENT: Normocephalic, Atraumatic, pinpoint pupils b/l, intubated
Respiratory: clear to auscultation b/l some rhonchi noted
Cardiac: Normal S1/S2, Regular Rate and Rhythm
GI: Soft, Nontender, Nondistended, Normal Bowel Sounds
Extremities: No Clubbing, Cyanosis, lower ext pitting edema +2 b/l, compression stockings in place
Neuro: Lethargic arousable responsive to verbal physical stimuli but noncommunicative not following commands, spontaneous eye movements noted
Anticipated Discharge: > 48 hours
Subjective/Interval History
-
Date of Service: February 05, 2024
Off sedation, lethargic, arousable, spontaneous eye movements, remains noncommunicative, not following commands.
Objective Data
-
Labs:
Laboratory Results
02/05/24
03:59
WBC 13.9 H
Hgb 10.0 L
Hct 31.6 L
Plt Count 104 L
Sodium 144
Potassium 4.0
Chloride 105
Carbon Dioxide 30
BUN 65 H
Creatinine 1.1 H
Glucose 98
Calcium 8.1 L
Vital Signs:
Vital Signs
Temp Pulse Resp BP Pulse Ox
99.2 F 65 21 146/53 96
02/05/24 07:00 02/05/24 06:00 02/05/24 06:00 02/04/24 16:40 02/05/24 06:00
I&O
02/04/24 02/05/24 02/06/24
06:59 06:59 06:59
Intake Total 5749.8 / 6013.3 2939.2 / 2939.2
Output Total 3375 / 3375 2205 / 2205
Balance 2374.8 / 2638.3 734.2 / 734.2
--- NOTE | 2024-02-05 08:10 | W.PN.NEPH.PH ---
Today's Communication / Plan
-
Reintroduce Bumex 2 mg IV twice daily
Hold Diamox for now
Increase tube water flushes to 100 cc/h given worsening hypernatremia and anticipated continued diuresis
Assessment/Plan
-
IMP:
Acute kidney injury superimposed on stage IIIb chronic kidney disease
Acute on Chronic heart failure with a preserved ejection fraction
Acute hypoxic resp failure
Chronic lower extremity edema
Paroxysmal atrial fibrillation
Status post permanent pacemaker
Nausea/vomiting
Generalized weakness
Hypokalemia
Suspected shingles rash
Spinal stenosis
Chronic back pain
Hypothyroidism
Obesity due to excess calories
?metolazone causing pancytopenia 12/2023
Plan:
will d/c diamox as contraction alkalosis improving
Reinitiate Bumex 2 mg IV twice daily given pulmonary edema findings on chest x-ray
I will increase tube water flushes to 100 cc/h given worsening hypernatremia
Follow BMP
checked urine osm: 433 (no DI)
follow BMP
keep MAP > 65
Patient critically ill is still hypoxic on vent with decompensated congestive heart failure
critical care time 31 minutes
-
-
Date of Service: February 05, 2024
CC / HPI / ROS
-
Chief Complaint:
EULOGIO, CKD
History of Present Illness:
EULOGIO/Cr stable 1.1
BUN 65 stable
plts down to 91
Hemodynamically stable
Nonoliguric despite discontinuation of diuretics
on diamox for metabolic alkalosis
on Vent, sedated
Hypernatremia up to 144
Review of Systems:
intubated sedated
No fevers
Nonoliguric via Vickers
Labs
-
Labs:
WBC 13.9 10^3/uL (4.8-10.8) H 02/05/24 03:59
RBC 3.54 10^6/uL (4.20-5.40) L 02/05/24 03:59
Hgb 10.0 g/dL (12.0-16.0) L 02/05/24 03:59
Hct 31.6 % (37.0-47.0) L 02/05/24 03:59
Plt Count 104 10^3/uL (130-400) L 02/05/24 03:59
Sodium 144 mmol/L (135-145) 02/05/24 03:59
Potassium 4.0 mmol/L (3.5-5.1) 02/05/24 03:59
Chloride 105 mmol/L (98-107) 02/05/24 03:59
Carbon Dioxide 30 mmol/L (22-30) 02/05/24 03:59
BUN 65 mg/dl (7-17) H 02/05/24 03:59
Creatinine 1.1 mg/dL (0.6-1.0) H 02/05/24 03:59
eGFR 48.63 02/05/24 03:59
Glucose 98 mg/dl (70-99) 02/05/24 03:59
Calcium 8.1 mg/dl (8.4-10.2) L 02/05/24 03:59
Phosphorus 2.8 mg/dl (2.5-4.5) 02/05/24 03:59
Djz-W-Mkryczamuyx Pept 2660 pg/ml 01/27/24 01:25
Physical Exam
-
Vital Signs:
Vital Signs
Temp Pulse Resp BP Pulse Ox
99.2 F 65 21 146/53 96
02/05/24 07:00 02/05/24 06:00 02/05/24 06:00 02/04/24 16:40 02/05/24 06:00
Cardiovascular:: Regular rate and rhythm
Respiratory:: Bilateral: Coarse
Lung Excursion:: Normal
Abdomen:: Nontender and Soft
Bowel Sounds:: Normal
Extremity Edema:: +2: Bilateral:
Vickers Catheter: Yes
[2024-02-05] MEDS: DUONEB 3 ML INH ×3 (08:19→20:32)
[2024-02-05] MEDS: BUMEX 2 MG IV ×2 (08:41→20:40)
[2024-02-05 08:44] LABS: Glucose - Point of Care 121 mg/dl (70-99)
[2024-02-05 09:43] LABS: Glucose - Point of Care 133 mg/dl (70-99)
[2024-02-05 10:42] LABS: Glucose - Point of Care 160 mg/dl (70-99)
--- NOTE | 2024-02-05 10:57 | PTCARENOTE ---
Systems reviewed. Assessment unchanged. NSR /1 AVB on monitor. Insulin gtt titrated per protocol. Patient repositioned; tolerated percussion. Oral care provided. Approx 8:40 placed on vent wean 8/40%. Pt tolerating well.
[2024-02-05 12:37] LABS: Glucose - Point of Care 163 mg/dl (70-99)
[2024-02-05 14:38] LABS: Glucose - Point of Care 152 mg/dl (70-99)
[2024-02-05 16:41] LABS: Glucose - Point of Care 171 mg/dl (70-99)
[2024-02-05 17:42] LABS: Glucose - Point of Care 120 mg/dl (70-99)
--- NOTE | 2024-02-05 17:45 | PTCARENOTE ---
Assessment unchanged. Insulin titrated per protocol. Oral care provided. Patient repositioned. Plan of care ongoing.
[2024-02-05 18:40] LABS: Glucose - Point of Care 113 mg/dl (70-99)
[2024-02-05 19:44] LABS: Glucose - Point of Care 147 mg/dl (70-99)
--- NOTE | 2024-02-05 19:44 | CON.NEURO4 ---
Consultation - Neurology 4
-
CONSULTING PHYSICIAN: Baltazar Mendes MD
REFERRING PHYSICIAN: Hospitalist
DICTATED BY: Baltazar Mendes MD
DATE/TIME OF REQUEST: 02/05/2024
DATE/TIME OF CONSULTATION: 02/05/2024
Reason for Consultation: Unresponsiveness
History of Present Illness:
This is a 88 year old right) handed female who was admitted to the hospital with chief complaint of weakness . She gives a past medical history of atrial fibrillation, heart failure with preserved ejection fraction, s/p pacemaker , chronic renal
insufficiency and morbid obesity who was admitted with generalized weakness. Patient was recently treated at [facility] for CHF exacerbation, and released on 12/24/2023. Pat continued to be weak and was bedbound following discharge. She was
unable to take care of her personal hygiene and was dependent for all ADLs
She was recently started on gabapentin for lower back pain. And this did not help. Given the side effects of lethargy and lightheadedness, she was tapered off gabapentin. Patient is also on Valtrex for suspected herpes zoster rash. Daughter
reports patient had an episode of nausea and vomiting on admission. She has also become less alert and increasing sleepy and easily fatigued at the time of admission
Initially patient was rehydrated due to increased creatinine. Was improving to the point that discharge was being considered. On Jan 26 night pat was transferred to the critical care unit as she developed hypoxemia, with increased work of
breathing.
Repeat chest x-ray showed bilateral infiltrates suggestive of pulmonary edema. proBNP was elevated.
Diuresis was given. Condition deteriorated as patient became increasingly short of breath and needed considerable effort to breath . Transferred to the critical care unit for noninvasive mechanical ventilation.
Despite adjustment of noninvasive mechanical ventilation pat remained short of breath. Patient also became bradycardic as Precedex was needed for delirium with respiratory mask discomfort.
Additional diuresis was given with poor response.
Respiratory Condition deteriorated to the point that the patient became hypoxemia, agitated and delirious.
Subsequently anesthesia was called in, intubated and sedated. Pat Remained hypoxemic.
For the next 9 days Despite diuresis pat CHF persisted with bradycardia and significant weight gain, and no improvement in cognition.
Past Medical History: As above
Surgical History:
Family History: [place]
Social History: lived with her daughter
Allergies: Addendum
Home Medications: Addendum
Review of Symptoms: 'Per the HPI. I am unable to obtain a complete review of systems�because of patient's inability to provide history.'
Vital Signs:
The patient has a
Pat is intubated on ventilator support
Physical Exam:
The patient is afebrile, heart sounds S1 and S2 are (regular / irregular), and chest is clear to auscultation bilaterally.
- If not clear, describe.
Neurologic Examination:
The patient is comatose. She is unable to follow commands. Speech is absent as pat is comatose and intubated.
On cranial nerve assessment, pupils are 3 mm bilateral, round and reactive to light and accommodation. Does not appreciate Visual threats. Extraocular movements are impaired. No dolls eyes. Facial sensations cannot be assessed. There is no facial
asymmetry. Hearing cannot be assessed. Tongue palate and uvula cannot be visualized. Sternocleidomastoid cannot be assessed.
Motor strengths: Minimal response to painful stimuli. Occasional decerebrate posturing. There is no drift or involuntary movement noted.
Deep tendon reflexes are absent bilaterally with Babinski bilaterally.
Sensations of pain, touch, temperature and vibration are impaired. Coordination Rombergs and gait cannot be assessed as pat is comatose..
Lab Results: See addendum
Neuro Imaging: None
Impression:
. RAY TANG is a 88 year old F who was admitted to the hospital with (symptoms/chief complaint) of weakness and heart failure
Differentials for the patient's presentation include:
1. Hypoxic encephalopathy
Recommendations:
1. Ventilator support
2. ICU management
Discussed patient care with: Hospitalist
Pat is unlikely to make a meaningful recovery. Continuing current level of care would necessitate tracheostomy PEG placement and continuous nursing care in a skilled ventilator facility with minimal likelihood of cognitive improvement
Allergies
-
Allergies
Allergy/AdvReac Type Severity Reaction Status Date / Time
aspirin Allergy Nausea / Verified 01/24/24 17:48
Vomiting
NSAIDS (Non-Steroidal Allergy Unknown Verified 12/19/23 04:44
Anti-Inflamma
Salicylates * Allergy Unknown Verified 12/19/23 04:44
Sulfa (Sulfonamide Allergy Anaphylaxis Verified 01/24/24 17:48
Antibiotics)
Vital Signs and Labs
-
Vital Signs and Labs:
Vital Signs
Temp Pulse Resp BP Pulse Ox
37.2 C 72 24 135/37 94
02/05/24 15:00 02/05/24 18:00 02/05/24 18:00 02/05/24 15:54 02/05/24 18:00
Lab Results
02/05/24 03:59
02/05/24 03:59
PT 24.0 Sec (11.4-14.6) H 01/27/24 04:10
INR 2.12 01/27/24 04:10
APTT 38.8 Sec (23.4-35.0) H 01/27/24 04:10
Sodium 144 mmol/L (135-145) 02/05/24 03:59
Potassium 4.0 mmol/L (3.5-5.1) 02/05/24 03:59
BUN 65 mg/dl (7-17) H 02/05/24 03:59
Glucose 98 mg/dl (70-99) 02/05/24 03:59
Calcium 8.1 mg/dl (8.4-10.2) L 02/05/24 03:59
Phosphorus 2.8 mg/dl (2.5-4.5) 02/05/24 03:59
Xax-O-Xxplipmekds Pept 2660 pg/ml 01/27/24 01:25
Medications
-
Active Medications
Generic Name Dose Route Start Last Admin
Trade Name Freq PRN Reason Stop Dose Admin
Acetaminophen 1,000 mg 01/24/24 19:40 02/03/24 07:30
Acetaminophen 500 Mg Tablet PO 02/21/24 19:39 1,000 mg
Q6HPRN PRN Administration
mild pain
Albuterol/Ipratropium 3 ml 01/26/24 22:53
Ipratropium 0.5/Albuterol 3 Mg (3 Ml Ampul) INH
R Q4HPRN PRN
SOb or wheezing
Protocol
Albuterol/Ipratropium 3 ml 02/02/24 14:00 02/05/24 14:45
Ipratropium 0.5/Albuterol 3 Mg (3 Ml Ampul) INH 3 ml
R TID VALDEZ Administration
Protocol
Amiodarone HCl 200 mg 01/31/24 16:00 02/05/24 15:54
Amiodarone 200 Mg Tablet TUBE 02/28/24 15:59 200 mg
TID VALDEZ Administration
Apixaban 5 mg 02/04/24 20:00 02/05/24 07:37
Apixaban (Eliquis) 5 Mg Tablet TUBE 03/03/24 19:59 5 mg
BID VALDEZ Administration
Atorvastatin Calcium 10 mg 01/24/24 19:40 01/26/24 17:30
Atorvastatin (Lipitor) 10 Mg Tablet PO 02/21/24 19:39 10 mg
QPM VALDEZ Administration
Bumetanide 2 mg 02/05/24 08:30 02/05/24 08:41
Bumetanide (0.25 Mg/1 Ml) 4 Ml Vial IV 03/04/24 08:29 2 mg
BID VALDEZ Administration
Dexamethasone Sodium Phosphate 4 mg 02/01/24 08:00 02/05/24 07:40
Dexamethasone 4 Mg/Ml 1 Ml Vial IV 02/29/24 07:59 4 mg
Q24H VALDEZ Administration
Dextrose 12.5 grams 02/03/24 15:00
Dextrose 50% (0.5 Grams/Ml) 50 Ml Syringe IV 03/02/24 14:59
S26LOLD PRN
BLOOD GLUCOSE < 70
Emollient Ointment 0 applic 01/26/24 08:00 02/05/24 07:41
Petrolatum/Mineral Oil (Hydrophor) Oint 100 Gram TOPICAL 02/23/24 07:59 1 applic
DAILY VALDEZ Administration
Felodipine 5 mg 01/27/24 18:00
Felodipine 5 Mg Extended Release Tablet PO 02/24/24 17:59
QPM VALDEZ
Fentanyl Citrate 25 mcg 02/04/24 12:18 02/05/24 02:11
Fentanyl (50 Mcg/Ml) 100 Mcg/2 Ml Ampul IV 02/18/24 12:17 25 mcg
[id number] PRN Administration
see protocol
Protocol
Insulin Human Regular 100 units in 100 mls @ 0 mls/hr 02/03/24 15:00 02/05/24 04:54
Novolin R Insulin Infusion IV 100 mls
PER PROTOCOL VALDEZ Administration
Protocol
Per Protocol
Insulin Aspart 0 units 02/03/24 16:30 02/05/24 16:13
Insulin Aspart (100 Units/Ml) 3 Ml Flexpen SC 03/02/24 16:29 Not Given
AC VALDEZ
Protocol
Levothyroxine Sodium 125 mcg 01/27/24 17:11 02/05/24 05:38
Levothyroxine 125 Mcg Tablet TUBE 02/22/24 05:59 125 mcg
DAILY @ 0600 VALDEZ Administration
Melatonin 5 mg 01/24/24 22:00 01/26/24 21:25
Melatonin 5 Mg Tablet PO 02/21/24 21:59 5 mg
HS VALDEZ Administration
Metoprolol Succinate 12.5 mg 01/26/24 18:00 01/26/24 17:30
Metoprolol 12.5 Mg Extended Release Dose (1/2 Of 25 Mg Xl Tablet) PO 02/23/24 17:59 12.5 mg
QPM VALDEZ Administration
Metoprolol Tartrate 5 mg 01/27/24 16:10
Metoprolol 5 Mg/5 Ml Vial IV 02/24/24 16:09
Q4HPRN PRN
for sustained HR >120
Miconazole Nitrate 0 applic 01/25/24 20:00 02/05/24 07:40
Miconazole Powder Bottle TOPICAL 02/22/24 19:59 1 applic
BID VALDEZ Administration
Pantoprazole Sodium 40 mg 02/01/24 08:00 02/05/24 07:39
Pantoprazole Sodium 40 Mg/10 Ml Vial IV 02/29/24 07:59 40 mg
DAILY VALDEZ Administration
Polyethylene Glycol 17 grams 01/27/24 17:10 02/05/24 07:37
Polyethylene Glycol Powder 17 Grams Packet TUBE 02/23/24 19:59 17 grams
BID VALDEZ Administration
Potassium Chloride 40 meq 02/02/24 08:00 02/05/24 07:39
Potassium Chloride 10% Oral Solution (40 Meq/30 Ml) Cup TUBE 03/01/24 07:59 40 meq
BID VALDEZ Administration
Promethazine HCl 25 mg 01/24/24 19:40 01/26/24 21:27
Promethazine 25 Mg Tablet PO 02/21/24 19:39 25 mg
Q6HPRN PRN Administration
nausea
Sennosides 17.2 mg 01/28/24 11:21 02/05/24 07:37
Sennosides (Senokot) 8.6 Mg Tablet TUBE 02/23/24 08:59 17.2 mg
DAILY VALDEZ Administration
Sodium Chloride 0 flush 01/24/24 20:00 02/04/24 09:26
Sodium Chloride 0.9% (Flush) Syringe IV 02/21/24 19:59 3 flush
PER PROTOCOL VALDEZ Administration
Sodium Chloride 10 ml 02/01/24 08:00 02/05/24 07:39
Sodium Chloride 0.9% (Preservative Free) 10 Ml Vial IV 02/29/24 07:59 10 ml
DAILY VALDEZ Administration
Home Medications
�Medication �Instructions �Recorded
atorvastatin 10 mg tablet 10 mg PO QPM High cholesterol 05/07/21
felodipine 10 mg tablet,extended 10 mg PO QPM Heart 05/07/21
release 24 hr disease/condition
levothyroxine 125 mcg tablet 125 mcg PO DAILY Thyroid 05/07/21
apixaban 5 mg tablet (Eliquis) 5 mg PO BID Blood clot 05/12/21
prevention/tx #60 tabs
amiodarone 200 mg tablet (Pacerone) 200 mg PO QPM Arrhythmia 04/24/23
furosemide 80 mg tablet (Lasix) 80 mg PO BID Fluid 04/24/23
Retention/Swelling
metoprolol succinate 25 mg 25 mg PO QPM Heart 04/24/23
tablet,extended release 24 hr disease/condition
potassium chloride 20 mEq 40 meq PO BID Electrolyte Repletion 12/19/23
tablet,extended release
acetaminophen 500 mg tablet 1,000 mg PO Q6HPRN PRN mild pain 01/24/24
(Tylenol Extra Strength)
docusate sodium 100 mg capsule 200 mg PO DAILYPRN PRN constipation 01/24/24
(Colace)
gabapentin 100 mg capsule 100 mg PO DAILYPRN PRN moderate 01/24/24
pain
melatonin 5 mg tablet 5 mg PO HS Sleep 01/24/24
polyethylene glycol 3350 17 gram 17 g PO DAILYPRN PRN constipation 01/24/24
oral powder packet (Miralax)
valacyclovir 1 gram tablet 1,000 mg PO Q8H Infection 01/24/24
spironolactone 25 mg tablet 12.5 mg PO DAILY Heart 01/28/24
Disease/Condition
[2024-02-05 20:49] LABS: Glucose - Point of Care 125 mg/dl (70-99)
[2024-02-05 22:35] LABS: Glucose - Point of Care 121 mg/dl (70-99)
[2024-02-06 00:58] LABS: Glucose - Point of Care 93 mg/dl (70-99)
--- NOTE | 2024-02-06 01:17 | PTCARENOTE ---
pt washed from head to toe with soap and water. fresh sheets and protective foams placed.
[2024-02-06] MEDS: SUBLIMAZE 25 MCG IV ×6 (02:54→23:22)
--- NOTE | 2024-02-06 03:10 | PTCARENOTE ---
vent settings now a/c 14/420/50/ 5 of peep. POX 90-93%
[2024-02-06 03:25] LABS: Glucose - Point of Care 139 mg/dl (70-99)
[2024-02-06 04:54] LABS: Hematocrit 32.6 % (37.0-47.0); Hemoglobin 10.2 g/dL (12.0-16.0); Mean Corp Hgb Conc. 31.3 g/dL (33.0-37.0); Mean Corpuscular Hgb 28.7 pg (27.0-31.0); Mean Corpuscular Volume 91.6 fL (81.0-99.0); Platelet Count 104 10^3/uL (130-400); Red Blood Cell Count 3.56 10^6/uL (4.20-5.40); Red Cell Dist. Width 19.7 % (11.5-14.5); White Blood Cell Count 16.7 10^3/uL (4.8-10.8)
[2024-02-06] MEDS: SYNTHROID 125 MCG TUBE (05:04)
[2024-02-06 05:10] LABS: Glucose - Point of Care 83 mg/dl (70-99)
[2024-02-06 05:10] LABS: Blood Urea Nitrogen 53 mg/dl (7-17); Calcium 8.4 mg/dl (8.4-10.2); Carbon Dioxide 30 mmol/L (22-30); Chloride 103 mmol/L (98-107); Estimated Creatinine Clearance 51 ml/min; Glucose 106 mg/dl (70-99); Magnesium 2.1 mg/dl (1.6-2.3); Phosphorus 2.3 mg/dl (2.5-4.5); Potassium 3.8 mmol/L (3.5-5.1); Sodium 141 mmol/L (135-145); eGFR 54.53
--- NOTE | 2024-02-06 05:57 | PTCARENOTE ---
thick cason to blood tinged secretions suctioned out of ETT.
[2024-02-06 06:00] VITALS: BMI 52.1
[2024-02-06 07:12] LABS: Glucose - Point of Care 132 mg/dl (70-99)
--- NOTE | 2024-02-06 07:14 | W.PN.HOSP.TC ---
Today's Communication/Plan
-
restart abx, empiric zosyn
ID eval
breathing trials as per ICU
Neuro eval
bowel regimen converted to prn
last day of Amiodarone 200 mg TID, to start BID tomorrow.
Assessment / Plan
Assessment / Plan
HPI: 88-year-old female with a past medical history of atrial fibrillation, permanent pacemaker, heart failure with preserved ejection fraction, CKD and morbid obesity presents with generalized weakness. Patient lives with her daughter, who brought
her in because she is too weak to even go to the bathroom. Patient was recently treated at [facility] for CHF exacerbation, and released on 12/24/2023. Daughter reports that patient has been increasingly weak. She was recently started on
gabapentin for lower back pain. Daughter feels that she is having side effects, and is tapering her off the gabapentin. Patient is also on Valtrex for suspected herpes zoster rash. Daughter reports patient had an episode of nausea and vomiting
today. Daughter also reports that she is less responsive. Patient does admit to being dizzy with any type of movement. Patient denies chest pain, denies shortness of breath. No abdominal pain, no dysuria.
#Acute hypoxic respiratory failure
Multifactorial, due to heart failure and acute lung injury from aspiration
Transferred to ICU 01/25. Intubated 01/26
Appreciate water main installer helper input, continue vent management as per water main installer helper
01/28 tube feeds started. cont
Lt upper lobe atelectasis noted 01/31 likely mucus plug since resolved on repeat CXR 02/01, cont percussion therapy as per ICU
started on SBT 02/02, cont daily as per ICU
Tolerating breathing trials however mental status concerning consistently noncommunicative not following commands despite discontinuation sedation
Neuro eval requested as per ICU
#Acute pulmonary edema
#Acute heart failure with a preserved ejection fraction
#Cardiorenal syndrome
#Acute kidney injury superimposed on stage IIIb chronic kidney disease
Appreciate nephrology input, Bumex drip Diuril placed on hold d/t progressive hypernatremia. Weight trending down
Cardiology eval appreciated, 01/27 echo EF 55-60%, no gross abnormalities
Trend creatinine, trend daily weights
Bumex since resumed IV 2mg BID as per Nephro
#Metabolic Alkalosis resolved
Diamox treatment completed
#Hypernatremia
treated with free water flush and IV dextrose as per nephro
since resolved, IVF completed,
cont FWF 50 cc/h as per Nephro
#Cardiogenic shock
Continue IV steroids taper as per ICU
weaned off Levophed
#Concern for aspiration pneumonia -suspect present upon admission
completed 7 days IV abx cefipime
Sputum cultures showed normal vicki, urine culture also with normal vicki
d/t persistent progressive leukocytosis, abx restarted with zosyn
ID eval requested
#Hypokalemia
continue scheduled repletions
monitor and provide additional repletions as necessary
#Paroxysmal atrial fibrillation
Status post permanent pacemaker
Patient has been bradycardic, metoprolol held
Pacemaker interrogated and functioning normally
Currently paced, although her atrial lead does not capture except for intermittently high output
Since she is critically ill, cardiology rec not adding a new atrial lead at this time
Continue Eliquis reduced to 2.5 mg BID renal dosing d/t Cr>=1.5 and age>=80, since resumed 5 mg BID with improvement in Cr level <1.5
cont amiodarone taper as per Cardio
-200 mg TID x1 wk (02/06/24 last day)
-200 mg BID x 1 wk (02/13/24 last day)
-then 200 mg daily (start 02/14/24)
#Hyperglycemic
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
Glycemic control as per ICU
#Chronic lower extremity edema
Compression stockings
#Suspected shingles rash left lateral leg below knee, less likely
on Valtrex prior to admission, held since 01/26 intubation as above,
Discontinued gabapentin
lesion doesn't appear to be consistent with shingles, resolving, no need to restart Valtrex at this time
#Spinal stenosis
#Chronic back pain
#Hypothyroidism
Continue levothyroxine
#Obesity due to excess calories
Affects all aspects of care
DVT prophylaxis�Eliquis
Full code
ICU daily communications, goals of care discussions, with patient's family, including son Ismael Holguin, appreciated
Total Critical Care Time__40___ minutes. I was immediately available to the patient and staff. I personally examined, reviewed labs, diagnostic images/reports, interpretations, treatment plans, discussed patient care with other providers, entered
orders as appropriate and documented the medical record.
Physical Exam
General: Morbidly obese
HEENT: Normocephalic, Atraumatic, pinpoint pupils b/l, intubated
Respiratory: clear to auscultation b/l some rhonchi noted
Cardiac: Normal S1/S2, Regular Rate and Rhythm
GI: Soft, Nontender, Nondistended, Normal Bowel Sounds
Extremities: No Clubbing, Cyanosis, lower ext pitting edema +2 b/l, compression stockings in place
Neuro: Lethargic arousable responsive to verbal physical stimuli but noncommunicative not following commands, spontaneous eye movements noted
Anticipated Discharge: > 48 hours
Subjective/Interval History
-
Date of Service: February 06, 2024
intubated. spontaneous eye movements but remains noncommunicative. Not following commands.
Objective Data
-
Labs:
Laboratory Results
02/06/24
04:03
WBC 16.7 H
Hgb 10.2 L
Hct 32.6 L
Plt Count 104 L
Sodium 141
Potassium 3.8
Chloride 103
Carbon Dioxide 30
BUN 53 H
Creatinine 1.0
Glucose 106 H
Calcium 8.4
Vital Signs:
Vital Signs
Temp Pulse Resp BP Pulse Ox
99.2 F 106 39 135/37 92
02/06/24 03:37 02/06/24 05:00 02/06/24 05:00 02/05/24 15:54 02/06/24 05:00
I&O
02/05/24 02/06/24 02/07/24
06:59 06:59 06:59
Intake Total 2939.2 / 3044.8 3485.00 / 3485.00
Output Total 2205 / 2405 5150 / 5150
Balance 734.2 / 639.8 -1665.00 / -1665.00
[2024-02-06] MEDS: KCL ELIXIR 40 MEQ TUBE ×2 (07:28→19:34)
[2024-02-06] MEDS: MIRALAX 17 GRAMS TUBE (07:28)
[2024-02-06] MEDS: SENOKOT 17.2 MG TUBE (07:28)
[2024-02-06] MEDS: BUMEX 2 MG IV ×2 (07:28→19:34)
[2024-02-06] MEDS: PROTONIX IV 40 MG IV (07:29)
[2024-02-06] MEDS: NSS (PRESERVATIVE FREE) 10 ML IV (07:29)
[2024-02-06] MEDS: DECADRON 4 MG IV (07:29)
[2024-02-06] MEDS: ELIQUIS 5 MG TUBE ×2 (07:29→19:35)
[2024-02-06] MEDS: PACERONE 200 MG TUBE ×3 (07:30→22:06)
[2024-02-06] MEDS: HYDROPHOR 1 APPLIC TOPICAL (07:30)
[2024-02-06] MEDS: DESENEX/MITRAZOL/ZEASORB 1 APPLIC TOPICAL ×2 (07:30→19:35)
[2024-02-06] MEDS: DUONEB 3 ML INH ×3 (07:36→20:43)
--- NOTE | 2024-02-06 07:47 | W.PN.INTV ---
Today's Communication / Plan
Recommendations
Check cultures
Restart antibiotics
Diuresis
Wean
Neurology evaluation ongoing-according to neurology-little chance for meaningful neurologic recovery-will need to discuss this with family-suspect they would wish withdrawal/comfort based on previous conversations
Assessment
-
88-year-old woman with past medical history noted, initially admitted with weakness. Found to have increased creatinine from baseline. She was rehydrated. Lasix was held for 2 days. Apparently was having some vomiting prior to admission.
On 01/26/2024 developed hypoxemia and increased work of breathing. Progressed despite diuretics and required noninvasive mechanical ventilation and transferred to the critical care unit. On 01/27/2024 despite diuresis remained hypoxemic with
increased work of breathing. Critical care was consulted for evaluation.
Acute hypoxemic respiratory failure: Suspect multifactorial.
Failed noninvasive mechanical ventilation 01/27/2024
Intubated 01/27/2024.
Acute on chronic heart failure with preserved ejection fraction-weight is elevated from her baseline significantly.
proBNP is elevated
Frothy pinkish secretion on ET tube.
Suspect acute lung injury from aspiration as the patient was vomiting prior to admission: Chest x-ray 01/27/2024 with severe bilateral infiltrates right greater than left.
Cannot rule out diffuse alveolar hemorrhage
Hypothermia
Possible UTI: Significantly abnormal urinalysis 01/27/2024.
Acute on chronic kidney disease-possibly cardiorenal.
Conditions present prior admission:
Hypertension
Morbid obesity
Obesity hypoventilation syndrome with chronic hypercapnia-baseline pCO2 50 suspected
Spinal stenosis
Ambulatory dysfunction
Chronic kidney disease
Hyperlipidemia
Carotid artery stenosis
Atrial fibrillation
Sick sinus syndrome status post pacemaker
Heart failure with preserved ejection fraction
Pacemaker in place
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
Chronic hypercapnic respiratory failure-undiagnosed, likely obesity hypoventilation syndrome.
Plan
Critically ill on the ventilator and on pressors
Ventilator settings reviewed-airway pressures adequate-occasional elevated peak inspiratory pressures-no obvious mucous plugging
FiO2 weaned
PEEP weaned
Continue attempts at spontaneous breathing trial-tolerates up to 9 hours-hesitate extubation with severely declined mental status and now with increased CHF again
Chest x-ray 02/01/2024-new moderate consolidation left upper lobe/atelectasis
Chest x-ray 02/02/2024-left upper lobe atelectasis resolved-was likely a mucous plug, left basilar effusion/opacification persists
Chest x-ray 02/03/2024-no atelectasis, cardiomegaly, pulmonary vasculature top normal
Chest x-ray 02/04/2024-airspace opacifications both lower lobes increased consistent with possible CHF or pneumonia
Chest x-ray 02/05/2024-significant CHF increasing over the last couple days
Chest x-ray 02/06/2024-increased airspace disease and CHF, small bilateral pleural effusions
ABGs reviewed since admission-was not hypercapnic at time of admission and progressive hypercapnia as well as metabolic alkalosis-suspect contraction from diuresis
Added Diamox 02/02/2024-finished 48 hours
ABG 02/03/2020 4-40 6/70/7.50
Continue mucous plug clearance-had episode of plug 02/02/2024
Bronchoscopy if mucous plugs continue-has not needed
Continue spontaneous breathing trials tolerated on 02/03/2024 as well as 02/04/2024 as well as 02/06/2024-doubt we will be able to extubate with mental status-will need to wait till more alert-sedation out
VAP prevention protocol
Aspiration precautions
Eventual speech evaluation if extubated
Avoiding all sedatives-intermittently receives fentanyl for agitation or cough bucking the vent
Not a candidate for prone positioning due to morbid obesity
Not a candidate for ECMO due to BMI and age
Nebulizers if needed-currently not bronchospastic
Decadron initiated for possible inflammatory component-appears to be mostly fluid-will begin to reduce Decadron-currently on 4 mg every 24
With persistent mental status decline-nothing focal despite sedation being held now for 72 hours hours-neurology consultation obtained 02/05/2024
Neurology evaluation reviewed-'comatose' differential hypoxic encephalopathy
Neurology feels patient unlikely to make a meaningful recovery with minimal likelihood of cognitive improvement
Diuresis as tolerated--initially 10.5 L /5 days-then positive the next 2-1/2 days and now negative again 1.6 L in the last 24 hours
Patient reportedly 40 pound weight gain in the last several weeks/months-likely mostly fluid
Monitor renal function, electrolytes, intake/output, lower extremity edema and weight
Replace electrolytes as needed
Nephrology following-correspondence reviewed, replete potassium, Bumex reinitiated-reviewed with Dr. Peters 02/05/2024 and 02/06/2024
Cardiology following-correspondence reviewed-reviewed with Dr. Blair 02/06/2024
Amiodarone continues
Echocardiogram this admission: Preserved LVEF. No significant pulmonary hypertension no significant valvular abnormality
Relatively bradycardic-patient has a pacemaker in place.
Diamox was introduced for 48 hours for metabolic alkalosis
Cultures reviewed
Sputum culture-usual respiratory vicki
Empiric antibiotics-completed a 7-day course of antibiotics-now with leukocytosis and increased secretions/worsening chest [id number] antibiotics 02/06/2024-reviewed with primary team
Norepinephrine and vasopressin as needed-attempt to wean
Loose stools with leukocytosis check C. difficile
Consider infectious disease consultation
Monitor blood sugar
Insulin drip as needed
DVT prophylaxis-patient on Eliquis 2.5 mg twice daily
GI prophylaxis-on pantoprazole
Nutrition-nasogastric tube feedings initiated 01/29/2024
Prognosis continues to be quite guarded
Dr. Avendaño updated family members-son who is an emergency room physician 01/30/2024. Still critically ill. Somewhat improved. DNR has been discussed but family not ready for it
Dr. Avendaño discussed with son who is a emergency room physician on 01/28/2024. Improved. Still in critical status. Prognosis is guarded
Discussed with family by Dr. Avendaño 01/27/2024-full code. They understand critical situation.
Dr. Avendaño discussed case with cardiology, primary team, nephrology 01/28/2024.
Extensive discussion with family as well 01/28/2024. I suggested at least a DNR status going forward. They are discussing
Dr. Chong reviewed with son-physician 02/02/2024 extensively-current condition, prognosis, spontaneous breathing trial, mucous plugging, metabolic alkalosis, etc.
Dr. Chong reviewed with son-physician 02/04/2024-discussed persistent decline in mental status, possible need for neurology evaluation, he stated the patient would not want reintubation if extubated-will extubate when we feel clinically
reintubation is less likely-not the case with mental status decline at this time
Dr. Chong updated son-physicians and grandchildren 02/05/2024-persistent mental status decline, need for neurologic evaluation, emphasis on comfort
Critical care statement: A total of 45 minutes of critical care time was provided for this patient today. This includes management of unstable vital signs, evaluation of the patient at bedside, reviewing the patient's pertinent medical records
including radiographs, ventilator management, pressor management, insulin management, microbiology, laboratory evaluations, and discussion with primary team, consultants, pharmacy, nutrition, physical therapy, case management, charge nurse,
critical care nursing, and respiratory therapy.
Subjective Dataa
Subjective Data
Date of Service:
Date of Service: February 06, 2024
Chief Complaint: Almond Blancher Operator Follow Up (Acute hypoxemic respiratory failure requiring intubation) and Pulmonary Follow Up
Subjective:
Some increase in 10 secretions now, currently off antibiotics-had finished cefepime, not waking up, moving some extremities, tolerated spontaneous breathing trial, weight increasing, review of systems unobtainable
Review of Systems
General: Unobtainable - Sedation
Objective Data
Data Reviewed
Vital Signs / I&O / Oxygen:
Vital Signs
Temp Pulse Resp BP Pulse Ox
99.8 F 79 39 137/48 94
02/06/24 07:00 02/06/24 07:30 02/06/24 05:00 02/06/24 07:30 02/06/24 07:43
Intake and Output
02/05/24 02/06/24 02/07/24
06:59 06:59 06:59
Intake Total 2939.2 / 3044.8 3485.00 / 3485.00
Output Total 2205 / 2405 5150 / 5150
Balance 734.2 / 639.8 -1665.00 / -1665.00
SaO2 [CPAP/PSV] 92
SaO2 [A/C] 91
SaO2 94
Nasal Cannula flow liters per 15
minute
Physical Exam
General: Respiratory Distress (n) and Comfortable
HEENT: Normocephalic and Other (ET tube in place with frothy pink secretion)
Cardiovascular: Regular Rhythm, Murmur and Peripheral Edema (2+)
Respiratory: Crackles, Non-Labored Respirations and ET Tube (No significant secretions)
GI: Soft and Distended (Obese)
Neurology: Other (Sedated, mechanical ventilation. Has respiratory effort.)
Skin: Warm, Good Color, Cyanosis (n), Jaundice (n) and Rash (n)
Labs/Micro/Reports
Lab Data
02/06/24 04:03
02/06/24 04:03
[2024-02-06 08:07] LABS: Glucose - Point of Care 150 mg/dl (70-99)
--- NOTE | 2024-02-06 08:27 | W.PN.NEPH.PH ---
Today's Communication / Plan
-
Maintain Bumex
Decrease tube feeds to 50 cc/h free water flush
Assessment/Plan
-
IMP:
Acute kidney injury superimposed on stage IIIb chronic kidney disease
Acute on Chronic heart failure with a preserved ejection fraction
Acute hypoxic resp failure
Chronic lower extremity edema
Paroxysmal atrial fibrillation
Status post permanent pacemaker
Nausea/vomiting
Generalized weakness
Hypokalemia
Suspected shingles rash
Spinal stenosis
Chronic back pain
Hypothyroidism
Obesity due to excess calories
?metolazone causing pancytopenia 12/2023
Plan:
Urine output greater than 5 L
Creatinine remains normal at 1
Maintain Bumex 2 mg IV twice daily given worsening pulmonary edema findings on chest x-ray
I will decrease tube water flushes to 50 cc/hr for hypernatremia
Follow BMP
checked urine osm: 433 (no DI)
follow BMP
keep MAP > 65
Patient critically ill is still hypoxic on vent with decompensated congestive heart failure
critical care time 31 minutes
-
-
Date of Service: February 06, 2024
CC / HPI / ROS
-
Chief Complaint:
EULOGIO, CKD
History of Present Illness:
EULOGIO/Cr stable 1.0
Hemodynamically stable off pressors
Nonoliguric despite discontinuation of diuretics
Remains intubated
Hypernatremia improved to 141
Review of Systems:
intubated sedated
No fevers
Nonoliguric via Vickers
weights unchanged
Labs
-
Labs:
WBC 16.7 10^3/uL (4.8-10.8) H 02/06/24 04:03
RBC 3.56 10^6/uL (4.20-5.40) L 02/06/24 04:03
Hgb 10.2 g/dL (12.0-16.0) L 02/06/24 04:03
Hct 32.6 % (37.0-47.0) L 02/06/24 04:03
Plt Count 104 10^3/uL (130-400) L 02/06/24 04:03
Sodium 141 mmol/L (135-145) 02/06/24 04:03
Potassium 3.8 mmol/L (3.5-5.1) 02/06/24 04:03
Chloride 103 mmol/L (98-107) 02/06/24 04:03
Carbon Dioxide 30 mmol/L (22-30) 02/06/24 04:03
BUN 53 mg/dl (7-17) H 02/06/24 04:03
Creatinine 1.0 mg/dL (0.6-1.0) 02/06/24 04:03
eGFR 54.53 02/06/24 04:03
Glucose 106 mg/dl (70-99) H 02/06/24 04:03
Calcium 8.4 mg/dl (8.4-10.2) 02/06/24 04:03
Phosphorus 2.3 mg/dl (2.5-4.5) L 02/06/24 04:03
Obb-L-Ytomjvsswgv Pept 2660 pg/ml 01/27/24 01:25
Physical Exam
-
Vital Signs:
Vital Signs
Temp Pulse Resp BP Pulse Ox
99.8 F 79 39 137/48 94
02/06/24 07:00 02/06/24 07:30 02/06/24 05:00 02/06/24 07:30 02/06/24 08:00
Cardiovascular:: Regular rate and rhythm
Respiratory:: Bilateral: Coarse
Lung Excursion:: Normal
Abdomen:: Nontender and Soft
Bowel Sounds:: Normal
Extremity Edema:: +2: Bilateral:
Vickers Catheter: Yes
[2024-02-06] MEDS: ZOSYN 50 IV ×3 (08:49→19:34)
[2024-02-06 09:10] LABS: Glucose - Point of Care 113 mg/dl (70-99)
[2024-02-06] MEDS: POTASSIUM PHOSPHATE 259.0909 MEQ IV (09:17)
[2024-02-06 09:19] LABS: COVID-19 Antigen Negative (Negative)
--- NOTE | 2024-02-06 10:05 | CON.ID ---
Addendum entered and electronically signed by Hayley Chavez MD 02/06/24 13:59:
MRSA PCR remains negative, will not add vancomycin at this time
Original Note:
Consultation
-
Date/Time Consultation Requested: 02/06/24 8:42
Date/Time Consultation Performed: 02/06/24 10:07
Requesting Provider: Dr Srinivasan
Performing Provider: Dr Chavez
Reason for Consultation: persistently elevating wbc though completed 7 days abx
Chief Complaint / Past History
Chief Complaint
weakness
History of Present Illness
Ms Hogluin is an 88 year old female with history of HFpEF, CKD, class III obesity brought in on 01/23 for weakness to the point that she could not move to the bathroom, nausea, vomiting, dizziness and less responsiveness. Of note recently started on
gabapentin for lower back pain and weaned off for concern of ADR. Recent diagnosis of zoster on valtrex. Reported 40 lbs weight gain over several months and edema. On arrival denied chest pain, shortness of breath, abdominal pain, dysuria. On
arrival found to be in EULOGIO with Cr 2 and hydrated with some improvement, but overnight developed increased work of breathing and hypoxemia, CXR wiht pulm edema and elevated BNP, diuretic given but further increased work of breathing and started on
noninvasive mechanical ventilation, developed delirium and not improving, intubated, joyce placed 01/25, started n bumex drip and levophed, on dopamine for a time with bradycardia; cefepime and steroids started for possible pneumonia vs inflammatory
pneumonitis; pink/frothy sputum noted in ETT, concern for heart failure vs diffuse alveolar hemorrhage, repeat echo 01/27 with normal EF, no valvular lesions, pacemaker interrogate with concerns for not intermittently not capturing, atrial lead not
consistently capturing, felt to be too ill for replacement, sputum culture with normal fluid, urine culture mixed, cefepime was continued through 02/01. Loaded with amiodarone. Evaluated by neurology for unresponsiveness due to hypoxemic
encephalopathy and note opinion that patient is unlikely to make a meaningful recovery. Two days after stopping antibiotics patient developed new leukocytosis which has progressed each day 11 to 14 to 17 today, hgb stable in the 10s, plt mildly
thrombocytopenic in the 90s to 100s, last differential was done 01/23, at that time there was no significant eosinophilia and no L shift, cr currently 1.0, na 141, last probnp was 01/26 2660, last UA was 01/26 with >100 wbc/hpf and >100 rbc/hpf,
urine culture at that time 20K mixed vicki, covid ag neg 02/05, CXR 02/05 'Interval increase in severe airspace and interstitial disease throughout both lungs with more confluent dense airspace consolidations in the perihilar and peripheral right
lung compared with the recent prior exam performed 02/05/2024. Diagnostic possibilities are (1) severe acute alveolar pulmonary edema, (2) severe pneumonia, or (3) acute respiratory distress syndrome (ARDS)'
Past History
Additional Past Medical History:
hypertension, spinal stenosis, lipidemia, carotid stenosis, atrial fibrillation, sick sinus syndrome status post pacemaker, CHF, hyperlipidemia
Additional Past Surgical History:
pacemaker
Allergy History:
aspirin Allergy (Verified 01/24/24 17:48)
Nausea / Vomiting
NSAIDS (Non-Steroidal Anti-Inflamma Allergy (Verified 12/19/23 04:44)
Unknown
Salicylates * Allergy (Verified 12/19/23 04:44)
Unknown
Sulfa (Sulfonamide Antibiotics) Allergy (Verified 01/24/24 17:48)
Anaphylaxis
Medications Reviewed: Yes
Social History
Tobacco: Non-Smoker
Alcohol: None
Drug: None
Living: With Family (son is RICARDO ALMEIDA)
Family History
Family History: Not Pertinent
Review of Systems
Review of Systems
unable to obtain due to the condition of the patient
Vital Signs
Temp Pulse Resp BP Pulse Ox
99.8 F 78 29 137/48 94
02/06/24 07:00 02/06/24 09:00 02/06/24 09:00 02/06/24 07:30 02/06/24 09:05
Physical Exam
Physical Exam
Constitutional: Acutely Ill, Chronically Ill and Non-toxic
Cardiovascular: Regular Rate and S1/S2; Negative Murmur or Rub
Pulmonary: Symmetric, Coarse and Non Labored; Negative Wheezes or Rales
Gastrointestinal: Soft, Non Tender, Non Distended and Normal Bowel Sounds
Skin: Warm, Dry and Rash (minimal intertrigo below the breasts - yeasty smell noted; no rash on the L leg under the tubigrip - suspect it was venous stasis dermatitis); Negative Jaundice
Neurological: Negative Awake
Lab / Diagnostic Study Results
02/06/24 04:03
02/06/24 04:03
Abs Immat Gran (auto) 0.0 10^3/uL (0-0.05) 01/24/24 14:10
Absolute Neuts (auto) 1.3 10^3/uL (1.4-6.5) L 01/24/24 14:10
Absolute Lymphs (auto) 1.9 10^3/uL (1.2-3.4) 01/24/24 14:10
Absolute Monos (auto) 0.5 10^3/uL (0.1-0.6) 01/24/24 14:10
Absolute Basos (auto) 0.0 10^3/uL (0-0.2) 01/24/24 14:10
Immature Gran % 0.8 % (0-0.5) H 01/24/24 14:10
Neutrophils % 32.2 % (42.2-75.2) L 01/24/24 14:10
Lymphocytes % 48.5 % (20.5-51.1) 01/24/24 14:10
Monocytes % 11.9 % (1.7-9.3) H 01/24/24 14:10
Eosinophils % 6.3 % (0-6) H 01/24/24 14:10
Basophils % 0.3 % (0-2) 01/24/24 14:10
PT 24.0 Sec (11.4-14.6) H 01/27/24 04:10
INR 2.12 01/27/24 04:10
Lactic Acid 1.3 mmol/L (0.7-2.0) 01/27/24 12:53
Procalcitonin < 0.05 ng/ml (0.0-0.25) 01/27/24 01:25
Ur Squamous Epith Cells >30 /LPF (Few) 01/27/24 03:32
Microbiology Results
Micro:
02/06/24 08:59 C. difficile GDH Antigen & Toxins - Final
Feces/Stool Negative for toxigenic C.difficile
01/27/24 16:56 Respiratory Culture - Final
Tracheal Aspirate Usual Respiratory Vicki
Gram Stain - Final
01/27/24 03:32 Urine Culture - Final
Urine
01/24/24 21:25 MRSA Screen - Final
Nose No Methicillin Resistant Staphylococcus aureus isolated.
Assessment / Plan
Progressive Leukocytosis
HAP vs Pulm Edema vs ARDS
Hypoxemic Resp Failure
- steroids may contribute to leukocytosis - being tapered
- pressors weaned off 01/31
- CBC with diff in the AM
- sputum culture if able to obtain
- UA; note negative urine culture 01/26
- covid ag negative
- c diff negative
- MRSA screen 01/23 negative - repeat
- if cathie fever or hypotension then send blood cultures x2 sets
- agree with empiric zosyn
- if MRSA PCR now positive will add vancomycin
- note poor overall prognosis per neurology
[2024-02-06 10:20] LABS: Glucose - Point of Care 126 mg/dl (70-99)
[2024-02-06 11:19] LABS: Glucose - Point of Care 136 mg/dl (70-99)
[2024-02-06 11:28] LABS: Urine Albumin Trace (Neg - Trace); Urine Bilirubin Negative (Negative); Urine Character Clear (Clear); Urine Color Yellow; Urine Glucose Negative (Negative); Urine Ketone Negative (Negative); Urine Leukocyte Negative (Negative); Urine Nitrite Negative (Negative); Urine Occult Blood 3+ (Negative); Urine Urobilinogen Negative (Neg - 1+)
[2024-02-06] MEDS: NOVOLIN R INSULIN INFUSION 100 IV (11:32)
[2024-02-06 11:37] LABS: Urine Mucus Few
[2024-02-06 11:38] LABS: Urine Red Blood Cell 16-20 /HPF (0-2)
[2024-02-06 11:39] LABS: Urine Bacteria Few (Negative)
--- NOTE | 2024-02-06 12:41 | PTCARENOTE ---
Assessment unchanged. Pt on CPAP/PSV 8//60% SA02: 95%. Insulin titrated per protocol. Pt tolerating percussion therapy. Repositioned. Oral care provided.
[2024-02-06 13:13] LABS: Glucose - Point of Care 157 mg/dl (70-99)
[2024-02-06] MEDS: FLUSH (NSS) 1 FLUSH IV (14:20)
[2024-02-06 15:17] LABS: Glucose - Point of Care 187 mg/dl (70-99)
[2024-02-06 16:10] LABS: Glucose - Point of Care 158 mg/dl (70-99)
[2024-02-06 17:17] LABS: Glucose - Point of Care 150 mg/dl (70-99)
--- NOTE | 2024-02-06 17:52 | PTCARENOTE ---
Assessment unchanged. Pt on CPAP/PSV 8//50% SA02: 96%. Pt repositioned; tolerating percussion therapy. Mouth care provided. Family at bedside. Insulin titrated per protocol. NSR/1AVB on monitor. Plan of care ongoing.
[2024-02-06 18:11] LABS: Glucose - Point of Care 121 mg/dl (70-99)
[2024-02-06 19:09] LABS: Glucose - Point of Care 128 mg/dl (70-99)
--- NOTE | 2024-02-06 20:00 | PTCARENOTE ---
Received pt intubated, resting in bed. #8 ETT @ 22cm, moved to center. On PS 8/5, 50% fio2. Tachypneic at times and coughing. PRN fentanyl given. No commands followed. Slightly opening eyes spontaneously. No purposeful movement noted. Pupils 4mm,
sluggish B/L. SR with 1st deg AVB and PACs on tele. HR 70s-80s. BP 130s-140s/50s via L radial A line- transduced and zeroed. +3 gen anasarca. Dobhoff in place with osmo 1.2 @ 50ml/hr with 55ml/hr h20 flush. Rectal trumpet draining brown liquid
stool. + bowel sounds. Vickers cath draining yellow urine - see I&O. LLE wound dsg c/d/i. Tubi gribs removed for the night. R DL PICC with insulin gtt- glycemic protocol ongoing. L hand IV patent and capped. Turning q2. Monitoring
[2024-02-06 20:07] LABS: Glucose - Point of Care 135 mg/dl (70-99)
--- NOTE | 2024-02-06 21:13 | PTCARENOTE ---
More tachypneic RR high 30s, spo2 dipping to 87%. Suctioned for mod amount bloody secretions. RT to bedside- placed back on A/C 14/420/+5/50%. Sats remained high 80s- fio2 increased to 60%. Now 92%.
[2024-02-06 21:23] LABS: Glucose - Point of Care 95 mg/dl (70-99)
[2024-02-06 23:36] LABS: Glucose - Point of Care 134 mg/dl (70-99)
[2024-02-06] MEDS: ATIVAN 0.5 MG IV (23:40)
--- NOTE | 2024-02-06 23:58 | PTCARENOTE ---
Pt. in distress, RR 35, spo2 86%. Suctioned for mod amt bloody secretions. RT and SHIP/REC/DOC CONTROL to bedside. Fio2 increased to 70% with no change. PEEP increased to 8 and fio2 to 80%. 0.5mg ativan given. Pt. now 92%, RR improved to 20s. Monitoring closely
[2024-02-07 01:14] LABS: Glucose - Point of Care 86 mg/dl (70-99)
[2024-02-07] MEDS: ZOSYN 50 IV ×4 (01:30→19:58)
[2024-02-07 03:10] LABS: Glucose - Point of Care 137 mg/dl (70-99)
[2024-02-07 03:37] LABS: B.E. 5.1 mmol/L; PCO2 39 mmHg (32-35); PO2 130 mmHg (83-108); pH 7.48 (7.35-7.45)
[2024-02-07 03:45] LABS: O2 Therapy VENT
[2024-02-07 04:38] LABS: Blood Urea Nitrogen 47 mg/dl (7-17); Calcium 7.9 mg/dl (8.4-10.2); Carbon Dioxide 28 mmol/L (22-30); Chloride 105 mmol/L (98-107); Estimated Creatinine Clearance 51 ml/min; Glucose 110 mg/dl (70-99); Magnesium 1.9 mg/dl (1.6-2.3); Phosphorus 3.1 mg/dl (2.5-4.5); Sodium 142 mmol/L (135-145); eGFR 54.53
[2024-02-07] MEDS: TYLENOL 650 MG TUBE (05:00)
[2024-02-07] MEDS: SUBLIMAZE 25 MCG IV ×5 (05:00→23:51)
[2024-02-07] MEDS: SYNTHROID 125 MCG TUBE (05:01)
[2024-02-07 05:09] VITALS: BMI 50.3
[2024-02-07 05:17] LABS: Glucose - Point of Care 97 mg/dl (70-99)
[2024-02-07] MEDS: NSS (PRESERVATIVE FREE) 1 ML IV (06:09)
[2024-02-07] MEDS: ATIVAN 0.5 MG IV ×2 (06:09→19:32)
--- NOTE | 2024-02-07 06:15 | PTCARENOTE ---
Addendum entered by Niesha Mcclelland RN 02/07/24 06:24:
Hypotensive, MAPs 50-57. Levophed ordered and started.
Original Note:
Tachypneic through most of the night, RR 22-35. PRN fentanyl and another dose of ativan given per orders. Remains on A/C 14/420/+8/80%. Spo2 96%. Suctioned moderate-large amounts bloody secretions often. Tmax 100.6 core- MACHINE OPERATOR HAY STACKER aware. Tylenol given.
EKG done revealed NSR with SA.
[2024-02-07] MEDS: LEVOPHED 250 IV ×2 (06:20→14:58)
[2024-02-07 06:37] LABS: % Basophils 0.4 % (0-2); % Eosinophils 0.1 % (0-6); % Immature Granulocytes 7.7 % (0-0.5); % Lymphocytes 5.1 % (20.5-51.1); % Monocytes 13.9 % (1.7-9.3); % Neutrophils 72.8 % (42.2-75.2); Absolute Basophils 0.1 10^3/uL (0-0.2); Absolute Immature Granulocytes 1.1 10^3/uL (0-0.05); Absolute Lymphocytes 0.7 10^3/uL (1.2-3.4); Absolute Monocytes 1.9 10^3/uL (0.1-0.6); Hematocrit 26.9 % (37.0-47.0); Hemoglobin 9.1 g/dL (12.0-16.0); Mean Corp Hgb Conc. 33.8 g/dL (33.0-37.0); Mean Corpuscular Hgb 29.4 pg (27.0-31.0); Mean Corpuscular Volume 86.8 fL (81.0-99.0); Mean Platelet Volume 11.8 fL (7.4-10.4); Nucleated Red Blood Cells % 0.1 %; Platelet Count 96 10^3/uL (130-400); Red Cell Dist. Width 19.4 % (11.5-14.5); White Blood Cell Count 13.7 10^3/uL (4.8-10.8)
[2024-02-07 07:17] LABS: Glucose - Point of Care 119 mg/dl (70-99)
[2024-02-07] MEDS: DUONEB 3 ML INH ×3 (07:38→19:58)
--- NOTE | 2024-02-07 08:00 | PTCARENOTE ---
Assumed care of patient. Pt rec'd on ventilator. Pt occasionally opens eyes...does not follow commands or make any purposeful movements. Unrestrained. S1 S2 reg w/ NSR/1st degree AVB/BBC on monitor. Weak PP. +2-3 generalized edema. #8 ETT
22cm left lip...current vent settings: 14/420/+8/80%...sats 95%. Lungs diminished w/ coarse rhonchi posteriorly...suctioned orally for thick cason blood tinged sputum. Abdomen obese...+BS. Left nare dhf w TF's infusing per MD orders. RT draining
liquid brown stool. Vickers draining cloudy yellow urine. Skin pale in color...scattered forearm ecchymosis w/ skin tears...dressings on lower extremities...sacral foam intact. Right DL PICC w/ levophed and insulin gtts infusing...see
interventions. Left radial real..flushed and zeroed. VS documented. Will continue to monitor closely.
--- NOTE | 2024-02-07 08:10 | W.PN.INTV ---
Today's Communication / Plan
Recommendations
Abx
Bumex
Check CT Head, and if negative consider EEG to r/o NCSE
Check CT chest/Abd/pelvis given fevers and leukocytosis
Daily SBT
Insulin gtt
Vasopressors; add vasopressin if levo requirements >10mcg/min
Neurology evaluation ongoing-according to neurology-little chance for meaningful neurologic recovery-family is aware
Son, Ismael, wants full medical management for now but if unable to extubate over next 1-2 days then will likely transition to comfort care at that time, which he still needs to discuss w his sister
Guarded prognosis
Assessment
-
88-year-old woman with past medical history noted, initially admitted with weakness. Found to have increased creatinine from baseline. She was rehydrated. Lasix was held for 2 days. Apparently was having some vomiting prior to admission.
On 01/26/2024 developed hypoxemia and increased work of breathing. Progressed despite diuretics and required noninvasive mechanical ventilation and transferred to the critical care unit. On 01/27/2024 despite diuresis remained hypoxemic with
increased work of breathing. Critical care was consulted for evaluation.
Acute hypoxemic respiratory failure: Suspect multifactorial from acute pulmonary edema and pneumonia
Failed noninvasive mechanical ventilation 01/27/2024
Intubated 01/27/2024.
Acute on chronic heart failure with preserved ejection fraction-weight is elevated from her baseline significantly.
proBNP is elevated
Frothy pinkish secretion on ET tube.
Suspect acute lung injury from aspiration as the patient was vomiting prior to admission: Chest x-ray 01/27/2024 with severe bilateral infiltrates right greater than left.
Pneumonia due to Pseudomonas aeruginosa
Cannot rule out diffuse alveolar hemorrhage - minimal blood seen on ETT suctioning as of 02/06
Hypothermia
Possible UTI: Significantly abnormal urinalysis 01/27/2024.
Acute on chronic kidney disease-possibly cardiorenal.
Conditions present prior admission:
Hypertension
Morbid obesity
Obesity hypoventilation syndrome with chronic hypercapnia-baseline pCO2 50 suspected
Spinal stenosis
Ambulatory dysfunction
Chronic kidney disease
Hyperlipidemia
Carotid artery stenosis
Atrial fibrillation
Sick sinus syndrome status post pacemaker
Heart failure with preserved ejection fraction
Pacemaker in place
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
Chronic hypercapnic respiratory failure-undiagnosed, likely obesity hypoventilation syndrome.
Plan
Critically ill on the ventilator and on pressors
Ventilator settings reviewed-airway pressures adequate-occasional elevated peak inspiratory pressures-no obvious mucous plugging
FiO2 weaned
PEEP weaned
Blood gas was reviewed and ventilator adjustted accordingly to optimize pH + pO2
She continues to not follow commands and is high risk for failed extubation, however goals of care discussion held today (02/07/2024) with the hospitalist and the family and she is now DNR/DNI
Imaging from this hospitalization were all personally reviewed, and although she initially presented with acute decompensated heart failure which was more evident on the CXR from 01/26/2024, her volume status was the best on 02/02/2024. Her
bilateral infiltrates then slowly worsened starting on 02/03, and now she has thick bilateral patchy opacities seen on recent CXR from 02/06/2024
-She does have Pseudomonas aeruginosa growing from sputum culture from 02/06/2024, and Zosyn was resumed on 02/05 s/p cefepime 01/26 - 01/31 + 02/01 - 02/02
s/p diamox for contraction alkalosis --> give additional doses if needed depending on serum HCO3 level and pH
Continue mucous plug clearance-had episode of plug 02/02/2024
Bronchoscopy if mucous plugs continue-has not needed
Continue spontaneous breathing trials tolerated on 02/03/2024 as well as 02/04/2024 as well as 02/06/2024-doubt we will be able to extubate with mental status-will need to wait till more alert-sedation out --> check CT head and if negative then
discuss with neuro about obtaining EEG to r/o NCSE
VAP prevention protocol
Aspiration precautions
Eventual speech evaluation if extubated
Avoiding all sedatives-intermittently receives fentanyl for agitation or cough/bucking the vent
Not a candidate for prone positioning due to morbid obesity
Not a candidate for ECMO due to BMI and age
Nebulizers if needed-currently not bronchospastic
Decadron initiated for possible inflammatory component-appears to be mostly fluid-began Decadron 4mg q24hrs on 01/31 --> given hypotension, will change decadron to hydrocortisone 50mg IV q6hr
With persistent mental status decline-nothing focal despite sedation being held now for 72 hours hours-neurology consultation obtained on 02/05/2024
Neurology evaluation reviewed-'comatose' differential hypoxic encephalopathy
Neurology feels patient unlikely to make a meaningful recovery with minimal likelihood of cognitive improvement
Continue with diuresis with Bumex 2 mg IV, keeping net negative as tolerated; check CT chest to assess the degree of consolidation versus pulmonary edema
Patient reportedly 40 pound weight gain in the last several weeks/months-likely mostly fluid
Monitor renal function, electrolytes, intake/output, lower extremity edema and weight
Replace electrolytes as needed to keep K>4, Mg>2
Nephrology following-correspondence reviewed
Cardiology following-correspondence reviewed-reviewed with Dr. Blair 02/06/2024
Amiodarone continues
Echocardiogram this admission: Preserved LVEF. No significant pulmonary hypertension + no significant valvular abnormality
Relatively bradycardic-patient has a pacemaker in place.
Diamox was introduced for 48 hours for metabolic alkalosis
Cultures reviewed
Pseudomonas aeruginosa growing from sputum culture on 02/06/2024 to follow-up sensitivities
Zosyn on since 02/06/2024 - ID now on board --> defer ABx to them
C/t to trend WBC, and given increased secretions/worsening chest x-ray- ABx 02/06/2024-reviewed with primary team
Vasopressors with levophed keeping MAP>65; try to wean off
Loose stools with leukocytosis - C. difficile is negative
Monitor blood sugar --> she remains on insulin gtt
Need to bridge off insulin gtt - will have GOC discussion with family first and then try to bridge off with basal-bolus insulin dosing
DVT prophylaxis-patient on Eliquis 5mg BID
GI prophylaxis-on pantoprazole
Nutrition-nasogastric tube feedings initiated 01/29/2024
Prognosis continues to be quite guarded
Dr. Avendaño updated family members-son who is an emergency room physician 01/30/2024. Still critically ill. Somewhat improved. DNR has been discussed but family not ready for it
Dr. Avendaño discussed with son who is a emergency room physician on 01/28/2024. Improved. Still in critical status. Prognosis is guarded
Discussed with family by Dr. Avendaño 01/27/2024-full code. They understand critical situation.
Dr. Avendaño discussed case with cardiology, primary team, nephrology 01/28/2024.
Extensive discussion with family as well 01/28/2024. I suggested at least a DNR status going forward. They are discussing
Dr. Chong reviewed with son-physician 02/02/2024 extensively-current condition, prognosis, spontaneous breathing trial, mucous plugging, metabolic alkalosis, etc.
Dr. Chong reviewed with son-physician 02/04/2024-discussed persistent decline in mental status, possible need for neurology evaluation, he stated the patient would not want reintubation if extubated-will extubate when we feel clinically
reintubation is less likely-not the case with mental status decline at this time
Dr. Chong updated son-physicians and grandchildren 02/05/2024-persistent mental status decline, need for neurologic evaluation, emphasis on comfort
02/07/2024: Dr. Garrido had a goals of care discussion over the phone with the patient's son, Ismael, and he understands how critically ill the patient is however he is still hopeful that she will be able to be extubated. Does not seem that he is
interested in her getting a trach/PEG. He would like to continue full medical management for now although he did make her DNR/DNI this morning after speaking with the hospitalist. If she is unable to be extubated over the next 1-2 days then he
will likely terminally extubate and transition to comfort care at that time, but will first discuss things with his sister.
Critical care statement: A total of 48 minutes of critical care time was provided for this patient today. This includes management of unstable vital signs, evaluation of the patient at bedside, reviewing the patient's pertinent medical records
including radiographs, ventilator management, pressor management, insulin management, microbiology, laboratory evaluations, and discussion with primary team, consultants, pharmacy, nutrition, physical therapy, case management, charge nurse,
critical care nursing, and respiratory therapy.
Subjective Dataa
Subjective Data
Date of Service:
Date of Service: February 07, 2024
Chief Complaint: Fish Worm Grower Follow Up (Acute hypoxemic respiratory failure requiring intubation) and Pulmonary Follow Up
Subjective:
Patient seen and evaluated this morning. Remains intubated on CMV/VC at 420/14, PEEP of 8 + FiO2 80%, with PIP: 27 cmH2O, breathing at 23 breaths/minute with VTe of 410mL. BP is 135/44 on Levophed at 8mcg/min, also on insulin drip at 7 units/hr.
Remains on tube feeds at 55 mL/hr. Saturating 97%, heart rate 62. Has minimal ETT secretions with periods of blood tinged cason phlegm that is thick. Off sedation now for several days (since last week around 02/01), getting prn pushes of fentanyl.
Now off bumex gtt --> getting bumex 2mg IV BID. She is net (-) 930cc last 24 hrs, and is net negative 9.8L last 24 hrs.
Objective Data
Data Reviewed
Vital Signs / I&O / Oxygen:
Vital Signs
Temp Pulse Resp BP Pulse Ox
100 F 63 97 141/48 98
02/07/24 08:44 02/07/24 08:53 02/07/24 07:39 02/07/24 08:53 02/07/24 08:00
Intake and Output
02/06/24 02/07/24 02/08/24
06:59 06:59 06:59
Intake Total 3485.00 / 3760.30 3174.4 / 3294.2 250.8 / 250.8
Output Total 5150 / 5325 4105 / 4205 200 / 200
Balance -1665.00 / -1564.70 -930.6 / -910.8 50.8 / 50.8
SaO2 [CPAP/PSV] 92
SaO2 [A/C] 98
SaO2 96
Nasal Cannula flow liters per 15
minute
Physical Exam
General: Respiratory Distress (n), Chills (negative) and Sweats (negative)
HEENT: Normocephalic and Other (ET tube in place with frothy pink secretion)
Cardiovascular: Irregular Rhythm and Peripheral Edema (+1 lower extremity pitting edema bilaterally)
Respiratory: Wheeze (negative), Rhonchi (negative), Non-Labored Respirations and ET Tube (Mechanical breath sounds heard bilaterally)
GI: Soft and Distended (Obese)
Neurology: Other (Opens eyes to commands otherwise not following any other commands, not moving any extremities)
Skin: Warm, Dry, Cyanosis (n), Jaundice (n) and Rash (n)
Labs/Micro/Reports
Lab Data
02/07/24 03:31
02/07/24 03:31
Laboratory Results
02/07/24
03:31
pH 7.48 H
pCO2 39 H
pO2 130 H
HCO3 29.0 H
O2 Delivery Level Vent
Microbiology
02/06/24 11:10 Nose Nasal Screen MRSA (PCR) - Final
MRSA not detected - performed by PCR methodology.
02/06/24 11:11 Sputum Gram Stain - Preliminary
02/06/24 08:59 Feces/Stool C. difficile GDH Antigen & Toxins - Final
Negative for toxigenic C.difficile
[2024-02-07] MEDS: DECADRON 4 MG IV (08:40)
[2024-02-07] MEDS: DESENEX/MITRAZOL/ZEASORB 1 APPLIC TOPICAL ×2 (08:45→20:46)
[2024-02-07] MEDS: KCL ELIXIR 40 MEQ TUBE ×2 (08:46→19:59)
[2024-02-07] MEDS: PACERONE 200 MG PO ×2 (08:46→19:58)
[2024-02-07] MEDS: ELIQUIS 5 MG TUBE ×2 (08:46→19:59)
[2024-02-07] MEDS: HYDROPHOR 1 APPLIC TOPICAL (08:46)
[2024-02-07] MEDS: NSS (PRESERVATIVE FREE) 10 ML IV (08:47)
[2024-02-07] MEDS: PROTONIX IV 40 MG IV (08:47)
[2024-02-07] MEDS: BUMEX 2 MG IV ×2 (08:53→19:55)
[2024-02-07 09:11] LABS: Glucose - Point of Care 105 mg/dl (70-99)
--- NOTE | 2024-02-07 09:12 | W.PN.ID1 ---
Date of Service
Date of Service: February 07, 2024
Today's Communication
c/w empiric zosyn
Assessment / Plan
Progressive Leukocytosis
HAP vs Pulm Edema vs ARDS
Hypoxemic Resp Failure
- switched to core Ts - fever via this route defined as over 101.0
- steroids may contribute to leukocytosis - being tapered
- pressors back on
- sputum culture - few GNR
- UA without pyuria
- MRSA screen remains negative
- agree with empiric zosyn
- note poor overall prognosis per neurology
Chief Complaint
-: Leukocytosis
Subjective / Review of Systems
- switched to core Ts - fever via this route defined as over 101.0; no cathie fevers
started on leovphed overnigth after prn fentaynl and Ativan
increased work of breathing overnight
moderate -large blood secretions overnight
liquid stools on tube feeds
Vital Signs / Physical Exam
Vital Signs
Vital Signs
Temp Pulse Resp BP Pulse Ox
100 F 63 97 141/48 98
02/07/24 08:44 02/07/24 08:53 02/07/24 07:39 02/07/24 08:53 02/07/24 08:00
Physical Exam
Constitutional: Acutely Ill, Chronically Ill and Obese
Cardiovascular: Regular Rate and S1/S2; Negative Murmur or Rub
Pulmonary: Clear and Symmetric; Negative Wheezes or Rales
Gastrointestinal: Soft, Non Tender, Non Distended and Normal Bowel Sounds
Skin: Warm and Dry; Negative Rash or Jaundice
Objective Data
Lab Data
Lab Results
02/07/24 03:31
02/07/24 03:31
PT 24.0 Sec (11.4-14.6) H 01/27/24 04:10
INR 2.12 01/27/24 04:10
APTT 38.8 Sec (23.4-35.0) H 01/27/24 04:10
Estimated Creat Clear 51 ml/min 02/07/24 03:31
Lactic Acid 1.3 mmol/L (0.7-2.0) 01/27/24 12:53
Most recent labs reviewed.
Monocytosis on the differential
Micro Results:
02/06/24 11:10 Nasal Screen MRSA (PCR) - Final
Nose MRSA not detected - performed by PCR methodology.
02/06/24 11:11 Respiratory Culture - Pending
Sputum Gram Stain - few GNR
02/06/24 08:59 C. difficile GDH Antigen & Toxins - Final
Feces/Stool Negative for toxigenic C.difficile
01/27/24 16:56 Respiratory Culture - Final
Tracheal Aspirate Usual Respiratory Adeola
Gram Stain - Final
01/27/24 03:32 Urine Culture - Final
Urine
01/24/24 21:25 MRSA Screen - Final
Nose No Methicillin Resistant Staphylococcus aureus isolated.
--- NOTE | 2024-02-07 09:15 | W.PN.HOSP.TC ---
Today's Communication/Plan
-
Son agreed to DNR
Assessment / Plan
Assessment / Plan
HPI: 88-year-old female with a past medical history of atrial fibrillation, permanent pacemaker, heart failure with preserved ejection fraction, CKD and morbid obesity presents with generalized weakness. Patient lives with her daughter, who brought
her in because she is too weak to even go to the bathroom. Patient was recently treated at [facility] for CHF exacerbation, and released on 12/24/2023. Daughter reports that patient has been increasingly weak. She was recently started on
gabapentin for lower back pain. Daughter feels that she is having side effects, and is tapering her off the gabapentin. Patient is also on Valtrex for suspected herpes zoster rash. Daughter reports patient had an episode of nausea and vomiting
today. Daughter also reports that she is less responsive. Patient does admit to being dizzy with any type of movement. Patient denies chest pain, denies shortness of breath. No abdominal pain, no dysuria.
#Acute hypoxic respiratory failure
Multifactorial, due to heart failure and acute lung injury from aspiration
Transferred to ICU 01/25. Intubated 01/26
Appreciate concrete panel installer input, continue vent management as per concrete panel installer
01/28 tube feeds started. cont
Lt upper lobe atelectasis noted 01/31 likely mucus plug since resolved on repeat CXR 02/01, cont percussion therapy as per ICU
Started on SBT 02/02, cont daily as per ICU
Tolerating breathing trials however mental status concerning consistently noncommunicative not following commands despite discontinuation sedation
Appreciate neurology input, no hope for meaningful neurologic recovery
Inform son of patient's poor prognosis, son/Ismael agreed to DNR in 02/06
#Acute pulmonary edema
#Acute heart failure with a preserved ejection fraction
#Cardiorenal syndrome
#Acute kidney injury superimposed on stage IIIb chronic kidney disease
Appreciate nephrology input, Bumex drip Diuril placed on hold d/t progressive hypernatremia. Weight trending down
Cardiology eval appreciated, 01/27 echo EF 55-60%, no gross abnormalities
Trend creatinine, trend daily weights
Bumex since resumed IV 2mg BID as per Nephro
#Cardiogenic shock
Continue IV steroids taper as per ICU
Back on Levophed 02/06, wean as able
#Concern for aspiration pneumonia -suspect present upon admission
completed 7 days IV abx cefipime
Sputum cultures showed normal vicki, urine culture also with normal vicki
d/t persistent progressive leukocytosis, abx restarted with zosyn
Appreciate ID input, back on empiric Zosyn 02/05
#Metabolic Alkalosis resolved
Diamox treatment completed
#Hypernatremia
treated with free water flush and IV dextrose as per nephro
since resolved, IVF completed,
cont FWF 50 cc/h as per Nephro
#Hypokalemia
continue scheduled repletions
monitor and provide additional repletions as necessary
#Paroxysmal atrial fibrillation
Status post permanent pacemaker
Patient has been bradycardic, metoprolol held
Pacemaker interrogated and functioning normally
Currently paced, although her atrial lead does not capture except for intermittently high output
Since she is critically ill, cardiology rec not adding a new atrial lead at this time
Continue Eliquis reduced to 2.5 mg BID renal dosing d/t Cr>=1.5 and age>=80, since resumed 5 mg BID with improvement in Cr level <1.5
cont amiodarone taper as per Cardio
-200 mg TID x1 wk (02/06/24 last day)
-200 mg BID x 1 wk (02/13/24 last day)
-then 200 mg daily (start 02/14/24)
#Hyperglycemic
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
Glycemic control as per ICU
#Chronic lower extremity edema
Compression stockings
#Suspected shingles rash left lateral leg below knee, less likely
on Valtrex prior to admission, held since 01/26 intubation as above,
Discontinued gabapentin
lesion doesn't appear to be consistent with shingles, resolving, no need to restart Valtrex at this time
#Spinal stenosis
#Chronic back pain
#Hypothyroidism
Continue levothyroxine
#Obesity due to excess calories
Affects all aspects of care
DVT prophylaxis�Eliquis
DNR
Updated Ismael/son on phone 02/06, cell phone number [phone]
Total time spent to see the patient on the floor, examine the patient, review data and lab results, discuss treatment plan with patient, nursing staff around 54 minutes.
Physical Exam
General: Morbidly obese
HEENT: Normocephalic, Atraumatic, pinpoint pupils b/l, intubated
Respiratory: clear to auscultation b/l some rhonchi noted
Cardiac: Normal S1/S2, Regular Rate and Rhythm
GI: Soft, Nontender, Nondistended, Normal Bowel Sounds
Extremities: No Clubbing, Cyanosis, lower ext pitting edema +2 b/l, compression stockings in place
Neuro: Lethargic arousable responsive to verbal physical stimuli but noncommunicative not following commands, spontaneous eye movements noted
Anticipated Discharge: > 48 hours
Subjective/Interval History
-
Date of Service: February 07, 2024
Patient is intubated, remains off of sedation. Now requiring Levophed. Had a fever at 100.6 at 4:46 AM today.
Objective Data
-
Labs:
Laboratory Results
02/07/24
03:31
WBC 13.7 H
Hgb 9.1 L
Hct 26.9 L
Plt Count 96 L
HCO3 29.0 H
Sodium 142
Potassium 4.0
Chloride 105
Carbon Dioxide 28
BUN 47 H
Creatinine 1.0
Glucose 110 H
Calcium 7.9 L
Vital Signs:
Vital Signs
Temp Pulse Resp BP Pulse Ox
100 F 63 97 141/48 98
02/07/24 08:44 02/07/24 08:53 02/07/24 07:39 02/07/24 08:53 02/07/24 08:00
I&O
02/06/24 02/07/24 02/08/24
06:59 06:59 06:59
Intake Total 3485.00 / 3760.30 3174.4 / 3294.2 250.8 / 250.8
Output Total 5150 / 5325 4105 / 4205 200 / 200
Balance -1665.00 / -1564.70 -930.6 / -910.8 50.8 / 50.8
--- NOTE | 2024-02-07 09:39 | W.PN.NEPH.PH ---
Today's Communication / Plan
-
cont bumex
Assessment/Plan
-
IMP:
Acute kidney injury superimposed on stage IIIb chronic kidney disease
Acute on Chronic heart failure with a preserved ejection fraction
Acute hypoxic resp failure
Chronic lower extremity edema
Paroxysmal atrial fibrillation
Status post permanent pacemaker
Nausea/vomiting
Generalized weakness
Hypokalemia
Suspected shingles rash
Spinal stenosis
Chronic back pain
Hypothyroidism
Obesity due to excess calories
?metolazone causing pancytopenia 12/2023
Plan:
Urine output greater than 5 L
Creatinine remains normal at 1
Maintain Bumex 2 mg IV twice daily for pulmonary edema
sodium stable cont FWF at 50cc/hr
k normal on BID kcl
follow BMP and h/h
keep MAP > 65, titrate pressors as needed
abx per ID
Patient critically ill is still hypoxic on vent with decompensated congestive heart failure
critical care time 31 minutes
need GOC discussion
d/w nursing
-
-
Date of Service: February 07, 2024
CC / HPI / ROS
-
Chief Complaint:
EULOGIO, CKD
History of Present Illness:
EULOGIO/Cr stable 1.0
Hemodynamically unstable on pressors
Nonoliguric , wt decreasing
Remains intubated
Hypernatremia stable at 142
hb low 9.1
Review of Systems:
intubated sedated, Fio2 80%
No fevers
Nonoliguric via Vickers
Labs
-
Labs:
WBC 13.7 10^3/uL (4.8-10.8) H 02/07/24 03:31
RBC 3.10 10^6/uL (4.20-5.40) L 02/07/24 03:31
Hgb 9.1 g/dL (12.0-16.0) L 02/07/24 03:31
Hct 26.9 % (37.0-47.0) L 02/07/24 03:31
Plt Count 96 10^3/uL (130-400) L 02/07/24 03:31
Sodium 142 mmol/L (135-145) 02/07/24 03:31
Potassium 4.0 mmol/L (3.5-5.1) 02/07/24 03:31
Chloride 105 mmol/L (98-107) 02/07/24 03:31
Carbon Dioxide 28 mmol/L (22-30) 02/07/24 03:31
BUN 47 mg/dl (7-17) H 02/07/24 03:31
Creatinine 1.0 mg/dL (0.6-1.0) 02/07/24 03:31
eGFR 54.53 02/07/24 03:31
Glucose 110 mg/dl (70-99) H 02/07/24 03:31
Calcium 7.9 mg/dl (8.4-10.2) L 02/07/24 03:31
Phosphorus 3.1 mg/dl (2.5-4.5) 02/07/24 03:31
Bns-Z-Llsyczmfkne Pept 2660 pg/ml 01/27/24 01:25
Physical Exam
-
Vital Signs:
Vital Signs
Temp Pulse Resp BP Pulse Ox
100 F 63 97 141/48 98
02/07/24 08:44 02/07/24 08:53 02/07/24 07:39 02/07/24 08:53 02/07/24 08:00
Cardiovascular:: Regular rate and rhythm
Respiratory:: Bilateral: Rhonchi
Lung Excursion:: Abnormal
Abdomen:: Nontender and Soft
Extremity Edema:: +1: Bilateral:
Vickers Catheter: Yes
[2024-02-07 11:20] LABS: Glucose - Point of Care 165 mg/dl (70-99)
--- NOTE | 2024-02-07 12:15 | PTCARENOTE ---
DNR bracelet applied to right wrist. No major changes in physical assessment. Pt remains intubated w/ levophed and insulin gtts infusing. Will continue to monitor closely.
[2024-02-07] MEDS: SOLU-CORTEF 50 MG IV ×3 (13:28→23:16)
--- NOTE | 2024-02-07 14:13 | CM ---
CM following re: discharge planning.
Discussed in Rounds reviewed pt's chart, met with pt. Per Rounds meeting, pt continues to be critically ill, remains intubated, on pressors, spontaneous breathing trial today, continue supportive care.
D/C plan: uncertain at this time and will depend on pt's progress
CM will follow with discharge plan updates as hospitalization progresses
[2024-02-07] MEDS: NOVOLIN R INSULIN INFUSION 100 IV (14:57)
[2024-02-07 15:15] LABS: Glucose - Point of Care 152 mg/dl (70-99)
[2024-02-07 15:15] LABS: Glucose - Point of Care 108 mg/dl (70-99)
--- NOTE | 2024-02-07 16:15 | PTCARENOTE ---
No major changes in physical assessment. Pt scheduled for CT head/chest/abdomen today. Remains on insulin and levophed gtts. Safe environment confirmed. Will continue to monitor closely.
[2024-02-07 17:09] LABS: Glucose - Point of Care 167 mg/dl (70-99)
[2024-02-07] MEDS: NOVOLOG FLEXPEN 5 UNITS SC ×2 (17:47→23:55)
[2024-02-07 19:15] LABS: Glucose - Point of Care 149 mg/dl (70-99)
[2024-02-07] MEDS: NSS (PRESERVATIVE FREE) 0.25 ML IV (19:32)
[2024-02-07 19:41] VITALS: BP 145/84
[2024-02-07 20:00] VITALS: BP 145/84
--- NOTE | 2024-02-07 20:00 | PTCARENOTE ---
Rec'd pt on lat rotation bed, eyes open spont, no response to commands, occas movement noted upper extremities, DIVYA 3mm, sluggish, 1930- ativan 0.5 mg iv given for incr RR, 1' AV block, pac's, Left rad real w/ good wave form, flushes well, zeroed,
accurate to cuff, goal MAP > 65 w/ levophed- see f;ow sheet for titrations, weak distal pulses, + anasarca,, skin warm/dry, #8 oral ett- moved to R lip at 22cm, ac 14, tv 420, 8 peep, fio2 incr to 90% by resp therapist for sat 89;lungs coarse
rhonchi, decr, suct for blood tinged secretions, + bowel sounds, rectal trumpet to str drainage bag draining brown liquid stool, abd obese, left nares dobhoff- rec osmolyte 1.2 at 55 ml/hr & 50 ml/hr h20 flush, joyce draining yellow urine, On
Insulin gtt- see flow sheet for titrations, q2hr accu
[2024-02-07 21:19] LABS: Glucose - Point of Care 132 mg/dl (70-99)
[2024-02-07 23:04] LABS: Glucose - Point of Care 112 mg/dl (70-99)
--- NOTE | 2024-02-08 | PTCARENOTE ---
sys reviewed, changes noted, fent 25 neema IV given for cpot real small tubing & dsg changed, CHG bath done, linens changed
[2024-02-08 00:06] LABS: Glucose - Point of Care 124 mg/dl (70-99)
--- NOTE | 2024-02-08 00:40 | PTCARENOTE ---
RR 40, sat 88, fio2 incr to 100% by resp therapist;ativan 0.5 mg iv given as ordered
[2024-02-08] MEDS: ATIVAN 0.5 MG IV ×2 (00:43→04:56)
[2024-02-08 01:01] LABS: Glucose - Point of Care 94 mg/dl (70-99)
[2024-02-08] MEDS: ZOSYN 50 IV ×2 (01:46→07:41)
[2024-02-08 02:00] LABS: Glucose - Point of Care 83 mg/dl (70-99)
[2024-02-08] MEDS: LEVOPHED 250 IV (02:36)
[2024-02-08 03:04] LABS: Glucose - Point of Care 134 mg/dl (70-99)
[2024-02-08 03:38] LABS: Hemoglobin 9.6 g/dL (12.0-16.0); Mean Corpuscular Hgb 27.7 pg (27.0-31.0); Mean Corpuscular Volume 89.3 fL (81.0-99.0); Mean Platelet Volume 12.8 fL (7.4-10.4); Platelet Count 137 10^3/uL (130-400); Red Blood Cell Count 3.47 10^6/uL (4.20-5.40); Red Cell Dist. Width 19.5 % (11.5-14.5); White Blood Cell Count 17.3 10^3/uL (4.8-10.8)
[2024-02-08] MEDS: SUBLIMAZE 25 MCG IV ×3 (03:48→09:03)
[2024-02-08] MEDS: SYNTHROID 125 MCG TUBE (03:50)
--- NOTE | 2024-02-08 03:56 | PTCARENOTE ---
sys reviewed, percussion done, fent 25mic given for CPOt 5
[2024-02-08 03:57] LABS: Blood Urea Nitrogen 49 mg/dl (7-17); Calcium 8.4 mg/dl (8.4-10.2); Carbon Dioxide 28 mmol/L (22-30); Chloride 103 mmol/L (98-107); Estimated Creatinine Clearance 45 ml/min; Glucose 171 mg/dl (70-99); Magnesium 1.9 mg/dl (1.6-2.3); Phosphorus 3.6 mg/dl (2.5-4.5); Potassium 4.5 mmol/L (3.5-5.1); Sodium 142 mmol/L (135-145); eGFR 48.63
[2024-02-08 03:59] VITALS: BMI 49.8
[2024-02-08 04:03] LABS: Glucose - Point of Care 150 mg/dl (70-99)
[2024-02-08 04:46] LABS: % Basophils 0.2 % (0-2); % Immature Granulocytes 7.5 % (0-0.5); % Lymphocytes 2.1 % (20.5-51.1); % Neutrophils 81.2 % (42.2-75.2); Absolute Immature Granulocytes 1.3 10^3/uL (0-0.05); Absolute Lymphocytes 0.4 10^3/uL (1.2-3.4); Absolute Monocytes 1.6 10^3/uL (0.1-0.6); Nucleated Red Blood Cells % 0 %
--- NOTE | 2024-02-08 04:56 | PTCARENOTE ---
ativan 0.5 mg iv given for RR 2, sat 88
[2024-02-08] MEDS: SOLU-CORTEF 50 MG IV ×2 (05:02→12:01)
[2024-02-08] MEDS: NOVOLOG FLEXPEN SC (05:59)
[2024-02-08 06:08] LABS: Glucose - Point of Care 71 mg/dl (70-99)
[2024-02-08 07:12] LABS: Glucose - Point of Care 98 mg/dl (70-99)
[2024-02-08] MEDS: BUMEX 2 MG IV ×2 (07:39→12:02)
[2024-02-08] MEDS: PACERONE 200 MG PO (07:40)
[2024-02-08] MEDS: KCL ELIXIR 40 MEQ TUBE (07:40)
[2024-02-08] MEDS: ELIQUIS 5 MG TUBE (07:40)
[2024-02-08] MEDS: NSS (PRESERVATIVE FREE) 10 ML IV (07:40)
[2024-02-08] MEDS: PROTONIX IV 40 MG IV (07:40)
[2024-02-08] MEDS: HYDROPHOR 1 APPLIC TOPICAL (07:41)
[2024-02-08] MEDS: DESENEX/MITRAZOL/ZEASORB 1 APPLIC TOPICAL (07:41)
[2024-02-08] MEDS: DUONEB 3 ML INH ×2 (07:55→13:54)
[2024-02-08 08:12] LABS: Glucose - Point of Care 145 mg/dl (70-99)
--- NOTE | 2024-02-08 08:40 | W.PN.INTV ---
Today's Communication / Plan
Recommendations
Transition to comfort care today with terminal extubation
Stop all medications except those tailored for comfort
Emotional support was provided
Once transitioned to comfort care then printing pressman as pulmonary service will sign off; please call back with any questions or concerns
Assessment
-
88-year-old woman with past medical history noted, initially admitted with weakness. Found to have increased creatinine from baseline. She was rehydrated. Lasix was held for 2 days. Apparently was having some vomiting prior to admission. On
01/26/2024 developed hypoxemia and increased work of breathing. Progressed despite diuretics and required noninvasive mechanical ventilation and transferred to the critical care unit. On 01/27/2024 despite diuresis remained hypoxemic with increased
work of breathing. Critical care was consulted for evaluation.
Impression:
Acute hypoxemic respiratory failure: Suspect multifactorial from acute pulmonary edema and pneumonia
Failed noninvasive mechanical ventilation 01/27/2024
Intubated 01/27/2024.
Acute on chronic heart failure with preserved ejection fraction-weight is elevated from her baseline significantly.
proBNP is elevated
Frothy pinkish secretion on ET tube.
Suspect acute lung injury from aspiration as the patient was vomiting prior to admission: Chest x-ray 01/27/2024 with severe bilateral infiltrates right greater than left.
Pneumonia due to Pseudomonas aeruginosa
Cannot rule out diffuse alveolar hemorrhage - minimal blood seen on ETT suctioning as of 02/06
Hypothermia
Possible UTI: Significantly abnormal urinalysis 01/27/2024.
Acute on chronic kidney disease-possibly cardiorenal.
Conditions present prior admission:
Hypertension
Morbid obesity
Obesity hypoventilation syndrome with chronic hypercapnia-baseline pCO2 50 suspected
Spinal stenosis
Ambulatory dysfunction
Chronic kidney disease
Hyperlipidemia
Carotid artery stenosis
Atrial fibrillation
Sick sinus syndrome status post pacemaker
Heart failure with preserved ejection fraction
Pacemaker in place
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
Chronic hypercapnic respiratory failure-undiagnosed, likely obesity hypoventilation syndrome.
Plan:
Met with family today at bedside including son and 2 daughters --> they are interested in transitioning to comfort care with terminal extubation
CT head obtained yesterday shows no acute intracranial abnormality
CT chest, abdomen, pelvis shows extensive nodular consolidations, and it appears to me to be a multifocal pneumonia with possible underlying process of pulmonary edema/atelectasis, especially with a worsening leukocytosis and fever yesterday morning.
Emotional support was provided to the family; bell attendant was offered but they would like to hold off for now
Will stop all medications and transition to only comfort care medications aimed at avoiding air hunger, treating anxiety/agitation and keeping her comfortable.
I suspect that once she is extubated and pressors have been turned off that she will pass away within minutes�hours, likely on the shorter side of things
Once we have terminally extubated care and she is transition to comfort care, printing pressman/pulmonary service will sign off. Please call back with any questions.
Total time spent today was 42 minutes for this encounter. Time includes reviewing laboratory test/imaging results, reviewing pertinent medical records, obtaining and reviewing medical history, performing an appropriate exam, ordering medications,
tests and procedures. Time also includes documentation of this encounter, coordinating patient care and communicating with other healthcare professionals. Total time does not include separately billed tests performed on this date of service.
Of note, patient was seen and evaluated on 02/08/2024.
Prognosis continues to be quite guarded
Prior [facility] discussions:
Dr. Avendaño updated family members-son who is an emergency room physician 01/30/2024. Still critically ill. Somewhat improved. DNR has been discussed but family not ready for it
Dr. Avendaño discussed with son who is a emergency room physician on 01/28/2024. Improved. Still in critical status. Prognosis is guarded
Discussed with family by Dr. Avendaño 01/27/2024-full code. They understand critical situation.
Dr. Avendaño discussed case with cardiology, primary team, nephrology 01/28/2024.
Extensive discussion with family as well 01/28/2024. I suggested at least a DNR status going forward. They are discussing
Dr. Chong reviewed with son-physician 02/02/2024 extensively-current condition, prognosis, spontaneous breathing trial, mucous plugging, metabolic alkalosis, etc.
Dr. Chong reviewed with son-physician 02/04/2024-discussed persistent decline in mental status, possible need for neurology evaluation, he stated the patient would not want reintubation if extubated-will extubate when we feel clinically
reintubation is less likely-not the case with mental status decline at this time
Dr. Chong updated son-physicians and grandchildren 02/05/2024-persistent mental status decline, need for neurologic evaluation, emphasis on comfort
02/07/2024: Dr. Garrido had a goals of care discussion over the phone with the patient's son, Ismael, and he understands how critically ill the patient is however he is still hopeful that she will be able to be extubated. Does not seem that he is
interested in her getting a trach/PEG. He would like to continue full medical management for now although he did make her DNR/DNI this morning after speaking with the hospitalist. If she is unable to be extubated over the next 1-2 days then he
will likely terminally extubate and transition to comfort care at that time, but will first discuss things with his sister.
Subjective Dataa
Subjective Data
Date of Service:
Date of Service: February 08, 2024
Chief Complaint: Inspector Plug Seam Follow Up (Acute hypoxemic respiratory failure requiring intubation) and Pulmonary Follow Up
Subjective:
Patient was seen and evaluated this morning. Heart rate 65, saturating 96%, and BP 110/47. Remains on vent on AC/VC at: 14/420/8/20%, peak pressure 40veE2E, plateau pressure 95trI9M, VTe 412mL and breathing at 27 breaths/minute. Currently on levo
at 5mcg/min, and insulin at 5 units/hr. Family are en route to the room to have a goals of care discussion.
Review of Systems
General: Unobtainable - Pat Unresp
Objective Data
Data Reviewed
Vital Signs / I&O / Oxygen:
Vital Signs
Temp Pulse Resp BP Pulse Ox
99.0 F 83 38 141/65 90
02/08/24 08:26 02/08/24 08:08 02/08/24 08:08 02/08/24 07:40 02/08/24 08:08
Intake and Output
02/07/24 02/08/24 02/09/24
06:59 06:59 06:59
Intake Total 3174.4 / 3294.2 2842.2 / 2842.2
Output Total 4105 / 4205 3120 / 3120
Balance -930.6 / -910.8 -277.8 / -277.8
SaO2 [CPAP/PSV] 92
SaO2 [A/C] 90
SaO2 90
Nasal Cannula flow liters per 15
minute
Physical Exam
General: Respiratory Distress (n), Chills (negative) and Sweats (negative)
HEENT: Normocephalic, Anicteric and Other (ET tube in place)
Cardiovascular: S1-S2 and Peripheral Edema (Negative)
Respiratory: Wheeze (negative), Crackles (negative), Rhonchi (Bilaterally), Non-Labored Respirations and ET Tube (Mechanical breath sounds heard bilaterally)
GI: Soft, Distended (abdominal obesity), Non Tender and Normal Bowel Sounds
Neurology: Unresponsive and Other (Opens eyes to commands otherwise not following any other commands, not moving any extremities)
Skin: Warm, Dry, Cyanosis (n), Jaundice (n) and Rash (n)
Labs/Micro/Reports
Lab Data
02/08/24 03:12
02/08/24 03:12
Microbiology
02/06/24 11:11 Sputum Respiratory Culture - Preliminary
Pseudomonas aeruginosa
02/06/24 11:11 Sputum Gram Stain - Preliminary
02/06/24 11:10 Nose Nasal Screen MRSA (PCR) - Final
MRSA not detected - performed by PCR methodology.
02/06/24 08:59 Feces/Stool C. difficile GDH Antigen & Toxins - Final
Negative for toxigenic C.difficile
--- NOTE | 2024-02-08 08:57 | PTCARENOTE ---
Addendum entered by Trang Melara RN 02/08/24 10:15:
medicated with dose fentanyl, versed. respiratory distress with improvement, respiratory rate 28-30's
Original Note:
report received, assessments per work list. patient with increased nonverbal pain cues, respiratory distress with stimulation. prn dose fentanyl administered. patient not following commands. moves arms weakly. ett to vent, suctions for moderate
amount cason bloody tinged sputum. tachypneic. desaturation with turning. tolerated percussion per orders. lungs with coarse breath sounds, rubs and crackles throughout. Dobbhoff placement verified by air auscultation. PICC in place, insulin and
Levophed titration per work list documentation.tube feeds per orders. rectal trumpet in place, liquid brown stool. Vickers draining yellow urine. additional dose fentanyl administered. remains tachypneic. clinical documentation specialist updated by israel text, orders
pending
[2024-02-08] MEDS: NOVOLIN R INSULIN INFUSION 100 IV (09:03)
--- NOTE | 2024-02-08 09:03 | W.PN.ID1 ---
Date of Service
Date of Service: February 08, 2024
Today's Communication
dose of zosyn adjusted for pseudomonas
Assessment / Plan
Vent Assc Pneumonia
Leukocytosis
Hypoxemic Resp Failure
- getting core Ts - fever via this route defined as over 101.0
- steroids may contribute to leukocytosis
- pressors overall dose declined from last evening
- sputum culture - Pseudomonas
- UA without pyuria
- agree with empiric zosyn - dose adjusted for Pseudomonas
- note poor overall prognosis per neurology
Chief Complaint
-: Leukocytosis
Subjective / Review of Systems
continues with core Ts - no cathie fevers
remains on pressors - dose overall improved from peak yesterday of 8 mcg/min - currently at 5 mcg/min
increasing pressors doses after ativan and fentanyl
Vital Signs / Physical Exam
Vital Signs
Vital Signs
Temp Pulse Resp BP Pulse Ox
99.0 F 83 38 141/65 90
02/08/24 08:26 02/08/24 08:08 02/08/24 08:08 02/08/24 07:40 02/08/24 08:08
Physical Exam
Constitutional: Acutely Ill and Toxic
Cardiovascular: Regular Rate and S1/S2; Negative Murmur or Rub
Pulmonary: Coarse; Negative Wheezes or Rales
Gastrointestinal: Soft, Non Tender, Non Distended and Normal Bowel Sounds
Skin: Warm and Dry; Negative Rash or Jaundice
Neurological: Negative Awake
Objective Data
Lab Data
Lab Results
02/08/24 03:12
02/08/24 03:12
PT 24.0 Sec (11.4-14.6) H 01/27/24 04:10
INR 2.12 01/27/24 04:10
APTT 38.8 Sec (23.4-35.0) H 01/27/24 04:10
Estimated Creat Clear 45 ml/min 02/08/24 03:12
Lactic Acid 1.3 mmol/L (0.7-2.0) 01/27/24 12:53
Most recent labs reviewed
increasing L shift
Micro Results:
02/06/24 11:11 Respiratory Culture - Preliminary
Sputum Pseudomonas aeruginosa - few
Gram Stain - Preliminary
02/06/24 11:10 Nasal Screen MRSA (PCR) - Final
Nose MRSA not detected - performed by PCR methodology.
02/06/24 08:59 C. difficile GDH Antigen & Toxins - Final
Feces/Stool Negative for toxigenic C.difficile
01/27/24 16:56 Respiratory Culture - Final
Tracheal Aspirate Usual Respiratory Adeola
Gram Stain - Final
01/27/24 03:32 Urine Culture - Final
Urine
01/24/24 21:25 MRSA Screen - Final
Nose No Methicillin Resistant Staphylococcus aureus isolated.
[2024-02-08 09:10] LABS: Glucose - Point of Care 154 mg/dl (70-99)
--- NOTE | 2024-02-08 09:15 | W.PN.HOSP.TC ---
Today's Communication/Plan
-
Plan for terminal extubation today
Assessment / Plan
Assessment / Plan
HPI: 88-year-old female with a past medical history of atrial fibrillation, permanent pacemaker, heart failure with preserved ejection fraction, CKD and morbid obesity presents with generalized weakness. Patient lives with her daughter, who brought
her in because she is too weak to even go to the bathroom. Patient was recently treated at [facility] for CHF exacerbation, and released on 12/24/2023. Daughter reports that patient has been increasingly weak. She was recently started on
gabapentin for lower back pain. Daughter feels that she is having side effects, and is tapering her off the gabapentin. Patient is also on Valtrex for suspected herpes zoster rash. Daughter reports patient had an episode of nausea and vomiting
today. Daughter also reports that she is less responsive. Patient does admit to being dizzy with any type of movement. Patient denies chest pain, denies shortness of breath. No abdominal pain, no dysuria.
#Acute hypoxic respiratory failure
Multifactorial, due to heart failure and acute lung injury from aspiration
Transferred to ICU 01/25. Intubated 01/26
Appreciate african history professor input, continue vent management as per african history professor
01/28 tube feeds started. cont
Lt upper lobe atelectasis noted 01/31 likely mucus plug since resolved on repeat CXR 02/01, cont percussion therapy as per ICU
Started on SBT 02/02, cont daily as per ICU
Tolerating breathing trials however mental status concerning consistently noncommunicative not following commands despite discontinuation sedation
Appreciate neurology input, no hope for meaningful neurologic recovery
Inform son of patient's poor prognosis, son/Ismael agreed to DNR in 02/06
Family at bedside, plan for terminal extubation today
#Acute pulmonary edema
#Acute heart failure with a preserved ejection fraction
#Cardiorenal syndrome
#Acute kidney injury superimposed on stage IIIb chronic kidney disease
Appreciate nephrology input, Bumex drip Diuril placed on hold d/t progressive hypernatremia. Weight trending down
Cardiology eval appreciated, 01/27 echo EF 55-60%, no gross abnormalities
Trend creatinine, trend daily weights
Stop IV Bumex
#Cardiogenic shock
Continue IV steroids taper as per ICU
Stop Levophed
#Concern for aspiration pneumonia -suspect present upon admission
completed 7 days IV abx cefipime
Sputum cultures showed normal vicki, urine culture also with normal vicki
d/t persistent progressive leukocytosis, abx restarted with zosyn
Appreciate ID input, back on empiric Zosyn 02/05
Stop antibiotics
#Metabolic Alkalosis resolved
Diamox treatment completed
#Hypernatremia
treated with free water flush and IV dextrose as per nephro
since resolved, IVF completed
#Hypokalemia
continue scheduled repletions
monitor and provide additional repletions as necessary
#Paroxysmal atrial fibrillation
Status post permanent pacemaker
Patient has been bradycardic, metoprolol held
Pacemaker interrogated and functioning normally
Currently paced, although her atrial lead does not capture except for intermittently high output
Since she is critically ill, cardiology rec not adding a new atrial lead at this time
Continue Eliquis reduced to 2.5 mg BID renal dosing d/t Cr>=1.5 and age>=80, since resumed 5 mg BID with improvement in Cr level <1.5
cont amiodarone taper as per Cardio
-200 mg TID x1 wk (02/06/24 last day)
-200 mg BID x 1 wk (02/13/24 last day)
-then 200 mg daily (start 02/14/24)
-Stop Eliquis/amiodarone
#Hyperglycemic
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
Glycemic control as per ICU
#Chronic lower extremity edema
Compression stockings
#Suspected shingles rash left lateral leg below knee, less likely
on Valtrex prior to admission, held since 01/26 intubation as above,
Discontinued gabapentin
lesion doesn't appear to be consistent with shingles, resolving, no need to restart Valtrex at this time
#Spinal stenosis
#Chronic back pain
#Hypothyroidism
Continue levothyroxine
#Obesity due to excess calories
Affects all aspects of care
DVT prophylaxis�Eliquis
DNR
Updated Ismael/son on phone 02/06, cell phone number [phone]
Appreciate african history professor updating family 02/07
Total time spent to see the patient on the floor, examine the patient, review data and lab results, discuss treatment plan with patient, nursing staff around 50 minutes.
Physical Exam
General: Morbidly obese
HEENT: Normocephalic, Atraumatic, pinpoint pupils b/l, intubated
Respiratory: clear to auscultation b/l some rhonchi noted
Cardiac: Normal S1/S2, Regular Rate and Rhythm
GI: Soft, Nontender, Nondistended, Normal Bowel Sounds
Extremities: No Clubbing, Cyanosis, lower ext pitting edema +2 b/l, compression stockings in place
Neuro: Lethargic arousable responsive to verbal physical stimuli but noncommunicative not following commands, spontaneous eye movements noted
Anticipated Discharge: Today
Subjective/Interval History
-
Date of Service: February 08, 2024
Patient continues to be nonresponsive. No fever, no vomiting.
Objective Data
-
Labs:
Laboratory Results
02/08/24
03:12
WBC 17.3 H
Hgb 9.6 L
Hct 31.0 L
Plt Count 137 D
Sodium 142
Potassium 4.5
Chloride 103
Carbon Dioxide 28
BUN 49 H
Creatinine 1.1 H
Glucose 171 H
Calcium 8.4
Vital Signs:
Vital Signs
Temp Pulse Resp BP Pulse Ox
99.0 F 83 38 141/65 90
02/08/24 08:26 02/08/24 08:08 02/08/24 08:08 02/08/24 07:40 02/08/24 08:08
I&O
02/07/24 02/08/24 02/09/24
06:59 06:59 06:59
Intake Total 3174.4 / 3294.2 2842.2 / 2842.2
Output Total 4105 / 4205 3120 / 3120
Balance -930.6 / -910.8 -277.8 / -277.8
[2024-02-08] MEDS: SUBLIMAZE 100 MCG IV ×2 (09:37→16:20)
[2024-02-08] MEDS: VERSED 2 MG IV (09:37)
[2024-02-08 10:11] LABS: Glucose - Point of Care 128 mg/dl (70-99)
--- NOTE | 2024-02-08 11:19 | W.PN.NEPH.PH ---
Today's Communication / Plan
-
extra dose of bumex
Assessment/Plan
-
IMP:
Acute kidney injury superimposed on stage IIIb chronic kidney disease
Acute on Chronic heart failure with a preserved ejection fraction
Acute hypoxic resp failure
Chronic lower extremity edema
Paroxysmal atrial fibrillation
Status post permanent pacemaker
Nausea/vomiting
Generalized weakness
Hypokalemia
Suspected shingles rash
Spinal stenosis
Chronic back pain
Hypothyroidism
Obesity due to excess calories
?metolazone causing pancytopenia 12/2023
Plan:
Creatinine remains normal at 1.1
wt decreasing but diuretic response decreasing
will give additional dose of bumex, possible diuril as she is still at 100% Fio2
sodium stable cont FWF at 50cc/hr
k normal on BID kcl
follow BMP and h/h
BP stable , prn pressors
CT c/a/p noted, bilat extensive or central prominent nodular consolidations with surrounding groundglass opacities severe pulmonary edemavs atelectasis over multifocal infectious process
abx per ID
Patient critically ill is still hypoxic on vent with decompensated congestive heart failure
critical care time 31 minutes
DNR status
d/w nursing
-
-
Date of Service: February 08, 2024
CC / HPI / ROS
-
Chief Complaint:
EULOGIO, CKD
History of Present Illness:
EULOGIO/Cr stable 1.1, k normal
Hemodynamically stable off pressor
Nonoliguric , wt decreasing
Remains intubated
Hypernatremia stable at 142
hb low 9.6
increased resp distress noted
Review of Systems:
intubated sedated, Fio2 100%, PEEP 8
febrile on 02/06 am
Nonoliguric via Vickers
loose Bms in rectal tube
Labs
-
Labs:
WBC 17.3 10^3/uL (4.8-10.8) H 02/08/24 03:12
RBC 3.47 10^6/uL (4.20-5.40) L 02/08/24 03:12
Hgb 9.6 g/dL (12.0-16.0) L 02/08/24 03:12
Hct 31.0 % (37.0-47.0) L 02/08/24 03:12
Plt Count 137 10^3/uL (130-400) D 02/08/24 03:12
Sodium 142 mmol/L (135-145) 02/08/24 03:12
Potassium 4.5 mmol/L (3.5-5.1) 02/08/24 03:12
Chloride 103 mmol/L (98-107) 02/08/24 03:12
Carbon Dioxide 28 mmol/L (22-30) 02/08/24 03:12
BUN 49 mg/dl (7-17) H 02/08/24 03:12
Creatinine 1.1 mg/dL (0.6-1.0) H 02/08/24 03:12
eGFR 48.63 02/08/24 03:12
Glucose 171 mg/dl (70-99) H 02/08/24 03:12
Calcium 8.4 mg/dl (8.4-10.2) 02/08/24 03:12
Phosphorus 3.6 mg/dl (2.5-4.5) 02/08/24 03:12
Cne-J-Rulgsychdxh Pept 2660 pg/ml 01/27/24 01:25
Physical Exam
-
Vital Signs:
Vital Signs
Temp Pulse Resp BP Pulse Ox
99.0 F 81 36 141/65 93
02/08/24 08:26 02/08/24 09:30 02/08/24 09:30 02/08/24 07:40 02/08/24 09:30
Cardiovascular:: Regular rate and rhythm
Respiratory:: Bilateral: Coarse and Bilateral: Rhonchi
Lung Excursion:: Abnormal
Abdomen:: Nontender and Soft
Extremity Edema:: +1: Bilateral:
Vickers Catheter: Yes
[2024-02-08] MEDS: SUBLIMAZE 50 MCG IV ×3 (12:00→14:09)
[2024-02-08] MEDS: SUBLIMAZE 100 IV (12:01)
[2024-02-08] MEDS: NOVOLOG FLEXPEN 5 UNITS SC (12:02)
[2024-02-08 12:07] LABS: Glucose - Point of Care 99 mg/dl (70-99)
--- NOTE | 2024-02-08 12:18 | PTCARENOTE ---
reassessed. fentanyl bolus and gtt initaited for patient comfort.
[2024-02-08] MEDS: LANTUS 0.12 UNITS SC (12:21)
[2024-02-08] MEDS: ZOSYN 100 IV (14:01)
[2024-02-08 14:12] LABS: Glucose - Point of Care 180 mg/dl (70-99)
--- NOTE | 2024-02-08 15:46 | W.PN.UPDATE ---
Update Note
Progress Note Update
Family was at bedside this afternoon and I discussed patient's critically ill status with the patient's son, Ismael, as well as 2 daughters, Zoila and Emma. They are interested in transitioning to comfort care with terminal extubation. They do not
want their mother to suffer anymore. They have thought about this and discussed this in detail prior to arrival today. I answered all their questions. I offered residency coordinator for alevism services but they are not interested as 'mom was not a
alevism person.' Primary hospitalist, Dr. Salazar, made aware of plan for terminal extubation and transition to comfort care. Given the patient is currently on vasopressors and 100% FiO2, I suspect that she will likely pass away within minutes to
hours. If for some reason patient does not pass away by tonight then would recommend hospice consultation tomorrow. Otherwise, patient to be transferred to [facility], with transfer held initially in case she is actively dying. Primary nurse made
aware of plan. Emotional support provided to the family.
--- NOTE | 2024-02-08 16:21 | PTCARENOTE ---
patient to be transitioned to comfort care, family declines need for meat wrapper. to be premedicated prior to extubation, levophed off, tube feeds d/c
[2024-02-08] MEDS: ATIVAN 2 MG IV (16:22)
[2024-02-08] MEDS: NSS (PRESERVATIVE FREE) 1 ML IV (16:23)
--- NOTE | 2024-02-08 16:28 | PTCARENOTE ---
premedicated as ordered for terminal extubation. Fentanyl drip @ 75mcg/hr via right DL PICC. DHT removed, joyce remained for end of life care and nasal trumpet AR remains.
--- NOTE | 2024-02-08 16:36 | RESPNOTE ---
terminal extubation performed at 16:30.
--- NOTE | 2024-02-08 17:00 | PTCARENOTE ---
Dr. Shabana Salazar notified that the pt has no spontaneous RR or heart tones since 1655. Family at the bedside.
--- NOTE | 2024-02-08 17:16 | W.PN.DEATH ---
Pronouncement of
-
Called to see patient to pronounce.
No spontaneous heart tones or respirations noted.
Patient not responsive to verbal stimuli.
Patient is pronounced .
Time of : 16:56
Date of : 02/08/24
Cause of : Acute hypoxic respiratory failure
Family Notified: Yes
--- NOTE | 2024-02-08 17:17 | W.DCSUMMARY ---
Discharge Summary
Discharge Data
Date of Admission: 01/24/24
Date of Discharge: 02/08/24
-
Pending Results: No
Hospital Course
diagnosis:
Acute hypoxic respiratory failure
Acute pulmonary edema
Acute heart failure with a preserved ejection fraction
Cardiorenal syndrome
Acute kidney injury superimposed on stage IIIb chronic kidney disease
Cardiogenic shock
Acute lung injury
Suspected aspiration
Paroxysmal atrial fibrillation on Eliquis
Nausea and vomiting
Generalized weakness
Hyponatremia
Hypokalemia
Chronic lymphedema
Type 2 diabetes
Spinal stenosis
Chronic back pain
Suspected shingles
Hypothyroidism
Obesity due to excess calories
Date of expiration: 02/08/2024
Time of expiration: 16:56
Consults: Nephrology, community living instructor, cardiology, ID, neurology
Hospital course:
88-year-old female with a past medical history of CHF, stage IIIb CKD, atrial fibrillation on Eliquis, chronic lymphedema, type 2 diabetes, chronic back pain, spinal stenosis, and obesity initially presented for generalized weakness and vomiting.
Due to her vomiting, her Lasix was held. She was seen in conjunction with PT, who recommended short-term rehab.
Patient also had acute kidney injury superimposed on stage IIIb chronic kidney disease. Patient was seen in conjunction with nephrology, who felt that she was fluid overloaded and has cardiorenal syndrome. She was ordered IV Lasix. Her hospital
course quickly deteriorated despite receiving IV Lasix. She became hypoxic, and placed on BiPAP. She was transferred to the ICU, and intubated. She was treated with an IV Bumex drip.
Patient was also seen in conjunction with cardiology and the community living instructor. She received IV antibiotics for suspected aspiration during her vomiting. The community living instructor suspects she has acute lung injury. She also was treated with IV steroids, and
Levophed.
After several days, she was putting out fluid. She was weaned off of Levophed. Her hospital course was complicated by intermittent periods of hypoxia. She was unable to be weaned off of the ventilator. She was seen in conjunction with neurology,
who states that she has a very poor prognosis, with no hope for meaningful neurologic recovery. This was conveyed to the patient's family. The patient's family subsequently wished to terminally extubate her on 02/08/2024, and she peacefully
. Her family was at bedside, condolences offered.
Discharge Plan
-
Activity Restrictions/Additional Instructions:
Wound Care Instructions
L lateral lower leg: clean with saline, silicone foam or dry dressing change q 3 days and prn soilage.
mineral oil to legs daily
Tubigrip G both legs knee high.
fungal powder in skin folds bid
leg elevation when sitting
Referrals:
Laith Rojas MD [Family Provider] -
Prescriptions:
No Action
atorvastatin 10 MG tablet
10 mg PO QPM
levothyroxine 125 MCG tablet
125 mcg PO DAILY
felodipine 10 MG tablet extended release 24 hr
10 mg PO QPM
Eliquis 5 MG tablet
5 mg PO BID Qty: 60 11RF
amiodarone [Pacerone] 200 MG tablet
200 mg PO QPM
metoprolol succinate 25 MG tablet extended release 24 hr
25 mg PO QPM
furosemide [Lasix] 80 mg Tablet
80 mg PO BID
potassium chloride 20 mEq tablet extended release
40 meq PO BID
polyethylene glycol 3350 [Miralax] 17 gram Powder In Packet
17 g PO DAILYPRN PRN (Reason: constipation)
valacyclovir 1 gram Tablet
1,000 mg PO Q8H
Patient Comments:
01/24/24: filled 01/20/24, to take for 7 days
Rx Instructions:
7 DAY COURSE 01/19-01/25
acetaminophen [Tylenol Extra Strength] 500 mg Tablet
1,000 mg PO Q6HPRN PRN (Reason: mild pain)
docusate sodium [Colace] 100 mg Capsule
200 mg PO DAILYPRN PRN (Reason: constipation)
gabapentin 100 mg Capsule
100 mg PO DAILYPRN PRN (Reason: moderate pain)
Patient Comments:
01/24/24: Family trying to taper this medication, due to side effects
melatonin 5 mg Tablet
5 mg PO HS
spironolactone 25 mg tablet
12.5 mg PO DAILY
Discharge Date and Time
Print Language: CHINESE
== END 2024-02-08 16:56 | disposition expired | DRG 207 ==
LOC: ICU 18:17
PROVIDERS: Internal Medicine; Internal Medicine Critical Care Medicine; Nurse Practitioner Family; Nurse Practitioner Gerontology; Nurse Practitioner Primary Care; Specialist; ADMITTING PHYSICIAN Family Medicine; CONSULT PHYSICIAN Internal Medicine; CONSULT PHYSICIAN Internal Medicine Cardiovascular Disease; CONSULT PHYSICIAN Internal Medicine Critical Care Medicine; CONSULT PHYSICIAN Psychiatry & Neurology Neurology; CONSULT PHYSICIAN Student in an Organized Health Care Education/Training Program; EMERGENCY PHYSICIAN Student in an Organized Health Care Education/Training Program; FAMILY PHYSICIAN Family Medicine
PROC: 5A19054 Respiratory Ventilation, Single, Nonmechanical (ICD-10-PCS; 2024-01-26)
PROC: 5A09357 Assistance with Respiratory Ventilation, Less than 24 Consecutive Hours, Continuous Positive Airway Pressure (ICD-10-PCS; 2024-01-27)
PROC: 5A1955Z Respiratory Ventilation, Greater than 96 Consecutive Hours (ICD-10-PCS; 2024-01-27)
PROC: 0BH17EZ Insertion of Endotracheal Airway into Trachea, Via Natural or Artificial Opening (ICD-10-PCS; 2024-01-27)
DX: J69.0 Pneumonitis due to inhalation of food and vomit (principal); D61.811 Other drug-induced pancytopenia; I50.33 Acute on chronic diastolic (congestive) heart failure; J96.01 Acute respiratory failure with hypoxia; N17.9 Acute kidney failure, unspecified; Z68.43 Body mass index [BMI] 50.0-59.9, adult; I13.0 Hypertensive heart and chronic kidney disease with heart failure and stage 1 through stage 4 chronic kidney disease, or unspecified chronic kidney disease; N39.0 Urinary tract infection, site not specified; E87.1 Hypo-osmolality and hyponatremia; I48.21 Permanent atrial fibrillation; E87.3 Alkalosis; J98.11 Atelectasis; R04.89 Hemorrhage from other sites in respiratory passages; J96.12 Chronic respiratory failure with hypercapnia; G93.1 Anoxic brain damage, not elsewhere classified; J95.851 Ventilator associated pneumonia; Z51.5 Encounter for palliative care; E66.01 Morbid (severe) obesity due to excess calories; E03.9 Hypothyroidism, unspecified; E11.22 Type 2 diabetes mellitus with diabetic chronic kidney disease; N18.32 Chronic kidney disease, stage 3b; I65.29 Occlusion and stenosis of unspecified carotid artery; I34.0 Nonrheumatic mitral (valve) insufficiency; R57.0 Cardiogenic shock; I49.5 Sick sinus syndrome; B02.9 Zoster without complications; T50.2X5A Adverse effect of carbonic-anhydrase inhibitors, benzothiadiazides and other diuretics, initial encounter; E78.00 Pure hypercholesterolemia, unspecified; E86.0 Dehydration; E87.6 Hypokalemia; G89.29 Other chronic pain; M54.50 Low back pain, unspecified; E66.813 Obesity, class 3; J15.1 Pneumonia due to Pseudomonas; R11.2 Nausea with vomiting, unspecified; R26.2 Difficulty in walking, not elsewhere classified; R45.1 Restlessness and agitation; I89.0 Lymphedema, not elsewhere classified; K59.00 Constipation, unspecified; M48.00 Spinal stenosis, site unspecified; Z95.0 Presence of cardiac pacemaker; Z74.01 Bed confinement status; Z79.01 Long term (current) use of anticoagulants; Z79.890 Hormone replacement therapy; Z79.899 Other long term (current) drug therapy; Z87.891 Personal history of nicotine dependence; Z85.3 Personal history of malignant neoplasm of breast; Z88.2 Allergy status to sulfonamides; Z88.6 Allergy status to analgesic agent; Z11.52 Encounter for screening for COVID-19
CPT/HCPCS: 93308; 36600; 70450; 71045; 71046; 71250; 74018; 74176; 80048; 80051; 81003; 81015; 82330; 82570; 82805; 82962; 83036; 83605; 83735; 83880; 83935; 84100; 84132; 84145; 84300; 84302; 84443; 84478; 85025; 85027; 85610; 85730; 87070; 87077; 87086; 87186; 87205; 87324; 87449; 87641; 87811; 93005; 94002; 94003; 94640; 94660; 97167; 97530; 99285; J1205